=== PATIENT | female | born 1940 | race Caucasian/White ===

== ENCOUNTER 2023-01-25 08:38 | Outpatient (OUT) | payer MEDICARE, SELFPAY ==
[2023-01-25 09:17] LABS: Basophils Percent Auto 0.9 % (0.2-2.0); Eosinophils Absolute Auto 0.2 10^3/uL (0.0-0.7); Eosinophils Percent Auto 4.6 % (0.9-7.0); Hematocrit 38.2 % (36.0-48.0); Hemoglobin 12.5 g/dL (12.0-16.0); Immature Granulocytes Abs Auto 0.01 10^3/uL (0.00-0.03); Immature Granulocytes Pct Auto 0.2 % (0.0-0.5); Lymphocytes Absolute Auto 1.8 10^3/uL (1.2-3.8); Mean Corpuscular HGB Conc 32.7 g/dL (29.9-35.2); Mean Corpuscular Hemoglobin 31.6 pg (26.7-34.0); Mean Corpuscular Volume 96.7 fL (81.0-99.0); Mean Platelet Volume 12.1 fL (9.5-13.5); Monocytes Absolute Auto 0.3 10^3/uL (0.3-0.8); Monocytes Percent Auto 5.9 % (1.7-12.0); Neutrophils Absolute Auto 2.3 10^3/uL (1.4-6.5); Neutrophils Percent Auto 50.4 % (43.0-75.0); Platelet Count 174 10^3/uL (150-450); Red Blood Count 3.95 10^6/uL (4.20-5.40); Red Cell Distribution Width 13.5 % (11.0-15.0); White Blood Count 4.6 10^3/uL (4.0-11.0)
[2023-01-25 10:07] LABS: Estimated Average Glucose 226 mg/dL; Glycohemoglobin A1C 9.5 % (4.5-6.2)
[2023-01-25 11:01] LABS: Alanine Aminotransferase 23 U/L (14-59); Albumin Globulin Ratio 0.9; Albumin Level 3.1 g/dL (3.4-5.0); Alkaline Phosphatase 55 U/L (46-116); Anion Gap 13.1; Aspartate Amino Transferase 26 U/L (15-37); BUN Creatinine Ratio 26.9; Bilirubin Total 0.4 mg/dL (0.2-1.0); Calcium 8.9 mg/dL (8.5-10.1); Carbon Dioxide 27.2 mmol/L (21.0-32.0); Chloride 105 mmol/L (98-107); Estimated GFR (African America 35 (>=60); Estimated GFR (Non-African Ame 29 (>=60); Globulin 3.6 g/dL; Glucose 224 mg/dL (74-106); Potassium 4.3 mmol/L (3.5-5.1); Sodium 141 mmol/L (136-145); Total Protein 6.7 g/dL (6.4-8.2)
[2023-01-25 11:12] LABS: Free T3 2.08 pg/mL (2.18-3.98); Thyroid Stimulating Hormone 4.868 uIU/mL (0.358-3.740)
== END 2023-01-25 08:39 ==
PROVIDERS: PCP Nurse Practitioner Family; Visit Provider Nurse Practitioner Family
DX: I10 Essential (primary) hypertension (principal)
CPT/HCPCS: 36415; 80053; 83036; 84436; 84443; 84481; 85025

== ENCOUNTER 2023-02-11 10:47 | Outpatient (OUT) | payer MEDICARE, SELFPAY ==
--- NOTE | 2023-02-11 11:33 | PM.CN ---
Consult Note: HPI Data of Consult Patient: new to practice Consult date: 02/11/23 Requesting Physician: Danny Monroy MD Primary Care Provider: NATHAN JOVEL Consult Narrative Reason for consult: Low back pain, bilateral lower extremity pain Narrative: This is a pleasant 82yof who presents for evaluation. She notes increasing pain that radiates into her bilateral lower extremities. This is worsened with standing and ambulation. She has a history of two previous lumbar surgeries. She denies any recent trauma. She had advanced imaging prior to her surgery, but she has not had any imaging done after her surgeries. She utilizes Tylenol, but cannot take NSAIDs due to her kidney disease. She has completed several rounds of physical therapy and continues to provider directed home exercises, which provide minimal relief. She denies adverse medication side effects or loss of bowel or bladder control. cc:: CC: Danny Monroy MD Review of Systems ROS Status of ROS 10 or more systems reviewed and unremarkable except as noted in history and below Exam Constitutional Common normals: no apparent distress, oriented x3 and healthy appearing Respiratory Common normals: normal respiratory effort Effort & inspection: able to speak in complete sentences Back & Pelvis Other: Tenderness to palpation throughout the lumbar spine and paraspinal musculature. pain is elicited with flexion, extension, and lateral rotation of the lumbar spine. Facet loading maneuvers are positive bilaterally. Strength is noted to be unremarkable throughout the bilateral lower extremities except for decreased strength rated at 4/5 in the bilateral quadriceps femoris, anterior tibialis. Sensation is noted to be unremarkable throughout the bilateral lower extremity except for dysesthesia in the bilateral L3, L4, L5 dermatomal distributions. Coordination was intact. Gait remains nonantalgic. Extremity Common normals: normal to inspection Neuro Common normals: oriented x3, CN's II-XII intact bilaterally and no focal motor deficits Psych Common normals: mental status grossly normal and cooperative Assessment and Plan Assessment and Plan (1) Lumbar stenosis with neurogenic claudication: (2) Lumbar spondylosis: (3) Lumbar postlaminectomy syndrome: (4) Sacroiliac joint dysfunction of both sides: Plan This is a pleasant 82-year-old female who presents for evaluation. She has failed physical and medical modalities, as listed above. We discussed that given her symptomatology and surgical history, she likely had multiple pain generators that contribute to her pain. Given her failure to respond to her physical therapy and continued provider directed home exercises, I would like to update her imaging, given her surgical history. I will have her undergo MRI without contrast, given her kidney disease, as well as an x-ray of the sacrum. She is in agreement with this plan. Medications were reviewed, and no changes were made at this time. She'll follow up after the imaging is complete.
--- NOTE | 2023-02-11 12:03 | XR_ITS ---
The [address] [address] Patient Name: EDILIA HERNANDEZ MRN: [id number] date: 1940 Sex: F Assigned Patient Location: PM Current Patient Location: Accession/Order Number: [id number] Exam Date: 02/11/2023 12:30 Report Date: 02/12/2023 07:23 At the request of: ANDRIUS GIEDRAITIS Procedure: XR sacrum coccyx min 2V PROCEDURE: XR sacrum coccyx min 2V COMPARISON: None. HISTORY: Post laminectomy syndrome FINDINGS: SACRUM: No fracture, disruption of the sacral ala line, or cortical irregularity. COCCYX: No fracture or suspicious alignment. SOFT TISSUES: No widening of the sacroiliac joints. No radiopaque foreign body. OTHER: Degenerative spondylosis of the lumbar spine. Mild bilateral hip osteoarthropathy. Vascular calcifications IMPRESSION: No acute abnormality Electronically authenticated by: RORO BEAR Date: 02/12/2023 07:23
== END 2023-02-11 10:48 | disposition home or self-care (01) ==
LOC: PM 10:48
PROVIDERS: PCP Nurse Practitioner Family; Visit Provider Anesthesiology
DX: M96.1 Postlaminectomy syndrome, not elsewhere classified (principal); M47.816 Spondylosis without myelopathy or radiculopathy, lumbar region; M48.062 Spinal stenosis, lumbar region with neurogenic claudication
CPT/HCPCS: 72220; G0463

== ENCOUNTER 2023-03-04 15:15 | Outpatient (OUT) | payer MEDICARE, SELFPAY ==
--- NOTE | 2023-03-04 15:18 | MR_ITS ---
[address] [address] Patient Name: EDILIA HERNANDEZ MRN: [id number] date: 1940 Sex: F Assigned Patient Location: MRI Current Patient Location: MRI Accession/Order Number: [id number] Exam Date: 03/04/2023 15:51 Report Date: 03/04/2023 20:21 At the request of: JOANIE HODGE Procedure: MR lumbar spine wo con EXAMINATION: MR lumbar spine wo con HISTORY: Lumbar stenosis, lumbar post-laminectomy syndrome COMPARISON: No relevant comparison available. TECHNIQUE: A variety of imaging planes and parameters were utilized for visualization of suspected pathology. FINDINGS: For the purposes of numbering, sagittal T2 image # 8 extends from the T10 vertebral body superiorly to the S4 level inferiorly. PARASPINAL AREA: Normal with no visible mass. BONES: Normal alignment with no acute fracture or spondylolisthesis. Signal abnormality left inferior L4 and superior L5 vertebral bodies, Modic 2 change CORD/CAUDA EQUINA: Normal caliber, contour, and signal intensity. DISC LEVELS: 12-L1: Early degenerative disc disease is present without focal protrusion or neural impingement. L1-L2: Early degenerative disc disease is present without focal protrusion or neural impingement. L2-L3: Disc space narrowing and disc desiccation. Broad-based posterior disc herniation of the protrusion type extending up to 3.9 mm. Ligamentum flavum hypertrophy and facet osteoarthropathy. No central or foraminal stenosis L3-L4: Disc desiccation. Broad-based posterior disc herniation the protrusion type extending up to 4 mm. Ligamentum flavum hypertrophy and facet osteoarthropathy. Mild central canal stenosis. Mild bilateral foraminal stenosis. L4-L5: Moderate to severe disc space narrowing and disc desiccation. Broad-based posterior disc herniation of the protrusion type extending up to 5.2 mm. Segmental limb hypertrophy and facet osteoarthropathy. Severe narrowing of the central canal. Mild right and severe left foraminal stenosis L5-S1: Early degenerative disc disease is present without focal protrusion or neural impingement. MR/MR lumbar spine wo con IMPRESSION: Degenerative changes most significant at L4-5 where there is severe central canal, mild right and severe left foraminal stenosis Electronically authenticated by: RORO BEAR Date: 03/04/2023 20:21
== END 2023-03-04 15:16 | disposition home or self-care (01) ==
LOC: MRI 15:16
PROVIDERS: PCP Nurse Practitioner Family; Visit Provider Anesthesiology
DX: M48.061 Spinal stenosis, lumbar region without neurogenic claudication (principal); M96.1 Postlaminectomy syndrome, not elsewhere classified
CPT/HCPCS: 72148

== ENCOUNTER 2023-03-11 13:02 | Outpatient (OUT) | payer MEDICARE, SELFPAY ==
--- NOTE | 2023-03-11 13:05 | MM_ITS ---
Patient: EDILIA HERNANDEZ Exam Date: 03/11/2023 : 1940 Gender:F Ordering : NATHAN JOVEL [facility] Admission #: [id number] Family : Order #: [id number] CLICK HERE TO VIEW EXAM RADIOLOGY REPORT PROCEDURE: MM TOMOSYNTHESIS SCREENING BI COMPARISON: MG MAMM SCREEN 3D BOGDAN CAD, 03/05/2022. MG MAMM SCREEN 3D BOGDAN CAD, 02/27/2021. MG MAMM SCREEN BOGDAN W CAD, 02/24/2020. MG MAMM BOGDAN SCRN W CAD DIG, 10/02/2011. INDICATIONS: Screening Calculator Name NCI Breast Cancer Risk Assessment Tool 5 Year Breast Cancer Risk 1.00% Lifetime Breast Cancer Risk 1.10% Personal Breast Cancer No Personal Ovarian Cancer No Treatments None Family Cancers Sister with lung cancer at age 55; Brother with mult.myeloma cancer at age 49; Brother with mult.myeloma cancer at age 70. LOCATION: The [facility] BREAST COMPOSITION: Scattered areas fibroglandular density. FINDINGS: DIAGNOSTIC CATEGORY 2--BENIGN FINDING: RIGHT BREAST: No significant suspicious finding. Scattered benign-appearing calcifications are present. No significant change has occurred. LEFT BREAST: No significant suspicious finding. Scattered benign-appearing calcifications are present. No significant change has occurred. RECOMMENDATIONS: ROUTINE MAMMOGRAM AND CLINICAL EVALUATION IN 12 MONTHS. PLEASE NOTE: A NORMAL MAMMOGRAM DOES NOT EXCLUDE THE POSSIBILITY OF BREAST CANCER. A CLINICALLY SUSPICIOUS PALPABLE LUMP SHOULD BE BIOPSIED. Dictated by: Uday Major M.D. on 03/12/2023 at 13:57 Approved by: Uday Major M.D. on 03/12/2023 at 14:01
== END 2023-03-11 13:03 | disposition home or self-care (01) ==
LOC: MAMMO 13:02
PROVIDERS: PCP Nurse Practitioner Family; Visit Provider Nurse Practitioner Family
DX: Z12.31 Encounter for screening mammogram for malignant neoplasm of breast (principal)
CPT/HCPCS: 77063; 77067

== ENCOUNTER 2023-03-18 15:17 | Outpatient (OUT) | payer MEDICARE, SELFPAY ==
--- NOTE | 2023-03-18 16:00 | PM.CN ---
Consult Note: HPI Data of Consult Patient: known to practice within the last 3 years Consult date: 03/18/23 Requesting Physician: Danny Monroy MD Primary Care Provider: NATHAN JOVEL Consult Narrative Reason for consult: low back, bilateral lower extremity pain Narrative: this is a pleasant 82-year-old female who presents for assessment. She has persistence of pain throughout the low back that radiates into the bilateral dorsum of these. She notes weakness throughout the bilateral or summaries. Her lumbar imaging was reviewed, which is significant for moderate to severe stenosis, worse at L4-L5. There is also audible levels of moderate to severe facet arthropathy noted throughout the lumbar spine. She continues to engage in provider directed home exercises, which she has done for over three months. She utilizes Tylenol, which she has done for over three months. She denies adverse medication side effects or loss of bowel or bladder control. cc:: CC: Danny Monroy MD Review of Systems ROS Status of ROS 10 or more systems reviewed and unremarkable except as noted in history and below Meds Home Medications and Allergies Home Medications Medication Instructions Recorded Confirmed Type amlodipine 5 mg tablet 5 mg PO DAILY 02/11/23 02/11/23 History aspirin 81 mg capsule 81 mg PO DAILY 02/11/23 02/11/23 History calcium carbonate 600 mg-vitamin 1 tab PO BID 02/11/23 02/11/23 History D3 5 mcg (200 unit) tablet (Calcium 600 + D(3)) clonidine HCl 0.1 mg tablet 0.1 mg PO DAILY 02/11/23 02/11/23 History coenzyme Q10 100 mg capsule (Co 100 mg PO DAILY 02/11/23 02/11/23 History Q-10) doxazosin 8 mg tablet 8 mg PO BID 02/11/23 02/11/23 History ezetimibe 10 mg tablet 10 mg PO DAILY 02/11/23 02/11/23 History fenofibrate 160 mg tablet 160 mg PO DAILY 02/11/23 02/11/23 History fluticasone propionate 50 1 spray intranasal DAILY PRN 02/11/23 02/11/23 History mcg/actuation nasal allergy symptoms spray,suspension (24 Hour Allergy Relief) furosemide 20 mg tablet 20 mg PO DAILY PRN edema 02/11/23 02/11/23 History hydrochlorothiazide 25 mg tablet 25 mg PO DAILY 02/11/23 02/11/23 History insulin glargine 100 unit/mL 8 unit subcut QPM 02/11/23 02/11/23 History subcutaneous solution (Lantus U-100 Insulin) levothyroxine 25 mcg capsule 25 mcg PO DAILY 02/11/23 02/11/23 History magnesium 250 mg tablet 250 mg PO DAILY 02/11/23 02/11/23 History metoprolol tartrate 50 mg tablet 50 mg PO BID 02/11/23 02/11/23 History (Lopressor) multivitamin (Daily Multi-Vitamin 1 tab PO DAILY 02/11/23 02/11/23 History tablet) pantoprazole 40 mg tablet,delayed 40 mg PO DAILY 02/11/23 02/11/23 History release (Protonix) potassium chloride 10 mEq 10 meq PO DAILY PRN edema 02/11/23 02/11/23 History tablet,extended release (K-Tab) spironolactone 25 mg tablet 12.5 mg PO DAILY 02/11/23 02/11/23 History Allergies Allergy/AdvReac Type Severity Reaction Status Date / Time Penicillins Allergy Verified 02/11/23 14:08 [id number]-VLB-UdM Reductase Allergy Verified 02/11/23 14:08 Inhibitor Exam Constitutional Common normals: no apparent distress, oriented x3 and healthy appearing Respiratory Common normals: normal respiratory effort Effort & inspection: able to speak in complete sentences Back & Pelvis Other: tenderness to palpation throughout the lumbar spine and paraspinal musculature. Pain is elicited with flexion, extension, and lateral rotation of the lumbar spine. Facet loading maneuvers are positive bilaterally. Strength is noted to be unremarkable throughout the bilateral lower extremities except for decreased strength rated at four out of five in the bilateral quadriceps femoris, anterior tibialis. Sensation is noted to be unremarkable to the bilateral lower extremities except for dysesthesia in the bilateral L4, L5 dermatomal distributions. Coordination remains intact. Gait remains mildly antalgic. Extremity Common normals: normal to inspection Neuro Common normals: oriented x3, CN's II-XII intact bilaterally and no focal motor deficits Psych Common normals: mental status grossly normal and cooperative Assessment and Plan Assessment and Plan (1) Lumbar postlaminectomy syndrome: (2) Lumbar spondylosis: (3) Lumbar stenosis with neurogenic claudication: Plan this is a pleasant 82-year-old female who presents for assessment. She notes worsening pain throughout her low back that radiates to the bilateral lower extremity. Imaging was reviewed, as noted above. Given her symptomatology and imaging findings, it is prudent to attempt bilateral L4-L5 transforaminal epidural steroid injection to provide analgesia. Depending on her response, she may benefit from bilateral L5-S1 transforaminal epidural steroid injection. She expressed understanding and is in agreement with this plan. Medications were reviewed, and no changes were made at this time. She will follow-up after the procedure is completed.
== END 2023-03-18 15:18 | disposition home or self-care (01) ==
LOC: PM 03-20 14:17
PROVIDERS: PCP Nurse Practitioner Family; Visit Provider Anesthesiology
DX: M47.816 Spondylosis without myelopathy or radiculopathy, lumbar region (principal); M96.1 Postlaminectomy syndrome, not elsewhere classified; M48.062 Spinal stenosis, lumbar region with neurogenic claudication
CPT/HCPCS: G0463

== ENCOUNTER 2023-04-01 08:26 | Day surgery (SDC) | payer MEDICARE, SELFPAY ==
[2023-04-01 09:29] VITALS: BP 185/74; PULSE 72; RESP 16; TEMP 36.2; O2SAT 100
[2023-04-01 09:35] LABS: Glucometer 361 mg/dL (74-106)
[2023-04-01] MEDS: IOHEXOL 240 MG/ML - 10 ML VIAL INJ (10:22)
[2023-04-01] MEDS: LIDOCAINE HCL 2% PF 100 MG/5 ML VIAL INJ (10:22)
[2023-04-01] MEDS: TRIAMCINOLONE ACETONIDE 40 MG/ML VIAL INJ (10:23)
[2023-04-01] MEDS: BUPIVACAINE HCL 0.25% PF 25 MG/10 ML VIAL INJ (10:24)
[2023-04-01 10:26] VITALS: BP 202/89; BP 231/93; PULSE 66; PULSE 69; RESP 20; O2SAT 95
--- NOTE | 2023-04-01 10:26 | W.PM.PROCNOT ---
Date of procedure: 04/01/23 Pre-op diagnosis: Lumbar stenosis with neurogenic claudication Post-op diagnosis: same as pre-op Procedure: Procedure: Bilateral L4-5 transforaminal epidural steroid injection Medications: Bupivavaine 0.25% 2cc, lidocaine 1% 1cc, kenalog 40mg The patient was seen and examined in the preoperative holding area.? Informed consent was obtained and placed on the chart.? Patient was brought to the medical procedure unit and placed in the prone position where a timeout was completed verifying the correct patient, procedure site, position, and planned special equipment using sterile aseptic technique.? Under direct fluoroscopic visualization a 25-gauge Quincke tipped spinal needle was advanced at level left L4-5 to the designated neural foramen where contrast dye was injected to show adequate spread.? There was no evidence of vascular or adverse uptake.? Epidural spread was appreciated.? The above-mentioned injectate was then placed in a 1.5 mL aliquot preceded by negative aspiration.? The needle was removed. The same procedure, at the same level, was completed on the opposite side. ? Patient was taken to the postprocedural recovery area and monitored for an appropriate length of time before found suitable for discharge in the accompaniment of a responsible adult. Anesthesia: None Surgeon: Danny Monroy Pathology: none sent Condition: stable Disposition: no change
[2023-04-01] MEDS: 0.9 % SODIUM CHLORIDE 10 ML INJ (14:04)
== END 2023-04-01 10:33 | disposition home or self-care (01) ==
LOC: SURGOUT 04-02 08:27
PROVIDERS: PCP Nurse Practitioner Family; Visit Provider Anesthesiology
DX: M48.062 Spinal stenosis, lumbar region with neurogenic claudication (principal); M81.0 Age-related osteoporosis without current pathological fracture; E78.00 Pure hypercholesterolemia, unspecified; I27.20 Pulmonary hypertension, unspecified; K29.70 Gastritis, unspecified, without bleeding; M72.0 Palmar fascial fibromatosis [Dupuytren]; I12.9 Hypertensive chronic kidney disease with stage 1 through stage 4 chronic kidney disease, or unspecified chronic kidney disease; N18.9 Chronic kidney disease, unspecified; Z85.828 Personal history of other malignant neoplasm of skin
CPT/HCPCS: 36415; 64483; 82948; Q9966

== ENCOUNTER 2023-04-17 10:05 | Observation (INO) | payer MEDICARE, SELFPAY ==
[2023-04-17] VITALS (22 sets, daily range): BP systolic 119–200; BP diastolic 50–66; PULSE 72–107; RESP 13–23; TEMP 36.6–36.7; O2SAT 95–99; BMI 25.8
--- NOTE | 2023-04-17 10:28 | ECG_ITS ---
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
--- NOTE | 2023-04-17 10:44 | CT_ITS ---
[address] [address] Patient Name: EDILIA HERNANDEZ MRN: [id number] date: 1940 Sex: F Assigned Patient Location: ER Current Patient Location: Accession/Order Number: [id number] Exam Date: 04/17/2023 10:58 Report Date: 04/17/2023 11:22 At the request of: LILY MO Procedure: CT abdomen pelvis wo con EXAM: CT abdomen pelvis wo con; [id number] REASON FOR EXAM: lower abd pain TECHNIQUE: Helical CT images of the abdomen and pelvis were obtained without IV contrast. Multiplanar reformats were generated at the scanner. Dose reduction technique used: Automated exposure control and/or adjustment of the mA and/or kV according to patient size and/or use of iterative reconstruction technique. COMPARISON: None. FINDINGS: Note: Compared with a contrast-enhanced CT exam, noncontrast images are relatively insensitive for detection of solid organ and vascular abnormalities. Visualized Chest: No pleural effusion or any significant pulmonary findings. Abdomen: Liver: Within normal limits. Gallbladder: Resected. Bile Ducts: No significant biliary ductal dilatation. Pancreas: No ductal dilatation or inflammatory changes. Spleen: No splenomegaly. Adrenals: No nodules. Kidneys: -No stones or hydronephrosis. -There are 2 incompletely characterized hypodense lesions in the right kidney with largest measuring up to 13 mm, indeterminate though likely representing cysts. Vascular: No aortic aneurysm. Severe calcified atherosclerosis. Lymph Nodes: No adenopathy. Abdominal Wall: No hernia or mass. Pelvis: No mass or adenopathy. Bowel/Peritoneal Cavity/Mesentery: -Possible mild diffuse pericolonic fat stranding and mild wall thickening. -No bowel obstruction or significant ileus. -No free air or free fluid. Musculoskeletal: No acute fracture or suspicious osseous lesion. CT/CT abdomen pelvis wo con IMPRESSION: 1. Suboptimal evaluation of the bowel wall in the absence of IV contrast. Given this limitation there are equivocal findings of mild diffuse colitis. 2. No other potentially acute intra-abdominal abnormality demonstrated. Electronically authenticated by: BUSHRA BEST Date: 04/17/2023 11:22
--- NOTE | 2023-04-17 10:44 | ED_ITS ---
HPI - General Adult General Chief complaint: Nausea/Vomiting/Diarrhea Stated complaint: DIARRHEA SINCE APPROX. SUN/VOMITING Time Seen by Provider: 04/17/23 10:28 Source: patient Mode of arrival: Wheelchair History of Present Illness HPI narrative: Patient is a 82-year-old female with history of hypertension diabetes coming to us after she has been having 4 days of nausea vomiting and diarrhea, she mentioned that she has not been able to keep anything down and she has not been able to take her medication as well although she has been taking her insulin The patient noted that she saw some blood when she was wiping at the last bowel movement before she came to the ER She is denying any specific abdominal pain but she have some generalized abdominal pain that is crampy, the patient also have dizziness with movement and was driving for the last 2 days because she had no GI contact to throw up Related Data Home Medications Medication Instructions Recorded Confirmed amlodipine 5 mg tablet 5 mg PO DAILY 02/11/23 04/17/23 aspirin 81 mg capsule 81 mg PO DAILY 02/11/23 04/17/23 calcium carbonate 600 mg-vitamin 1 tab PO BID 02/11/23 04/17/23 D3 5 mcg (200 unit) tablet (Calcium 600 + D(3)) clonidine HCl 0.1 mg tablet 0.1 mg PO DAILY 02/11/23 04/17/23 coenzyme Q10 100 mg capsule (Co 100 mg PO DAILY 02/11/23 04/01/23 Q-10) doxazosin 8 mg tablet 8 mg PO BID 02/11/23 04/17/23 ezetimibe 10 mg tablet 10 mg PO DAILY 02/11/23 04/17/23 fenofibrate 160 mg tablet 160 mg PO DAILY 02/11/23 04/17/23 fluticasone propionate 50 1 spray intranasal DAILY PRN 02/11/23 04/17/23 mcg/actuation nasal allergy symptoms spray,suspension (24 Hour Allergy Relief) furosemide 20 mg tablet 20 mg PO DAILY PRN edema 02/11/23 04/17/23 hydrochlorothiazide 25 mg tablet 25 mg PO DAILY 02/11/23 04/17/23 insulin glargine 100 unit/mL 18 unit subcut QPM 02/11/23 04/17/23 subcutaneous solution (Lantus U-100 Insulin) levothyroxine 25 mcg capsule 25 mcg PO DAILY 02/11/23 04/17/23 magnesium 250 mg tablet 250 mg PO DAILY 02/11/23 04/17/23 metoprolol tartrate 50 mg tablet 25 mg PO BID 02/11/23 04/17/23 (Lopressor) multivitamin (Daily Multi-Vitamin 1 tab PO DAILY 02/11/23 04/17/23 tablet) pantoprazole 40 mg tablet,delayed 40 mg PO DAILY 02/11/23 04/17/23 release (Protonix) potassium chloride 10 mEq 10 meq PO DAILY PRN edema 02/11/23 04/17/23 tablet,extended release (K-Tab) spironolactone 25 mg tablet 12.5 mg PO .every other day 02/11/23 04/17/23 Allergies Allergy/AdvReac Type Severity Reaction Status Date / Time Penicillins Allergy Verified 02/11/23 14:08 [id number]-[id number] Reductase Allergy Verified 02/11/23 14:08 Inhibitor Review of Systems ROS Status of ROS 10 or more systems reviewed and unremarkable except as noted in history and below [facility] Medical History (Updated 04/17/23 @ 15:45 by Marlene Quiros MD) Surgical History (Updated 03/20/23 @ 13:56 by Robyn Bansal RN) Exam Narrative Exam Narrative: Nurses notes and vital signs reviewed and patient is not hypoxic. General: Well-appearing and in no apparent distress. Skin: Warm, dry, no pallor noted. No rash. Head: Normocephalic, atraumatic. Neck: Supple, non-tender. Eye: Pupils are equal, round and EOMI. No scleral icterus. Ears, Nose, Mouth, and Throat: TM are clear, no nasal mucosal hypertrophy. Oral mucosa is moist, no posterior oropharynx erythema, uvula is mid-line Cardiovascular: Regular Rate and Rhythm without murmur, gallop or rub. Respiratory: No accessory muscle use or respiratory distress. Lungs are clear to auscultation, no wheezing, rales or rhonchi Chest Wall: no tenderness Back: No midline thoracic or lumbar vertebral tenderness. No CVA tenderness Musculoskeletal: normal ROM, no calf or popliteal tenderness, no lower extremity edema/swelling GI: Abdomen is soft, non-distended. Normal bowel sounds. No masses appreciated. No tenderness to palpation. No rebound, guarding, or rigidity noted. Neurological: A&O x4. No cranial nerve dysfunction observed. Moves all extremities. Sensation intact. Psychiatric: Cooperative and interactive. Normal mood and affect. Constitutional Vital Signs, click to edit/add: Last Vital Signs Temp 97.8 F 04/17/23 10:19 Pulse 76 04/17/23 14:25 Resp 16 04/17/23 14:25 BP 180/58 H 04/17/23 15:41 Pulse Ox 98 04/17/23 14:25 O2 Del Method Room Air 04/17/23 14:25 Course Vital Signs Vital signs: Vital Signs Temperature 97.8 F 04/17/23 10:19 Pulse Rate 107 H 04/17/23 10:19 Respiratory Rate 18 04/17/23 10:19 Blood Pressure 119/66 04/17/23 10:19 Pulse Oximetry 97 04/17/23 10:19 Temperature 97.8 F 04/17/23 10:19 Pulse Rate 76 04/17/23 14:25 Respiratory Rate 16 04/17/23 14:25 Blood Pressure 180/58 H 04/17/23 15:41 Pulse Oximetry 98 04/17/23 14:25 Oxygen Delivery Method Room Air 04/17/23 14:25 Medical Decision Making MDM Narrative Medical decision making narrative: The patient EKG upon presentation showing sinus rhythm there is some non specific ST changes with mild ST depression at lead V4 to V6, no old EKG for comparison Patient had no chest pain at any time or any chest pressure The patient also had IV fluids started in the ER in addition to Zofran blood pressure was noted to be elevated after she was started IV fluid and she was started on labetalol as well is 1 dose The elevated blood pressure is mostly secondary to the patient not taking her medication she also have some acute kidney injury I spoke with Dr. Zavala in cardiology service and I discussed with him the elevation of the troponin from 70-90 on the second reading and he agreed that now that the patient elevated troponin could be multifactorial due to elevated blood pressure in addition to acute kidney injury The patient will be admitted Lab Data Labs: Lab Results 04/17/23 04/17/23 Range/Units 10:30 12:36 WBC 8.4 (4.0-11.0) 10^3/uL RBC 3.80 L (4.20-5.40) 10^6/uL Hgb 11.9 L (12.0-16.0) g/dL Hct 37.0 (36.0-48.0) % MCV 97.4 (81.0-99.0) fL MCH 31.3 (26.7-34.0) pg MCHC 32.2 (29.9-35.2) g/dL RDW 13.5 (11.0-15.0) % Plt Count 219 (150-450) 10^3/uL MPV 12.1 (9.5-13.5) fL Neut % (Auto) 73.4 (43.0-75.0) % Lymph % (Auto) 18.7 L (20.5-60.0) % [place] % (Auto) 6.0 (1.7-12.0) % Eos % (Auto) 1.1 (0.9-7.0) % Baso % (Auto) 0.4 (0.2-2.0) % Neut # (Auto) 6.2 (1.4-6.5) 10^3/uL Lymph # (Auto) 1.6 (1.2-3.8) 10^3/uL [place] # (Auto) 0.5 (0.3-0.8) 10^3/uL Eos # (Auto) 0.1 (0.0-0.7) 10^3/uL Baso # (Auto) 0.0 (0.0-0.1) 10^3/uL Abs Immat Gran (auto) 0.03 (0.00-0.03) 10^3/uL Imm/Tot Granulo (auto) 0.4 (0.0-0.5) % PT 11.8 H (9.0-11.6) sec INR 1.12 Sodium 139 (136-145) mmol/L Potassium 3.5 (3.5-5.1) mmol/L Chloride 102 (98-107) mmol/L Carbon Dioxide 26.3 (21.0-32.0) mmol/L Anion Gap 14.2 BUN 33.0 H (7.0-18.0) mg/dL Creatinine 2.01 H (0.55-1.02) mg/dL Est GFR ( Amer) 29 L (>=60) Est GFR (Non-Af Amer) 24 L (>=60) BUN/Creatinine Ratio 16.4 Glucose 151 H (74-106) mg/dL Calcium 9.1 (8.5-10.1) mg/dL Total Bilirubin 0.8 (0.2-1.0) mg/dL AST 28 (15-37) U/L ALT 26 (14-59) U/L Alkaline Phosphatase 47 (46-116) U/L Troponin I High Sens 70.2 H* 90.3 H* (4.0-51.3) pg/mL Total Protein 6.4 (6.4-8.2) g/dL Albumin 3.0 L (3.4-5.0) g/dL Globulin 3.4 g/dL Albumin/Globulin Ratio 0.9 Discharge Plan Discharge Chief Complaint: Nausea/Vomiting/Diarrhea Clinical Impression: Acute kidney failure, Colitis, Elevated troponin, Intractable nausea and vomiting Patient Disposition: Admitted As Inpatient Time of Disposition Decision: 15:45 Condition: Good
[2023-04-17] MEDS: 0.9 % SODIUM CHLORIDE 1,000 ML 1000 ML IV (10:46)
[2023-04-17 10:55] LABS: Basophils Percent Auto 0.4 % (0.2-2.0); Eosinophils Absolute Auto 0.1 10^3/uL (0.0-0.7); Eosinophils Percent Auto 1.1 % (0.9-7.0); Hemoglobin 11.9 g/dL (12.0-16.0); Immature Granulocytes Abs Auto 0.03 10^3/uL (0.00-0.03); Immature Granulocytes Pct Auto 0.4 % (0.0-0.5); Lymphocytes Absolute Auto 1.6 10^3/uL (1.2-3.8); Lymphocytes Percent Auto 18.7 % (20.5-60.0); Mean Corpuscular HGB Conc 32.2 g/dL (29.9-35.2); Mean Corpuscular Hemoglobin 31.3 pg (26.7-34.0); Mean Corpuscular Volume 97.4 fL (81.0-99.0); Mean Platelet Volume 12.1 fL (9.5-13.5); Monocytes Absolute Auto 0.5 10^3/uL (0.3-0.8); Neutrophils Absolute Auto 6.2 10^3/uL (1.4-6.5); Neutrophils Percent Auto 73.4 % (43.0-75.0); Platelet Count 219 10^3/uL (150-450); Red Cell Distribution Width 13.5 % (11.0-15.0); White Blood Count 8.4 10^3/uL (4.0-11.0)
[2023-04-17 11:09] LABS: INR 1.12; Prothrombin Time 11.8 sec (9.0-11.6)
[2023-04-17 11:14] LABS: Alanine Aminotransferase 26 U/L (14-59); Albumin Globulin Ratio 0.9; Alkaline Phosphatase 47 U/L (46-116); Anion Gap 14.2; Aspartate Amino Transferase 28 U/L (15-37); BUN Creatinine Ratio 16.4; Bilirubin Total 0.8 mg/dL (0.2-1.0); Calcium 9.1 mg/dL (8.5-10.1); Carbon Dioxide 26.3 mmol/L (21.0-32.0); Chloride 102 mmol/L (98-107); Estimated GFR (African America 29 (>=60); Estimated GFR (Non-African Ame 24 (>=60); Globulin 3.4 g/dL; Glucose 151 mg/dL (74-106); Potassium 3.5 mmol/L (3.5-5.1); Sodium 139 mmol/L (136-145); Total Protein 6.4 g/dL (6.4-8.2)
[2023-04-17 11:20] LABS: Troponin I High Sensitivity 70.2 pg/mL (4.0-51.3)
[2023-04-17] MEDS: ASPIRIN 81 MG TAB.CHEW 324 MG PO (12:10)
[2023-04-17] MEDS: FAMOTIDINE/PF 20 MG/2 ML VIAL IV (12:10)
[2023-04-17] MEDS: NITROGLYCERIN 0.4 MG TAB.SUBL PO (12:45)
[2023-04-17 13:03] LABS: Troponin I High Sensitivity 90.3 pg/mL (4.0-51.3)
[2023-04-17] MEDS: LABETALOL HCL 20 MG/4 ML SYRINGE 10 MG IVP (13:52)
[2023-04-17] MEDS: CLONIDINE HCL 0.1 MG TABLET PO (15:41)
[2023-04-17 17:13] LABS: Bilirubin Urine SMALL (NEGATIVE); Blood Urine NEGATIVE (NEGATIVE); Color Urine YELLOW (YELLOW); Glucose Urine UA NEGATIVE (NEGATIVE); Ketones Urine NEGATIVE (NEGATIVE); Leukocyte Esterase Urine TRACE (NEGATIVE); Nitrite Urine NEGATIVE (NEGATIVE); Protein Urine 100 mg/dL (NEG/TRACE); Specific Gravity Urine >=1.030 (1.005-1.025); Urobilinogen Urine 0.2 EU/dL (0.2-1.0)
[2023-04-17 17:14] LABS: Clarity Urine SLIGHTLY CLOUDY (CLEAR); Urine Microscopic Indicated YES
[2023-04-17 17:19] LABS: Bacteria Urine TRACE #/HPF (NONE SEEN); Cast Seen? NONE SEEN #/LPF (NONE SEEN); Crystals Seen? None Seen #/HPF (None Seen); Mucus Urine NONE SEEN (NONE SEEN); RBC Urine NONE SEEN #/HPF (0-2); Squamous Epithelial Cell Urine RARE #/LPF (NONE/RARE)
[2023-04-17 17:20] LABS: Urine Culture Indicated YES
--- NOTE | 2023-04-17 17:29 | CA_ITS ---
Patient: EDILIA HERNANDEZ Exam Date: 04/18/2023 : 1940 Gender:F Ordering : DR True Devine . Admission #: [id number] Family : DR BRANDY SNYDER M.D. Order #: [id number] CLICK HERE TO VIEW EXAM ECHOCARDIOGRAM REPORT PROCEDURE: CA ECHO DOPPLER COMPLETE INDICATIONS: Dyspnea, h/o pulmonary hypertension, diabetes COMPARISON: None. DESCRIPTION: COMPLETE ECHOCARDIOGRAM Real-time transthoracic echocardiography with 2D, M-mode, spectral and color flow Doppler performed. QUALITY: Technical quality was good. LEFT VENTRICLE: Normal chamber size. Proximal septal hypertrophy (sigmoid septum). Normal systolic function. LV EF: Normal left ventricular ejection fraction, (>55%). DIASTOLIC: Grade II diastolic dysfunction. ATRIAL SEPTUM: LEFT ATRIUM: Mild dilatation. RIGHT ATRIUM: Normal chamber size. RIGHT VENTRICLE: Normal chamber size. Normal right ventricular systolic function. TRICUSPID VALVE: Normal mobility and thickness. No stenosis with mild regurgitation. Doppler studies reveal mildly (35-45) elevated right sided pressures. RVSP 39 mmHg MITRAL VALVE: Normal mobility and thickness. No evidence of mitral valve stenosis. There is no mitral annular calcification. Mild mitral regurgitation. AORTIC VALVE: Normal trileaflet appearance. No visible sclerosis. Normal leaflet mobility. No evidence of aortic valve stenosis. No aortic regurgitation. AORTIC ROOT: Normal diameter and appearance. PULMONIC VALVE: Normal thickness and mobility. No stenosis. Trivial regurgitation. PERICARDIUM: Trivial pericardial effusion. IVC: Collapses with inspirations. IVC is normal in size. PLEURA: CONCLUSION: 1. Normal left ventricular size and systolic function. LVEF is 55 to 60%. 2. Normal right ventricular size and systolic function. 3. Grade 2 diastolic dysfunction. 4. Mild mitral and tricuspid regurgitation. 5. Mildly elevated right-sided pressures. Adult Echocardiography Procedure Report Left Ventricle LVEDD (3.7 - 5.6 cm): 4.36 cm LVESD (2.2 - 4.0 cm): 3.10 cm LVIVS thickness (0.6 - 1.2 cm): 1.37 cm LVPW thickness (0.5 - 1.0 cm): 0.91 cm e': 0.06 m/s E - e': 14.85 LVOT Max Gradient: 3.53 mm[Hg], 3.71 mm[Hg] LVOT Area (cm2): 0.96 m/s, 0.94 m/s Peak Velocity (LVOT): 0.96 m/s, 0.94 m/s Mean Velocity (LVOT): 0.62 m/s LVOT Diameter 1.94 cm Left Atrium LA Volume Index (2D A2C): 36.28 ml/m2 Left Atrium Systolic Dimension: 3.56 cm Mitral Valve MV E to A Ratio: 1.12 Mitral Valve A-Wave Peak Velocity: 0.86 m/s Mitral Valve E-Wave Peak Velocity: 0.96 m/s Right Ventricle Aorta AO Root Diam: 2.68 cm Ascending Ao Diam: 2.35 cm Aortic Valve AoV Area (Peak Mina): 1.56 cm2, 1.56 cm2, 1.52 cm2, 1.52 cm2 AoV Area (VTI): 1.77 cm2, 1.77 cm2 Peak Velocity(Antegrade Flow): 1.83 m/s Peak Gradient(Antegrade Flow): 13.44 mm[Hg] Mean Velocity(Antegrade Flow): 1.39 m/s Mean Gradient(Antegrade Flow): 8.41 mm[Hg] Velocity Time Integral: 49.59 cm Tricuspid Valve Peak Velocity (Regurgitant Flow): 2.99 m/s, 2.92 m/s Pulmonic Valve Peak Velocity: 1.05 m/s Peak Gradient: 4.63 mm[Hg], 4.26 mm[Hg] Right Atrium Right Atrium Systolic Pressure: 29.39 ml, 29.39 ml Dictated by: Jani Sebastian M.D. on 04/18/2023 at 12:36 Approved by: Jani Sebastian M.D. on 04/18/2023 at 12:40
[2023-04-17 18:17] LABS: Amylase 78 U/L (25-115); Magnesium 1.6 mg/dL (1.8-2.4)
[2023-04-17 18:22] LABS: Glucometer 124 mg/dL (74-106)
[2023-04-17 18:32] LABS: Free T3 1.57 pg/mL (2.18-3.98); Thyroid Stimulating Hormone 3.102 uIU/mL (0.358-3.740)
[2023-04-17] MEDS: LACTATED RINGER'S SOLUTION 1,000 ML 100 ML IV (18:40)
--- NOTE | 2023-04-17 18:46 | PC.NURSE ---
Critical Troponin 212, reported to . Agrees to observe until AM draw.
[2023-04-17] MEDS: DOXAZOSIN MESYLATE 2 MG TABLET 8 MG PO (21:46)
[2023-04-17] MEDS: CALCIUM CARBONATE 600 MG/VITAMIN D3 400 IU TABLET 1 TAB PO (21:47)
[2023-04-17] MEDS: METOPROLOL TARTRATE 25 MG TABLET PO (21:47)
[2023-04-17] MEDS: INSULIN DETEMIR 300 UNIT/3 ML INSULN.PEN 18 UNIT SUBQ (21:49)
[2023-04-17 21:51] LABS: Glucometer 298 mg/dL (74-106)
[2023-04-17] MEDS: INSULIN ASPART 300 UNIT/3 ML PEN SUBQ (21:51)
[2023-04-17 22:25] LABS: Adenovirus F 40/41 NOT DETECTED (NOT DETECTE); Astrovirus NOT DETECTED (NOT DETECTE); Campylobacter NOT DETECTED (NOT DETECTE); Cryptosporidium NOT DETECTED (NOT DETECTE); Cyclospora cayetanensis NOT DETECTED (NOT DETECTE); Entamoeba histolytica NOT DETECTED (NOT DETECTE); Enteroaggregative E.coli NOT DETECTED (NOT DETECTE); Giardia lamblia NOT DETECTED (NOT DETECTE); Norovirus GI/GII NOT DETECTED (NOT DETECTE); Plesiomonas shigelloides NOT DETECTED (NOT DETECTE); Rotavirus A NOT DETECTED (NOT DETECTE); Salmonella NOT DETECTED (NOT DETECTE); Sapovirus NOT DETECTED (NOT DETECTE); Shiga-like toxin-producing E.C NOT DETECTED (NOT DETECTE); Shigella/Enteroinvasive E.coli NOT DETECTED (NOT DETECTE); Vibrio NOT DETECTED (NOT DETECTE); Vibrio cholerae NOT DETECTED (NOT DETECTE); Yersinia enterocolitica NOT DETECTED (NOT DETECTE)
[2023-04-17 23:37] LABS: Enteropathogenic E.coli DETECTED (NOT DETECTE); Enterotoxigenic E. coli DETECTED (NOT DETECTE)
[2023-04-18] VITALS (59 sets, daily range): BP systolic 134–209; BP diastolic 47–80; PULSE 62–94; RESP 13–29; TEMP 36.7; O2SAT 94–99
[2023-04-18 02:12] LABS: Glucometer 49 mg/dL (74-106)
[2023-04-18 02:45] LABS: Glucometer 110 mg/dL (74-106)
[2023-04-18] MEDS: LACTATED RINGER'S SOLUTION 1,000 ML 100 ML IV (03:48)
[2023-04-18] MEDS: HYDRALAZINE HCL 20 MG/ML VIAL 10 MG IVP (04:13)
[2023-04-18 05:11] LABS: Basophils Percent Auto 0.5 % (0.2-2.0); Eosinophils Absolute Auto 0.2 10^3/uL (0.0-0.7); Eosinophils Percent Auto 2.5 % (0.9-7.0); Hematocrit 27.9 % (36.0-48.0); Immature Granulocytes Abs Auto 0.02 10^3/uL (0.00-0.03); Immature Granulocytes Pct Auto 0.3 % (0.0-0.5); Lymphocytes Percent Auto 17.3 % (20.5-60.0); Mean Corpuscular HGB Conc 32.3 g/dL (29.9-35.2); Mean Corpuscular Hemoglobin 32.1 pg (26.7-34.0); Mean Corpuscular Volume 99.6 fL (81.0-99.0); Mean Platelet Volume 12.1 fL (9.5-13.5); Monocytes Absolute Auto 0.6 10^3/uL (0.3-0.8); Monocytes Percent Auto 9.5 % (1.7-12.0); Neutrophils Absolute Auto 4.2 10^3/uL (1.4-6.5); Neutrophils Percent Auto 69.9 % (43.0-75.0); Platelet Count 172 10^3/uL (150-450); Red Cell Distribution Width 13.6 % (11.0-15.0)
[2023-04-18 05:39] LABS: BUN Creatinine Ratio 17.8; Calcium 7.5 mg/dL (8.5-10.1); Carbon Dioxide 25.6 mmol/L (21.0-32.0); Chloride 111 mmol/L (98-107); Estimated GFR (African America 34 (>=60); Estimated GFR (Non-African Ame 28 (>=60); Glucose 148 mg/dL (74-106); Magnesium 1.7 mg/dL (1.8-2.4); Potassium 3.6 mmol/L (3.5-5.1); Sodium 141 mmol/L (136-145)
[2023-04-18 06:01] LABS: Troponin I High Sensitivity 149.7 pg/mL (4.0-51.3)
[2023-04-18] MEDS: OMEPRAZOLE 40 MG CAPSULE.DR PO (06:09)
[2023-04-18] MEDS: LEVOTHYROXINE SODIUM 25 MCG TABLET PO ×2 (06:09→08:11)
[2023-04-18 07:41] LABS: Glucometer 177 mg/dL (74-106)
--- NOTE | 2023-04-18 07:58 | P.HP_ITS ---
H&P: HPI History of Present Illness Chief complaint: DIARRHEA SINCE APPROX. SUN/VOMITING Narrative: Scented to the emergency room with a 4-day history of diarrhea. She denies any unusual foods. She was at a bank but at her hindu. Denies any knowledge of anyone else getting sick. Patient was seen and evaluated in the emergency room found to have acute kidney injury, uncontrolled hypertension, uncontrolled diabetes mellitus was admitted to the ICU secondary to elevated troponins. Case was discussed with cardiology prior to admission. Review of Systems ROS Status of ROS 10 or more systems reviewed and unremarkable except as noted in history and below [facility] Medical History (Updated 04/17/23 @ 15:45 by Marlene Quiros MD) Surgical History (Updated 03/20/23 @ 13:56 by Robyn Bansal RN) Meds Home Medications and Allergies Home Medications Medication Instructions Recorded Confirmed Type amlodipine 5 mg tablet 5 mg PO DAILY 02/11/23 04/17/23 History calcium carbonate 600 mg-vitamin 1 tab PO BID 02/11/23 04/17/23 History D3 5 mcg (200 unit) tablet (Calcium 600 + D(3)) coenzyme Q10 100 mg capsule (Co 100 mg PO DAILY 02/11/23 04/17/23 History Q-10) doxazosin 8 mg tablet 8 mg PO BID 02/11/23 04/17/23 History ezetimibe 10 mg tablet 10 mg PO DAILY 02/11/23 04/17/23 History fenofibrate 160 mg tablet 160 mg PO DAILY 02/11/23 04/17/23 History fluticasone propionate 50 1 spray intranasal DAILY PRN 02/11/23 04/17/23 History mcg/actuation nasal allergy symptoms spray,suspension (24 Hour Allergy Relief) furosemide 20 mg tablet 20 mg PO DAILY PRN edema 02/11/23 04/17/23 History insulin glargine 100 unit/mL 18 unit subcut QPM 02/11/23 04/17/23 History subcutaneous solution (Lantus U-100 Insulin) metoprolol tartrate 50 mg tablet 25 mg PO BID 02/11/23 04/17/23 History (Lopressor) multivitamin (Daily Multi-Vitamin 1 tab PO DAILY 02/11/23 04/17/23 History tablet) pantoprazole 40 mg tablet,delayed 40 mg PO DAILY 02/11/23 04/17/23 History release (Protonix) potassium chloride 10 mEq 10 meq PO DAILY PRN edema 02/11/23 04/17/23 History tablet,extended release (K-Tab) spironolactone 25 mg tablet 12.5 mg PO .every other day 02/11/23 04/17/23 History aspirin 81 mg chewable tablet 81 mg PO DAILY 04/17/23 04/17/23 History levothyroxine 25 mcg tablet 25 mcg PO DAILY 04/17/23 04/17/23 History (Synthroid) ciprofloxacin HCl 500 mg tablet 500 mg PO BID #20 tabs 04/18/23 Rx liothyronine 5 mcg tablet 5 mcg PO DAILY #30 tabs 04/18/23 Rx ondansetron 4 mg disintegrating 4 mg PO Q6H PRN nausea and 04/18/23 Rx tablet vomiting #14 tabs Allergies Allergy/AdvReac Type Severity Reaction Status Date / Time Penicillins Allergy Verified 02/11/23 14:08 [id number]-PPL-UfR Reductase Allergy Verified 02/11/23 14:08 Inhibitor Exam Constitutional Vital Signs, click to edit/add: Last Vital Signs Temp 98.1 F 04/18/23 01:19 Pulse 69 04/18/23 01:19 Resp 22 04/18/23 01:19 BP 178/66 H 04/18/23 05:14 Pulse Ox 94 L 04/18/23 05:03 O2 Del Method Room Air 04/18/23 05:03 Documenting provider has reviewed patient's vital signs: yes Common normals: no apparent distress [facility] Common normals: moist oral mucous membranes Respiratory Common normals: normal respiratory effort, no retractions and clear to auscultation bilaterally Cardio Common normals: regular rate, regular rhythm and no murmurs GI Common normals: Normal to inspection, nondistended, normoactive bowel sounds present, soft to palpation and non-tender Results Labs Labs: Short CBC 04/17/23 04/18/23 Range/Units 10:30 04:04 WBC 8.4 6.0 (4.0-11.0) 10^3/uL Hgb 11.9 L 9.0 L (12.0-16.0) g/dL Hct 37.0 27.9 L (36.0-48.0) % Plt Count 219 172 (150-450) 10^3/uL BMP 04/17/23 04/18/23 10:30 04:04 Sodium 139 141 Potassium 3.5 3.6 Chloride 102 111 H Carbon Dioxide 26.3 25.6 BUN 33.0 H 31.0 H Creatinine 2.01 H 1.74 H Glucose 151 H 148 H Calcium 9.1 7.5 L Liver Function 04/17/23 Range/Units 10:30 Total Bilirubin 0.8 (0.2-1.0) mg/dL AST 28 (15-37) U/L ALT 26 (14-59) U/L Alkaline Phosphatase 47 (46-116) U/L Albumin 3.0 L (3.4-5.0) g/dL Urine 04/17/23 Range/Units 16:25 Urine Color Yellow (YELLOW) Urine Clarity Slightly cloudy A (CLEAR) Urine pH 5.0 (5.0-9.0) Ur Specific [place] >=1.030 A (1.005-1.025) Urine Protein 100 A (NEG/TRACE) mg/dL Urine Glucose (UA) Negative (NEGATIVE) mg/dL Assessment and Plan Assessment and Plan (1) Colitis: (2) Elevated troponin: (3) Intractable nausea and vomiting: Plan Hypertension, uncontrolled diabetes, acute kidney injury secondary to dehydration secondary to E. coli colitis. We will start patient on oral antibiotics today. She does overall feel much improved. She has had no further diarrhea since about 1 AM this morning. If her echocardiogram is unremarkable and her hemoglobin is stable later this morning and she is eating okay she can be discharged home in improving condition. Medications see list. Follow-up with pcp in the office within the next week. Uncontrolled hypertension with elevated troponin likely demand ischemia-check echo-patient did not take her medications the previous day. We will resume previous medications but increase clonidine to twice daily. Uncontrolled diabetes mellitus on admission-improved today. She is very sensitive to insulin. We will decrease her sliding scale and will resume home medications. Acute kidney injury secondary to the above-improved today. May continue to monitor as an outpatient Hypothyroidism with low T3-we will add Cytomel at discharge. White blood cell count and urinalysis-culture pending, Beni as outlined above will cover that.
[2023-04-18] MEDS: MAGNESIUM OXIDE 400 MG TABLET PO (08:10)
[2023-04-18] MEDS: LIOTHYRONINE SODIUM 5 MCG TABLET PO (08:10)
[2023-04-18] MEDS: AMLODIPINE BESYLATE 5 MG TABLET PO (08:10)
[2023-04-18] MEDS: CLONIDINE HCL 0.1 MG TABLET PO (08:11)
[2023-04-18] MEDS: MULTIVITAMIN TABLET 1 TAB PO (08:11)
[2023-04-18] MEDS: ASPIRIN 81 MG TAB.CHEW PO (08:11)
[2023-04-18] MEDS: METOPROLOL TARTRATE 25 MG TABLET PO (08:12)
[2023-04-18] MEDS: CALCIUM CARBONATE 600 MG/VITAMIN D3 400 IU TABLET 1 TAB PO (08:12)
[2023-04-18] MEDS: CIPROFLOXACIN HCL 500 MG TABLET PO ×2 (08:12→09:48)
[2023-04-18] MEDS: DOXAZOSIN MESYLATE 2 MG TABLET 8 MG PO (09:48)
--- NOTE | 2023-04-18 10:34 | SWNOTE1 ---
SW met with pt to discuss dc needs. Pt lives at home alone, she has a son that comes to check on her. Pt goes to the pain clinic for her back pain and gets shots that help her. Pt does not usually use any DME, but since she has had diarrhea she felt a little weaker and has been using cane. Pt does not have any worries or concerns about discharge at this time. Pt has no needs. SW reviewed Important Message from Medicare form with pt, she voiced understanding. No questions or concerns. Pt signed form, original given to pt and copy placed in chart.
[2023-04-18 11:50] LABS: Basophils Percent Auto 0.7 % (0.2-2.0); Eosinophils Absolute Auto 0.2 10^3/uL (0.0-0.7); Eosinophils Percent Auto 3.3 % (0.9-7.0); Hematocrit 29.4 % (36.0-48.0); Hemoglobin 9.6 g/dL (12.0-16.0); Immature Granulocytes Abs Auto 0.01 10^3/uL (0.00-0.03); Immature Granulocytes Pct Auto 0.2 % (0.0-0.5); Lymphocytes Absolute Auto 1.2 10^3/uL (1.2-3.8); Lymphocytes Percent Auto 20.9 % (20.5-60.0); Mean Corpuscular HGB Conc 32.7 g/dL (29.9-35.2); Mean Corpuscular Hemoglobin 31.9 pg (26.7-34.0); Mean Corpuscular Volume 97.7 fL (81.0-99.0); Monocytes Absolute Auto 0.5 10^3/uL (0.3-0.8); Monocytes Percent Auto 9.4 % (1.7-12.0); Neutrophils Absolute Auto 3.8 10^3/uL (1.4-6.5); Neutrophils Percent Auto 65.5 % (43.0-75.0); Platelet Count 172 10^3/uL (150-450); Red Blood Count 3.01 10^6/uL (4.20-5.40); Red Cell Distribution Width 13.8 % (11.0-15.0); White Blood Count 5.7 10^3/uL (4.0-11.0)
--- NOTE | 2023-04-18 13:13 | P.CACN_ITS ---
History of Present Illness History of Present Illness Chief complaint: DIARRHEA SINCE APPROX. SUN/VOMITING [facility] Medical History (Updated 09/17/23 @ 12:12 by Erin Miranda RN) Cataracts, bilateral ?H26.9 - Unspecified cataract (ICD-10) Intractable nausea and vomiting ?R11.2 - Nausea with vomiting, unspecified (ICD-10) Diabetes ?E11.9 - Type 2 diabetes mellitus without complications (ICD-10) Dupuytren contracture ?M72.0 - Palmar fascial fibromatosis [Dupuytren] (ICD-10) Skin cancer ?C44.90 - Unspecified malignant neoplasm of skin, unspecified (ICD-10) Degenerative disc disease Age related osteoporosis ?M81.0 - Age-related osteoporosis without current pathological fracture (ICD- 10) Gastritis ?K29.70 - Gastritis, unspecified, without bleeding (ICD-10) Kidney failure ?N19 - Unspecified kidney failure (ICD-10) HTN (hypertension) ?I10 - Essential (primary) hypertension (ICD-10) High cholesterol ?E78.00 - Pure hypercholesterolemia, unspecified (ICD-10) Pulmonary HTN ?I27.20 - Pulmonary hypertension, unspecified (ICD-10) Surgical History History of right knee surgery ?Z98.890 - Other specified postprocedural states (ICD-10) History of sinus surgery ?Z98.890 - Other specified postprocedural states (ICD-10) History of cholecystectomy ?Z90.49 - Acquired absence of other specified parts of digestive tract (ICD- 10) Previous back surgery ?Z98.890 - Other specified postprocedural states (ICD-10) Family History (Updated 09/17/23 @ 12:01 by Erin Miranda RN) Other Family history of CHF (congestive heart failure) Family history of cancer Family history of diabetes mellitus Family history of hypertension Social History (Updated 09/17/23 @ 12:02 by Erin Miranda RN) Within the past year, how often did you have a drink containing alcohol: never Score interpretation: A score less than 3 is consistent with normal alcohol consumption. Smoking status: Former smoker Second hand tobacco smoke exposure: No Non-prescribed substance use: denies use Previous occupational history: Retired Known occupational exposures/hazards: No Highest level of school completed/degree received: high school graduate Meds Home Medications and Allergies Home Medications Medication Instructions Recorded Confirmed Type amlodipine 5 mg tablet 5 mg PO DAILY 02/11/23 09/19/23 History calcium carbonate 600 mg-vitamin 1 tab PO BID 02/11/23 09/19/23 History D3 5 mcg (200 unit) tablet (Calcium 600 + D(3)) coenzyme Q10 100 mg capsule (Co 100 mg PO DAILY 02/11/23 09/19/23 History Q-10) doxazosin 8 mg tablet 8 mg PO BID 02/11/23 09/19/23 History ezetimibe 10 mg tablet 10 mg PO DAILY 02/11/23 09/19/23 History fenofibrate 160 mg tablet 160 mg PO DAILY 02/11/23 09/19/23 History fluticasone propionate 50 1 spray intranasal DAILY PRN 02/11/23 09/19/23 History mcg/actuation nasal allergy symptoms spray,suspension (24 Hour Allergy Relief) furosemide 20 mg tablet 20 mg PO DAILY PRN edema 02/11/23 09/19/23 History insulin glargine 100 unit/mL 16 unit subcut QPM 02/11/23 09/19/23 History subcutaneous solution (Lantus U-100 Insulin) metoprolol tartrate 50 mg tablet 25 mg PO BID 02/11/23 09/19/23 History (Lopressor) multivitamin (Daily Multi-Vitamin 1 tab PO DAILY 02/11/23 09/19/23 History tablet) pantoprazole 40 mg tablet,delayed 40 mg PO DAILY 02/11/23 09/19/23 History release (Protonix) potassium chloride 10 mEq 10 meq PO DAILY PRN edema 02/11/23 09/19/23 History tablet,extended release (K-Tab) spironolactone 25 mg tablet 12.5 mg PO .every other day 02/11/23 09/19/23 History aspirin 81 mg chewable tablet 81 mg PO DAILY 04/17/23 09/19/23 History levothyroxine 25 mcg tablet 25 mcg PO DAILY 04/17/23 09/19/23 History (Synthroid) clonidine HCl 0.1 mg tablet 0.1 mg PO BID #60 tabs 04/18/23 09/19/23 Rx liothyronine 5 mcg tablet 5 mcg PO DAILY #30 tabs 04/18/23 09/19/23 Rx gabapentin 100 mg capsule 100 mg PO BEDTIME #30 caps 09/12/23 09/19/23 Rx gabapentin 300 mg capsule 300 mg PO DAILY #30 caps 09/12/23 09/19/23 Rx Allergies Allergy/AdvReac Type Severity Reaction Status Date / Time Penicillins Allergy Verified 04/29/23 11:01 Dbgavfr-QDO-StH Reductase Allergy Verified 04/29/23 11:01 Inhibitor Exam Constitutional Vital Signs, click to edit/add: Last Vital Signs Temp 98.1 F 04/18/23 01:19 Pulse 70 04/18/23 11:20 Resp 16 04/18/23 11:20 BP 134/47 L 04/18/23 09:48 Pulse Ox 99 04/18/23 11:13 O2 Del Method Room Air 04/18/23 11:13 Results Labs and Meds Lab results: CBC 04/18/23 04/18/23 Range/Units 04:04 11:00 WBC 6.0 5.7 (4.0-11.0) 10^3/uL RBC 2.80 L 3.01 L (4.20-5.40) 10^6/uL Hgb 9.0 L 9.6 L (12.0-16.0) g/dL Hct 27.9 L 29.4 L (36.0-48.0) % Plt Count 172 172 (150-450) 10^3/uL Neut # (Auto) 4.2 3.8 (1.4-6.5) 10^3/uL Lymph # (Auto) 1.0 L 1.2 (1.2-3.8) 10^3/uL [place] # (Auto) 0.6 0.5 (0.3-0.8) 10^3/uL Eos # (Auto) 0.2 0.2 (0.0-0.7) 10^3/uL Baso # (Auto) 0.0 0.0 (0.0-0.1) 10^3/uL Comprehensive Metabolic Panel 04/18/23 Range/Units 04:04 Sodium 141 (136-145) mmol/L Potassium 3.6 (3.5-5.1) mmol/L Chloride 111 H (98-107) mmol/L Carbon Dioxide 25.6 (21.0-32.0) mmol/L BUN 31.0 H (7.0-18.0) mg/dL Creatinine 1.74 H (0.55-1.02) mg/dL Glucose 148 H (74-106) mg/dL Calcium 7.5 L (8.5-10.1) mg/dL Intake and Output 04/17/23 04/18/23 04/18/23 23:59 07:59 15:59 Intake Total 1926.666 / 3926.666 50 / 50 Output Total 250 / 250 150 / 150 Balance 1676.666 / 3676.666 -100 / -100 Intake: Oral 100 / 100 50 / 50 Other 913.333 / 1913.333 IV 913.333 / 1913.333 Lactated Ringer's Solution 1, 913.333 / 913.333 000 ml @ 100 mls/hr IV Q8H [facility] Rx#:[id number] Output: Urine 250 / 250 150 / 150 Other: # Voids 3 2 # Bowel Movements 3 1 Weight 56 kg Assessment and Plan Assessment and Plan (1) Colitis: (2) Elevated troponin:
--- NOTE | 2023-04-19 13:46 | CM.DCFOLLOWU ---
Person spoke with: patient How are you feeling? a little cramping, but overall not bad How is your pain? very little Did you understand your discharge instructions? yes Do you have any questions about your discharge instructions? no Were you given any prescriptions at discharge? yes Were you able to get your prescriptions filled? yes Do you understand how to take your medications as ordered? yes, she had a question about a medication, but called Dr. Devine's office this morning and they were able to help Do you have any questions about your follow up appointment and do you plan to keep your follow up appointment? no questions, keeping follow up for 04/30/23 Is there anything else that you would like to discuss? NO Questions/Comments/Concerns/Other:
== END 2023-04-18 12:45 | disposition home or self-care (01) ==
LOC: ER 16:59 → ICU 21:54
PROVIDERS: Admitting Provider Family Medicine; Emergency Provider Emergency Medicine; PCP Nurse Practitioner Family; Visit Provider Family Medicine
DX: A04.4 Other intestinal Escherichia coli infections (principal); N17.9 Acute kidney failure, unspecified; R77.8 Other specified abnormalities of plasma proteins; I10 Essential (primary) hypertension; E11.65 Type 2 diabetes mellitus with hyperglycemia; E03.9 Hypothyroidism, unspecified; R11.2 Nausea with vomiting, unspecified; Z79.899 Other long term (current) drug therapy; Z79.82 Long term (current) use of aspirin; Z79.4 Long term (current) use of insulin; Z79.890 Hormone replacement therapy; E86.0 Dehydration
CPT/HCPCS: 36415; 74176; 80048; 80053; 81001; 82150; 82948; 83690; 83735; 83880; 84436; 84443; 84481; 84484; 85025; 85610; 87086; 87507; 93005; 93306; 94667; 94761; 96361; 96374; 96375; 99285; G0328; G0378

== ENCOUNTER 2023-04-29 09:57 | Day surgery (SDC) | payer MEDICARE, SELFPAY ==
[2023-04-29 11:05] VITALS: BP 179/65; PULSE 75; RESP 14; TEMP 36.3; O2SAT 96
[2023-04-29 11:12] LABS: Glucometer 324 mg/dL (74-106)
[2023-04-29] MEDS: BUPIVACAINE HCL 0.25% PF 25 MG/10 ML VIAL INJ (11:49)
[2023-04-29] MEDS: IOHEXOL 240 MG/ML - 10 ML VIAL INJ (11:50)
[2023-04-29] MEDS: LIDOCAINE HCL 2% PF 100 MG/5 ML VIAL INJ (11:50)
[2023-04-29] MEDS: TRIAMCINOLONE ACETONIDE 40 MG/ML VIAL INJ (11:50)
--- NOTE | 2023-04-29 11:51 | W.PM.PROCNOT ---
Date of procedure: 04/29/23 Pre-op diagnosis: Lumbar stenosis with neurogenic claudication Post-op diagnosis: same as pre-op Procedure: Procedure: Bilateral L5-S1 transforaminal epidural steroid injection Medications: Bupivacaine 0.25% 2cc, kenalog 40mg The patient was seen and examined in the preoperative holding area.? Informed consent was obtained and placed on the chart.? Patient was brought to the medical procedure unit and placed in the prone position where a timeout was completed verifying the correct patient, procedure site, position, and planned special equipment using sterile aseptic technique.? Under direct fluoroscopic visualization a 25-gauge Quincke tipped spinal needle was advanced at level left L5-S1 to the designated neural foramen where contrast dye was injected to show adequate spread.? There was no evidence of vascular or adverse uptake.? Epidural spread was appreciated.? The above-mentioned injectate was then placed in a 1.5 mL aliquot preceded by negative aspiration.? The needle was removed. The same procedure, at the same level, was completed on the opposite side. ? Patient was taken to the postprocedural recovery area and monitored for an appropriate length of time before found suitable for discharge in the accompaniment of a responsible adult. Anesthesia: Local Surgeon: Danny Monroy Pathology: none sent Condition: stable Disposition: no change
[2023-04-30 11:22] VITALS: BP 200/81; BP 210/83; PULSE 75; RESP 18; O2SAT 93
== END 2023-04-29 11:59 | disposition home or self-care (01) ==
PROVIDERS: PCP Nurse Practitioner Family; Visit Provider Anesthesiology
DX: M48.062 Spinal stenosis, lumbar region with neurogenic claudication (principal); Z79.4 Long term (current) use of insulin
CPT/HCPCS: 36415; 64483; 64493; 82948; Q9966

== ENCOUNTER 2023-05-09 13:21 | Outpatient (OUT) | payer MEDICARE, SELFPAY ==
--- NOTE | 2023-05-09 13:41 | P.CN_ITS ---
Consult Note: HPI Data of Consult Patient: known to practice within the last 3 years Requesting Physician: Nuzhat Keller NP Primary Care Provider: NATHAN JOVEL Consult Narrative Reason for consult: f/u Narrative: Deja Zamora a pleasant 82 year old female presents for evaluation of chronic low back and SIJ pain with pain that radiates down left leg. Patient feels her symptoms were greatly improved with first injection at L4 level, but no response to L5 TFESI. Relief from initial injection lasted less than 2 weeks. Patient continues to have low back pain and radiculopathy, care complicated by stage 4 renal disease. 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 Today pain 10. cc:: CC: Nuzhat Keller NP Review of Systems ROS Status of ROS 10 or more systems reviewed and unremarkable except as noted in history and below Musculoskeletal Reports: back pain and muscle cramps [facility] Medical History (Updated 05/09/23 @ 13:59 by Nuzhat Keller NP) Surgical History Meds Home Medications and Allergies Home Medications Medication Instructions Recorded Confirmed Type amlodipine 5 mg tablet 5 mg PO DAILY 02/11/23 04/29/23 History calcium carbonate 600 mg-vitamin 1 tab PO BID 02/11/23 04/29/23 History D3 5 mcg (200 unit) tablet (Calcium 600 + D(3)) coenzyme Q10 100 mg capsule (Co 100 mg PO DAILY 02/11/23 04/29/23 History Q-10) doxazosin 8 mg tablet 8 mg PO BID 02/11/23 04/29/23 History ezetimibe 10 mg tablet 10 mg PO DAILY 02/11/23 04/29/23 History fenofibrate 160 mg tablet 160 mg PO DAILY 02/11/23 04/29/23 History fluticasone propionate 50 1 spray intranasal DAILY PRN 02/11/23 04/29/23 History mcg/actuation nasal allergy symptoms spray,suspension (24 Hour Allergy Relief) furosemide 20 mg tablet 20 mg PO DAILY PRN edema 02/11/23 04/29/23 History insulin glargine 100 unit/mL 18 unit subcut QPM 02/11/23 04/29/23 History subcutaneous solution (Lantus U-100 Insulin) metoprolol tartrate 50 mg tablet 25 mg PO BID 02/11/23 04/29/23 History (Lopressor) multivitamin (Daily Multi-Vitamin 1 tab PO DAILY 02/11/23 04/29/23 History tablet) pantoprazole 40 mg tablet,delayed 40 mg PO DAILY 02/11/23 04/29/23 History release (Protonix) potassium chloride 10 mEq 10 meq PO DAILY PRN edema 02/11/23 04/29/23 History tablet,extended release (K-Tab) spironolactone 25 mg tablet 12.5 mg PO .every other day 02/11/23 04/29/23 History aspirin 81 mg chewable tablet 81 mg PO DAILY 04/17/23 04/29/23 History levothyroxine 25 mcg tablet 25 mcg PO DAILY 04/17/23 04/29/23 History (Synthroid) clonidine HCl 0.1 mg tablet 0.1 mg PO BID #60 tabs 04/18/23 04/29/23 Rx liothyronine 5 mcg tablet 5 mcg PO DAILY #30 tabs 04/18/23 04/29/23 Rx ondansetron 4 mg disintegrating 4 mg PO Q6H PRN nausea and 04/18/23 04/29/23 Rx tablet vomiting #14 tabs Allergies Allergy/AdvReac Type Severity Reaction Status Date / Time Penicillins Allergy Verified 04/29/23 11:01 [id number] Reductase Allergy Verified 04/29/23 11:01 Inhibitor Exam Constitutional Documenting provider has reviewed patient's vital signs: yes Common normals: no apparent distress, oriented x3, healthy appearing, alert and well nourished General appearance: cooperative [facility] Common normals: normocephalic, hearing grossly normal bilaterally and moist oral mucous membranes Head and scalp: normocephalic Eye Common normals: PERRL Pupil: PERRL Neck & C-Spine Common normals: full ROM General: normal visual inspection Chest Common normals: inspection of chest normal Respiratory Common normals: normal respiratory effort, no retractions and no use of accessory muscles Back & Pelvis Lumbar spine/lower back: ROM limited, pain with ROM and straight leg raise negative bilaterally Other: intermittent radiculopathy to left leg. Extremity Common normals: normal to inspection and full ROM Neuro Common normals: oriented x3, CN's II-XII intact bilaterally, moves all extremities, no focal motor deficits, no sensory deficits noted and deep tendon reflexes 2+ bilaterally Sensorium/orientation: alert Motor exam: strength 5/5 throughout and no movement abnormalities noted Psych Common normals: mental status grossly normal, thought process normal, cooperative, affect normal, speech normal and activity/motor behavior normal Speech: normal speech Thought process: normal thought process Results Additional Findings Additional findings: As part of providing excellent, safe, comprehensive care, the following was completed at our patient's visit: 1. A medication reconciliation and review to ensure accurate knowledge of current/active medications, including asking our patients to inform us about any [id number] medications or herbal remedies/nutritional supplements/alternative remedies. 2. A review to specifically ensure our patients have had annual screening for: elevated body mass index (BMI), tobacco use, screening for depression, and screening for unhealthy alcohol use. When screening is concerning, patients are provided with education and the specific recommendation to discuss the concerning health issue and treatment options with their primary care provider. Assessment and Plan Assessment and Plan (1) Lumbar stenosis with neurogenic claudication: (2) Lumbar spondylosis: (3) Lumbar postlaminectomy syndrome: (4) Sacroiliac joint dysfunction of both sides: (5) Kidney disease: (6) Diabetes: Plan continue f/u with PCP for DM and CKD continue OTC tylenol start gabapentin 100mg HS for one week, increase to 200mg HS BUN and Cr before next appointment f/u 1 month to discuss gabapentin titration
== END 2023-05-09 13:22 | disposition home or self-care (01) ==
LOC: PM 13:21
PROVIDERS: PCP Nurse Practitioner Family; Visit Provider Nurse Practitioner
DX: M48.062 Spinal stenosis, lumbar region with neurogenic claudication (principal); M47.816 Spondylosis without myelopathy or radiculopathy, lumbar region; M96.1 Postlaminectomy syndrome, not elsewhere classified; N28.9 Disorder of kidney and ureter, unspecified; E11.9 Type 2 diabetes mellitus without complications; M53.3 Sacrococcygeal disorders, not elsewhere classified
CPT/HCPCS: G0463

== ENCOUNTER 2023-06-03 09:26 | Outpatient (OUT) | payer MEDICARE, SELFPAY ==
[2023-06-03 11:18] LABS: Estimated GFR (African America 40 (>=60); Estimated GFR (Non-African Ame 33 (>=60)
== END 2023-06-03 09:27 | disposition home or self-care (01) ==
LOC: LAB 09:27
PROVIDERS: PCP Nurse Practitioner Family
DX: Z79.899 Other long term (current) drug therapy (principal)
CPT/HCPCS: 36415; 82565; 84520

== ENCOUNTER 2023-06-06 13:21 | Outpatient (OUT) | payer MEDICARE, SELFPAY ==
--- NOTE | 2023-06-06 13:58 | P.CN_ITS ---
Consult Note: HPI Data of Consult Requesting Physician: Danny Monroy MD Primary Care Provider: NATHAN JOVEL Consult Narrative Reason for consult: f/u Narrative: Deja Zamora a pleasant 82 year old female presents for evaluation and management of chronic low back pain with left sided radiculopathy and at times NC. Patient rating pain today 8/10 sharp shooting pain that radiated to left foot and toes. Patient notices mild improvement in symptoms with gabapentin. Care complicated by stage 4 kidney disease. cc:: CC: Danny Monroy MD Review of Systems ROS Status of ROS 10 or more systems reviewed and unremarkable except as noted in history and below Musculoskeletal Reports: back pain and joint pain PFSH PFSH Medical History Age related osteoporosis ?M81.0 - Age-related osteoporosis without current pathological fracture (ICD- 10) Degenerative disc disease Diabetes ?E11.9 - Type 2 diabetes mellitus without complications (ICD-10) Dupuytren contracture ?M72.0 - Palmar fascial fibromatosis [Dupuytren] (ICD-10) Gastritis ?K29.70 - Gastritis, unspecified, without bleeding (ICD-10) High cholesterol ?E78.00 - Pure hypercholesterolemia, unspecified (ICD-10) HTN (hypertension) ?I10 - Essential (primary) hypertension (ICD-10) Intractable nausea and vomiting ?R11.2 - Nausea with vomiting, unspecified (ICD-10) Kidney failure ?N19 - Unspecified kidney failure (ICD-10) Pulmonary HTN ?I27.20 - Pulmonary hypertension, unspecified (ICD-10) Skin cancer ?C44.90 - Unspecified malignant neoplasm of skin, unspecified (ICD-10) Surgical History History of cholecystectomy ?Z90.49 - Acquired absence of other specified parts of digestive tract (ICD- 10) History of right knee surgery ?Z98.890 - Other specified postprocedural states (ICD-10) History of sinus surgery ?Z98.890 - Other specified postprocedural states (ICD-10) Previous back surgery ?Z98.890 - Other specified postprocedural states (ICD-10) Meds Home Medications and Allergies Home Medications Medication Instructions Recorded Confirmed Type amlodipine 5 mg tablet 5 mg PO DAILY 02/11/23 04/29/23 History calcium carbonate 600 mg-vitamin 1 tab PO BID 02/11/23 04/29/23 History D3 5 mcg (200 unit) tablet (Calcium 600 + D(3)) coenzyme Q10 100 mg capsule (Co 100 mg PO DAILY 02/11/23 04/29/23 History Q-10) doxazosin 8 mg tablet 8 mg PO BID 02/11/23 04/29/23 History ezetimibe 10 mg tablet 10 mg PO DAILY 02/11/23 04/29/23 History fenofibrate 160 mg tablet 160 mg PO DAILY 02/11/23 04/29/23 History fluticasone propionate 50 1 spray intranasal DAILY PRN 02/11/23 04/29/23 History mcg/actuation nasal allergy symptoms spray,suspension (24 Hour Allergy Relief) furosemide 20 mg tablet 20 mg PO DAILY PRN edema 02/11/23 04/29/23 History insulin glargine 100 unit/mL 18 unit subcut QPM 02/11/23 04/29/23 History subcutaneous solution (Lantus U-100 Insulin) metoprolol tartrate 50 mg tablet 25 mg PO BID 02/11/23 04/29/23 History (Lopressor) multivitamin (Daily Multi-Vitamin 1 tab PO DAILY 02/11/23 04/29/23 History tablet) pantoprazole 40 mg tablet,delayed 40 mg PO DAILY 02/11/23 04/29/23 History release (Protonix) potassium chloride 10 mEq 10 meq PO DAILY PRN edema 02/11/23 04/29/23 History tablet,extended release (K-Tab) spironolactone 25 mg tablet 12.5 mg PO .every other day 02/11/23 04/29/23 History aspirin 81 mg chewable tablet 81 mg PO DAILY 04/17/23 04/29/23 History levothyroxine 25 mcg tablet 25 mcg PO DAILY 04/17/23 04/29/23 History (Synthroid) clonidine HCl 0.1 mg tablet 0.1 mg PO BID #60 tabs 04/18/23 04/29/23 Rx liothyronine 5 mcg tablet 5 mcg PO DAILY #30 tabs 04/18/23 04/29/23 Rx ondansetron 4 mg disintegrating 4 mg PO Q6H PRN nausea and 04/18/23 04/29/23 Rx tablet vomiting #14 tabs Allergies Allergy/AdvReac Type Severity Reaction Status Date / Time Penicillins Allergy Verified 04/29/23 11:01 [id number] Reductase Allergy Verified 04/29/23 11:01 Inhibitor Exam Constitutional Documenting provider has reviewed patient's vital signs: yes Common normals: no apparent distress, oriented x3, healthy appearing, alert and well nourished General appearance: cooperative [facility] Common normals: normocephalic, hearing grossly normal bilaterally and moist oral mucous membranes Head and scalp: normocephalic Eye Common normals: PERRL Pupil: PERRL Neck & C-Spine Common normals: full ROM General: normal visual inspection Chest Common normals: inspection of chest normal Respiratory Common normals: normal respiratory effort, no retractions and no use of accessory muscles Back & Pelvis Lumbar spine/lower back: ROM limited, pain with ROM and straight leg raise negative bilaterally Sacroiliac joints: SI joint(s) abnormal (pain with thigh thrust, gaelsens and vicente on left side.) Other: intermittent radiculopathy to left leg. Extremity Common normals: normal to inspection and full ROM Neuro Common normals: oriented x3, CN's II-XII intact bilaterally, moves all extremities, no focal motor deficits, no sensory deficits noted and deep tendon reflexes 2+ bilaterally Sensorium/orientation: alert Gait (neuro): assistive device used cane Motor exam: strength 5/5 throughout and no movement abnormalities noted Psych Common normals: mental status grossly normal, thought process normal, cooperative, affect normal, speech normal and activity/motor behavior normal Speech: normal speech Thought process: normal thought process Assessment and Plan Assessment and Plan (1) Sacroiliac joint dysfunction of both sides: (2) Lumbar stenosis with neurogenic claudication: (3) Lumbar spondylosis: (4) Lumbar postlaminectomy syndrome: (5) Gastritis: (6) Kidney failure: (7) Degenerative disc disease: Plan increase gabapentin to 100mg BID continue tylenol PRN start PT for low back pain with radiculopathy and left hip pain f/u 6 weeks
== END 2023-06-06 13:22 | disposition home or self-care (01) ==
LOC: PM 13:21
PROVIDERS: PCP Nurse Practitioner Family; Visit Provider Anesthesiology
DX: M53.3 Sacrococcygeal disorders, not elsewhere classified (principal); M48.07 Spinal stenosis, lumbosacral region; M47.896 Other spondylosis, lumbar region; M96.1 Postlaminectomy syndrome, not elsewhere classified; K29.70 Gastritis, unspecified, without bleeding; N19 Unspecified kidney failure; M51.36 Other intervertebral disc degeneration, lumbar region; M48.062 Spinal stenosis, lumbar region with neurogenic claudication
CPT/HCPCS: G0463

== ENCOUNTER 2023-06-10 14:34 | Outpatient (RCR) | payer MEDICARE, SELFPAY | END 2023-07-18 15:12 | disposition home or self-care (01) | LOC: PT 14:34 | PROVIDERS: PCP Nurse Practitioner Family; Visit Provider Nurse Practitioner | DX: M54.16 Radiculopathy, lumbar region (principal); M25.552 Pain in left hip | CPT/HCPCS: 97010; 97035; 97110; 97140; 97161; G0283 ==

== ENCOUNTER 2023-06-13 16:08 | Outpatient (OUT) | payer MEDICARE, SELFPAY ==
[2023-06-13 16:48] LABS: Basophils Absolute Auto 0.1 10^3/uL (0.0-0.1); Basophils Percent Auto 1.3 % (0.2-2.0); Eosinophils Absolute Auto 0.1 10^3/uL (0.0-0.7); Hematocrit 32.1 % (36.0-48.0); Hemoglobin 10.3 g/dL (12.0-16.0); Immature Granulocytes Abs Auto 0.02 10^3/uL (0.00-0.03); Immature Granulocytes Pct Auto 0.4 % (0.0-0.5); Lymphocytes Absolute Auto 1.7 10^3/uL (1.2-3.8); Lymphocytes Percent Auto 35.7 % (20.5-60.0); Mean Corpuscular HGB Conc 32.1 g/dL (29.9-35.2); Mean Corpuscular Hemoglobin 31.6 pg (26.7-34.0); Mean Corpuscular Volume 98.5 fL (81.0-99.0); Mean Platelet Volume 11.7 fL (9.5-13.5); Monocytes Absolute Auto 0.3 10^3/uL (0.3-0.8); Monocytes Percent Auto 5.8 % (1.7-12.0); Neutrophils Absolute Auto 2.5 10^3/uL (1.4-6.5); Neutrophils Percent Auto 53.8 % (43.0-75.0); Platelet Count 171 10^3/uL (150-450); Red Blood Count 3.26 10^6/uL (4.20-5.40); Red Cell Distribution Width 14.2 % (11.0-15.0); White Blood Count 4.6 10^3/uL (4.0-11.0)
== END 2023-06-13 16:09 | disposition home or self-care (01) ==
LOC: LAB 16:11
PROVIDERS: PCP Nurse Practitioner Family; Visit Provider Nurse Practitioner Family
DX: D50.9 Iron deficiency anemia, unspecified (principal)
CPT/HCPCS: 36415; 83540; 85025

== ENCOUNTER 2023-07-10 12:45 | Outpatient (OUT) | payer MEDICARE, SELFPAY ==
--- NOTE | 2023-07-10 13:28 | P.CN_ITS ---
Consult Note: HPI Data of Consult Patient: known to practice within the last 3 years Requesting Physician: Nuzhat Keller NP Primary Care Provider: NATHAN JOVEL Consult Narrative Reason for consult: f/u Narrative: Deja Zamora a pleasant 82 year old female presents for evaluation and management of chronic low back pain with left sided radiculopathy and at times NC. Patient rating pain today 4/10 sharp shooting pain that radiated to left foot and toes. Patient notices mild improvement in symptoms with gabapentin. cc:: CC: Nuzhat Keller NP Review of Systems ROS Status of ROS 10 or more systems reviewed and unremarkable except as noted in history and below Musculoskeletal Reports: back pain Neurological Reports: numbness in extremities, weakness in extremities and involuntary movements PFSH PFSH Medical History Age related osteoporosis ?M81.0 - Age-related osteoporosis without current pathological fracture (ICD- 10) Degenerative disc disease Diabetes ?E11.9 - Type 2 diabetes mellitus without complications (ICD-10) Dupuytren contracture ?M72.0 - Palmar fascial fibromatosis [Dupuytren] (ICD-10) Gastritis ?K29.70 - Gastritis, unspecified, without bleeding (ICD-10) High cholesterol ?E78.00 - Pure hypercholesterolemia, unspecified (ICD-10) HTN (hypertension) ?I10 - Essential (primary) hypertension (ICD-10) Intractable nausea and vomiting ?R11.2 - Nausea with vomiting, unspecified (ICD-10) Kidney failure ?N19 - Unspecified kidney failure (ICD-10) Pulmonary HTN ?I27.20 - Pulmonary hypertension, unspecified (ICD-10) Skin cancer ?C44.90 - Unspecified malignant neoplasm of skin, unspecified (ICD-10) Surgical History History of cholecystectomy ?Z90.49 - Acquired absence of other specified parts of digestive tract (ICD- 10) History of right knee surgery ?Z98.890 - Other specified postprocedural states (ICD-10) History of sinus surgery ?Z98.890 - Other specified postprocedural states (ICD-10) Previous back surgery ?Z98.890 - Other specified postprocedural states (ICD-10) Meds Home Medications and Allergies Home Medications Medication Instructions Recorded Confirmed Type amlodipine 5 mg tablet 5 mg PO DAILY 02/11/23 04/29/23 History calcium carbonate 600 mg-vitamin 1 tab PO BID 02/11/23 04/29/23 History D3 5 mcg (200 unit) tablet (Calcium 600 + D(3)) coenzyme Q10 100 mg capsule (Co 100 mg PO DAILY 02/11/23 04/29/23 History Q-10) doxazosin 8 mg tablet 8 mg PO BID 02/11/23 04/29/23 History ezetimibe 10 mg tablet 10 mg PO DAILY 02/11/23 04/29/23 History fenofibrate 160 mg tablet 160 mg PO DAILY 02/11/23 04/29/23 History fluticasone propionate 50 1 spray intranasal DAILY PRN 02/11/23 04/29/23 History mcg/actuation nasal allergy symptoms spray,suspension (24 Hour Allergy Relief) furosemide 20 mg tablet 20 mg PO DAILY PRN edema 02/11/23 04/29/23 History insulin glargine 100 unit/mL 18 unit subcut QPM 02/11/23 04/29/23 History subcutaneous solution (Lantus U-100 Insulin) metoprolol tartrate 50 mg tablet 25 mg PO BID 02/11/23 04/29/23 History (Lopressor) multivitamin (Daily Multi-Vitamin 1 tab PO DAILY 02/11/23 04/29/23 History tablet) pantoprazole 40 mg tablet,delayed 40 mg PO DAILY 02/11/23 04/29/23 History release (Protonix) potassium chloride 10 mEq 10 meq PO DAILY PRN edema 02/11/23 04/29/23 History tablet,extended release (K-Tab) spironolactone 25 mg tablet 12.5 mg PO .every other day 02/11/23 04/29/23 History aspirin 81 mg chewable tablet 81 mg PO DAILY 04/17/23 04/29/23 History levothyroxine 25 mcg tablet 25 mcg PO DAILY 04/17/23 04/29/23 History (Synthroid) clonidine HCl 0.1 mg tablet 0.1 mg PO BID #60 tabs 04/18/23 04/29/23 Rx liothyronine 5 mcg tablet 5 mcg PO DAILY #30 tabs 04/18/23 04/29/23 Rx ondansetron 4 mg disintegrating 4 mg PO Q6H PRN nausea and 04/18/23 04/29/23 Rx tablet vomiting #14 tabs Allergies Allergy/AdvReac Type Severity Reaction Status Date / Time Penicillins Allergy Verified 04/29/23 11:01 [id number] Reductase Allergy Verified 04/29/23 11:01 Inhibitor Exam Constitutional Documenting provider has reviewed patient's vital signs: yes Common normals: no apparent distress, oriented x3, healthy appearing, alert and well nourished General appearance: cooperative HENMT Common normals: normocephalic, hearing grossly normal bilaterally and moist oral mucous membranes Head and scalp: normocephalic Eye Common normals: PERRL Pupil: PERRL Neck & C-Spine Common normals: full ROM General: normal visual inspection Chest Common normals: inspection of chest normal Respiratory Common normals: normal respiratory effort, no retractions and no use of accessory muscles Back & Pelvis Lumbar spine/lower back: ROM limited, pain with ROM and straight leg raise negative bilaterally Sacroiliac joints: SI joint(s) abnormal (pain with thigh thrust, gaelsens and vicente on left side.) Other: intermittent radiculopathy to left leg. Extremity Common normals: normal to inspection and full ROM Other: no tremor on exam, pt reports left hand tremor Neuro Common normals: oriented x3, CN's II-XII intact bilaterally, moves all extremities, no focal motor deficits, no sensory deficits noted and deep tendon reflexes 2+ bilaterally Sensorium/orientation: alert Gait (neuro): assistive device used cane Motor exam: strength abnormal (4/5 RUE and RLE) Psych Common normals: mental status grossly normal, thought process normal, cooperative, affect normal, speech normal and activity/motor behavior normal Speech: normal speech Thought process: normal thought process Results Additional Findings Additional findings: I have checked an [place] report on this patient today and there are no aberrancies noted in the prescribing history.?? A drug screen was completed and reviewed within the last year, and if there has not been a drug screen completed we ordered one today to monitor higher risk, state monitored pain medication use. As part of providing excellent, safe, comprehensive care, the following was completed at our patient's visit: 1. A medication reconciliation and review to ensure accurate knowledge of current/active medications, including asking our patients to inform us about any [id number] medications or herbal remedies/nutritional supplements/alternative remedies. 2. A review to specifically ensure our patients have had annual screening for: elevated body mass index (BMI), tobacco use, screening for depression, and screening for unhealthy alcohol use. When screening is concerning, patients are provided with education and the specific recommendation to discuss the concerning health issue and treatment options with their primary care provider. Assessment and Plan Assessment and Plan (1) Weakness: (2) Tremor: (3) Lumbar stenosis with neurogenic claudication: (4) Lumbar spondylosis: (5) Lumbar postlaminectomy syndrome: (6) Sacroiliac joint dysfunction of both sides: (7) Lumbar radiculopathy: Plan neurology referral for left sided weakness and new onset tremors continue 100mg BID gabapentin continue f/u with cardiology as planned, continues to have high BP f/u 2 months, plan for repeat TFESIs
--- NOTE | 2023-07-10 13:39 | PM.CN ---
Consult Note: HPI Data of Consult Requesting Physician: Nuzhat Keller NP Primary Care Provider: NATHAN JOVEL Consult Narrative cc:: CC: Nuzhat Keller NP [facility] Medical History Age related osteoporosis ?M81.0 - Age-related osteoporosis without current pathological fracture (ICD-10) Degenerative disc disease Diabetes ?E11.9 - Type 2 diabetes mellitus without complications (ICD-10) Dupuytren contracture ?M72.0 - Palmar fascial fibromatosis [Dupuytren] (ICD-10) Gastritis ?K29.70 - Gastritis, unspecified, without bleeding (ICD-10) High cholesterol ?E78.00 - Pure hypercholesterolemia, unspecified (ICD-10) HTN (hypertension) ?I10 - Essential (primary) hypertension (ICD-10) Intractable nausea and vomiting ?R11.2 - Nausea with vomiting, unspecified (ICD-10) Kidney failure ?N19 - Unspecified kidney failure (ICD-10) Pulmonary HTN ?I27.20 - Pulmonary hypertension, unspecified (ICD-10) Skin cancer ?C44.90 - Unspecified malignant neoplasm of skin, unspecified (ICD-10) Surgical History History of cholecystectomy ?Z90.49 - Acquired absence of other specified parts of digestive tract (ICD-10) History of right knee surgery ?Z98.890 - Other specified postprocedural states (ICD-10) History of sinus surgery ?Z98.890 - Other specified postprocedural states (ICD-10) Previous back surgery ?Z98.890 - Other specified postprocedural states (ICD-10) Meds Home Medications and Allergies Home Medications Medication Instructions Recorded Confirmed Type amlodipine 5 mg tablet 5 mg PO DAILY 02/11/23 04/29/23 History calcium carbonate 600 mg-vitamin 1 tab PO BID 02/11/23 04/29/23 History D3 5 mcg (200 unit) tablet (Calcium 600 + D(3)) coenzyme Q10 100 mg capsule (Co 100 mg PO DAILY 02/11/23 04/29/23 History Q-10) doxazosin 8 mg tablet 8 mg PO BID 02/11/23 04/29/23 History ezetimibe 10 mg tablet 10 mg PO DAILY 02/11/23 04/29/23 History fenofibrate 160 mg tablet 160 mg PO DAILY 02/11/23 04/29/23 History fluticasone propionate 50 1 spray intranasal DAILY PRN 02/11/23 04/29/23 History mcg/actuation nasal allergy symptoms spray,suspension (24 Hour Allergy Relief) furosemide 20 mg tablet 20 mg PO DAILY PRN edema 02/11/23 04/29/23 History insulin glargine 100 unit/mL 18 unit subcut QPM 02/11/23 04/29/23 History subcutaneous solution (Lantus U-100 Insulin) metoprolol tartrate 50 mg tablet 25 mg PO BID 02/11/23 04/29/23 History (Lopressor) multivitamin (Daily Multi-Vitamin 1 tab PO DAILY 02/11/23 04/29/23 History tablet) pantoprazole 40 mg tablet,delayed 40 mg PO DAILY 02/11/23 04/29/23 History release (Protonix) potassium chloride 10 mEq 10 meq PO DAILY PRN edema 02/11/23 04/29/23 History tablet,extended release (K-Tab) spironolactone 25 mg tablet 12.5 mg PO .every other day 02/11/23 04/29/23 History aspirin 81 mg chewable tablet 81 mg PO DAILY 04/17/23 04/29/23 History levothyroxine 25 mcg tablet 25 mcg PO DAILY 04/17/23 04/29/23 History (Synthroid) clonidine HCl 0.1 mg tablet 0.1 mg PO BID #60 tabs 04/18/23 04/29/23 Rx liothyronine 5 mcg tablet 5 mcg PO DAILY #30 tabs 04/18/23 04/29/23 Rx ondansetron 4 mg disintegrating 4 mg PO Q6H PRN nausea and 04/18/23 04/29/23 Rx tablet vomiting #14 tabs Allergies Allergy/AdvReac Type Severity Reaction Status Date / Time Penicillins Allergy Verified 04/29/23 11:01 [id number] Reductase Allergy Verified 04/29/23 11:01 Inhibitor Assessment and Plan Assessment and Plan (1) Weakness: (2) Tremor: (3) Lumbar stenosis with neurogenic claudication: (4) Lumbar spondylosis: (5) Lumbar postlaminectomy syndrome: (6) Sacroiliac joint dysfunction of both sides: (7) Lumbar radiculopathy: Plan neurology referral for left sided weakness and new onset tremors continue 100mg BID gabapentin continue f/u with cardiology as planned, continues to have high BP f/u 2 months, plan for repeat TFESIs
== END 2023-07-10 12:46 | disposition home or self-care (01) ==
LOC: PM 12:46
PROVIDERS: PCP Nurse Practitioner Family; Visit Provider Nurse Practitioner
DX: R53.1 Weakness (principal); R25.1 Tremor, unspecified; M48.062 Spinal stenosis, lumbar region with neurogenic claudication; M47.816 Spondylosis without myelopathy or radiculopathy, lumbar region; M96.1 Postlaminectomy syndrome, not elsewhere classified; M53.3 Sacrococcygeal disorders, not elsewhere classified; M54.16 Radiculopathy, lumbar region
CPT/HCPCS: G0463

== ENCOUNTER 2023-07-26 12:36 | Outpatient (OUT) | payer MEDICARE, SELFPAY ==
--- NOTE | 2023-07-26 12:39 | MR_ITS ---
The [address] [address] Patient Name: EDILIA HERNANDEZ MRN: [id number] date: 1940 Sex: F Assigned Patient Location: MRI Current Patient Location: Accession/Order Number: [id number] Exam Date: 07/26/2023 12:45 Report Date: 07/27/2023 15:24 At the request of: MAC HANDY Procedure: MR head/brain wo con EXAM: MR head/brain wo con HISTORY: Left Arm Weakness R29.898 COMPARISON: None. TECHNIQUE: MRI of the brain was performed without contrast. FINDINGS: There is no restricted diffusion to suggest acute infarct. There is no midline shift, mass effect, or abnormal extraaxial fluid collections. The cortical sulci and ventricular system are within normal limits for age. There are a few nonspecific scattered foci of T2/FLAIR signal abnormality in the subcortical and periventricular white matter, likely reflect chronic microvascular ischemic changes. The major intracranial flow voids are visualized. The cerebellar tonsils are normal in position. The orbits are unremarkable. The paranasal sinuses show no air-fluid level. There are mild mucosal thickening of bilateral maxillary sinuses and ethmoid air cells. The mastoid air cells are clear. MR/MR head/brain wo con IMPRESSION: No acute intracranial abnormality. Mild chronic microvascular ischemic changes Electronically authenticated by: JULIA HARDEN Date: 07/27/2023 15:24
== END 2023-07-26 12:37 | disposition home or self-care (01) ==
LOC: MRI 12:36
PROVIDERS: PCP Nurse Practitioner Family; Visit Provider Psychiatry & Neurology Neurology
DX: R29.898 Other symptoms and signs involving the musculoskeletal system (principal)
CPT/HCPCS: 70551

== ENCOUNTER 2023-08-08 08:57 | Outpatient (OUT) | payer MEDICARE, SELFPAY ==
[2023-08-08 09:31] LABS: Anion Gap 11.7; Calcium 8.8 mg/dL (8.5-10.1); Carbon Dioxide 28.5 mmol/L (21.0-32.0); Chloride 107 mmol/L (98-107); Estimated GFR (African America 35 (>=60); Estimated GFR (Non-African Ame 29 (>=60); Glucose 183 mg/dL (74-106); Potassium 4.2 mmol/L (3.5-5.1); Sodium 143 mmol/L (136-145)
--- OUTSIDE RECORDS SUMMARY | 2023-08-08 10:37 | XMS_ITS | CCD ---
Author Name Unknown Address [address] [place] [address] Organization [facility] Care Team Providers Care Security Orderly Name Role Phone PHYSICIAN, DEFAULT Unavailable Unavailable PHYSICIAN, DEFAULT Unavailable Unavailable Patrick Cotter Unavailable Patrick Cotter Attending Unavailable Patrick Cotter Admitting Unavailable True Devine Primary Care Unavailable MED, NATHAN Attending Unavailable MED, NATHAN Admitting Unavailable MED, NATHAN Primary Care Unavailable ZIEBDERIAN, DR UDAY Romero Consulting Unavailable MED, NATHAN Attending Unavailable MED, NATHAN Admitting Unavailable MED, NATHAN Primary Care Unavailable MED, NATHAN Consulting Unavailable MAYELIN, SEE Attending Unavailable MAYELIN, SEE Admitting Unavailable ZIEBER, DR UDAY Romero Consulting Unavailable MED, NATHAN Primary Care Unavailable MAYELIN, SEE Consulting Unavailable MED, NATHAN Attending Unavailable MED, NATHAN Admitting Unavailable MED, NATHAN Primary Care Unavailable MED, NATHAN Consulting Unavailable MED, NATHAN Attending Unavailable MED, NATHAN Admitting Unavailable MED, NATHAN Primary Care Unavailable MED, NATHAN Consulting Unavailable MED, NATHAN Attending Unavailable MED, NATHAN Admitting Unavailable MED, NATHAN Primary Care Unavailable MED, NATHAN Consulting Unavailable SUHAILUKAHEATH, DR BUENO Attending Unavailable MOUKARBEL, DR BUENO Admitting Unavailable MOUKARBEL, DR BUENO Consulting Unavailable MED, NATHAN Primary Care Unavailable IJEOMA TIM Consulting Unavailable Eliana LINARES, Danny Carrasco Attending Unavailable Eliana LINARES, Danny Carrasco Attending Unavailable Eliana LINARES, Danny Carrasco Attending Unavailable MAYELIN, SEE Attending Unavailable MAYELIN, SEE Attending Unavailable MAYELIN, SEE Attending Unavailable MOXIMENA GOMEZ Attending Unavailable Allergies Allergy Classification Reported Allergen(s) Allergy Type Date of Onset Reaction(s) Facility (5 sources) Hmg-Coa Reductase Inhibitors (Statins) Drug allergy Unknown [facility] [employer] Other (5 sources) Penicillin Drug Allergy Unknown [employer] Other (2 sources) Penicillins; Translations: [PENICILLINS] Drug allergy (disorder) [facility] Repository (1 source) Rukxukg-VOV-FiP Reductase Inhibitor Drug allergy (disorder) [facility] Repository (2 sources) black walnut pollen extract; Translations: [AINRLEE-LEV-ZDQ REDUCTASE INHIBITORS] Drug Allergy 017 [facility] Repository (1 source) Dextroamphetamine Drug Allergy [facility] Repository (1 source) Gemfibrozil Drug Allergy [facility] Repository (1 source) hydroCHLOROthiazide / Triamterene Drug Allergy [facility] Repository (1 source) Penicillin Drug Allergy [facility] Repository (1 source) rosuvastatin Drug Allergy [facility] Rep[facility] (1 source) Gemfibrozil; Translations: [GEMFIBROZIL] Drug Allergy [facility] Repository (1 source) TRIAMTERENE-HYDROCHLOR OTHIAZID; Translations: [TRIAMTERENE-HYDROCHLO ROTHIAZID] Propensity to adverse reactions to drug (disorder) [facility] Repository Medications Current Medications Medication Drug Class(es) Dates Sig (Normalized) Sig (Original) acetaminophen 325 mg / HYDROcodone bitartrate 5 mg oral tablet (5 sources) Opioid Agonist Start: 2 take 1 tablet by mouth every six hours HYDROcodone-Acet aminophen 5-325 MG 1 tablet as needed Orally every 6 hrs for 7 days Aug, Active alendronic acid 70 mg oral tablet (5 sources) Bisphosphonate Alendronate Sodium 70 MG 1 tablet Orally Active amLODIPine 5 mg oral tablet (5 sources) Dihydropyridine Calcium Channel Damian take 1 tablet by mouth every twenty-four hours amLODIPine Besylate 5 MG 1 tablet Orally Once a day Active ASA (5 sources) ASA 1 tab Oral *please review for potential _update for e-prescription and drug interaction check* Active Calcium + D3 600-200 MG-UNIT (5 sources) take 1 tablet by mouth once daily Calcium + D3 600-200 MG-UNIT 1 tablet with a meal Orally Once a day Active CoQ10 200 MG (2 sources) take 1 capsule by mouth once daily CoQ10 200 MG 1 capsule with a meal Orally Once a day Active ezetimibe 10 mg oral tablet (5 sources) Dietary Cholesterol Absorption Inhibitor take 1 tablet by mouth every twenty-four hours Zetia 10 MG 1 tablet Orally Once a day Active Fenofibrate (5 sources) Peroxisome Proliferator Receptor alpha Agonist Fenofibrate *please review for potential _update for e-prescription and drug interaction check* Active glipiZIDE er 2.5 mg 24 hr extended release oral tablet (5 sources) Sulfonylurea take 1 tablet by mouth every twenty-four hours glipiZIDE XL 2.5 MG 1 tablet Orally Once a day Active hydroCHLOROthiazide 25 mg / lisinopril 20 mg oral tablet (5 sources) Thiazide Diuretic, Angiotensin Converting Enzyme Inhibitor take 1 tablet by mouth every twenty-four hours Lisinopril-hydro CHLOROthiazide 20-25 MG 1 tablet Orally Once a day Active metFORMIN hydrochloride 1000 mg oral tablet (5 sources) Biguanide take 1 tablet by mouth every twelve hours metFORMIN HCl 1000 MG 1 tablet with meals Orally Twice a day Active metoprolol tartrate 50 mg oral tablet (5 sources) beta-Adrenergic Damian take 1 tablet by mouth every twelve hours Metoprolol Tartrate 50 MG 1 tablet with food Orally Twice a day Active Multivitamin Adults - (5 sources) Multivitamin Adults - Orally Active Billings 3 1000 MG (5 sources) take 1 capsule by mouth once daily Billings 3 1000 MG 1 capsule Orally Once a day Active pioglitazone 45 mg oral tablet (5 sources) Peroxisome Proliferator Receptor alpha Agonist, Peroxisome Proliferator Receptor gamma Agonist, Thiazolidinedione take 1 tablet by mouth every twenty-four hours Actos 45 MG 1 tablet Orally Once a day Active predniSONE 10 mg oral tablet (1 source) Start: 2 predniSONE 10 MG 3 tablets a day for 3 days, 2 tablets a day for 3 days, 1 tablets a day for 3 days Orally Once a day for 9 day(s) December, Active tiZANidine 4 mg oral tablet (5 sources) Central alpha-2 Adrenergic Agonist take 1 tablet by mouth every eight hours tiZANidine HCl 4 MG 1 tablet as needed Orally Three times a day Active ubidecarenone 200 mg oral capsule (3 sources) take 1 capsule by mouth every twenty-four hours CoQ10 200 MG 1 capsule with a meal Orally Once a day Active Problems Active Problems Problem Classification Problem Date Documented Date Episodic/Chronic Chronic kidney disease (2 sources) Chronic kidney disease, stage 4 (severe); Translations: [Chronic kidney disease, stage 4 (severe)] Onset: 02-25-2023 Chronic Congestive heart failure; nonhypertensive (2 sources) Chronic diastolic (congestive) heart failure; Translations: [Chronic diastolic (congestive) heart failure] Onset: 09-05-2022 Chronic Diabetes mellitus without complication (9 sources) Type 2 diabetes mellitus without complication; Translations: [Type 2 diabetes mellitus without complications] Onset: 08-01-2022 Chronic Diabetes mellitus without complication (5 sources) Other abnormal glucose; Translations: [Hyperglycemia, unspecified] Onset: 04-02-2022 Episodic Disorders of lipid metabolism (3 sources) Hyperlipidemia, unspecified; Translations: [Mixed hyperlipidemia] Onset: 04-03-2022 Chronic Essential hypertension (6 sources) Essential (primary) hypertension; Translations: [ESSENTIAL PRIMARY HYPERTENSION] Onset: 03-23-2022 Chronic Occlusion or stenosis of precerebral arteries (6 sources) Occlusion and stenosis of bilateral carotid arteries; Translations: [OCCLUSION AND STENOS BOGDAN CAROTID ART] Onset: 12-25-2021 Chronic Osteoarthritis (2 sources) Arthropathy of left hip joint; Translations: [Unilateral primary osteoarthritis, left hip] Onset: 12-21-2021 Resolved: 12-21-2021 Chronic Other nervous system disorders (5 sources) Difficulty walking; Translations: [Difficulty in walking, not elsewhere classified] Chronic Peripheral and visceral atherosclerosis (1 source) Atherosclerosis of renal artery; Translations: [ATHEROSCLEROSIS OF RENAL ARTERY] Onset: 03-27-2022 Chronic Pulmonary heart disease (2 sources) Pulmonary hypertension, unspecified; Translations: [Pulmonary hypertension, unspecified] Onset: 04-12-2022 Chronic Spondylosis; intervertebral disc disorders; other back problems (7 sources) Prolapsed lumbar intervertebral disc; Translations: [Other intervertebral disc displacement, lumbar region] Onset: 08-22-2021 Resolved: 12-21-2021 Chronic Spondylosis; intervertebral disc disorders; other back problems (8 sources) Lumbar disc prolapse with radiculopathy; Translations: [Intervertebral disc disorders with radiculopathy, lumbar region] Onset: 08-29-2021 Resolved: 12-21-2021 Episodic Thyroid disorders (4 sources) Hypothyroidism, unspecified; Translations: [HYPOTHYROIDISM UNSPECIFIED] Onset: 09-20-2022 Chronic Unclassified (1 source) M51.16 - Intervertebral disc disorders with radiculopathy, lumbar region; Translations: [M51.16 - Intervertebral disc disorders with radiculopathy, lumbar region] Onset: 09-18-2021 Past or Other Problems Problem Classification Problem Date Documented Date Episodic/Chronic Deficiency and other anemia (1 source) Anemia, unspecified; Translations: [ANEMIA UNSPECIFIED] Onset: 04-03-2022 Episodic Other circulatory disease (2 sources) Orthostatic hypotension; Translations: [Orthostatic hypotension] Onset: 04-12-2022 Episodic Other screening for suspected conditions (not mental disorders or infectious disease) (4 sources) Encounter for screening mammogram for malignant neoplasm of breast; Translations: [ENC SCR MAMMO MALIG NEOPLASM BREAST] Onset: 03-05-2022 Episodic Residual codes; unclassified (1 source) Family history of malignant neoplasm of trachea, bronchus and lung; Translations: [FAM HX MALIG NEOPLSM TRACH BRON LNG] Onset: 03-06-2022 Episodic Residual codes; unclassified (1 source) Family history of other malignant neoplasms of lymphoid, hematopoietic and related tissues; Translations: [FAM HX OTH MAL MILE LYMPH HEMATPOETC] Onset: 03-06-2022 Episodic Results Test Name Value Interpretation Reference Range Facility Office Visiton 08-02-2023 Follow-up visit [id number] Deja Zamora 1940 F Date Provider Department Center 08/02/2023 120-SEE DICK [facility] Family History Problem Relation Age of Onset Coronary artery disease Father Family Status - Relation Status Age at Father Level of Service:36015 OR OFFICE/OUTPATIENT ESTABLISHED MOD MDM 30-39 MIN Normal [facility] Office Visiton 02-25-2023 Follow-up visit [id number] Deja Zamora 1940 F Date Provider Department Center 02/25/2023 XIMENA LIZ [facility] Rico Navarro Family History Problem Relation Age of Onset Coronary artery disease Father Family Status - Relation Status Age at Father Level of Service:97846 OR OFFICE/OUTPATIENT ESTABLISHED MOD MDM 30-39 MIN [facility] 29on 12-05-2022 29 Addended by: [place] on: 12/05/2022 04:05 PM Modules accepted: Orders Normal [facility] Office Visiton 12-05-2022 Follow-up visit [id number] Deja Zamora 1940 F Date Provider Department Center 12/05/2022 Gayla-SEE DICK [facility] Family History Problem Relation Age of Onset Coronary artery disease Father Family Status - Relation Status Age at Father Level of Service:74769 OR OFFICE/OUTPATIENT ESTABLISHED MOD MDM 30-39 MIN Reason for Visit and Comments: Follow-up [728940] - 3 month Chest Pain [374915] - Yesterday had a little bit of pain in my heart that lasted about a minute. BP monitor showed irregular heartbeat. Stress [103] - Under stress currently, due to son having Stage IV Lung Cancer. [facility] FREE THYROXINE INDEX T7on FTI 2.59 Normal 1.30-4.50 [facility] Comment on above: Performed By: #### C MP, TSH, T7 #### [facility] [address] [place] [address] Dr. Milind Martinez T3U 37.0 % Normal 30.0-39.0 [facility] Comment on above: Performed By: #### C MP, TSH, T7 #### [facility] [address] [address] [address] Milind Martinez T4 [Mass/Vol] 7.00 ug/dL Normal 4.80-13.90 [facility] Comment on above: Performed By: #### C MP, TSH, T7 #### [facility] [address] [address] [address] Milind Martinez TSHon 09-20-2022 TSH 5.715 uIU/mL Critically high 0.358-3.740 [facility] Comment on above: Performed By: #### C MP, TSH, T7 #### [facility] [address] [place] [address] Dr. Milind Martinez Office Visiton 09-05-2022 Follow-up visit [id number] Deja Zamora 1940 F Date Provider Department Center 09/05/2022 SEE BOATENG [facility] Family History Problem Relation Age of Onset Coronary artery disease Father Family Status - Relation Status Age at Father Level of Service:35474 OR OFFICE/OUTPATIENT ESTABLISHED LOW MDM 20-29 MIN Reason for Visit and Comments: Hypertension [121240] Normal [facility] FREE THYROXINE INDEX T7on FTI 2.56 Normal 1.30-4.50 [facility] Comment on above: Performed By: #### C MP, TSH, T7 #### [facility] [address] [place] [address] Dr. Milind Martinez T3U 35.0 % Normal 30.0-39.0 [facility] Comment on above: Performed By: #### C MP, TSH, T7 #### [facility] [address] [address] [address] Milind Martinez T4 [Mass/Vol] 7.30 ug/dL Normal 4.80-13.90 [facility] Comment on above: Performed By: #### C MP, TSH, T7 #### [facility] [address] [address] [address] Milind Martinez GLYCOHEMOGLOBIN A1Con 2021 ADA RECOMMENDATION SEE BELOW Normal [facility] Comment on above: Result Comment: ADA RECOMMENDED LIMIT 4.0 - 6.0 ADA THERAPEUTIC TARGET < 7.0 ACTION SUGGESTED > 7.0 Performed By: #### A 1C #### [facility] [address] [address] [address] Milind Martinez Glucose [Mass/Vol] 229 mg/dL Normal [facility] Comment on above: Performed By: #### A 1C #### [facility] [address] [place] [address] Dr. Milind Martinez HbA1c (Bld) [Mass fraction] 9.6 % Critically high 4.5-6.2 [facility] Comment on above: Performed By: #### A 1C #### [facility] [address] [address] [address] Milind Martinez PROF 14(COMP METB)on 022 Albumin [Mass/Vol] 3.1 g/dL Critically low 3.4-5.0 [facility] Comment on above: Performed By: #### C MP, TSH, T7 #### [facility] [address] [address] [address] Milind Martinez Albumin/Globulin [Mass ratio] 1.0 {ratio} Normal [facility] Comment on above: Performed By: #### C MP, TSH, T7 #### [facility] [address] [address] [address] Milind Martinez ALP [Catalytic activity/Vol] 48 U/L Normal 46-116 [facility] Comment on above: Performed By: #### C MP, TSH, T7 #### [facility] [address] [address] [address] Milind Martinez ALT [Catalytic activity/Vol] 19 U/L Normal 14-59 [facility] Comment on above: Performed By: #### C MP, TSH, T7 #### [facility] [address] [address] [address] Milind Martinez Anion gap [Moles/Vol] 12.3 mmol/L Normal [facility] Comment on above: Performed By: #### C MP, TSH, T7 #### [facility] [address] [address] [address] Milind Martinez AST [Catalytic activity/Vol] 30 U/L Normal 15-37 [facility] Comment on above: Performed By: #### C MP, TSH, T7 #### [facility] [address] [address] [address] Milind Martinez Bilirubin [Mass/Vol] 0.5 mg/dL Normal 0.2-1.0 [facility] Comment on above: Performed By: #### C MP, TSH, T7 #### [facility] [address] [address] [address] Milind Martinez Calcium [Mass/Vol] 8.9 mg/dL Normal 8.5-10.1 [facility] Comment on above: Performed By: #### C MP, TSH, T7 #### [facility] [address] [address] [address] Milind Martinez Chloride [Moles/Vol] 104 mmol/L Normal 98-107 [facility] Comment on above: Performed By: #### C MP, TSH, T7 #### [facility] [address] [place] [address] Dr. Milind Martinez CO2 [Moles/Vol] 28.2 mmol/L Normal 21.0-32.0 [facility] Comment on above: Performed By: #### C MP, TSH, T7 #### [facility] [address] [place] [address] Dr. Mliind Martinez Creatinine [Mass/Vol] 1.54 mg/dL Critically high 0.55-1.02 [facility] Comment on above: Performed By: #### C MP, TSH, T7 #### [facility] [address] [place] [address] Dr. Milind Martinez EGFR-AF HUNGARIAN 39 mL/min/1.73m2 Critically low >=60 [facility] Comment on above: Performed By: #### C MP, TSH, T7 #### [facility] [address] [place] [address] Dr. Milind Martinez EGFR-NON AF HUNGARIAN 32 mL/min/1.73m2 Critically low >=60 [facility] Comment on above: Performed By: #### C MP, TSH, T7 #### [facility] [address] [place] [address] Dr. Milind Martinez Globulin (S) [Mass/Vol] 3.2 g/dL Normal [facility] Comment on above: Performed By: #### C MP, TSH, T7 #### [facility] [address] [place] [address] Dr. Milind Martinez Glucose [Mass/Vol] 180 mg/dL Critically high 74-106 [facility] Comment on above: Performed By: #### C MP, TSH, T7 #### [facility] [address] [place] [address] Dr. Milind Martinez Potassium [Moles/Vol] 4.5 mmol/L Normal 3.5-5.1 [facility] Comment on above: Performed By: #### C MP, TSH, T7 #### [facility] [address] [address] [address] Milind Martinez Protein [Mass/Vol] 6.3 g/dL Critically low 6.4-8.2 [facility] Comment on above: Performed By: #### C MP, TSH, T7 #### [facility] [address] [place] [address] Dr. Milind Martinez Sodium [Moles/Vol] 140 mmol/L Normal 136-145 [facility] Comment on above: Performed By: #### C MP, TSH, T7 #### [facility] [address] [place] [address] Dr. Milind Martinez Urea nitrogen [Mass/Vol] 46.0 mg/dL Critically high 7.0-18.0 [facility] Comment on above: Performed By: #### C MP, TSH, T7 #### [facility] [address] [place] [address] Dr. Milind Martinez Urea nitrogen/Creatinine [Mass ratio] 29.9 mg/mg Normal [facility] Comment on above: Performed By: #### C MP, TSH, T7 #### [facility] [address] [place] [address] Dr. Milind Martinez TSHon 08-01-2022 TSH 12.769 uIU/mL Critically high 0.358-3.740 [facility] Comment on above: Performed By: #### C MP, TSH, T7 #### [facility] [address] [place] [address] Dr. Milind Martinez INSULINon 04-03-2022 Insulin 2.5 uIU/mL Critically low 2.6-24.9 [facility] Comment on above: Performed By: #### C MP, TSH, T7 #### [facility] [address] [place] [address] Dr. Milind Martinez T4, T3U, FTI [facility] 04-03 Free Thyroxine Index 1.8 Normal 1.2-4.9 [facility] Comment on above: Performed By: #### T HYLC #### [facility] [address] [place] [address] Dr. Milind Martinez T3 Uptake 26 % Normal 24-39 [facility] Comment on above: Performed By: #### T HYLC #### [facility] [address] [place] [address] Dr. Milind Martinez T4 [Mass/Vol] 7.1 ug/dL Normal 4.5-12.0 [facility] Comment on above: Performed By: #### T HYLC #### [facility] [address] [place] [address] Dr. Milind Martinez CBC AUTO DIFFon 04-02-2022 BASO # 0.0 103/ul Normal 0.0-0.1 [facility] Comment on above: Performed By: #### C BC #### [facility] [address] [place] [address] Dr. Milind Martinez Basophils/100 WBC (Bld) 0.9 % Normal 0.2-2.0 [facility] Comment on above: Performed By: #### C BC #### [facility] [address] [place] [address] Dr. Milind Martinez EO # 0.2 103/ul Normal 0.0-0.7 [facility] Comment on above: Performed By: #### C BC #### [facility] [address] [place] [address] Dr. Milind Martinez Eosinophils/100 WBC (Bld) 5.3 % Normal 0.9-7.0 [facility] Comment on above: Performed By: #### C BC #### [facility] [address] [place] [address] Dr. Milind Martinez Erythrocyte distribution width (RBC) [Ratio] 13.2 % Normal 11.0-15.0 [facility] Comment on above: Performed By: #### C BC #### [facility] [address] [place] [address] Dr. Milind Martinez Hematocrit (Bld) [Volume fraction] 37.1 % Normal 36.0-48.0 [facility] Comment on above: Performed By: #### C BC #### [facility] [address] [place] [address] Dr. Milind Martinez Hemoglobin (Bld) [Mass/Vol] 12.0 g/dL Normal 12.0-16.0 [facility] Comment on above: Performed By: #### C BC #### [facility] [address] [place] [address] Dr. Milind Martinez IG # 0.01 10e3/ul Normal 0.00-0.03 [facility] Comment on above: Performed By: #### C BC #### [facility] [address] [place] [address] Dr. Milind Martinez IG % 0.2 % Normal 0.0-0.5 [facility] Comment on above: Performed By: #### C BC #### [facility] [address] [place] [address] Dr. Milind Martinez LYMPH # 1.8 103/ul Normal 1.2-3.8 [facility] Comment on above: Performed By: #### C BC #### [facility] [address] [place] [address] Dr. Milind Martinez Lymphocytes/100 WBC (Bld) 41.9 % Normal 20.5-60.0 [facility] Comment on above: Performed By: #### C BC #### [facility] [address] [place] [address] Dr. Milind Martinez MANUAL DIFF REQ NO Normal [facility] Comment on above: Performed By: #### C BC #### [facility] [address] [place] [address] Dr. Miilnd Martinez MCH (RBC) [Entitic mass] 31.2 pg Normal 26.7-34.0 [facility] Comment on above: Performed By: #### C BC #### [facility] [address] [place] [address] Dr. Milind Martinez MCHC (RBC) [Mass/Vol] 32.3 g/dL Normal 29.9-35.2 [facility] Comment on above: Performed By: #### C BC #### [facility] [address] [address] [address] Milind Martinez MCV (RBC) [Entitic vol] 96.4 fL Normal 81.0-99.0 [facility] Comment on above: Performed By: #### C BC #### [facility] [address] [address] [address] Milind Martinez MONO # 0.3 103/ul Normal 0.3-0.8 [facility] Comment on above: Performed By: #### C BC #### [facility] [address] [address] [address] Milind Martinez Monocytes/100 WBC (Bld) 5.8 % Normal 1.7-12.0 [facility] Comment on above: Performed By: #### C BC #### [facility] [address] [address] [address] Milind Martinez NEUT # 2.0 103/ul Normal 1.4-6.5 [facility] Comment on above: Performed By: #### C BC #### [facility] [address] [address] [address] Milind Martinez Neutrophils/100 WBC (Bld) 45.9 % Normal 43.0-75.0 [facility] Comment on above: Performed By: #### C BC #### [facility] [address] [address] [address] Milind Martinez Platelet mean volume (Bld) [Entitic vol] 11.8 fL Normal 9.5-13.5 [facility] Comment on above: Performed By: #### C BC #### [facility] [address] [address] [address] Milind Martinez PLT 159 103/ul Normal 150-450 [facility] Comment on above: Performed By: #### C BC #### [facility] [address] [address] [address] Milind Martinez RBC 3.85 106/ul Critically low 4.20-5.40 [facility] Comment on above: Performed By: #### C BC #### [facility] [address] [address] [address] Milind Martinez WBC 4.3 103/ul Normal 4.0-11.0 [facility] Comment on above: Performed By: #### C BC #### [facility] [address] [address] [address] Milind Martinez GLYCOHEMOGLOBIN A1Con 2021 ADA RECOMMENDATION SEE BELOW Normal [facility] Comment on above: Result Comment: ADA RECOMMENDED LIMIT 4.0 - 6.0 ADA THERAPEUTIC TARGET < 7.0 ACTION SUGGESTED > 7.0 Performed By: #### A 1C #### [facility] [address] [place] [address] Dr. Milind Martinez Glucose [Mass/Vol] 214 mg/dL Normal [facility] Comment on above: Performed By: #### A 1C #### [facility] [address] [place] [address] Dr. Milind Martinez HbA1c (Bld) [Mass fraction] 9.1 % Critically high 4.5-6.2 [facility] Comment on above: Performed By: #### A 1C #### [facility] [address] [place] [address] Dr. Milind Martinez IRONon 04-02-2022 Iron [Mass/Vol] 126.0 ug/dL Normal 50.0-170.0 [facility] Comment on above: Performed By: #### C MP, TSH, T7 #### [facility] [address] [place] [address] Dr. Milind Martinez LIPID PROFILEon 04-02-2022 CHOL-HDL RATIO NORM SEE BELOW Normal [facility] Comment on above: Result Comment: 3.3 - 4.4 LOW RISK 4.4 - 7.1 AVERAGE RISK 7.1 - 11.0 MODERATE RISK >11.0 HIGH RISK Performed By: #### C MP, TSH, T7 #### [facility] [address] [place] [address] Dr. Milind Martinez Cholesterol [Mass/Vol] 133 mg/dL Normal <=200 [facility] Comment on above: Performed By: #### C MP, TSH, T7 #### [facility] [address] [address] [address] Milind Martinez Cholesterol in HDL [Mass/Vol] 20 mg/dL Critically low 40-60 [facility] Comment on above: Performed By: #### C MP, TSH, T7 #### [facility] [address] [address] [address] Milind Martinez Cholesterol in LDL [Mass/Vol] 69.6 mg/dL Normal [facility] Comment on above: Performed By: #### C MP, TSH, T7 #### [facility] [address] [address] [address] Milind Martinez Cholesterol.total/Ch olesterol in HDL [Mass ratio] 6.7 {ratio} Normal [facility] Comment on above: Performed By: #### C MP, TSH, T7 #### [facility] [address] [address] [address] Milind Martinez HDL NORMAL > or = 60 mg/dl - LOW CARDIOVASCULAR RISK <40 mg/dl - HIGH CARDIOVASCULAR RISK Normal [facility] Comment on above: Performed By: #### C MP, TSH, T7 #### [facility] [address] [address] [address] Milind Martinez LDL CALC NORMAL SEE BELOW Normal [facility] Comment on above: Result Comment: <100 mg/dl OPTIMAL 100 - 129 mg/dl NEAR OR ABOVE OPTIMAL 130 - 159 mg/dl BORDERLINE HIGH 160 - 189 mg/dl HIGH >190 mg/dl VERY HIGH Performed By: #### C MP, TSH, T7 #### [facility] [address] [address] [address] Milind Maritnez Triglyceride [Mass/Vol] 217 mg/dL Critically high <=150 [facility] Comment on above: Performed By: #### C MP, TSH, T7 #### [facility] [address] [address] [address] Milind Martinez VLDL CALC 43.4 mg/dL Normal [facility] Comment on above: Performed By: #### C MP, TSH, T7 #### [facility] [address] [address] [address] Milind Martinez PROF 14(COMP METB)on 022 Albumin [Mass/Vol] 3.3 g/dL Critically low 3.4-5.0 [facility] Comment on above: Performed By: #### C MP, TSH, T7 #### [facility] [address] [address] [address] Milind Martinez Albumin/Globulin [Mass ratio] 1.2 {ratio} Normal [facility] Comment on above: Performed By: #### C MP, TSH, T7 #### [facility] [address] [address] [address] Milind Martinez ALP [Catalytic activity/Vol] 43 U/L Critically low 46-116 [facility] Comment on above: Performed By: #### C MP, TSH, T7 #### [facility] [address] [address] [address] Milind Martinez ALT [Catalytic activity/Vol] 24 U/L Normal 14-59 [facility] Comment on above: Performed By: #### C MP, TSH, T7 #### [facility] [address] [address] [address] Milind Martinez Anion gap [Moles/Vol] 11.4 mmol/L Normal [facility] Comment on above: Performed By: #### C MP, TSH, T7 #### [facility] [address] [address] [address] Milind Martinez AST [Catalytic activity/Vol] 24 U/L Normal 15-37 [facility] Comment on above: Performed By: #### C MP, TSH, T7 #### [facility] [address] [address] [address] Milind Martinez Bilirubin [Mass/Vol] 0.4 mg/dL Normal 0.2-1.0 [facility] Comment on above: Performed By: #### C MP, TSH, T7 #### [facility] [address] [address] [address] Milind Martinez Calcium [Mass/Vol] 8.7 mg/dL Normal 8.5-10.1 [facility] Comment on above: Performed By: #### C MP, TSH, T7 #### [facility] [address] [address] [address] Milind Martinez Chloride [Moles/Vol] 106 mmol/L Normal 98-107 [facility] Comment on above: Performed By: #### C MP, TSH, T7 #### [facility] [address] [place] [address] Dr. Milind Martinez CO2 [Moles/Vol] 29.7 mmol/L Normal 21.0-32.0 [facility] Comment on above: Performed By: #### C MP, TSH, T7 #### [facility] [address] [place] [address] Dr. Milind Martinez Creatinine [Mass/Vol] 1.30 mg/dL Critically high 0.55-1.02 [facility] Comment on above: Performed By: #### C MP, TSH, T7 #### [facility] [address] [place] [address] Dr. Milind Martinez EGFR-AF HUNGARIAN 47 mL/min/1.73m2 Critically low >=60 [facility] Comment on above: Performed By: #### C MP, TSH, T7 #### [facility] [address] [place] [address] Dr. Milind Martinez EGFR-NON AF HUNGARIAN 39 mL/min/1.73m2 Critically low >=60 [facility] Comment on above: Performed By: #### C MP, TSH, T7 #### [facility] [address] [place] [address] Dr. Milind Martinez Globulin (S) [Mass/Vol] 2.7 g/dL Normal [facility] Comment on above: Performed By: #### C MP, TSH, T7 #### [facility] [address] [place] [address] Dr. Milind Martinez Glucose [Mass/Vol] 109 mg/dL Critically high 74-106 [facility] Comment on above: Performed By: #### C MP, TSH, T7 #### [facility] [address] [place] [address] Dr. Milind Martinez Potassium [Moles/Vol] 4.1 mmol/L Normal 3.5-5.1 [facility] Comment on above: Performed By: #### C LORENA TSH, T7 #### [facility] [address] [place] [address] Dr. Milind Martinez Protein [Mass/Vol] 6.0 g/dL Critically low 6.4-8.2 [facility] Comment on above: Performed By: #### C LORENA TSH, T7 #### [facility] [address] [place] [address] Dr. Milind Martinez Sodium [Moles/Vol] 143 mmol/L Normal 136-145 [facility] Comment on above: Performed By: #### C LORENA TSH, T7 #### [facility] [address] [place] [address] Dr. Milind Martinez Urea nitrogen [Mass/Vol] 34.0 mg/dL Critically high 7.0-18.0 [facility] Comment on above: Performed By: #### C LORENA TSH, T7 #### [facility] [address] [place] [address] Dr. Milind Martinez Urea nitrogen/Creatinine [Mass ratio] 26.2 mg/mg Normal [facility] Comment on above: Performed By: #### C LORENA TSH, T7 #### [facility] [address] [place] [address] Dr. Milind Martinez TSHon 04-02-2022 TSH 7.887 uIU/mL Critically high 0.358-3.740 [facility] Comment on above: Performed By: #### C LORENA TSH, T7 #### [facility] [address] [place] [address] Dr. Milind Martinez US KIDNEYSon 03-23-2022 US KIDNEYS Ultrasound kidneys, bilateral, with renal Doppler CLINICAL: Uncontrolled hypertension. TECHNIQUE: Transabdominal ultrasound olivo-scale imaging of both kidneys was performed with Doppler, waveform analysis and peak systolic velocity measurements of the renal arteries. FINDINGS: Comparison: None. Both kidneys demonstrate normal echotexture and echogenicity. The right kidney measures 10.2 x 5.9 x 5.4 cm cm. There is no hydronephrosis of right kidney. The left kidney measures 10.2 x 5.5 x 4.8 cm cm. No hydronephrosis of left kidney. The bladder is incompletely distended with bladder volume of 94 mL, and not well evaluated. The abdominal aorta measures 69 cm/sec. The proximal, mid and distal portions of the right renal artery measure peak systolic velocities of 303 cm/sec, 207 cm/sec, and 100 cm/sec, respectively. This results in highest renal artery to aortic ratio of 4.4. The proximal, mid and distal portions of the left renal artery measure peak systolic velocities of 182 cm/sec, 110 cm/sec, and 71 cm/sec, respectively. This results in highest renal artery to aortic ratio of 2.6. The peak systolic velocities of the renal arteries and renal to aortic ratios are within normal limits. IMPRESSION: 1. Normal size kidneys for age, without hydronephrosis. 2. Hemodynamically significant stenosis of 60% or greater stenosis at the proximal right renal artery. 3. Less than 60% stenosis of the left renal artery. Reference: J Ultrasound. 2008 Dec: 12(4): 133-143. Based on classification of RA stenosis by color-Doppler US from Zistephenr and Strandmegha (Am J Hypertens, 1996). Normal renal artery diameter: RA PSV < 180 cm/sec, RAR < 3.5 < 60% diameter reduction: RA PSV > 180 cm/sec, RAR < 3.5 > 60% diameter reduction: RA PSV > 180 cm/sec, RAR > 3.5 Occlusion: No PSV signal, RAR indeterminate RI > 0.33 - normal; RI 0.23 - borderline; <0.23 increased resistance within kidney Electronically authenticated by: IJEOMA TIM Date: 2022-03-23 13:26 Normal [facility] MAMM SCREEN 3D BOGDAN CADon 03-05-2022 MG MAMM SCREEN 3D BOGDAN CAD Patient: DEJA ZAMORA Exam Date: 03/05/2022 : 1940 Gender:F Ordering : NATHAN JOVEL [facility] Admission #: [id number] Family : Order #: [id number] CLICK HERE TO VIEW EXAM RADIOLOGY REPORT PROCEDURE: MAMMOGRAM SCREENING 3D BILATERAL CAD COMPARISON: MG MAMM SCREEN BOGDAN W CAD, 02/24/2020. MG MAMM SCREEN BOGDAN W CAD, 11/27/2018. MG MAMM BOGDAN SCRN W CAD DIG, 10/02/2011. MG MAMM SCREEN 3D BOGDAN CAD, 02/27/2021. INDICATIONS: Screening mammography Calculator Name NCI Breast Cancer Risk Assessment Tool 5 Year Breast Cancer Risk 1.10% Lifetime Breast Cancer Risk 1.30% Personal Breast Cancer No Personal Ovarian Cancer No Treatments None Family Cancers Sister with lung cancer at age 55; Brother with mult.myeloma cancer at age 49; Brother with mult.myeloma cancer at age 70. LOCATION: [facility] BREAST COMPOSITION: Scattered areas fibroglandular density. FINDINGS: DIAGNOSTIC CATEGORY 2--BENIGN FINDING: RIGHT BREAST: No significant suspicious finding. Scattered benign-appearing calcifications are present. No significant change has occurred. LEFT BREAST: No significant suspicious finding. Scattered benign-appearing calcifications are present. No significant change has occurred. RECOMMENDATIONS: ROUTINE MAMMOGRAM AND CLINICAL EVALUATION IN 12 MONTHS. PLEASE NOTE: A NORMAL MAMMOGRAM DOES NOT EXCLUDE THE POSSIBILITY OF BREAST CANCER. A CLINICALLY SUSPICIOUS PALPABLE LUMP SHOULD BE BIOPSIED. Dictated by: Uday Major M.D. on 03/05/2022 at 13:44 Approved by: Uday Major M.D. on 03/05/2022 at 13:47 Normal [facility] US CAROTID ART BILon 05-09-2 022 US CAROTID ART BOGDAN EXAMINATION: US CAROTID ART BOGDAN HISTORY: Bilateral carotid artery occlusion COMPARISON: Ultrasound carotid artery bilateral 01/09/2021 TECHNIQUE: Duplex Doppler ultrasound analysis of carotid and vertebral arteries. . Bilateral carotid arterial duplex examination was performed using B-mode, color flow and spectral analysis. Carotid stenosis is reported according to validated velocity parameters, similar to NASCET criteria. FINDINGS: RIGHT CAROTID ARTERY: Marked atherosclerotic disease within the distal CCA and bulb, with up to 84% area reduction of the carotid bulb RIGHT VERTEBRAL: Antegrade flow. Subclavian: PSV: 118.1 cm/s EDV: 5.7 cm/s CCA: Prox: PSV: 63.3 cm/s EDV: 9.2 cm/s Mid: PSV: 69.4 cm/s EDV: 11.0 cm/s Distal: PSV: 71.2 cm/s EDV: 10.1 cm/s BULB: PSV: 56.3 cm/s EDV: 7.5 cm/s ICA: Prox: PSV: 145.5 cm/s EDV: 13.0 cm/s Mid: PSV: 199.5 cm/s EDV: 21.2 cm/s Distal: PSV: 114.0 cm/s EDV: 17.1 cm/s ECA: PSV: 263.8 cm/s EDV: 0.0 cm/s VERTEBRAL: PSV: 52.0 cm/s EDV: 8.4 cm/s ICA/CCA ratio: PSV: 2.8 EDV: 2.1 LEFT CAROTID ARTERY: Moderate-marked atherosclerotic disease throughout, with up to 68% area reduction of the carotid bulb. LEFT VERTEBRAL: Antegrade flow. Subclavian: PSV: 139.8 cm/s EDV: 12.0 cm/s CCA: Prox: PSV: 103.0 cm/s EDV: 12.4 cm/s Mid: PSV: 63.3 cm/s EDV: 12.7 cm/s Distal: PSV: 72.1 cm/s EDV: 13.8 cm/s BULB: PSV: 109.6 cm/s EDV: 15.0 cm/s ICA: Prox: PSV: 147.8 cm/s EDV: 22.3 cm/s Mid: PSV: 136.2 cm/s EDV: 22.3 cm/s Distal: PSV: 114.0 cm/s EDV: 17.1 cm/s ECA: PSV: 149.0 cm/s EDV: 0.0 cm/s VERTEBRAL: PSV: 47.9 cm/s EDV: 0.0 cm/s ICA/CCA ratio: PSV: 2.1 EDV: 1.6 IMPRESSION: 1. 50-69% flow stenosis within the right carotid artery with overall marked atherosclerotic disease. 2. 0-49% flow stenosis within the left carotid artery with moderate atherosclerotic disease. Spectral Doppler US Thresholds Stenosis (%) PSV (cm/sec) VICA/VCCA 0-49 <150 <2.5 50-69 150-225 2.5-4.0 >70 >225 >4.0 Electronically authenticated by: UDAY MAJOR Date: 2021-12-25 15:42 Normal [facility] Vital Signs Date Time Vital Sign Value Performing Clinician Olimpiai lity 12-21-2021 10:00-0400 Body height 147.32 cm Patrick Cotter Other [employer] Other 12-21-2021 10:00-0400 Body mass index (BMI) [Ratio] 27.79 kg/m2 Patrick Cotter Other [employer] Other 12-21-2021 10:00-0400 Body weight 60.33 kg Patrick Cotter Other [employer] Other 10-19-2021 12:00-0500 Body height 147.32 cm Patrick Cotter Other [employer] Other 10-19-2021 12:00-0500 Body mass index (BMI) [Ratio] 27.79 kg/m2 Patrick Cotter Other [employer] Other 10-19-2021 12:00-0500 Body weight 60.33 kg Patrick Cotter Other [employer] Other 08-22-2021 15:00-0500 Body height 147.32 cm Patrick Cotter Other [employer] Other 08-22-2021 15:00-0500 Body mass index (BMI) [Ratio] 27.79 kg/m2 Patrick Cotter Other [employer] Other 08-22-2021 15:00-0500 Body weight 60.33 kg Patrick Cotter Other [employer] Other Encounters Encounter Date Encounter Type Care Provider Facility Start: 08-02-2023 End: 08-02-[address] [facility] Start: 04-01-2023 End: 04-02-2023 ambulatory Danny Monroy MD Facility: [facility] Start: 03-18-2023 End: 03-19-2023 ambulatory Danny Monroy MD Facility:[facility] Start: 02-25-2023 End: 02-25-2023 ambulatory XIMENA [facility] Start: 02-11-2023 End: 02-12-2023 ambulatory Danny Monroy MD Facility:[facility] Start: 12-05-2022 End: 12-05-[address] [facility] Start: 09-20-2022 End: 09-21-2022 ambulatory NATHAN JOVEL Facility:[facility] Start: 09-05-2022 End: 09-05-[address] [facility] Start: 08-01-2022 End: 08-02-2022 ambulatory NATHAN JOVEL Facility:[facility] Start: 04-02-2022 End: 04-03-2022 ambulatory NATHAN JOVEL Facility:[facility] Start: 03-23-2022 End: 03-24-[address] XIMENA MARTINS Facility:[facility] Start: 03-05-2022 End: 03-06-[address] UDAY MAJOR Facility:[facility] Start: 12-25-2021 End: 12-26-2021 ambulatory SEE DICK Facility:[facility] Start: 12-21-2021 End: 12-21-2021 ambulatory Patrick Cotter Other [employer] Other Start: 12-21-2021 Postop follow up vis it related to original px Patrick Cotter [facility] Start: 11-02-2021 ambulatory NATHAN JOVEL Facility: [facility] Start: 10-19-2021 End: 10-19-2021 ambulatory Patrick Cotter Other [employer] Other Start: 10-19-2021 Postop follow up vis it related to original px Patrick Cotter [facility] Start: 09-18-2021 Admission to same [facility] Patrick Cotter [facility] Start: 09-18-2021 End: 09-19-2021 ambulatory Patrick Cotter [facility] [employer] Other Start: 08-29-2021 End: 08-29-2021 ambulatory Patrick Cotter Other [facility] [employer] Other Start: 08-29-2021 Telephone encounter Patrick Cotter [facility] Start: 08-22-2021 End: 08-22-2021 ambulatory Patrick Cotter Other [facility] [employer] Other Start: 08-22-2021 Office outpatient visit 40 minutes Patrick Cotter [facility] Start: 09-24-2017 End: 09-25-2017 Ambulatory DEFAULT PHYSICIAN Facility:[facility] Payers Date Payer Category Payer Unknown 2021 Self-pay 2003 Medicare 1959 Medicare [id number] 2.1 [id number] 1959 Self-pay [id number] 1959 Unknown [id number] 2.1 [id number] 1940 Unknown [id number] 2.16.84 [id number] 1940 Unknown [id number] 2.16.84 [id number] 1940 Unknown [id number] 2.16.84 [id number] 1940 Unknown [id number] 2.16.84 [id number] 1940 Unknown [id number] 2.16.84 [id number] 1940 Unknown [id number] 2.16.84 [id number] 1940 Unknown [id number] 2.16.84 [id number] 1940 Unknown [id number] 2.16. [id number] 1940 Unknown [id number] 2.16. [id number] 1940 Unknown [id number] 2.16. [id number] Unknown [id number] 2.16.8 [id number] Social History Date Type Detail Facility Sex Assigned At [employer] Other Clinical Notes 08-22-2021 to 08-02-2023 Note Date & Type Note Facility 08-02-2023 Note Stable so far, will monitor with increased clonidine for uncontrolled HTN [facility] 08-02-2023 Note Stable without any worsening sym ptoms [facility] 08-02-2023 Note Hypertension is Curr ently uncontrolled, States her hypertension medicines have been changed multiple times by different providers. Reviewed her blood pressure log and over the past couple months her blood pressure has been uncontrolled. Will increase clonidine to 0.2 mg twice daily, Continue Norvasc 5 mg, Cardura 8 mg, metoprolol tartrate 50 mg twice daily, spironolactone 12.5 mg daily Since hydrochlorothiazide was DC'd by another provider I believe because of elevated renal function she is needing Lasix more often for her leg swelling- 2-3 times a week compared to once or twice every 2 to 3-weeks [facility] 08-02-2023 Note [facility] CARDIOLOGY PROGR ESS NOTE HPI: Deja Zamora is a 83 y.o. female here for concerns of elevated B/P Patient here c/o hypertension. Says when she saw PCP recently BP was 190 systolic. When she was seen by Dr. Martins in February 2023, he decreased her metoprolol to 25mg bid. Also decreased spironolactone to 12.5mg every other day. PCP bumped her metoprolol back up to 50mg twice daily. HR has been in the low 50's-60. BP is better but still not at target sometimes. She was admitted to [facility] in Mar 2023 for e.coli and dehydration. Hydrochlorothiazide was stopped at that time. She has been taking lasix and potassium about 3 times a week for LE edema. She denies chest pain, SOB, and palpitations. Gets lightheaded sometimes. Review of Systems Cardiovascular: Positive for leg swelling. Musculoskeletal: Positive for arthritis, back pain and muscle weakness. Neurological: Positive for dizziness, light-headedness and weakness. All other systems reviewed and are negative. Visit Vitals BP (!) 190/58 (BP Location: Left arm, Patient Position: Sitting) Pulse 60 Ht 1.473 m (4' 10 ) Wt 54.9 kg (121 lb) SpO2 97% BMI 25.29 kg/m??? OB Status Postmenopausal Smoking Status Never BSA 1.5 m??? Allergies Allergen Reactions Gemfibrozil Penicillins Unknown Vvgntki-Uqa-Ggq Reductase Inhibitors Unknown Triamterene-Hydrochlorothiazid Medications: Current Outpatient Medications on File Prior to Visit Medication Sig Dispense Refill aspirin 81 mg EC tablet Take 1 tablet every day by oral route. calcium carbonate-vitamin D3 600 mg-5 mcg (200 unit) tablet Calcium 600 + D(3) 1200mg doxazosin (Cardura) 8 mg tablet Take 1 tablet (8 mg) by mouth in the morning and at bedtime. 180 tablet 3 ezetimibe (Zetia) 10 mg tablet Take 1 tablet by mouth in the morning. fenofibrate (Lofibra) 160 mg tablet Take 1 tablet by mouth in the morning. fluticasone (Flonase) 50 mcg/actuation nasal spray Instilled 1 spray in each nostril twice daily. furosemide (Lasix) 20 mg tablet Take 1 tablet (20 mg) by mouth if needed (as needed). PRN (Patient taking differently: Take 20 mg by mouth 3 (three) times a week. PRN) 90 tablet 2 gabapentin (Neurontin) 100 mg capsule Take 100 mg by mouth in the morning and at bedtime. insulin glargine (Lantus) 100 unit/mL (3 mL) pen INJECT 16 UNITS SUBCUTANEOUSLY NIGHTLY levothyroxine (Synthroid, Levoxyl) 25 mcg tablet Take 25 mcg by mouth in the morning. liothyronine (Cytomel) 5 mcg tablet Take 5 mcg by mouth in the morning. metoprolol tartrate (Lopressor) 50 mg tablet Take 1.5 tablets (75 mg) by mouth in the morning and at bedtime. (Patient taking differently: Take 50 mg by mouth in the morning and at bedtime.) 270 tablet 3 pantoprazole (ProtoNix) 40 mg EC tablet Take 1 tablet by mouth in the morning. potassium chloride CR (Klor-Con M20) 20 mEq ER tablet Take 1 tablet (20 mEq) by mouth if needed (as needed). PRN 90 tablet 1 spironolactone (Aldactone) 25 mg tablet Take 0.5 tablets (12.5 mg) by mouth in the morning. (Patient taking differently: Take 12.5 mg by mouth every other day.) 45 tablet 3 [DISCONTINUED] amLODIPine (Norvasc) 5 mg tablet Take 1 tablet (5 mg) by mouth in the morning. 90 tablet 3 [DISCONTINUED] cloNIDine (Catapres) 0.1 mg tablet Take 0.1 mg by mouth in the morning and at bedtime. [DISCONTINUED] hydroCHLOROthiazide (HYDRODiuril) 25 mg tablet Take 1 tablet by mouth in the morning. No current facility-administered medications on file prior to visit. Physical Exam: Constitutional: Appearance: Normal appearance. Without apparent distress, chronically ill HENT: Head: Normocephalic and atraumatic. Nose: Nose normal. Mouth/Throat: Mouth: Mucous membranes are moist. Eyes: Extraocular Movements: Extraocular movements intact. Conjunctiva/sclera: Conjunctivae normal. Neck: Vascular: No JVD. Cardiovascular: Rate and Rhythm: Normal rate and regular rhythm. Pulses: Posterior tibial pulses are 3 on the right side and 3 on the left side. Heart sounds: Normal heart sounds, S1 normal and S2 normal. Pulmonary: Effort: Pulmonary effort is normal. Breath sounds: Normal breath sounds. Abdominal: General: Bowel sounds are normal. Palpations: Abdomen is soft. Musculoskeletal: General: Normal range of motion. Cervical back: Normal range of motion. Right lower leg: No edema. Left lower leg: No edema. Skin: General: Skin is warm and dry. Capillary Refill: Capillary refill takes less than 2 seconds. Neurological: General: No focal deficit present. Mental Status: She is alert and oriented to person, place, and time. Psychiatric: Mood and Affect: Mood normal. Behavior: Behavior normal. Thought Content: Thought content normal. Judgment: Judgment normal. Labs: Recent labs reviewed and Renal function remains with CR around 1.5-1.6 which seems to be her baseline 07/31/23 CBC stable Liver function normal Last lab values have be (more content not included)... [facility] 08-02-2023 Note Patient here c/o hyp ertension. Says when she saw PCP recently BP was 190 systolic. When she was seen by Dr. Martins in February 2023, he decreased her metoprolol to 25mg bid. Also decreased spironolactone to 12.5mg every other day. PCP bumped her metoprolol back up to 50mg twice daily. HR has been in the low 50's-60. BP is better but still not at target sometimes. She was admitted to [facility] in Mar 2023 for e.coli and dehydration. Hydrochlorothiazide was stopped at that time. She has been taking lasix and potassium about 3 times a week for LE edema. She denies chest pain, SOB, and palpitations. Gets lightheaded sometimes. Review of Systems Cardiovascular: Positive for leg swelling. Musculoskeletal: Positive for arthritis, back pain and muscle weakness. Neurological: Positive for dizziness, light-headedness and weakness. All other systems reviewed and are negative. [facility] 02-25-2023 Note [place] [facility] Subjective Deja Zamora is a 82 y.o. year old female patient being seen for 3 mo follow up hypertension, carotid artery stenosis, and pulmonary hypertension. Says she's been having dizzy spells the past 1-2 weeks. She did bring her BP log from home. She had routine labs last month. Patient Active Problem List Diagnosis Abdominal pain Anemia Benign essential hypertension Carotid artery stenosis Fatigue Hyperlipidemia Nausea and vomiting Santosh rhythm disorder Orthostatic hypotension Osteoporosis Pulmonary hypertension (CMS/HCC) Thickened endometrium Type 2 diabetes mellitus (CMS/HCC) Vertigo Acute sinusitis Difficulty walking Fluid level behind tympanic membrane of both ears Intervertebral disc disorders with radiculopathy, lumbar region Type 2 diabetes mellitus without complication (CMS/HCC) Bilateral renal artery stenosis (CMS/HCC) Stage 4 chronic kidney disease (CMS/HCC) Family History Problem Relation Name Age of Onset Coronary artery disease Father Social History Tobacco Use Smoking status: Never Smokeless tobacco: Never Substance Use Topics Alcohol use: Not Currently Drug use: Never RENÉ Deja is seen in follow up on pulmonary hypertension, diastolic heart failure, hypertension and carotid stenosis. She is diabetic on insulin. She has a lot of arthritis and back issues. She has been well since last visit. At visit of 10/2017, she was complaining of mild shortness of breath on moderate exertion. I had increased lasix to 20 mg daily but her follow up BMP showed elevated BUN so I decreased it back to every other day. Currently she is maintained on hydrochlorothiazide as her diuretic therapy. She has no dyspnea. She has no angina symptoms. She has no palpitations. She has no claudication. Ambulation is limited by back issues. Her blood pressure has been elevated. Today in the office systolic is 200. Hydralazine was stopped due to palpitations. She is currently taking amlodipine 5 mg daily [she developed edema on higher dose], doxazosin 8 mg twice daily, hydrochlorothiazide 25 mg once daily and metoprolol tartrate 50 mg twice daily, spironolactone 12.5 mg daily. In addition she is on aspirin 81 mg daily, ezetimibe and fenofibrate. She is intolerant to statins. She takes lasix and potassium together as needed. she denies chest pain, shortness of breath, palpitations, dizziness, syncope and leg edema. she has good exercise tolerance. There is no claudication. She has been having dizzy spells occasionally. BP readings at home showed systolic sometimes 90-100. Review of Systems Musculoskeletal: Positive for back pain. Neurological: Positive for dizziness and light-headedness. All other systems reviewed and are negative. Objective Visit Vitals BP 130/65 (BP Location: Left arm, Patient Position: Sitting) Pulse 59 Ht 1.473 m (4' 10 ) Wt 56.7 kg (125 lb) SpO2 96% BMI 26.13 kg/m??? OB Status Postmenopausal Smoking Status Never BSA 1.52 m??? Physical Exam Constitutional: Appearance: She is well-developed. She is not ill-appearing. HENT: Head: Normocephalic and atraumatic. Nose: Nose normal. Eyes: General: No scleral icterus. Pupils: Pupils are equal, round, and reactive to light. Neck: Thyroid: No thyromegaly. Vascular: Carotid bruit (bilateral) present. No JVD. Cardiovascular: Rate and Rhythm: Regular rhythm. Bradycardia present. Pulses: Radial pulses are 2+ on the right side and 2+ on the left side. Heart sounds: Normal heart sounds. No murmur heard. No friction rub. No gallop. Pulmonary: Effort: Pulmonary effort is normal. No respiratory distress. Breath sounds: Normal breath sounds. No wheezing or rales. Chest: Chest wall: No tenderness. Abdominal: General: Bowel sounds are normal. There is no distension. Palpations: Abdomen is soft. Tenderness: There is no abdominal tenderness. Musculoskeletal: General: No swelling. Cervical back: Neck supple. Comments: Uses a cane to assist with ambulation Skin: General: Skin is warm and dry. Neurological: General: No focal deficit present. Mental Status: She is alert and oriented to person, place, and time. Psychiatric: Mood and Affect: Mood normal. Behavior: Behavior is cooperative. Judgment: Judgment normal. Allergies Allergies Allergen Reactions Gemfibrozil Penicillins Unknown Aofzivp-Bgs-Thw Reductase Inhibitors Unknown Triamterene-Hydrochlorothiazid Medications Current Outpatient Medications: amLODIPine (Norvasc) 5 mg tablet, Take 1 tablet (5 mg) by mouth in the morning., Disp: 90 tablet, Rfl: 3 aspirin 81 mg EC tablet, Take 1 tablet every day by oral route., Disp: , Rfl: calcium carbonate-vitamin D3 600 mg-5 mcg (200 unit) tablet, Calcium 600 + D(3) 1200mg, Disp: , Rfl: cloNIDine (Catapres) 0.1 mg tablet, Take 0.1 mg by mouth 1 (one) time each day., Disp: , Rfl: (more content not included)... [facility] 12-05-2022 Note Reviewed lipids 04/02- well controlled Chol 133, Trig 217, HDL 20, LDL 69.6 [facility] 12-05-2022 Note Currently stable- no concerning symptoms [facility] 12-05-2022 Note Stable, voiced no concerns [facility] 12-05-2022 Note Continue fenofibrate, zetia and ASA [facility] 12-05-2022 Note Hypertension is much improved and well controlled at home per B/P log Continue all medications. [facility] 12-05-2022 Note Review of Systems Constitutional: Negative for malaise/fatigue. Cardiovascular: Positive for chest pain, irregular heartbeat and leg swelling. Negative for dyspnea on exertion, near-syncope, palpitations and syncope. Some recent chest pain. BP monitor showed irregular heart rhythm. Has ankle swelling occasionally, takes Lasix. Neurological: Negative for dizziness, headaches and light-headedness. Deja is here today for a 3 month follow up. She states she had some chest pain yesterday that lasted about a minute. She checked her BP and her monitor showed the symbol for an irregular heart rhythm. She states she is under some stress currently, due to her son having cancer. [facility] 12-05-2022 Note [facility] CARDIOLOGY PROGR ESS NOTE HPI: Deja Zamora is a 82 y.o. female here for Follow-up (3 month ), Chest Pain (Yesterday had a little bit of pain in my heart that lasted about a minute. BP monitor showed irregular heartbeat.), and Stress (Under stress currently, due to son having Stage IV Lung Cancer.) Admits that she was at rest watching TV last week she had a Lt mid chest Pinch that lasted a second and resolved, denied nausea/shortness of breath or sweating with chest pain, denied radiation. Denied any chest pain with exertion. Review of Systems Constitutional: Negative for malaise/fatigue. Cardiovascular: Positive for chest pain, irregular heartbeat and leg swelling. Negative for dyspnea on exertion, near-syncope, palpitations and syncope. Some recent chest pain. BP monitor showed irregular heart rhythm. Has ankle swelling occasionally, takes Lasix. Neurological: Negative for dizziness, headaches and light-headedness. Deja is here today for a 3 month follow up. She states she had some chest pain yesterday that lasted about a minute. She checked her BP and her monitor showed the symbol for an irregular heart rhythm. She states she is under some stress currently, due to her son having cancer. B/P Log reviewed and typically at home b/p well controlled- 102-141/52-75, heart rate 60-70 bpm Visit Vitals BP 143/57 (BP Location: Left arm, Patient Position: Sitting) Pulse 59 Ht 1.473 m (4' 10 ) Wt 57.6 kg (127 lb) SpO2 98% BMI 26.54 kg/m??? OB Status Postmenopausal Smoking Status Never BSA 1.54 m??? Allergies Allergen Reactions Gemfibrozil Penicillins Unknown Jfczjkw-Nie-Yze Reductase Inhibitors Unknown Triamterene-Hydrochlorothiazid Medications: Current Outpatient Medications on File Prior to Visit Medication Sig Dispense Refill amLODIPine (Norvasc) 5 mg tablet Take 1 tablet (5 mg) by mouth in the morning. 90 tablet 3 aspirin 81 mg EC tablet Take 1 tablet every day by oral route. calcium carbonate-vitamin D3 600 mg-5 mcg (200 unit) tablet Calcium 600 + D(3) 1200mg cloNIDine (Catapres) 0.1 mg tablet Take 0.1 mg by mouth 1 (one) time each day. doxazosin (Cardura) 8 mg tablet Take 1 tablet twice a day by oral route for 90 days. ezetimibe (Zetia) 10 mg tablet Take 1 tablet by mouth in the morning. fenofibrate (Lofibra) 160 mg tablet Take 1 tablet by mouth in the morning. fluticasone (Flonase) 50 mcg/actuation nasal spray Instilled 1 spray in each nostril twice daily. furosemide (Lasix) 20 mg tablet Take 20 mg by mouth. PRN glipiZIDE XL (Glucotrol XL) 2.5 mg 24 hr tablet 1 (one) time each day at the same time. guaiFENesin 1,200 mg tablet extended release 12hr Take 1 tablet by mouth twice a day. hydroCHLOROthiazide (HYDRODiuril) 25 mg tablet Take 1 tablet by mouth in the morning. insulin glargine (Lantus) 100 unit/mL (3 mL) pen INJECT 16 UNITS SUBCUTANEOUSLY NIGHTLY levothyroxine (Synthroid, Levoxyl) 25 mcg tablet Take 25 mcg by mouth in the morning. metoprolol tartrate (Lopressor) 50 mg tablet Take 1.5 tablets (75 mg) by mouth in the morning and at bedtime. (Patient taking differently: Take 50 mg by mouth in the morning and at bedtime.) 270 tablet 3 pantoprazole (ProtoNix) 40 mg EC tablet Take 1 tablet by mouth in the morning. potassium chloride CR (Klor-Con M20) 20 mEq ER tablet Take 1 tablet (20 mEq) by mouth if needed (as needed). PRN 90 tablet 1 spironolactone (Aldactone) 25 mg tablet Take 0.5 tablets (12.5 mg) by mouth in the morning. 45 tablet 3 No current facility-administered medications on file prior to visit. Physical Exam: Constitutional: Appearance: Normal appearance. Without apparent distress, ambulatory with cane HENT: Head: Normocephalic and atraumatic. Nose: Nose normal. Mouth/Throat: Mouth: Mucous membranes are moist. Eyes: Extraocular Movements: Extraocular movements intact. Conjunctiva/sclera: Conjunctivae normal. Neck: Vascular: No JVD. Cardiovascular: Rate and Rhythm: Normal rate and regular rhythm. Pulses: Dorsalis pedis pulses are 3 on the right side and 3on the left side. Posterior tibial pulses are 3 on the right side and 3 on the left side. Heart sounds: Normal heart sounds, S1 normal and S2 normal. Pulmonary: Effort: Pulmonary effort is normal. Breath sounds: Normal breath sounds. Abdominal: General: Bowel sounds are normal. Palpations: Abdomen is soft. Musculoskeletal: General: Normal range of motion. Cervical back: Normal range of motion. Right lower leg: No edema. Left lower leg: No edema. Skin: General: Skin is warm and dry. Capillary Refill: Capillary refill takes less than 2 seconds. Neurological: General: No focal deficit present. Mental Status: She is alert and oriented to person, place, and time. Psychiatric: Mood and Affect: Mood normal. Behavior: Behavior normal. Thought Content: Thought content normal. Judgment: Judgment normal. Labs: 08/01/22 (more content not included)... [facility] 09-05-2022 Note Hypertension is much better controlled at home after review of b/p log. Continue amlodipine 5mg daily, clonidine 0.1mg, cardura 8mg, lasix, hydrochlorothiazide 25mg, metoprolol 75 mg bid, and aldactone 12.5mg [facility] 09-05-2022 Note [facility] CARDIOLOGY PROGR ESS NOTE HPI: Deja Zamora is a 82 y.o. female here for Hypertension Patient here for 2 mo follow up hypertension. At last apt in Jun 2022, Dr. Martins reduced her metoprolol to 50mg bid due to bradycardia, and added clonidine 0.1mg daily. Her BP was going too low after starting that, so she began taking 1/2 tablet of clonidine daily. Since then, her BP started to rise again so she's back to taking an entire 0.1mg tablet and is tolerating it ok so far. Denies chest pain and SOB. Dealing with sinus drainage and allergies right now she says. Had labs in Jul 2022. Reviewed her B/P log and typically at home her b/p is much better controlled since starting clonidine 0.1- at first her b/p was too low 79/50 and she was taking a half a tab at first- and she has since increased to full tablet. Log shows typically her b/p is 110-127/60-70. In office today her first b/p was 189/64 and repeat b/p was 141/74. Of note she reports her son has recently DX with stage 4 CA. Review of Systems Respiratory: Positive for cough. All other systems reviewed and are negative. Visit Vitals BP (!) 189/64 (BP Location: Left arm, Patient Position: Sitting) Pulse 60 Ht 1.473 m (4' 10 ) Wt 56.2 kg (124 lb) SpO2 96% BMI 25.92 kg/m??? OB Status Postmenopausal Smoking Status Never BSA 1.52 m??? Allergies Allergen Reactions Gemfibrozil Penicillins Unknown Orsourv-Hro-Fdc Reductase Inhibitors Unknown Triamterene-Hydrochlorothiazid Medications: Current Outpatient Medications on File Prior to Visit Medication Sig Dispense Refill amLODIPine (Norvasc) 5 mg tablet Take 1 tablet (5 mg) by mouth in the morning. 90 tablet 3 aspirin 81 mg EC tablet Take 1 tablet every day by oral route. calcium carbonate-vitamin D3 600 mg-5 mcg (200 unit) tablet Calcium 600 + D(3) 1200mg cloNIDine (Catapres) 0.1 mg tablet Take 0.1 mg by mouth 1 (one) time each day. doxazosin (Cardura) 8 mg tablet Take 1 tablet twice a day by oral route for 90 days. ezetimibe (Zetia) 10 mg tablet Take 1 tablet by mouth in the morning. fenofibrate (Lofibra) 160 mg tablet Take 1 tablet by mouth in the morning. fluticasone (Flonase) 50 mcg/actuation nasal spray Instilled 1 spray in each nostril twice daily. furosemide (Lasix) 20 mg tablet Take 20 mg by mouth. PRN glipiZIDE XL (Glucotrol XL) 2.5 mg 24 hr tablet 1 (one) time each day at the same time. guaiFENesin 1,200 mg tablet extended release 12hr Take 1 tablet by mouth twice a day. hydroCHLOROthiazide (HYDRODiuril) 25 mg tablet Take 1 tablet by mouth in the morning. insulin glargine (Lantus) 100 unit/mL (3 mL) pen INJECT 16 UNITS SUBCUTANEOUSLY NIGHTLY metoprolol tartrate (Lopressor) 50 mg tablet Take 1.5 tablets (75 mg) by mouth in the morning and at bedtime. (Patient taking differently: Take 50 mg by mouth in the morning and at bedtime.) 270 tablet 3 pantoprazole (ProtoNix) 40 mg EC tablet Take 1 tablet by mouth in the morning. potassium chloride CR (Klor-Con M20) 20 mEq ER tablet Take 20 mEq by mouth if needed. PRN spironolactone (Aldactone) 25 mg tablet Take 0.5 tablets (12.5 mg) by mouth in the morning. 15 tablet 3 [DISCONTINUED] alendronate (Fosamax) 70 mg tablet TAKE 1 TABLET once a week. wait 30 minutes before eating & stay upright for 30 minutes levothyroxine (Synthroid, Levoxyl) 25 mcg tablet Take 25 mcg by mouth in the morning. Current Facility-Administered Medications on File Prior to Visit Medication Dose Route Frequency Provider Last Rate Last Admin [DISCONTINUED] cloNIDine (Catapres) tablet 0.1 mg 0.1 mg oral Daily Ximena Martins MD Physical Exam: Constitutional: Appearance: Normal appearance. Without apparent distress, chronically ill, thin appearing HENT: Head: Normocephalic and atraumatic. Nose: Nose normal. Mouth/Throat: Mouth: Mucous membranes are moist. Eyes: Extraocular Movements: Extraocular movements intact. Conjunctiva/sclera: Conjunctivae normal. Neck: Vascular: No JVD. Cardiovascular: Rate and Rhythm: Normal rate and regular rhythm. Pulses: Dorsalis pedis pulses are 3 on the right side and 3on the left side. Posterior tibial pulses are 3 on the right side and 3 on the left side. Heart sounds: Normal heart sounds, S1 normal and S2 normal. Pulmonary: Effort: Pulmonary effort is normal. Breath sounds: Normal breath sounds. Abdominal: General: Bowel sounds are normal. Palpations: Abdomen is soft. Musculoskeletal: General: Normal range of motion. Cervical back: Normal range of motion. Right lower leg: No edema. Left lower leg: No edema. Skin: General: Skin is warm and dry. Capillary Refill: Capillary refill takes less than 2 seconds. Neurological: General: No focal deficit present. Mental Status: She is alert and oriented to person, place, and time. Psychiatric: Mood and Affect: Mood normal. Behavior: Behavior normal. Thought Content: Thought content normal. (more content not included)... [facility] 09-05-2022 Note Patient here for 2 m o follow up hypertension. At last apt in Jun 2022, Dr. Martins reduced her metoprolol to 50mg bid due to bradycardia, and added clonidine 0.1mg daily. Her BP was going too low after starting that, so she began taking 1/2 tablet of clonidine daily. Since then, her BP started to rise again so she's back to taking an entire 0.1mg tablet and is tolerating it ok so far. Denies chest pain and SOB. Dealing with sinus drainage and allergies right now she says. Had labs in Jul 2022. Review of Systems Respiratory: Positive for cough. All other systems reviewed and are negative. 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 Clinically she has a positive Felix's on the left and has weightbearing pain in the left hip. The patient will tell you that she has arthritis problems with her left hip. I think she has made a good recovery from her revision discectomy. I would like to have her see orthopedics and have given her a referral and a 9-day prednisone taper. She will follow-up with me for her back on an as-needed basis. 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 I have encouraged her to continue to build up her endurance by walking. I will see her again in 2 months for final postop visit. 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 The new MRI of the lumbar spine which was independently reviewed and compared shows a larger L4-5 recurrent disc herniation. This is causing a severe left L5 radiculopathy which is consistent with the patient's findings. I discussed with the patient the indication operation postop course risk and benefits of surgery to include spinal fluid leak, nerve damage, incomplete relief of symptoms and infection. I believe she understands and agrees and after much mulling over a decision she agreed to surgical intervention. [employer] Other evaluation noteNo [employer] Other History general Narrative - Reported* Type Description Date Medical History Diabetes Medical History Hyperlipidemia Medical History Pulmonary HPN Medical History Osteoporosis Surgical History R knee Sx Surgical History L Hand Hospitalization History HTN 08/2018 [employer] Other Summary Purpose Family History No Family History Records FoundNo Family History Records FoundNo Family History Records FoundNo Family History Records FoundNo Family History Records Found Advance Directives No Advanced Directives Records FoundNo Advanced Directives Records FoundNo Advanced Directives Records FoundNo Advanced Directives Records FoundNo Advanced Directives Records Found Reason for Referral Reason *FU 12/28 Evaluate and Treat Left Hip Pain Please schedule in [facility] Office Diagnosis 1 Arthropathy of left hip (M16.12) Referral Organization [facility] Referring Provider First Name Patrick Referring Provider Last Name Cyndee Referring Provider Specialty Neurologica l Surgery Referred Organization [facility] Referred Provider Ximena Vela Jr Referred Address ,[place], [place],[address] Referred Provider Specialty Orthopedic S urgery Referral Priority Routine General Notes Fore, Val M 022 10:56:23 AM >Received today. This referral was sent P2P and will wait a week and call them back to see if she was scheduled. They do their own scheduling Additional Source Comments INFORMATION SOURCE (unrecogn ized section and content) DATE CREATED AUTHOR 02/10/2018 [facility] DATE CREATED AUTHOR AUTHOR'S ORGANIZ ATION 09/22/2022 [facility] DATE CREATED AUTHOR AUTHOR'S ORGANIZ ATION 09/23/2022 [facility] DATE CREATED AUTHOR AUTHOR'S ORGANIZ ATION 04/11/2023 [facility] DATE CREATED AUTHOR AUTHOR'S ORGANIZ ATION 08/04/[address] [facility] REASON FOR VISIT (unrecogniz ed section and content) RxMRI resultsL4-5 disc sheela ion4 wk po/ L4-5 discectomy/ mo po Discectomy FOR RECORDS PERTAINING TO PATIENTS WHO ARE OR HAVE BEEN ENROLLED IN A CHEMICAL DEPENDENCY/SUBSTANCEABUSE PROGRAM, SOME INFORMATION MAY BE OMITTED. This clinical summary was aggregated from multiple sources. Caution should be exercised in using it in the provision of clinical care. This summary normalizes information from multiple sources, and as a consequence, information in this document may materially change the coding, format and clinical context of patient data. In addition, data may be omitted in some cases. CLINICAL DECISIONS SHOULD BE BASED ON THE PRIMARY CLINICAL RECORDS. [facility] [employer] [facility]. provides no warranty or guarantee of the accuracy or completeness of information in this document.
== END 2023-08-08 08:58 | disposition home or self-care (01) ==
LOC: LAB 08:59
PROVIDERS: PCP Nurse Practitioner Family; Visit Provider Nurse Practitioner
DX: E11.9 Type 2 diabetes mellitus without complications (principal); I10 Essential (primary) hypertension
CPT/HCPCS: 36415; 80048; 83036

== ENCOUNTER 2023-08-08 09:00 | Outpatient (OUT) | payer MEDICARE, SELFPAY ==
[2023-08-08 09:36] LABS: Estimated Average Glucose 212 mg/dL
--- OUTSIDE RECORDS SUMMARY | 2023-08-08 10:37 | XMS_ITS | CCD ---
Author Name Unknown Address [address] [place] [address] Organization [facility] Care Team Providers Care Can Inspector Name Role Phone PHYSICIAN, DEFAULT Unavailable Unavailable [...] Eliana LINARES, Danny Carrasco Attending Unavailable MAYELIN, ESE Attending Unavailable MAYELIN, SEE Attending Unavailable MAYELIN, SEE Attending Unavailable MOXIMENA GOMEZ Attending Unavailable Allergies Allergy Classification Reported Allergen(s) Allergy Type Date of Onset Reaction(s) Facility (5 sources) Hmg-Coa Reductase Inhibitors (Statins) Drug allergy Unknown [employer] [facility] Travel Desiya Other (5 sources) Penicillin Drug Allergy Unknown Virtual [employer] Other (2 sources) Penicillins; Translations: [PENICILLINS] Drug allergy (disorder) [facility] Repository (1 source) Qpytbqb-DXI-WtZ Reductase Inhibitor Drug allergy (disorder) [facility] Repository (2 sources) black walnut pollen extract; Translations: [IMNYGOQ-EWB-QNB REDUCTASE INHIBITORS] Drug Allergy 017 [facility] Repository (1 source) Dextroamphetamine Drug Allergy [facility] Repository (1 source) Gemfibrozil Drug Allergy [facility] Repository (1 source) hydroCHLOROthiazide / Triamterene Drug Allergy [facility] Repository (1 source) Penicillin Drug Allergy [facility] Repository (1 source) rosuvastatin Drug Allergy [facility] Repository (1 source) Gemfibrozil; Translations: [GEMFIBROZIL] Drug Allergy [facility] Repository (1 source) TRIAMTERENE-HYDROCHLOR OTHIAZID; Translations: [TRIAMTERENE-HYDROCHLO ROTHIAZID] Propensity to adverse reactions to drug (disorder) [facility] Repository Medications Current Medications Medication Drug Class(es) [...] (5 sources) Multivitamin Adults - Orally Active Kinta 3 1000 MG (5 sources) take 1 capsule by mouth once daily Kinta 3 1000 MG 1 capsule Orally Once [...] Range Facility Office Visiton 08-02-2023 Follow-up visit [id number] Deja Zamora 1940 F Date Provider Department Center 08/02/2023 120-SEE DICK [facility] Rico Hos Family History Problem Relation Age of Onset Coronary artery disease Father Family Status - Relation Status Age at Father Level of Service:43737 [place] OFFICE/OUTPATIENT ESTABLISHED MOD MDM 30-39 MIN Normal [facility] Office Visiton 02-25-2023 Follow-up visit [id number] Deja Zamora 1940 F Date Provider Department Center 02/25/2023 XIMENA LIZ [facility] Rico Navarro Family History Problem Relation Age of Onset Coronary artery disease Father Family Status - Relation Status Age at Father Level of Service:92415 [place] OFFICE/OUTPATIENT ESTABLISHED MOD MDM 30-[address] [facility] 29on 12-05-2022 29 Addended by: [place] on: 12/05/2022 04:05 PM Modules accepted: Orders Normal [facility] Office Visiton 12-05-2022 Follow-up visit [id number] Deja Zamora 1940 F Date Provider Department Center 12/05/2022 Gayla-SEE DICK [facility] Family History Problem Relation Age of Onset Coronary artery disease Father Family Status - Relation Status Age at Father Level of Service:55885 [place] OFFICE/OUTPATIENT ESTABLISHED MOD MDM 30-39 MIN Reason for Visit and Comments: Follow-up [874732] - 3 month Chest Pain [062959] - Yesterday had a little bit of pain in my heart that lasted about a minute. BP monitor showed irregular heartbeat. Stress [103] - Under stress currently, due to son having Stage IV Lung Cancer. [facility] FREE THYROXINE INDEX T7on FTI 2.59 Normal 1.30-4.50 [facility] Comment on above: Performed By: #### C MP, TSH, T7 #### [facility] [address] [place] [address] Dr. Milind Martinez T3U 37.0 % Normal 30.0-39.0 [facility] Comment on above: Performed By: #### C MP, TSH, T7 #### [facility] [address] [address] [address] Milind Martinez T4 [Mass/Vol] 7.00 ug/dL Normal 4.80-13.90 [facility] Comment on above: Performed By: #### C MP, TSH, T7 #### [facility] [address] [address] [address] Milind Martinez TSHon 09-20-2022 TSH 5.715 uIU/mL Critically high 0.358-3.740 [facility] Comment on above: Performed By: #### C MP, TSH, T7 #### [facility] [address] [place] [address] Dr. Milind Martinez Office Visiton 09-05-2022 Follow-up visit [id number] Deja Zamora 1940 F Date Provider Department Center 09/05/2022 SEE BOATENG [facility] Family History Problem Relation Age of Onset Coronary artery disease Father Family Status - Relation Status Age at Father Level of Service:99690 [place] OFFICE/OUTPATIENT ESTABLISHED LOW MDM 20-29 MIN Reason for Visit and Comments: Hypertension [368928] Normal [facility] FREE THYROXINE INDEX T7on FTI 2.56 Normal 1.30-4.50 [facility] Comment on above: Performed By: #### C MP, TSH, T7 #### [facility] [address] [place] [address] Dr. Milind Martinez T3U 35.0 % Normal 30.0-39.0 [facility] Comment on above: Performed By: #### C MP, TSH, T7 #### [facility] [address] [address] [address] Milind Martinez T4 [Mass/Vol] 7.30 ug/dL Normal 4.80-13.90 [facility] Comment on above: Performed By: #### C MP, TSH, T7 #### [facility] [address] [address] [address] Milind Martinez GLYCOHEMOGLOBIN A1Con 2021 ADA RECOMMENDATION SEE BELOW Normal [facility] Comment on above: Result Comment: ADA RECOMMENDED LIMIT 4.0 - 6.0 ADA THERAPEUTIC TARGET < 7.0 ACTION SUGGESTED > 7.0 Performed By: #### A 1C #### [facility] [address] [address] [address] Milind Martinez Glucose [Mass/Vol] 229 mg/dL Normal [facility] Comment on above: Performed By: #### A 1C #### [facility] [address] [place] [address] Dr. Milind Martinez HbA1c (Bld) [Mass fraction] 9.6 % Critically high 4.5-6.2 [facility] Comment on above: Performed By: #### A 1C #### [facility] [address] [address] [address] Milind Martinez PROF 14(COMP METB)on 022 Albumin [Mass/Vol] 3.1 g/dL Critically low 3.4-5.0 [facility] Comment on above: Performed By: #### C MP, TSH, T7 #### [facility] [address] [address] [address] Milind Martinez Albumin/Globulin [Mass ratio] 1.0 {ratio} Normal [facility] Comment on above: Performed By: #### C MP, TSH, T7 #### [facility] [address] [address] [address] Milind Martinez ALP [Catalytic activity/Vol] 48 U/L Normal 46-116 [facility] Comment on above: Performed By: #### C MP, TSH, T7 #### [facility] [address] [address] [address] Milind Martinez ALT [Catalytic activity/Vol] 19 U/L Normal 14-59 [facility] Comment on above: Performed By: #### C MP, TSH, T7 #### [facility] [address] [address] [address] Milind Martinez Anion gap [Moles/Vol] 12.3 mmol/L Normal [facility] Comment on above: Performed By: #### C MP, TSH, T7 #### [facility] [address] [address] [address] Milind Martinez AST [Catalytic activity/Vol] 30 U/L Normal 15-37 [facility] Comment on above: Performed By: #### C MP, TSH, T7 #### [facility] [address] [address] [address] Milind Martinez Bilirubin [Mass/Vol] 0.5 mg/dL Normal 0.2-1.0 [facility] Comment on above: Performed By: #### C MP, TSH, T7 #### [facility] [address] [address] [address] Milind Martinez Calcium [Mass/Vol] 8.9 mg/dL Normal 8.5-10.1 [facility] Comment on above: Performed By: #### C MP, TSH, T7 #### [facility] [address] [address] [address] Milind Martinez Chloride [Moles/Vol] 104 mmol/L Normal 98-107 [facility] Comment on above: Performed By: #### C MP, TSH, T7 #### [facility] [address] [place] [address] Dr. Milind Martinez CO2 [Moles/Vol] 28.2 mmol/L Normal 21.0-32.0 [facility] Comment on above: Performed By: #### C MP, TSH, T7 #### [facility] [address] [place] [address] Dr. Milind Martinez Creatinine [Mass/Vol] 1.54 mg/dL Critically high 0.55-1.02 [facility] Comment on above: Performed By: #### C MP, TSH, T7 #### [facility] [address] [place] [address] Dr. Milind Martinez EGFR-AF TUVALUAN 39 mL/min/1.73m2 Critically low >=60 [facility] Comment on above: Performed By: #### C MP, TSH, T7 #### [facility] [address] [place] [address] Dr. Milind Martinez EGFR-NON AF TUVALUAN 32 mL/min/1.73m2 Critically low >=60 [facility] Comment on above: Performed By: #### C MP, TSH, T7 #### [facility] [address] [place] [address] Dr. Milind Martinez Globulin (S) [Mass/Vol] 3.2 g/dL Normal [facility] Comment on above: Performed By: #### C MP, TSH, T7 #### [facility] [address] [place] [address] Dr. Milind Martinez Glucose [Mass/Vol] 180 mg/dL Critically high 74-106 [facility] Comment on above: Performed By: #### C MP, TSH, T7 #### [facility] [address] [place] [address] Dr. Milind Martinez Potassium [Moles/Vol] 4.5 mmol/L Normal 3.5-5.1 [facility] Comment on above: Performed By: #### C MP, TSH, T7 #### [facility] [address] [address] [address] Milind Martinez Protein [Mass/Vol] 6.3 g/dL Critically low 6.4-8.2 [facility] Comment on above: Performed By: #### C MP, TSH, T7 #### [facility] [address] [place] [address] Dr. Milind Martinez Sodium [Moles/Vol] 140 mmol/L Normal 136-145 [facility] Comment on above: Performed By: #### C MP, TSH, T7 #### [facility] [address] [place] [address] Dr. Milind Martinez Urea nitrogen [Mass/Vol] 46.0 mg/dL Critically high 7.0-18.0 [facility] Comment on above: Performed By: #### C MP, TSH, T7 #### [facility] [address] [place] [address] Dr. Milind Martinez Urea nitrogen/Creatinine [Mass ratio] 29.9 mg/mg Normal [facility] Comment on above: Performed By: #### C MP, TSH, T7 #### [facility] [address] [place] [address] Dr. Milind Martinez TSHon 08-01-2022 TSH 12.769 uIU/mL Critically high 0.358-3.740 [facility] Comment on above: Performed By: #### C MP, TSH, T7 #### [facility] [address] [place] [address] Dr. Milind Martinez INSULINon 04-03-2022 Insulin 2.5 uIU/mL Critically low 2.6-24.9 [facility] Comment on above: Performed By: #### C MP, TSH, T7 #### [facility] [address] [place] [address] Dr. Milind Martinez T4, T3U, FTI LABCORPon 04-03 Free Thyroxine Index 1.8 Normal 1.2-4.9 [facility] Comment on above: Performed By: #### T HYLC #### [facility] [address] [place] [address] Dr. Milind Martinez T3 Uptake 26 % Normal 24-39 [facility] Comment on above: Performed By: #### T HYLC #### [facility] [address] [place] [address] Dr. Milind Martinez T4 [Mass/Vol] 7.1 ug/dL Normal 4.5-12.0 [facility] Comment on above: Performed By: #### T HYLC #### [facility] [address] [place] [address] Dr. Milind Martinez CBC AUTO DIFFon 04-02-2022 BASO # 0.0 103/ul Normal 0.0-0.1 [facility] Comment on above: Performed By: #### C BC #### [facility] [address] [place] [address] Dr. Milind Martinez Basophils/100 WBC (Bld) 0.9 % Normal 0.2-2.0 [facility] Comment on above: Performed By: #### C BC #### [facility] [address] [place] [address] Dr. Milind Martinez EO # 0.2 103/ul Normal 0.0-0.7 [facility] Comment on above: Performed By: #### C BC #### [facility] [address] [place] [address] Dr. Milind Martinez Eosinophils/100 WBC (Bld) 5.3 % Normal 0.9-7.0 [facility] Comment on above: Performed By: #### C BC #### [facility] [address] [place] [address] Dr. Milind Martinez Erythrocyte distribution width (RBC) [Ratio] 13.2 % Normal 11.0-15.0 [facility] Comment on above: Performed By: #### C BC #### [facility] [address] [place] [address] Dr. Milind Martinez Hematocrit (Bld) [Volume fraction] 37.1 % Normal 36.0-48.0 [facility] Comment on above: Performed By: #### C BC #### [facility] [address] [place] [address] Dr. Milind Martinez Hemoglobin (Bld) [Mass/Vol] 12.0 g/dL Normal 12.0-16.0 [facility] Comment on above: Performed By: #### C BC #### [facility] [address] [place] [address] Dr. Milind Martinez IG # 0.01 10e3/ul Normal 0.00-0.03 [facility] Comment on above: Performed By: #### C BC #### [facility] [address] [place] [address] Dr. Milind Martinez IG % 0.2 % Normal 0.0-0.5 [facility] Comment on above: Performed By: #### C BC #### [facility] [address] [place] [address] Dr. Milind Martinez LYMPH # 1.8 103/ul Normal 1.2-3.8 [facility] Comment on above: Performed By: #### C BC #### [facility] [address] [place] [address] Dr. Milind Martinez Lymphocytes/100 WBC (Bld) 41.9 % Normal 20.5-60.0 [facility] Comment on above: Performed By: #### C BC #### [facility] [address] [place] [address] Dr. Milind Martinez MANUAL DIFF REQ NO Normal [facility] Comment on above: Performed By: #### C BC #### [facility] [address] [place] [address] Dr. Milind Martinez MCH (RBC) [Entitic mass] 31.2 pg Normal 26.7-34.0 [facility] Comment on above: Performed By: #### C BC #### [facility] [address] [place] [address] Dr. Milind Martinez MCHC (RBC) [Mass/Vol] 32.3 g/dL Normal 29.9-35.2 [facility] Comment on above: Performed By: #### C BC #### [facility] [address] [address] [address] Milind Martinez MCV (RBC) [Entitic vol] 96.4 fL Normal 81.0-99.0 [facility] Comment on above: Performed By: #### C BC #### [facility] [address] [address] [address] Milind Martinez MONO # 0.3 103/ul Normal 0.3-0.8 [facility] Comment on above: Performed By: #### C BC #### [facility] [address] [address] [address] Milind Martinez Monocytes/100 WBC (Bld) 5.8 % Normal 1.7-12.0 [facility] Comment on above: Performed By: #### C BC #### [facility] [address] [address] [address] Milind Martinez NEUT # 2.0 103/ul Normal 1.4-6.5 [facility] Comment on above: Performed By: #### C BC #### [facility] [address] [address] [address] Milind Martinez Neutrophils/100 WBC (Bld) 45.9 % Normal 43.0-75.0 [facility] Comment on above: Performed By: #### C BC #### [facility] [address] [address] [address] Milind Martinez Platelet mean volume (Bld) [Entitic vol] 11.8 fL Normal 9.5-13.5 [facility] Comment on above: Performed By: #### C BC #### [facility] [address] [address] [address] Milind Martinez PLT 159 103/ul Normal 150-450 [facility] Comment on above: Performed By: #### C BC #### [facility] [address] [address] [address] Milind Martinez RBC 3.85 106/ul Critically low 4.20-5.[address] [facility] Comment on above: Performed By: #### C BC #### [facility] [address] [address] [address] Milind Martinez WBC 4.3 103/ul Normal 4.0-11.0 [facility] Comment on above: Performed By: #### C BC #### [facility] [address] [address] [address] Milind Martinez GLYCOHEMOGLOBIN A1Con 2021 ADA RECOMMENDATION SEE BELOW Normal [facility] Comment on above: Result Comment: ADA RECOMMENDED LIMIT 4.0 - 6.0 ADA THERAPEUTIC TARGET < 7.0 ACTION SUGGESTED > 7.0 Performed By: #### A 1C #### [facility] [address] [place] [address] Dr. Milind Martinez Glucose [Mass/Vol] 214 mg/dL Normal [facility] Comment on above: Performed By: #### A 1C #### [facility] [address] [place] [address] Dr. Milind Martinez HbA1c (Bld) [Mass fraction] 9.1 % Critically high 4.5-6.2 [facility] Comment on above: Performed By: #### A 1C #### [facility] [address] [place] [address] Dr. Milind Martinez IRONon 04-02-2022 Iron [Mass/Vol] 126.0 ug/dL Normal 50.0-170.0 [facility] Comment on above: Performed By: #### C MP, TSH, T7 #### [facility] [address] [place] [address] Dr. Milind Martinez LIPID PROFILEon 04-02-2022 CHOL-HDL RATIO NORM SEE BELOW Normal [facility] Comment on above: Result Comment: 3.3 - 4.4 LOW RISK 4.4 - 7.1 AVERAGE RISK 7.1 - 11.0 MODERATE RISK >11.0 HIGH RISK Performed By: #### C MP, TSH, T7 #### [facility] [address] [place] [address] Dr. Milind Martinez Cholesterol [Mass/Vol] 133 mg/dL Normal <=200 [facility] Comment on above: Performed By: #### C MP, TSH, T7 #### [facility] [address] [address] [address] Milind Martinez Cholesterol in HDL [Mass/Vol] 20 mg/dL Critically low 40-60 [facility] Comment on above: Performed By: #### C MP, TSH, T7 #### [facility] [address] [address] [address] Milind Martinez Cholesterol in LDL [Mass/Vol] 69.6 mg/dL Normal [facility] Comment on above: Performed By: #### C MP, TSH, T7 #### [facility] [address] [address] [address] Milind Martinez Cholesterol.total/Ch olesterol in HDL [Mass ratio] 6.7 {ratio} Normal [facility] Comment on above: Performed By: #### C MP, TSH, T7 #### [facility] [address] [address] [address] Milind Martinez HDL NORMAL > or = 60 mg/dl - LOW CARDIOVASCULAR RISK <40 mg/dl - HIGH CARDIOVASCULAR RISK Normal [facility] Comment on above: Performed By: #### C MP, TSH, T7 #### [facility] [address] [address] [address] Milind Martinez LDL CALC NORMAL SEE BELOW Normal [facility] Comment on above: Result Comment: <100 mg/dl OPTIMAL 100 - 129 mg/dl NEAR OR ABOVE OPTIMAL 130 - 159 mg/dl BORDERLINE HIGH 160 - 189 mg/dl HIGH >190 mg/dl VERY HIGH Performed By: #### C MP, TSH, T7 #### [facility] [address] [address] [address] Milind Martinez Triglyceride [Mass/Vol] 217 mg/dL Critically high <=150 [facility] Comment on above: Performed By: #### C MP, TSH, T7 #### [facility] [address] [address] [address] Milind Martinez VLDL CALC 43.4 mg/dL Normal [facility] Comment on above: Performed By: #### C MP, TSH, T7 #### [facility] [address] [address] [address] Milind Martinez PROF 14(COMP METB)on 022 Albumin [Mass/Vol] 3.3 g/dL Critically low 3.4-5.0 [facility] Comment on above: Performed By: #### C MP, TSH, T7 #### [facility] [address] [address] [address] Milind Martinez Albumin/Globulin [Mass ratio] 1.2 {ratio} Normal [facility] Comment on above: Performed By: #### C MP, TSH, T7 #### [facility] [address] [address] [address] Milind Martinez ALP [Catalytic activity/Vol] 43 U/L Critically low 46-116 [facility] Comment on above: Performed By: #### C MP, TSH, T7 #### [facility] [address] [address] [address] Milind Martinez ALT [Catalytic activity/Vol] 24 U/L Normal 14-59 [facility] Comment on above: Performed By: #### C MP, TSH, T7 #### [facility] [address] [address] [address] Milind Martinez Anion gap [Moles/Vol] 11.4 mmol/L Normal [facility] Comment on above: Performed By: #### C MP, TSH, T7 #### [facility] [address] [address] [address] Milind Martinez AST [Catalytic activity/Vol] 24 U/L Normal 15-37 [facility] Comment on above: Performed By: #### C MP, TSH, T7 #### [facility] [address] [address] [address] Milind Martinez Bilirubin [Mass/Vol] 0.4 mg/dL Normal 0.2-1.0 [facility] Comment on above: Performed By: #### C MP, TSH, T7 #### [facility] [address] [address] [address] Milind Martinez Calcium [Mass/Vol] 8.7 mg/dL Normal 8.5-10.1 [facility] Comment on above: Performed By: #### C MP, TSH, T7 #### [facility] [address] [address] [address] Milind Martinez Chloride [Moles/Vol] 106 mmol/L Normal 98-107 [facility] Comment on above: Performed By: #### C MP, TSH, T7 #### [facility] [address] [place] [address] Dr. Milind Martinez CO2 [Moles/Vol] 29.7 mmol/L Normal 21.0-32.0 [facility] Comment on above: Performed By: #### C MP, TSH, T7 #### [facility] [address] [place] [address] Dr. Milind Martinez Creatinine [Mass/Vol] 1.30 mg/dL Critically high 0.55-1.02 [facility] Comment on above: Performed By: #### C MP, TSH, T7 #### [facility] [address] [place] [address] Dr. Milind Martinez EGFR-AF TUVALUAN 47 mL/min/1.73m2 Critically low >=60 [facility] Comment on above: Performed By: #### C MP, TSH, T7 #### [facility] [address] [place] [address] Dr. Milind Martinez EGFR-NON AF TUVALUAN 39 mL/min/1.73m2 Critically low >=60 [facility] Comment on above: Performed By: #### C MP, TSH, T7 #### [facility] [address] [place] [address] Dr. Milind Martinez Globulin (S) [Mass/Vol] 2.7 g/dL Normal [facility] Comment on above: Performed By: #### C MP, TSH, T7 #### [facility] [address] [place] [address] Dr. Milind Martinez Glucose [Mass/Vol] 109 mg/dL Critically high 74-106 [facility] Comment on above: Performed By: #### C MP, TSH, T7 #### [facility] [address] [place] [address] Dr. Milind Martinez Potassium [Moles/Vol] 4.1 mmol/L Normal 3.5-5.1 [facility] Comment on above: Performed By: #### C LORENA TSH, T7 #### [facility] [address] [place] [address] Dr. Milind Martinez Protein [Mass/Vol] 6.0 g/dL Critically low 6.4-8.2 [facility] Comment on above: Performed By: #### C LORENA TSH, T7 #### [facility] [address] [place] [address] Dr. Milind Martinez Sodium [Moles/Vol] 143 mmol/L Normal 136-145 [facility] Comment on above: Performed By: #### C LORENA TSH, T7 #### [facility] [address] [place] [address] Dr. Milind Martinez Urea nitrogen [Mass/Vol] 34.0 mg/dL Critically high 7.0-18.0 [facility] Comment on above: Performed By: #### C LORENA TSH, T7 #### [facility] [address] [place] [address] Dr. Milind Martinez Urea nitrogen/Creatinine [Mass ratio] 26.2 mg/mg Normal [facility] Comment on above: Performed By: #### C LORENA TSH, T7 #### [facility] [address] [place] [address] Dr. Milind Martinez TSHon 04-02-2022 TSH 7.887 uIU/mL Critically high 0.358-3.740 [facility] Comment on above: Performed By: #### C LORENA TSH, T7 #### [facility] [address] [place] [address] Dr. Milind Martinez US KIDNEYSon 03-23-2022 US [...] by: IJEOMA TIM Date: 2022-03-23 13:26 Normal [facility] MAMM SCREEN 3D BOGDAN CADon 03-05-2022 MG MAMM SCREEN 3D BOGDAN CAD Patient: DEJA ZAMORA Exam Date: 03/05/2022 : 1940 Gender:F Ordering : NATHAN JOVEL [facility] Admission #: [id number] Family : Order #: [id number] CLICK HERE TO VIEW EXAM RADIOLOGY REPORT [...] mult.myeloma cancer at age 68. LOCATION: [facility] BREAST COMPOSITION: Scattered areas fibroglandular [...] M.D. on 03/05/2022 at 13:47 Normal [facility] US CAROTID ART BILon 05-09-2 [...] by: UDAY MAJOR Date: 2021-12-25 15:42 Normal [facility] Vital Signs Date Time Vital Sign Value Performing Clinician Olimpiai lity 12-21-2021 10:00-0400 Body height 147.32 cm Patrick Cotter Other [facility] Other 12-21-2021 10:00-0400 Body mass index (BMI) [Ratio] 27.79 kg/m2 Patrick Cotter Other [facility] Other 12-21-2021 10:00-0400 Body weight 60.33 kg Patrick Cotter Other [facility] Other 10-19-2021 12:00-0500 Body height 147.32 cm Patrick Cotter Other [facility] Other 10-19-2021 12:00-0500 Body mass index (BMI) [Ratio] 27.79 kg/m2 Patrick Cotter Other [facility] Other 10-19-2021 12:00-0500 Body weight 60.33 kg Patrick Cotter Other [facility] Other 08-22-2021 15:00-0500 Body height 147.32 cm Patrick Cotter Other [facility] Other 08-22-2021 15:00-0500 Body mass index (BMI) [Ratio] 27.79 kg/m2 Patrick Cotter Other [facility] Other 08-22-2021 15:00-0500 Body weight 60.33 kg Patrick Cotter Other [facility] Other Encounters Encounter Date Encounter Type Care Provider Facility Start: 08-02-2023 End: 08-02-2023 ambulatory [facility] Start: 04-01-2023 End: 04-02-2023 ambulatory Danny Monroy MD Facility: [facility] Start: 03-18-2023 End: 03-19-2023 ambulatory Danny Monroy MD Facility:[facility] Start: 02-25-2023 End: 02-25-2023 ambulatory XIMENA [facility] Start: 02-11-2023 End: 02-12-2023 ambulatory Danny Monroy MD Facility:[facility] Start: 12-05-2022 End: 12-05-2022 ambulatory [facility] Start: 09-20-2022 End: 09-21-2022 ambulatory NATHAN JOVEL Facility:[facility] Start: 09-05-2022 End: 09-05-2022 ambulatory [facility] Start: 08-01-2022 End: 08-02-2022 ambulatory NATHAN JOVEL Facility:[facility] Start: 04-02-2022 End: 04-03-2022 ambulatory NATHAN JOVEL Facility:[facility] Start: 03-23-2022 End: 03-24-[address] XIMENA MARTINS Facility:[facility] Start: 03-05-2022 End: 03-06-[address] UDAY MAJOR Facility:[facility] Start: 12-25-2021 End: 12-26-2021 ambulatory SEE DICK Facility:[facility] Start: 12-21-2021 End: 12-21-2021 ambulatory Patrick Cotter Other [facility] Other Start: 12-21-2021 Postop follow up vis it related to original px Patrick Cotter [facility] Start: 11-02-2021 ambulatory NATHAN JOVEL Facility: [facility] Start: 10-19-2021 End: 10-19-2021 ambulatory Patrick Cotter Other [facility] Other Start: 10-19-2021 Postop follow up vis it related to original px Patrick Cotter [facility] Start: 09-18-2021 Admission to same [facility] Patrick Cotter [facility] Start: 09-18-2021 End: 09-19-2021 ambulatory Patrick Cotter [facility] Other Start: 08-29-2021 End: 08-29-2021 ambulatory Patrick Cotter [facility] Other Start: 08-29-2021 Telephone encounter Patrick Cotter [facility] Start: 08-22-2021 End: 08-22-2021 ambulatory Patrick Cotter [facility] Other Start: 08-22-2021 Office outpatient visit 40 minutes Patrick Cotter [facility] Start: 09-24-2017 End: 09-25-2017 Ambulatory DEFAULT PHYSICIAN Facility:[facility] Payers Date Payer Category Payer Unknown 2021 Self-pay 2003 Medicare 1959 Medicare [id number] 2.1 [id number] 1959 Self-pay [id number] 1959 Unknown [id number] 2.1 [id number] 1940 Unknown [id number] 2.16.84 [id number] 1940 Unknown [id number] 2.16.84 [id number] 1940 Unknown [id number] 2.16.84 0.1.293632.3.579.2.593 1938 Unknown [id number] 2.16.84 0.1.152039.3.579.2.593 1938 Unknown [id number] 2.16.84 0.1.760234.3.579.2.593 1938 Unknown [id number] 2.16.84 0.1.933281.3.579.2.593 1938 Unknown [id number] 2.16.84 0.1.143029.3.579.2.593 1938 Unknown [id number] 2.16. 840.1.003582.3.579.2.196 1940 Unknown [id number] 2.16. 840.1.371172.3.579.2.196 1940 Unknown [id number] 2.16. [id number] Unknown [id number] 2.16.8 [id number] Social History Date Type Detail Facility Sex Assigned At [facility] Other Clinical Notes 08-22-2021 to 08-02-2023 Note Date & Type Note Facility 08-02-2023 Note Stable so far, will monitor with increased clonidine for uncontrolled HTN [facility] 08-02-2023 Note Stable without any worsening sym ptoms [facility] 08-02-2023 Note Hypertension is Curr ently uncontrolled, [...] once or twice every 2 to 3-weeks [facility] 08-02-2023 Note [facility] CARDIOLOGY PROGR ESS NOTE [...] at target sometimes. She was admitted to [facility] in Mar 2023 for e.coli and [...] m??? Allergies Allergen Reactions Gemfibrozil Penicillins Unknown Lggmbmd-Tcw-Wcd Reductase Inhibitors Unknown Triamterene-Hydrochlorothiazid Medications: Current Outpatient [...] values have be (more content not included)... [facility] 08-02-2023 Note Patient here c/o hyp ertension. [...] at target sometimes. She was admitted to [facility] in Mar 2023 for e.coli and [...] All other systems reviewed and are negative. [facility] 02-25-2023 Note [place] [facility] - [facility] Subjective Deja Zamora is a 82 [...] Allergies Allergies Allergen Reactions Gemfibrozil Penicillins Unknown Caodvwr-Lpb-Hjf Reductase Inhibitors Unknown Triamterene-Hydrochlorothiazid Medications Current Outpatient [...] Disp: , Rfl: (more content not included)... [facility] 12-05-2022 Note Reviewed lipids 04/02- well controlled Chol 133, Trig 217, HDL 20, LDL 69.6 [facility] 12-05-2022 Note Currently stable- no concerning symptoms [facility] 12-05-2022 Note Stable, voiced no concerns [facility] 12-05-2022 Note Continue fenofibrate, zetia and ASA [facility] 12-05-2022 Note Hypertension is much improved and well controlled at home per B/P log Continue all medications. [facility] 12-05-2022 Note Review of Systems Constitutional: Negative [...] currently, due to her son having cancer. [facility] 12-05-2022 Note [facility] CARDIOLOGY PROGR ESS NOTE [...] m??? Allergies Allergen Reactions Gemfibrozil Penicillins Unknown Hqpabph-Akx-Sxo Reductase Inhibitors Unknown Triamterene-Hydrochlorothiazid Medications: Current Outpatient [...] normal. Labs: 08/01/22 (more content not included)... [facility] 09-05-2022 Note Hypertension is much better controlled at home after review of b/p log. Continue amlodipine 5mg daily, clonidine 0.1mg, cardura 8mg, lasix, hydrochlorothiazide 25mg, metoprolol 75 mg bid, and aldactone 12.5mg [facility] 09-05-2022 Note [facility] CARDIOLOGY PROGR ESS NOTE [...] m??? Allergies Allergen Reactions Gemfibrozil Penicillins Unknown Vwdljhr-Hwe-Vwd Reductase Inhibitors Unknown Triamterene-Hydrochlorothiazid Medications: Current Outpatient [...] Thought content normal. (more content not included)... [facility] 09-05-2022 Note Patient here for 2 m [...] All other systems reviewed and are negative. 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 I have encouraged her to continue to build up her endurance by walking. I will see her again in 2 months for final postop visit. 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 [facility] Other evaluation noteNo InformationNort [facility] Other History general Narrative - Reported* Type Description Date Medical History Diabetes Medical History Hyperlipidemia Medical History Pulmonary HPN Medical History Osteoporosis Surgical History R knee Sx Surgical History L Hand Hospitalization History HTN 08/2018 [facility] Other Summary Purpose Family History No Family [...] Arthropathy of left hip (M16.12) Referral Organization [facility] Ne urosurgery Referring Provider First Name Patrick Referring Provider Last Name Cyndee Referring Provider Specialty Neurologica l Surgery Referred Organization [facility] Referred Provider Ximena Vela Jr Referred Address ,[place], [place],[address] Referred Provider Specialty Orthopedic S urgery Referral Priority Routine General Notes Fore, Val M 022 10:56:23 AM >Received today. This referral was sent P2P and will wait a week and call them back to see if she was scheduled. They do their own scheduling Additional Source Comments INFORMATION SOURCE (unrecogn ized section and content) DATE CREATED AUTHOR 02/10/2018 [facility] DATE CREATED AUTHOR AUTHOR'S ORGANIZ ATION 09/22/2022 [facility] DATE CREATED AUTHOR AUTHOR'S ORGANIZ ATION 09/23/2022 [facility] DATE CREATED AUTHOR AUTHOR'S ORGANIZ ATION 04/11/2023 [facility] DATE CREATED AUTHOR AUTHOR'S ORGANIZ ATION 08/04/2023 [facility] REASON FOR VISIT (unrecogniz ed section and [...] BE BASED ON THE PRIMARY CLINICAL RECORDS. [facility] [email or web address] [facility]. provides no warranty or guarantee of the accuracy or completeness of information in this document.
== END 2023-08-08 09:01 | disposition home or self-care (01) ==
PROVIDERS: PCP Nurse Practitioner Family; Visit Provider Nurse Practitioner Family
DX: E11.9 Type 2 diabetes mellitus without complications (principal)
CPT/HCPCS: 36415; 83036

== ENCOUNTER 2023-08-13 13:04 | Outpatient (OUT) | payer MEDICARE, SELFPAY ==
--- NOTE | 2023-08-13 13:49 | CA_ITS ---
Patient Name Site Name EDILIA HERNANDEZ [facility] Account No Medical Record Number Age Sex Date Time [id number] [facility]:[id number] F 08/13/2023 13:18 At the Request Of XIMENA SEBASTIAN ECHOCARDIOGRAM REPORT PROCEDURE: CA ECHO DOPPLER COMPLETE INDICATIONS: Chronic diastolic heart failure COMPARISON: None. DESCRIPTION: COMPLETE ECHOCARDIOGRAM Real-time transthoracic echocardiography with 2D, M-mode, spectral and color flow Doppler performed. QUALITY: Technical quality was good. LEFT VENTRICLE: Normal chamber size. Thickened septal wall. Global left ventricular systolic function is normal. LV EF: Visual estimation of left ventricular ejection fraction is 65-70% DIASTOLIC: Diastolic function is indeterminate. ATRIAL SEPTUM: LEFT ATRIUM: Normal chamber size. RIGHT ATRIUM: Normal chamber size. RIGHT VENTRICLE: Normal chamber size. Normal right ventricular systolic function. TRICUSPID VALVE: Normal mobility and thickness. No stenosis with mild regurgitation. Mild pulmonary hypertension. RVSP 41 mmHg MITRAL VALVE: Mildly thickened with normal mobility. No evidence of mitral valve stenosis. There is no mitral annular calcification. Trivial mitral regurgitation. AORTIC VALVE: Normal trileaflet appearance. Thickened aortic valve. Normal leaflet mobility. No evidence of aortic valve stenosis. No aortic regurgitation. AORTIC ROOT: Normal diameter and appearance. PULMONIC VALVE: Normal thickness and mobility. No stenosis. No regurgitation. PERICARDIUM: Small pericardial effusion. No evidence of cardiac tamponade. IVC: Collapses with inspirations. Normal size. PLEURA: CONCLUSION: 1. Left ventricular systolic function is normal, LVEF is 65 to 70%. 2. Normal right ventricular size and systolic function. 3. No significant valvular dysfunction. 4. Mildly elevated right-sided pressures. 5. Small pericardial effusion. Adult Echocardiography Procedure Report Left Ventricle LVEDD (3.7 - 5.6 cm): 3.97 cm LVESD (2.2 - 4.0 cm): 2.32 cm LVIVS thickness (0.6 - 1.2 cm): 1.98 cm LVPW thickness (0.5 - 1.0 cm): 1.11 cm e': 0.06 m/s E - e': 8.60 LVOT Max Gradient: 5.44 mm[Hg] LVOT Area (cm2): 1.17 m/s Peak Velocity (LVOT): 1.17 m/s Mean Velocity (LVOT): 0.71 m/s LVOT Diameter 1.76 cm Left Ventricular Ejection Fraction: 65-70 % Left Atrium LA Volume Index (2D A2C): 35.00 ml/m2 Left Atrium Systolic Dimension: 3.81 cm Mitral Valve MV E to A Ratio: 0.59 Mitral Valve A-Wave Peak Velocity: 0.84 m/s Mitral Valve E-Wave Peak Velocity: 0.49 m/s Right Ventricle RV Internal Diastolic Dimension: 2.71 cm Aorta AO Root Diam: 2.66 cm Ascending Ao Diam: 2.17 cm Aortic Valve AoV Area (Peak Mina): 1.79 cm2, 1.79 cm2 AoV Area (VTI): 1.55 cm2, 1.55 cm2 Peak Velocity(Antegrade Flow): 1.58 m/s Peak Gradient(Antegrade Flow): 10.05 mm[Hg] Mean Velocity(Antegrade Flow): 1.08 m/s Mean Gradient(Antegrade Flow): 5.38 mm[Hg] Velocity Time Integral: 40.18 cm Tricuspid Valve Peak Velocity (Regurgitant Flow): 2.45 m/s, 2.88 m/s, 3.07 m/s Pulmonic Valve Mean Gradient: 2.55 mm[Hg], 2.56 mm[Hg] Mean Velocity: 0.74 m/s, 0.74 m/s Peak Velocity: 1.11 m/s Peak Gradient: 4.94 mm[Hg], 4.94 mm[Hg] Right Atrium Right Atrium Systolic Pressure: 21.10 ml, 21.10 ml Dictated by: Ximena Sebastian M.D. on 08/14/2023 at 19:15 Approved by: Ximena Sebastian M.D. on 08/14/2023 at 19:20
--- NOTE | 2023-08-13 13:55 | US_ITS ---
[address] [address] Patient Name: EDILIA HERNANDEZ MRN: [id number] date: 1940 Sex: F Assigned Patient Location: CARD Current Patient Location: Accession/Order Number: [id number] Exam Date: 08/13/2023 14:10 Report Date: 08/14/2023 15:35 At the request of: XIMENA MARTINS Procedure: US carotid duplex BI EXAMINATION: US carotid duplex BI HISTORY: bilateral carotid artery stenosis I65.23 COMPARISON: No relevant comparison available. TECHNIQUE: Duplex Doppler ultrasound analysis of carotid and vertebral arteries. . Bilateral carotid arterial duplex examination was performed using B-mode, color flow and spectral analysis. Carotid stenosis is reported according to validated velocity parameters, similar to NASCET criteria. FINDINGS: RIGHT CAROTID ARTERY: Marked atherosclerotic disease within the bulb resulting in 84% area reduction. RIGHT VERTEBRAL: Antegrade flow. Subclavian: PSV: 117.8 cm/s EDV: 0.0 cm/s CCA: Prox: PSV: 77.4 cm/s EDV: 11.1 cm/s Mid: PSV: 67.7 cm/s EDV: 12.8 cm/s Distal: PSV: 75.7 cm/s EDV: 14.4 cm/s BULB: PSV: 80.6 cm/s EDV: 12.8 cm/s ICA: Prox: PSV: 136.2 cm/s EDV: 27.6 cm/s Mid: PSV: 150.0 cm/s EDV: 19.2 cm/s Distal: PSV: 102.7 cm/s EDV: 13.6 cm/s ECA: PSV: 219.4 cm/s EDV: 0.0 cm/s VERTEBRAL: PSV: 59.4 cm/s EDV: 11.5 cm/s ICA/CCA ratio: PSV: 2.0 EDV: 1.3 LEFT CAROTID ARTERY: Marked atherosclerotic disease within bulb resulting in 77% area reduction. LEFT VERTEBRAL: Antegrade flow. Subclavian: PSV: 196.8 cm/s EDV: 0.0 cm/s CCA: Prox: PSV: 92.5 cm/s EDV: 15.6 cm/s Mid: PSV: 80.6 cm/s EDV: 15.6 cm/s Distal: PSV: 84.6 cm/s EDV: 17.5 cm/s BULB: PSV: 92.4 cm/s EDV: 15.6 cm/s ICA: Prox: PSV: 153.1 cm/s EDV: 25.3 cm/s Mid: PSV: 129.9 cm/s EDV: 25.3 cm/s Distal: PSV: 97.3 cm/s EDV: 18.3 cm/s ECA: PSV: 120.5 cm/s EDV: 0.0 cm/s VERTEBRAL: PSV: 58.1 cm/s EDV: 10.2 cm/s ICA/CCA ratio: PSV: 1.7 EDV: 1.6 US/US carotid duplex BI IMPRESSION: 1. Marked atherosclerotic narrowing of the carotid bulbs bilaterally; 84% on right, 77% on left. 2. 50-69% flow stenosis within right and left carotid arteries. Electronically authenticated by: JUANY MONTERO Date: 08/14/2023 15:35
== END 2023-08-13 13:05 | disposition home or self-care (01) ==
LOC: CARD 13:04
PROVIDERS: PCP Nurse Practitioner Family; Visit Provider Internal Medicine Interventional Cardiology
DX: I50.32 Chronic diastolic (congestive) heart failure (principal); I65.23 Occlusion and stenosis of bilateral carotid arteries
CPT/HCPCS: 93306; 93880

== ENCOUNTER 2023-09-12 12:44 | Outpatient (OUT) | payer MEDICARE, SELFPAY ==
--- OUTSIDE RECORDS SUMMARY | 2023-09-12 12:48 | XMS_ITS | CCD ---
Author Name Unknown Address [address] [place] [address] Organization [facility] Care Team Providers Care [employer] Presser Name Role Phone PHYSICIAN, DEFAULT Unavailable Unavailable PHYSICIAN, DEFAULT Unavailable Unavailable Patrick Cotter Unavailable Patrick Cotter Attending Unavailable Patrick Cotter Admitting Unavailable True Devine Primary Care Unavailable MED, NATHAN Attending Unavailable MED, NATHAN Admitting Unavailable MED, NATHAN Primary Care Unavailable ZIDR UDAY NUNEZ Consulting Unavailable MED, NATHAN Attending Unavailable MED, NATHAN Admitting Unavailable MED, NATHAN Primary Care Unavailable MED, NATHAN Consulting Unavailable MAYELIN, SEE Attending Unavailable MAYELIN, SEE Admitting Unavailable ZIEBERDR UDAY Consulting Unavailable MED, NATHAN Primary Care Unavailable MAYELIN, SEE Consulting Unavailable MED, NATHAN Attending Unavailable MED, NATHAN Admitting Unavailable MED, NATHAN Primary Care Unavailable MED, NATHAN Consulting Unavailable MED, NATHAN Attending Unavailable MED, NATHAN Admitting Unavailable MED, NATHAN Primary Care Unavailable MED, NATHAN Consulting Unavailable MED, NATHAN Attending Unavailable MED, NATHAN Admitting Unavailable MED, NATHAN Primary Care Unavailable MED, NATHAN Consulting Unavailable MOUKAHEATH, DR BUENO Attending Unavailable MOUKARBEL, DR BUENO Admitting Unavailable MOUKARBEL, DR BUENO Consulting Unavailable MED, NATHAN Primary Care Unavailable IJEOMA TIM Consulting Unavailable Eliana LINARES, Danny Carrasco Attending Unavailable Eliana LINARES, Danny Carrasco Attending Unavailable Eliana LINARES, Danny Carrasco Attending Unavailable MAYELIN, SEE Attending Unavailable MAYELIN, SEE Attending Unavailable XIMENA MARTINS Attending Unavailable MAYELIN, SEE Attending Unavailable MAYELIN, SEE Attending Unavailable JOLYNN DAO Attending Unavailable HUMERA, THALIA Referring Unavailable Allergies Allergy Classification Reported Allergen(s) Allergy Type Date of Onset Reaction(s) Facility (5 sources) Hmg-Coa Reductase Inhibitors (Statins) Drug allergy Unknown [facility] [place] Other (5 sources) Penicillin Drug Allergy Unknown [facility] [place] Other (2 sources) Penicillins; Translations: [PENICILLINS] Drug allergy (disorder) [facility] Repository (1 source) Eaaudus-EML-VgS Reductase Inhibitor Drug allergy (disorder) 022 [facility] Repository (2 sources) black walnut pollen extract; Translations: [HUDYROD-GNZ-KAY REDUCTASE INHIBITORS] Drug Allergy 017 [facility] Repository (1 source) Dextroamphetamine Drug Allergy [facility] Repository (1 source) Gemfibrozil Drug Allergy [facility] Repository (1 source) hydroCHLOROthiazide / Triamterene Drug Allergy [facility] Repository (1 source) Penicillin Drug Allergy [facility] Repository (1 source) rosuvastatin Drug Allergy [facility] Rep[facility] (1 source) Gemfibrozil; Translations: [GEMFIBROZIL] Drug Allergy [facility] Repository (1 source) TRIAMTERENE-HYDROCHLOR OTHIAZID; Translations: [TRIAMTERENE-HYDROCHLO ROTHIAZID] Propensity to adverse reactions to drug (disorder) [facility] Medications Current Medications Medication Drug [...] (5 sources) Multivitamin Adults - Orally Active [place] 3 1000 MG (5 sources) take 1 capsule by mouth once daily [place] 3 1000 MG 1 capsule Orally Once [...] Translations: [Chronic diastolic (congestive) heart failure] Onset: 02-25-2023 Chronic Diabetes mellitus without complication (9 sources) [...] Value Interpretation Reference Range Facility Office Visiton 08-14-2023 Follow-up visit [id number] Deja Zamora 1940 F Date Provider Department Center 08/14/2023 SEE BOATENG Family History Problem Relation Age of Onset Coronary artery disease Father Family Status - Relation Status Age at Father Level of Service:53707 [place] OFFICE/OUTPATIENT ESTABLISHED MOD MDM 30 MIN Normal [facility] Office Visiton 08-02-2023 Follow-up visit [id number] Deja Zamora 1940 F Date Provider Department Center 08/02/2023 120-MAYELIN, SEE [facility] Family History Problem Relation Age of Onset Coronary artery disease Father Family Status - Relation Status Age at Father Level of Service:83373 NC OFFICE/OUTPATIENT ESTABLISHED MOD MDM 30-39 MIN Normal [facility] Office Visiton 02-25-2023 Follow-up visit [id number] Deja Zamora 1940 F Date Provider Department Center 02/25/2023 XIMENA LIZ CARD [facility] Family History Problem Relation Age of Onset Coronary artery disease Father Family Status - Relation Status Age at Father Level of Service:95263 NC OFFICE/OUTPATIENT ESTABLISHED MOD MDM 30-39 MIN Normal [facility] 29on 12-05-2022 29 Addended by: [place] on: 12/05/2022 04:05 PM Modules accepted: Orders Normal [facility] Office Visiton 12-05-2022 Follow-up visit [id number] Deja Zamora 1940 F Date Provider Department Center 12/05/2022 Gayla-SEE DICK CARD [facility] Family History Problem Relation Age of Onset Coronary artery disease Father Family Status - Relation Status Age at Father Level of Service:12738 NC OFFICE/OUTPATIENT ESTABLISHED MOD MDM 30-39 MIN Reason for Visit and Comments: Follow-up [242469] - 3 month Chest Pain [970827] - Yesterday had a little bit of pain in my heart that lasted about a minute. BP monitor showed irregular heartbeat. Stress [103] - Under stress currently, due to son having Stage IV Lung Cancer. Normal [facility] FREE THYROXINE INDEX T7on FTI 2.59 Normal 1.30-4.50 [facility] Comment on above: Performed By: #### C MP, TSH, T7 #### [facility] [address] [address] [address] Milind Martinez T3U 37.0 % Normal 30.0-39.0 [facility] Comment on above: Performed By: #### C MP, TSH, T7 #### [facility] [address] [address] [address] Milind Martinez T4 [Mass/Vol] 7.00 ug/dL Normal 4.80-13.90 [facility] Comment on above: Performed By: #### C MP, TSH, T7 #### [facility] [address] [address] [address] Milind Martinez TSHon 09-20-2022 TSH 5.715 uIU/mL Critically high 0.358-3.740 [facility] Comment on above: Performed By: #### C MP, TSH, T7 #### [facility] [address] [address] [address] Milind Martinez Office Visiton 09-05-2022 Follow-up visit [id number] Deja Zamora 1940 F Date Provider Department Center 09/05/2022 SEE BOATENG [facility] Family History Problem Relation Age of Onset Coronary artery disease Father Family Status - Relation Status Age at Father Level of Service:99556 [place] OFFICE/OUTPATIENT ESTABLISHED LOW MDM 20-29 MIN Reason for Visit and Comments: Hypertension [448553] Normal [facility] FREE THYROXINE INDEX T7on FTI 2.56 Normal 1.30-4.50 [facility] Comment on above: Performed By: #### C MP, TSH, T7 #### [facility] [address] [place] [address] Dr. Milind Martinez T3U 35.0 % Normal 30.0-39.0 [facility] Comment on above: Performed By: #### C MP, TSH, T7 #### [facility] [address] [place] [address] Dr. Milind Martinez T4 [Mass/Vol] 7.30 ug/dL Normal 4.80-13.90 [facility] Comment on above: Performed By: #### C MP, TSH, T7 #### [facility] [address] [place] [address] Dr. Milind Martinez GLYCOHEMOGLOBIN A1Con 2021 ADA RECOMMENDATION SEE BELOW Normal [facility] Comment on above: Result Comment: ADA RECOMMENDED LIMIT 4.0 - 6.0 ADA THERAPEUTIC TARGET < 7.0 ACTION SUGGESTED > 7.0 Performed By: #### A 1C #### [facility] [address] [place] [address] Dr. Milind Martinez Glucose [Mass/Vol] 229 mg/dL Normal [facility] Comment on above: Performed By: #### A 1C #### [facility] [address] [place] [address] Dr. Milind Martinez HbA1c (Bld) [Mass fraction] 9.6 % Critically high 4.5-6.2 [facility] Comment on above: Performed By: #### A 1C #### [facility] [address] [place] [address] Dr. Milind Martinez PROF 14(COMP METB)on 022 Albumin [Mass/Vol] 3.1 g/dL Critically low 3.4-5.[address] [facility] Comment on above: Performed By: #### C MP, TSH, T7 #### [facility] [address] [place] [address] Dr. Milind Martinez Albumin/Globulin [Mass ratio] 1.0 {ratio} Normal [facility] Comment on above: Performed By: #### C MP, TSH, T7 #### [facility] [address] [place] [address] Dr. Milind Martinez ALP [Catalytic activity/Vol] 48 U/L Normal 46-116 [facility] Comment on above: Performed By: #### C MP, TSH, T7 #### [facility] [address] [place] [address] Dr. Milind Martinez ALT [Catalytic activity/Vol] 19 U/L Normal 14-59 [facility] Comment on above: Performed By: #### C MP, TSH, T7 #### [facility] [address] [place] [address] Dr. Milind Martinez Anion gap [Moles/Vol] 12.3 mmol/L Normal [facility] Comment on above: Performed By: #### C MP, TSH, T7 #### [facility] [address] [place] [address] Dr. Milind Martinez AST [Catalytic activity/Vol] 30 U/L Normal 15-37 [facility] Comment on above: Performed By: #### C MP, TSH, T7 #### [facility] [address] [place] [address] Dr. Milind Martinez Bilirubin [Mass/Vol] 0.5 mg/dL Normal 0.2-1.0 [facility] Comment on above: Performed By: #### C MP, TSH, T7 #### [facility] [address] [place] [address] Dr. Milind Martinez Calcium [Mass/Vol] 8.9 mg/dL Normal 8.5-10.1 [facility] Comment on above: Performed By: #### C MP, TSH, T7 #### [facility] [address] [place] [address] Dr. Milind Martinez Chloride [Moles/Vol] 104 mmol/L Normal 98-107 [facility] Comment on above: Performed By: #### C MP, TSH, T7 #### [facility] [address] [place] [address] Dr. Milind Martinez CO2 [Moles/Vol] 28.2 mmol/L Normal 21.0-32.0 [facility] Comment on above: Performed By: #### C MP, TSH, T7 #### [facility] [address] [place] [address] Dr. Milind Martinez Creatinine [Mass/Vol] 1.54 mg/dL Critically high 0.55-1.02 [facility] Comment on above: Performed By: #### C MP, TSH, T7 #### [facility] [address] [place] [address] Dr. Milind Martinez EGFR-AF SWEDISH 39 mL/min/1.73m2 Critically low >=60 [facility] Comment on above: Performed By: #### C MP, TSH, T7 #### [facility] [address] [place] [address] Dr. Milind Martinez EGFR-NON AF SWEDISH 32 mL/min/1.73m2 Critically low >=60 [facility] Comment on above: Performed By: #### C MP, TSH, T7 #### [facility] [address] [place] [address] Dr. Milind Martinez Globulin (S) [Mass/Vol] 3.2 g/dL Normal [facility] Comment on above: Performed By: #### C MP, TSH, T7 #### [facility] [address] [place] [address] Dr. Milind Martinez Glucose [Mass/Vol] 180 mg/dL Critically high 74-106 T [facility] Comment on above: Performed By: #### C MP, TSH, T7 #### [facility] [address] [place] [address] Dr. Milind Martinez Potassium [Moles/Vol] 4.5 mmol/L Normal 3.5-5.1 [facility] Comment on above: Performed By: #### C MP, TSH, T7 #### [facility] [address] [place] [address] Dr. Milind Martinez Protein [Mass/Vol] 6.3 g/dL Critically low 6.4-8.[address] [facility] Comment on above: Performed By: #### C MP, TSH, T7 #### [facility] [address] [place] [address] Dr. Milind Martinez Sodium [Moles/Vol] 140 mmol/L Normal 136-145 [facility] Comment on above: Performed By: #### C MP, TSH, T7 #### [facility] [address] [place] [address] Dr. Milind Martinez Urea nitrogen [Mass/Vol] 46.0 mg/dL Critically high 7.0-18.0 [facility] Comment on above: Performed By: #### C MP, TSH, T7 #### [facility] [address] [place] [address] Dr. Milind Martinez Urea nitrogen/Creatinine [Mass ratio] 29.9 mg/mg Normal [facility] Comment on above: Performed By: #### C MP, TSH, T7 #### [facility] [address] [place] [address] Dr. Milnid Martinez TSHon 08-01-2022 TSH 12.769 uIU/mL Critically high 0.358-3.740 [facility] Comment on above: Performed By: #### C MP, TSH, T7 #### [facility] [address] [place] [address] Dr. Milind Martinez INSULINon 04-03-2022 Insulin 2.5 uIU/mL Critically low 2.6-24.9 [facility] Comment on above: Performed By: #### C MP, TSH, T7 #### [facility] [address] [place] [address] Dr. Milind Martinez T4, T3U, FTI [facility] 04-03 Free Thyroxine Index 1.8 Normal 1.2-4.9 [facility] Comment on above: Performed By: #### T HYLC #### [facility] [address] [place] [address] Dr. Milind Martinez T3 Uptake 26 % Normal 24-39 [facility] Comment on above: Performed By: #### T HYLC #### [facility] [address] [place] [address] Dr. Milind Martinez T4 [Mass/Vol] 7.1 ug/dL Normal 4.5-12.0 [facility] Comment on above: Performed By: #### T HYLC #### [facility] [address] [place] [address] Dr. Milind Martinez CBC AUTO DIFFon 04-02-2022 BASO # 0.0 103/ul Normal 0.0-0.1 [facility] Comment on above: Performed By: #### C BC #### [facility] [address] [place] [address] Dr. Milind Martinez Basophils/100 WBC (Bld) 0.9 % Normal 0.2-2.0 [facility] Comment on above: Performed By: #### C BC #### [facility] [address] [place] [address] Dr. Milind Martinez EO # 0.2 103/ul Normal 0.0-0.7 [facility] Comment on above: Performed By: #### C BC #### [facility] [address] [place] [address] Dr. Milind Martinez Eosinophils/100 WBC (Bld) 5.3 % Normal 0.9-7.0 [facility] Comment on above: Performed By: #### C BC #### [facility] [address] [place] [address] Dr. Milind Martinez Erythrocyte distribution width (RBC) [Ratio] 13.2 % Normal 11.0-15.0 [facility] Comment on above: Performed By: #### C BC #### [facility] [address] [place] [address] Dr. Milind Martinez Hematocrit (Bld) [Volume fraction] 37.1 % Normal 36.0-48.0 [facility] Comment on above: Performed By: #### C BC #### [facility] [address] [place] [address] Dr. Milind Martinez Hemoglobin (Bld) [Mass/Vol] 12.0 g/dL Normal 12.0-16.0 [facility] Comment on above: Performed By: #### C BC #### [facility] [address] [place] [address] Dr. Milind Martinez IG # 0.01 10e3/ul Normal 0.00-0.03 [facility] Comment on above: Performed By: #### C BC #### [facility] [address] [place] [address] Dr. Milind Martinez IG % 0.2 % Normal 0.0-0.5 [facility] Comment on above: Performed By: #### C BC #### [facility] [address] [place] [address] Dr. Milind Martinez LYMPH # 1.8 103/ul Normal 1.2-3.8 [facility] Comment on above: Performed By: #### C BC #### [facility] [address] [place] [address] Dr. Milind Martinez Lymphocytes/100 WBC (Bld) 41.9 % Normal 20.5-60.0 [facility] Comment on above: Performed By: #### C BC #### [facility] [address] [place] [address] Dr. Milind Martinez MANUAL DIFF REQ NO Normal [facility] Comment on above: Performed By: #### C BC #### [facility] [address] [address] [address] Milind Martinez MCH (RBC) [Entitic mass] 31.2 pg Normal 26.7-34.0 [facility] Comment on above: Performed By: #### C BC #### [facility] [address] [place] [address] Dr. Milind Martinez MCHC (RBC) [Mass/Vol] 32.3 g/dL Normal 29.9-35.2 [facility] Comment on above: Performed By: #### C BC #### [facility] [address] [place] [address] Dr. Milind Martinez MCV (RBC) [Entitic vol] 96.4 fL Normal 81.0-99.0 [facility] Comment on above: Performed By: #### C BC #### [facility] [address] [place] [address] Dr. Milind Martinez MONO # 0.3 103/ul Normal 0.3-0.8 [facility] Comment on above: Performed By: #### C BC #### [facility] [address] [place] [address] Dr. Milind Martinez Monocytes/100 WBC (Bld) 5.8 % Normal 1.7-12.0 [facility] Comment on above: Performed By: #### C BC #### [facility] [address] [place] [address] Dr. Milind Martinez NEUT # 2.0 103/ul Normal 1.4-6.5 [facility] Comment on above: Performed By: #### C BC #### [facility] [address] [place] [address] Dr. Milind Martinez Neutrophils/100 WBC (Bld) 45.9 % Normal 43.0-75.0 [facility] Comment on above: Performed By: #### C BC #### [facility] [address] [place] [address] Dr. Milind Martinez Platelet mean volume (Bld) [Entitic vol] 11.8 fL Normal 9.5-13.5 [facility] Comment on above: Performed By: #### C BC #### [facility] [address] [address] [address] Milind Martinez PLT 159 103/ul Normal 150-450 [facility] Comment on above: Performed By: #### C BC #### [facility] [address] [address] [address] Milind Martinez RBC 3.85 106/ul Critically low 4.20-5.40 [facility] Comment on above: Performed By: #### C BC #### [facility] [address] [address] [address] Milind Martinez WBC 4.3 103/ul Normal 4.0-11.0 [facility] Comment on above: Performed By: #### C BC #### [facility] [address] [address] [address] Milind Martinez GLYCOHEMOGLOBIN A1Con 2021 ADA RECOMMENDATION SEE BELOW Normal [facility] Comment on above: Result Comment: ADA RECOMMENDED LIMIT 4.0 - 6.0 ADA THERAPEUTIC TARGET < 7.0 ACTION SUGGESTED > 7.0 Performed By: #### A 1C #### [facility] [address] [address] [address] Milind Martinez Glucose [Mass/Vol] 214 mg/dL Normal [facility] Comment on above: Performed By: #### A 1C #### [facility] [address] [address] [address] Milind Martinez HbA1c (Bld) [Mass fraction] 9.1 % Critically high 4.5-6.2 [facility] Comment on above: Performed By: #### A 1C #### [facility] [address] [address] [address] Milind Martinez IRONon 04-02-2022 Iron [Mass/Vol] 126.0 ug/dL Normal 50.0-170.0 [facility] Comment on above: Performed By: #### C MP, TSH, T7 #### [facility] [address] [address] [address] Milind Martinez LIPID PROFILEon 04-02-2022 CHOL-HDL RATIO NORM SEE BELOW Normal [facility] Comment on above: Result Comment: 3.3 - 4.4 LOW RISK 4.4 - 7.1 AVERAGE RISK 7.1 - 11.0 MODERATE RISK >11.0 HIGH RISK Performed By: #### C MP, TSH, T7 #### [facility] [address] [address] [address] Milind Martinez Cholesterol [Mass/Vol] 133 mg/dL Normal <=200 [facility] Comment on above: Performed By: #### C MP, TSH, T7 #### [facility] [address] [address] [address] Milind Martinez Cholesterol in HDL [Mass/Vol] 20 mg/dL Critically low 40-60 [facility] Comment on above: Performed By: #### C MP, TSH, T7 #### [facility] [address] [address] [address] Milind Martinez Cholesterol in LDL [Mass/Vol] 69.6 mg/dL Normal [facility] Comment on above: Performed By: #### C MP, TSH, T7 #### [facility] [address] [address] [address] Milind Martinez Cholesterol.total/Ch olesterol in HDL [Mass ratio] 6.7 {ratio} Normal [facility] Comment on above: Performed By: #### C MP, TSH, T7 #### [facility] [address] [address] [address] Milind Martinez HDL NORMAL > or = 60 mg/dl - LOW CARDIOVASCULAR RISK <40 mg/dl - HIGH CARDIOVASCULAR RISK Normal [facility] Comment on above: Performed By: #### C MP, TSH, T7 #### [facility] [address] [address] [address] Milind Martinez LDL CALC NORMAL SEE BELOW Normal [facility] Comment on above: Result Comment: <100 mg/dl OPTIMAL 100 - 129 mg/dl NEAR OR ABOVE OPTIMAL 130 - 159 mg/dl BORDERLINE HIGH 160 - 189 mg/dl HIGH >190 mg/dl VERY HIGH Performed By: #### C MP, TSH, T7 #### [facility] [address] [address] [address] Milind Martinez Triglyceride [Mass/Vol] 217 mg/dL Critically high <=150 [facility] Comment on above: Performed By: #### C MP, TSH, T7 #### [facility] [address] [place] [address] Dr. Milind Martinez VLDL CALC 43.4 mg/dL Normal [facility] Comment on above: Performed By: #### C MP, TSH, T7 #### [facility] [address] [place] [address] Dr. Milind Martinez PROF 14(COMP METB)on 022 Albumin [Mass/Vol] 3.3 g/dL Critically low 3.4-5.[address] [facility] Comment on above: Performed By: #### C MP, TSH, T7 #### [facility] [address] [place] [address] Dr. Milind Martinez Albumin/Globulin [Mass ratio] 1.2 {ratio} Normal [facility] Comment on above: Performed By: #### C MP, TSH, T7 #### [facility] [address] [place] [address] Dr. Milind Martinez ALP [Catalytic activity/Vol] 43 U/L Critically low 46-116 [facility] Comment on above: Performed By: #### C MP, TSH, T7 #### [facility] [address] [place] [address] Dr. Milind Martinez ALT [Catalytic activity/Vol] 24 U/L Normal 14-59 [facility] Comment on above: Performed By: #### C MP, TSH, T7 #### [facility] [address] [place] [address] Dr. Milind Martinez Anion gap [Moles/Vol] 11.4 mmol/L Normal [facility] Comment on above: Performed By: #### C MP, TSH, T7 #### [facility] [address] [place] [address] Dr. Milind Martinez AST [Catalytic activity/Vol] 24 U/L Normal 15-37 [facility] Comment on above: Performed By: #### C MP, TSH, T7 #### [facility] [address] [address] [address] Milind Martinez Bilirubin [Mass/Vol] 0.4 mg/dL Normal 0.2-1.0 [facility] Comment on above: Performed By: #### C MP, TSH, T7 #### [facility] [address] [address] [address] Milind Martinez Calcium [Mass/Vol] 8.7 mg/dL Normal 8.5-10.1 [facility] Comment on above: Performed By: #### C MP, TSH, T7 #### [facility] [address] [address] [address] Milind Martinez Chloride [Moles/Vol] 106 mmol/L Normal 98-107 [facility] Comment on above: Performed By: #### C MP, TSH, T7 #### [facility] [address] [place] [address] Dr. Milind Martinez CO2 [Moles/Vol] 29.7 mmol/L Normal 21.0-32.0 [facility] Comment on above: Performed By: #### C MP, TSH, T7 #### [facility] [address] [address] [address] Milind Martinez Creatinine [Mass/Vol] 1.30 mg/dL Critically high 0.55-1.02 [facility] Comment on above: Performed By: #### C MP, TSH, T7 #### [facility] [address] [address] [address] Milind Martinez EGFR-AF SWEDISH 47 mL/min/1.73m2 Critically low >=60 [facility] Comment on above: Performed By: #### C MP, TSH, T7 #### [facility] [address] [address] [address] Milind Martinez EGFR-NON AF SWEDISH 39 mL/min/1.73m2 Critically low >=60 [facility] Comment on above: Performed By: #### C MP, TSH, T7 #### [facility] [address] [address] [address] Milind Martinez Globulin (S) [Mass/Vol] 2.7 g/dL Normal [facility] Comment on above: Performed By: #### C MP, TSH, T7 #### [facility] [address] [place] [address] Dr. Milind Martinez Glucose [Mass/Vol] 109 mg/dL Critically high 74-106 T [facility] Comment on above: Performed By: #### C MP, TSH, T7 #### [facility] [address] [place] [address] Dr. Milind Martinez Potassium [Moles/Vol] 4.1 mmol/L Normal 3.5-5.1 [facility] Comment on above: Performed By: #### C MP, TSH, T7 #### [facility] [address] [place] [address] Dr. Milind Martinez Protein [Mass/Vol] 6.0 g/dL Critically low 6.4-8.[address] [facility] Comment on above: Performed By: #### C MP, TSH, T7 #### [facility] [address] [place] [address] Dr. Milind Martinez Sodium [Moles/Vol] 143 mmol/L Normal 136-145 [facility] Comment on above: Performed By: #### C MP, TSH, T7 #### [facility] [address] [place] [address] Dr. Milind Martinez Urea nitrogen [Mass/Vol] 34.0 mg/dL Critically high 7.0-18.0 [facility] Comment on above: Performed By: #### C MP, TSH, T7 #### [facility] [address] [place] [address] Dr. Milind Martinez Urea nitrogen/Creatinine [Mass ratio] 26.2 mg/mg Normal [facility] Comment on above: Performed By: #### C MP, TSH, T7 #### [facility] [address] [place] [address] Dr. Milind Martinez TSHon 04-02-2022 TSH 7.887 uIU/mL Critically high 0.358-3.740 [facility] Comment on above: Performed By: #### C MP, TSH, T7 #### [facility] [address] [address] [address] Milind Martinez US KIDNEYSon 03-23-2022 US [...] of RA stenosis by color-Doppler US from Brianr and Chris (Am J Hypertens, 1996). Normal renal artery [...] by: IJEOMA TIM Date: 2022-03-23 13:26 Normal [facility] MG MAMM SCREEN 3D BOGDAN CADon 03-05-2022 MG MAMM SCREEN 3D BOGDAN CAD Patient: DEJA ZAMORA Exam Date: 03/05/2022 : 1940 Gender:F Ordering : NATHAN JOVEL [facility] Admission #: [id number] Family : Order #: [id number] CLICK HERE TO VIEW EXAM RADIOLOGY REPORT [...] mult.myeloma cancer at age 68. LOCATION: [facility] BREAST COMPOSITION: Scattered areas fibroglandular density. FINDINGS: [...] M.D. on 03/05/2022 at 13:47 Normal [facility] US CAROTID ART BILon -09-2 022 US CAROTID ART BOGDAN EXAMINATION: US [...] Date Time Vital Sign Value Performing Clinician Faci lity 12-21-2021 10:00-0400 Body height 147.32 cm Patrick Cotter Other [facility] Other 12-21-2021 10:00-0400 Body mass index (BMI) [Ratio] 27.79 kg/m2 Patrick Cotter Other [facility] Other 12-21-2021 10:00-0400 Body weight 60.33 kg Patrick Cotter Other [facility] Other 10-19-2021 12:00-0500 Body height 147.32 cm Patrick Cotter Other [facility] Other 10-19-2021 12:00-0500 Body mass index (BMI) [Ratio] 27.79 kg/m2 Patrick Cotter Other [facility] Other 10-19-2021 12:00-0500 Body weight 60.33 kg Patrick Cotter Other [facility] Other 08-22-2021 15:00-0500 Body height 147.32 cm Patrick Cotter Other [facility] Other 08-22-2021 15:00-0500 Body mass index (BMI) [Ratio] 27.79 kg/m2 Patrick Cotter Other [facility] Other 08-22-2021 15:00-0500 Body weight 60.33 kg Patrick Cotter Other [facility] Other Encounters Encounter Date Encounter Type Care Provider Facility Start: 08-29-2023 End: 08-30-2023 ambulatory JOLYNN DAO Not Available Start: 08-14-2023 End: 08-14-2023 ambulatory [facility] Start: 08-02-2023 End: 08-02-2023 ambulatory [facility] Start: 04-01-2023 End: 04-02-2023 ambulatory Danny Monroy MD [facility] Start: 03-18-2023 End: 03-19-2023 ambulatory Danny Monroy MD [facility] Start: 02-25-2023 End: 02-25-2023 ambulatory XIMENA MARTINS [facility] Start: 02-11-2023 End: 02-12-2023 ambulatory Danny Monroy MD [facility] Start: 12-05-2022 End: 12-05-2022 ambulatory [facility] Start: 09-20-2022 End: 09-21-2022 ambulatory NATHAN JOVEL Facility:[facility] Start: 09-05-2022 End: 09-05-2022 ambulatory [facility] Start: 08-01-2022 End: 08-02-2022 ambulatory NATHAN JOVEL Facility:[facility] Start: 04-02-2022 End: 04-03-2022 ambulatory NATHAN JOVEL Facility:[facility] Start: 03-23-2022 End: 03-24-[address] XIMENA MARTINS Facility:[facility] Start: 03-05-2022 End: 03-06-[address] UDAY MAJOR Facility:[facility] Start: 12-25-2021 End: 12-26-2021 ambulatory SEE DICK Facility:[facility] Start: 12-21-2021 End: 12-21-2021 ambulatory Patrick Cotter Other [facility] Other Start: 12-21-2021 Postop follow up vis it related to original px Patrick Cotter [facility] Start: 11-02-2021 ambulatory NATHAN MED Facility: Start: 10-19-2021 End: 10-19-2021 ambulatory Patrick Cotter Other [facility] Other Start: 10-19-2021 Postop follow up vis it related to original px Patrick Cotter [facility] Start: 09-18-2021 Admission to [facility] Patrick Cotter [facility] Start: 09-18-2021 End: 09-19-[address] [facility] Other Start: 08-29-2021 End: 08-29-2021 ambulatory Patrick Cotter Other [facility] Other Start: 08-29-2021 Telephone encounter Patrick Cotter [facility] Start: 08-22-2021 End: 08-22-2021 ambulatory Patrick Cotter Other [facility] Other Start: 08-22-2021 Office outpatient visit 40 minutes Patrick Cotter [facility] Start: 09-24-2017 End: 09-25-2017 Ambulatory DEFAULT PHYSICIAN Facility:[facility] Payers Date Payer Category Payer Unknown 2021 Self-pay 2003 Medicare 1959 Medicare [id number] 2.1 [id number] 1959 Self-pay [id number] 1959 Unknown [id number] 2.1 [id number] 1940 Unknown [id number] 2.16.84 [id number] 1940 Unknown [id number] 2.16.84 [id number] 1940 Unknown [id number] 2.16.84 [id number] 1940 Unknown [id number] 2.16.84 [id number] 1940 Unknown [id number] 2.16.84 [id number] 1938 Unknown [id number] 2.16.84 [id number] 1938 Unknown [id number] 2.16.84 0.1.729268.3.579.2.593 1938 Unknown [id number] 2.16. 840.1.262745.3.579.2.196 1938 Unknown [id number] 2.16. [id number] 1940 Unknown [id number] 2.16. 840.1.006587.3.579.2.196 1940 Unknown [id number] 2.16.84 0.1.002639.3.579.2.1259 Unknown [id number] 2.16.8 [id number] Social History Date Type Detail Facility Sex Assigned At [facility] Other Clinical Notes 08-22-2021 to 08-14-2023 Note Date & Type Note Facility 08-14-2023 Note Hypertension is well controlled at home, continue all meds Metoprolol 25 mg bid, cardura 8 mg, clonidine 0.2 mg bid, and norvasc 5 mg. [facility] 08-14-2023 Note Currently stable wit hout worsening symptoms [facility] 08-14-2023 Note Patient here for 2 w [place] follow up hypertension. Clonidine was increased to 0.2mg bid at last apt on 08/02/2023. She is only taking metoprolol tartrate 25mg bid (instead of 50mg bid) for some reason. She had BMP last week. Review of Systems Cardiovascular: Positive for leg swelling. Musculoskeletal: Positive for arthritis, back pain and muscle weakness. Neurological: Positive for dizziness, light-headedness and weakness. All other systems reviewed and are negative. [facility] 08-14-2023 Note [facility] CARDIOLOGY PROGR ESS NOTE HPI: Deja Zamora is a 83 y.o. female here for HTN F/U Patient here for 2 week follow up hypertension. Clonidine was increased to 0.2mg bid at last apt on 08/02/2023. She is only taking metoprolol tartrate 25mg bid (instead of 50mg bid) for some reason. She had BMP last week. States PCP will recheck kidney function in 1 month Denied chest pain, shortness of breath, or orthopnea. Denied headaches, one sided weakness, N/T or vision changes. States she in seeing eye doctor for cataracts. B/P log from home is really pretty well controlled with average b/p is 120-139/46-87- overall much better controlled Review of Systems Cardiovascular: Positive for leg swelling. Musculoskeletal: Positive for arthritis, back pain and muscle weakness. Neurological: Positive for dizziness, light-headedness and weakness. All other systems reviewed and are negative. Visit Vitals BP 170/60 (BP Location: Left arm, Patient Position: Sitting) Pulse 72 Ht 1.473 m (4' 10 ) Wt 55.8 kg (123 lb) SpO2 98% BMI 25.71 kg/m??? OB Status Postmenopausal Smoking Status Never BSA 1.51 m??? Allergies Allergen Reactions Gemfibrozil Penicillins Unknown Nmsfgmt-Osf-Lsm Reductase Inhibitors Unknown Triamterene-Hydrochlorothiazid Medications: Current Outpatient Medications on File Prior to Visit Medication Sig Dispense Refill amLODIPine (Norvasc) 5 mg tablet Take 1 tablet (5 mg) by mouth once daily as directed. 90 tablet 3 aspirin 81 mg EC tablet Take 1 tablet every day by oral route. calcium carbonate-vitamin D3 600 mg-5 mcg (200 unit) tablet Calcium 600 + D(3) 1200mg cloNIDine (Catapres) 0.2 mg tablet Take 1 tablet (0.2 mg) by mouth in the morning and at bedtime. 180 tablet 3 doxazosin (Cardura) 8 mg tablet Take 1 [...] 5 mcg by mouth in the morning. pantoprazole (ProtoNix) 40 mg EC tablet Take [...] every other day.) 45 tablet 3 [DISCONTINUED] metoprolol tartrate (Lopressor) 50 mg tablet Take 1.5 tablets (75 mg) by mouth in the morning and at bedtime. (Patient taking differently: Take 25 mg by mouth in the morning and at bedtime.) 270 tablet 3 No current facility-administered medications on file prior to visit. Physical Exam: Constitutional: Appearance: Normal appearance. Without apparent distress HENT: Head: Normocephalic and atraumatic. Nose: Nose [...] back: Normal range of motion. Right lower le+ edema. Left lower le+ edema. Skin: General: Skin is warm and dry. Capillary Refill: Capillary refill takes less than 2 seconds. Neurological: General: No focal deficit present. Mental Status: She is alert and oriented to person, place, and time. Psychiatric: Mood and Affect: Mood normal. Behavior: Behavior normal. Thought Content: Thought content normal. Judgment: Judgment normal. Labs: 08/08/23 renal function with Cr 1.69- this is about typical for her, K+ normal Recent labs reviewed and Renal function remains with CR around 1.5-1.6 which seems to be her baseline 07/31/23 CBC stable Liver function normal Last lab values have been reviewed CV Testin04/18/23 TTE 5 (more content not included)... [facility] 08-02-2023 Note Stable so far, will monitor with increased clonidine for uncontrolled HTN [facility] 08-02-2023 Note Stable without any worsening sym ptoms [facility] 08-02-2023 Note Hypertension is Curr ently [...] once or twice every 2 to 3-weeks [facility] 08-02-2023 Note [facility] CARDIOLOGY PROGR ESS [...] at target sometimes. She was admitted to [facility] in Mar 2023 for e.coli and [...] m??? Allergies Allergen Reactions Gemfibrozil Penicillins Unknown Ftwvcli-Nbk-Ptx Reductase Inhibitors Unknown Triamterene-Hydrochlorothiazid Medications: Current Outpatient [...] values have be (more content not included)... [facility] 08-02-2023 Note Patient here c/o hyp [...] at target sometimes. She was admitted to [facility] in Mar 2023 for e.coli and [...] All other systems reviewed and are negative. [facility] 02-25-2023 Note [place] [facility] Subjective Deja Zamora is a [...] Alcohol use: Not Currently Drug use: Never HPI Deja is seen in follow up on [...] Allergies Allergies Allergen Reactions Gemfibrozil Penicillins Unknown Qtzakgq-Urp-Sri Reductase Inhibitors Unknown Triamterene-Hydrochlorothiazid Medications Current Outpatient [...] Disp: , Rfl: (more content not included)... [facility] 12-05-2022 Note Reviewed lipids 04/02- well controlled Chol 133, Trig 217, HDL 20, LDL 69.6 [facility] 12-05-2022 Note Currently stable- no concerning symptoms [facility] 12-05-2022 Note Stable, voiced no concerns [facility] 12-05-2022 Note Continue fenofibrate, zetia and ASA [facility] 12-05-2022 Note Hypertension is much improved and well controlled at home per B/P log Continue all medications. [facility] 12-05-2022 Note Review of Systems Constitutional: [...] currently, due to her son having cancer. [facility] 12-05-2022 Note [facility]TP CARDIOLOGY PROGR ESS [...] m??? Allergies Allergen Reactions Gemfibrozil Penicillins Unknown Hwkyimt-Yel-Seq Reductase Inhibitors Unknown Triamterene-Hydrochlorothiazid Medications: Current Outpatient [...] normal. Labs: 08/01/22 (more content not included)... [facility] 09-05-2022 Note Hypertension is much better controlled at home after review of b/p log. Continue amlodipine 5mg daily, clonidine 0.1mg, cardura 8mg, lasix, hydrochlorothiazide 25mg, metoprolol 75 mg bid, and aldactone 12.5mg [facility] 09-05-2022 Note [facility]TP CARDIOLOGY PROGR ESS [...] m??? Allergies Allergen Reactions Gemfibrozil Penicillins Unknown Dypbcmu-Djt-Sro Reductase Inhibitors Unknown Triamterene-Hydrochlorothiazid Medications: Current Outpatient [...] Thought content normal. (more content not included)... [facility] 09-05-2022 Note Patient here for 2 [...] All other systems reviewed and are negative. 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 I have encouraged her to continue to build up her endurance by walking. I will see her again in 2 months for final postop visit. [facility] Other 01-11-2022 Evaluation note* Encounter Date Diagnosis Assessment Notes Treatment Notes Treatment Clinical Notes Aug, Lumbar disc herniation with radiculopathy (ICD-10 - M51.16) [facility] Other 01-04-2022 Evaluation note* Encounter Date Diagnosis [...] a decision she agreed to surgical intervention. [facility] Other evaluation noteNo InformationNort Gigwell Other History general Narrative - Reported* Type Description Date Medical History Diabetes Medical History Hyperlipidemia Medical History Pulmonary HPN Medical History Osteoporosis Surgical History R knee Sx Surgical History L Hand Hospitalization History HTN 08/2018 [facility] Other Summary Purpose Family History No Family [...] Arthropathy of left hip (M16.12) Referral Organization [facility] Ne urosurgery Referring Provider First Name Patrick Referring Provider Last Name Cyndee Referring Provider Specialty Neurologica l Surgery Referred Organization [facility] Referred Provider Ximena Vela Jr Referred Address ,[place],[address] Referred Provider Specialty Orthopedic S urgery Referral Priority Routine General Notes Val Slater 022 10:56:23 AM >Received today. This referral was sent P2P and will wait a week and call them back to see if she was scheduled. They do their own scheduling Additional Source Comments INFORMATION SOURCE (unrecogn ized section and content) DATE CREATED AUTHOR 02/10/2018 [facility] DATE CREATED AUTHOR AUTHOR'S ORGANIZ ATION 09/22/2022 [facility] DATE CREATED AUTHOR AUTHOR'S ORGANIZ ATION 09/23/2022 [facility] DATE CREATED AUTHOR AUTHOR'S ORGANIZ ATION 04/11/2023 [facility] DATE CREATED AUTHOR AUTHOR'S ORGANIZ ATION 08/16/2023 [facility] DATE CREATED AUTHOR AUTHOR'S ORGANIZ ATION 09/02/2023 [facility] EPIC REASON FOR VISIT (unrecogniz ed section and [...] BE BASED ON THE PRIMARY CLINICAL RECORDS. [employer] provides no warranty or guarantee of the accuracy or completeness of information in this document.
--- NOTE | 2023-09-12 13:09 | P.CN_ITS ---
Consult Note: HPI Data of Consult Patient: known to practice within the last 3 years Requesting Physician: Nuzhat Keller NP Primary Care Provider: NATHAN JOVEL Consult Narrative Reason for consult: f/u Narrative: Deja Zamora a pleasant 82 year old female presents for evaluation and management of chronic low back pain with left sided radiculopathy and at times NC. Patient rating pain today 5/10 sharp shooting pain that radiated to left foot and toes. Patient notices mild improvement in symptoms with gabapentin. Patient is following with neurology from tremors and weakness, continues to follow with cardiology regarding BP and carotid stenosis. cc:: CC: Nuzhat Keller NP Review of Systems ROS Status of ROS 10 or more systems reviewed and unremark able except as noted in history and below Musculoskeletal Reports: back pain Neurological Reports: numbness in extremities and weakness in extremities PFSH PFSH Medical History Intractable nausea and vomiting ?R11.2 - Nausea with vomiting, unspecified (ICD-10) Diabetes ?E11.9 - Type 2 diabetes mellitus without complications (ICD-10) Dupuytren contracture ?M72.0 - Palmar fascial fibromatosis [Dupuytren] (ICD-10) Skin cancer ?C44.90 - Unspecified malignant neoplasm of skin, unspecified (ICD-10) Degenerative disc disease Age related osteoporosis ?M81.0 - Age-related osteoporosis without current pathological fracture (ICD- 10) Gastritis ?K29.70 - Gastritis, unspecified, without bleeding (ICD-10) Kidney failure ?N19 - Unspecified kidney failure (ICD-10) HTN (hypertension) ?I10 - Essential (primary) hypertension (ICD-10) High cholesterol ?E78.00 - Pure hypercholesterolemia, unspecified (ICD-10) Pulmonary HTN ?I27.20 - Pulmonary hypertension, unspecified (ICD-10) Surgical History History of right knee surgery ?Z98.890 - Other specified postprocedural states (ICD-10) History of sinus surgery ?Z98.890 - Other specified postprocedural states (ICD-10) History of cholecystectomy ?Z90.49 - Acquired absence of other specified parts of digestive tract (ICD- 10) Previous back surgery ?Z98.890 - Other specified postprocedural states (ICD-10) Meds Home Medications and Allergies Home Medications Medication Instructions Recorded Confirmed Type amlodipine 5 mg tablet 5 mg PO DAILY 02/11/23 04/29/23 History calcium carbonate 600 mg-vitamin 1 tab PO BID 02/11/23 04/29/23 History D3 5 mcg (200 unit) tablet (Calcium 600 + D(3)) coenzyme Q10 100 mg capsule (Co 100 mg PO DAILY 02/11/23 04/29/23 History Q-10) doxazosin 8 mg tablet 8 mg PO BID 02/11/23 04/29/23 History ezetimibe 10 mg tablet 10 mg PO DAILY 02/11/23 04/29/23 History fenofibrate 160 mg tablet 160 mg PO DAILY 02/11/23 04/29/23 History fluticasone propionate 50 1 spray intranasal DAILY PRN 02/11/23 04/29/23 History mcg/actuation nasal allergy symptoms spray,suspension (24 Hour Allergy Relief) furosemide 20 mg tablet 20 mg PO DAILY PRN edema 02/11/23 04/29/23 History insulin glargine 100 unit/mL 18 unit subcut QPM 02/11/23 04/29/23 History subcutaneous solution (Lantus U-100 Insulin) metoprolol tartrate 50 mg tablet 25 mg PO BID 02/11/23 04/29/23 History (Lopressor) multivitamin (Daily Multi-Vitamin 1 tab PO DAILY 02/11/23 04/29/23 History tablet) pantoprazole 40 mg tablet,delayed 40 mg PO DAILY 02/11/23 04/29/23 History release (Protonix) potassium chloride 10 mEq 10 meq PO DAILY PRN edema 02/11/23 04/29/23 History tablet,extended release (K-Tab) spironolactone 25 mg tablet 12.5 mg PO .every other day 02/11/23 04/29/23 History aspirin 81 mg chewable tablet 81 mg PO DAILY 04/17/23 04/29/23 History levothyroxine 25 mcg tablet 25 mcg PO DAILY 04/17/23 04/29/23 History (Synthroid) clonidine HCl 0.1 mg tablet 0.1 mg PO BID #60 tabs 04/18/23 04/29/23 Rx liothyronine 5 mcg tablet 5 mcg PO DAILY #30 tabs 04/18/23 04/29/23 Rx ondansetron 4 mg disintegrating 4 mg PO Q6H PRN nausea and 04/18/23 04/29/23 Rx tablet vomiting #14 tabs Allergies Allergy/AdvReac Type Severity Reaction Status Date / Time Penicillins Allergy Verified 04/29/23 11:01 Ixrzxfb-HRS-HhW Reductase Allergy Verified 04/29/23 11:01 Inhibitor Exam Constitutional Documenting provider has reviewed patient's vital signs: yes Common normals: no apparent distress, oriented x3, healthy appearing, alert and well nourished General appearance: cooperative HENWY Common normals: normocephalic, hearing grossly normal bilaterally and moist oral mucous membranes Head and scalp: normocephalic Eye Common normals: PERRL Pupil: PERRL Neck & C-Spine Common normals: full ROM General: normal visual inspection Chest Common normals: inspection of chest normal Respiratory Common normals: normal respiratory effort, no retractions and no use of accessory muscles Back & Pelvis Lumbar spine/lower back: ROM limited, pain with ROM and straight leg raise positive left Sacroiliac joints: SI joint(s) abnormal (pain with thigh thrust, gaelsens and vicente on left side.) Other: intermittent radiculopathy to left leg. Extremity Common normals: normal to inspection and full ROM Other: no tremor on exam, pt reports left hand tremor Neuro Common normals: oriented x3, CN's II-XII intact bilaterally, moves all extremities, no focal motor deficits, no sensory deficits noted and deep tendon reflexes 2+ bilaterally Sensorium/orientation: alert Gait (neuro): assistive device used cane Motor exam: strength abnormal (4/5 RUE and RLE) Psych Common normals: mental status grossly normal, thought process normal, cooperative, affect normal, speech normal and activity/motor behavior normal Speech: normal speech Thought process: normal thought process Assessment and Plan Assessment and Plan (1) Lumbar stenosis with neurogenic claudication: (2) Lumbar spondylosis: (3) Lumbar postlaminectomy syndrome: (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
== END 2023-09-12 12:45 | disposition home or self-care (01) ==
PROVIDERS: PCP Nurse Practitioner Family; Visit Provider Nurse Practitioner
DX: M47.26 Other spondylosis with radiculopathy, lumbar region (principal); M48.062 Spinal stenosis, lumbar region with neurogenic claudication; M96.1 Postlaminectomy syndrome, not elsewhere classified; Z79.899 Other long term (current) drug therapy; M53.3 Sacrococcygeal disorders, not elsewhere classified
CPT/HCPCS: G0463

== ENCOUNTER 2023-09-12 13:36 | Outpatient (OUT) | payer MEDICARE, SELFPAY ==
--- OUTSIDE RECORDS SUMMARY | 2023-09-12 13:41 | XMS_ITS | CCD ---
Author Name Unknown Address [id number] [place] [address] Organization [facility] Care Team Providers Care Meatcutter Name Role Phone PHYSICIAN, DEFAULT Unavailable Unavailable [...] Attending Unavailable MAYELIN, SEE Attending Unavailable XIMENA MATRINS Attending Unavailable MAYELIN, SEE Attending Unavailable MAYELIN, SEE Attending Unavailable JOLYNN DAO Attending Unavailable HUMERA, THALIA Referring Unavailable Allergies Allergy Classification Reported Allergen(s) Allergy Type Date of Onset Reaction(s) Facility (5 sources) Hmg-Coa Reductase Inhibitors (Statins) Drug allergy Unknown [facility] Other (5 sources) Penicillin Drug Allergy Unknown [facility] Other (2 sources) Penicillins; Translations: [PENICILLINS] Drug allergy (disorder) [facility] Repository (1 source) Trkiasj-ALX-NbG Reductase Inhibitor Drug allergy (disorder) 022 [facility] Repository (2 sources) black walnut pollen extract; Translations: [IIPHHCY-PWR-DMY REDUCTASE INHIBITORS] Drug Allergy 017 [facility] Repository (1 source) Dextroamphetamine Drug Allergy [facility] Repository (1 source) Gemfibrozil Drug Allergy [facility] Repository (1 source) hydroCHLOROthiazide / Triamterene Drug Allergy [facility] Rep[facility] (1 source) Penicillin Drug Allergy [facility] (1 source) rosuvastatin Drug Allergy [facility] Rep[facility] (1 source) Gemfibrozil; Translations: [GEMFIBROZIL] Drug Allergy [facility] Repository (1 source) TRIAMTERENE-HYDROCHLOR OTHIAZID; Translations: [TRIAMTERENE-HYDROCHLO ROTHIAZID] Propensity to adverse reactions to drug (disorder) [facility] Repository Medications Current Medications Medication Drug [...] (5 sources) Multivitamin Adults - Orally Active [place] 3 1000 MG (5 sources) take 1 capsule by mouth once daily [place] 3 1000 MG 1 capsule Orally Once [...] Range Facility Office Visiton 08-14-2023 Follow-up visit [id number] Deja Zamora 1940 F Date Provider Department Center 08/14/2023 SEE BOATENG Family History Problem Relation Age of Onset Coronary artery disease Father Family Status - Relation Status Age at Father Level of Service:49979 [place] OFFICE/OUTPATIENT ESTABLISHED MOD MDM 30 MIN Normal [facility] Office Visiton 08-02-2023 Follow-up visit [id number] Deja Zamora 1940 F Date Provider Department Center 08/02/2023 120-MAYELIN, SEE BH CARD [facility] Family History Problem Relation Age of Onset Coronary artery disease Father Family Status - Relation Status Age at Father Level of Service:55230 [place] OFFICE/OUTPATIENT ESTABLISHED MOD MDM 30-39 MIN Normal [facility] Office Visiton 02-25-2023 Follow-up visit [id number] Deja Zamora 1940 F Date Provider Department Center 02/25/2023 XIMENA LIZ CARD [facility] Family History Problem Relation Age of Onset Coronary artery disease Father Family Status - Relation Status Age at Father Level of Service:29880 RI OFFICE/OUTPATIENT ESTABLISHED MOD MDM 30-39 MIN Normal [facility] 29on 12-05-2022 29 Addended by: [place] on: 12/05/2022 04:05 PM Modules accepted: Orders Normal [facility] Office Visiton 12-05-2022 Follow-up visit [id number] Deja Zamora 1940 F Date Provider Department Center 12/05/2022 Gayla-SEE DICK CARD [facility] Family History Problem Relation Age of Onset Coronary artery disease Father Family Status - Relation Status Age at Father Level of Service:54962 [place] OFFICE/OUTPATIENT ESTABLISHED MOD MDM 30-39 MIN Reason for Visit and Comments: Follow-up [492385] - 3 month Chest Pain [355228] - Yesterday had a little bit of pain in my heart that lasted about a minute. BP monitor showed irregular heartbeat. Stress [103] - Under stress currently, due to son having Stage IV Lung Cancer. Normal [facility] FREE THYROXINE INDEX T7on FTI 2.59 Normal 1.30-4.50 [facility] Comment on above: Performed By: #### C MP, TSH, T7 #### [facility] [address] [address] [address] Milind Martinez T3U 37.0 % Normal 30.0-39.0 [facility] Comment on above: Performed By: #### C MP, TSH, T7 #### [facility] [address] [address] [address] Milind Martinez T4 [Mass/Vol] 7.00 ug/dL Normal 4.80-13.90 [facility] Comment on above: Performed By: #### C MP, TSH, T7 #### [facility] [address] [address] [address] Milind Martinez TSHon 09-20-2022 TSH 5.715 uIU/mL Critically high 0.358-3.740 [facility] Comment on above: Performed By: #### C MP, TSH, T7 #### [facility] [address] [address] [address] Milind Martinez Office Visiton 09-05-2022 Follow-up visit [id number] Deja Zamora 1940 F Date Provider Department Center 09/05/2022 SEE BOATENG [facility] Family History Problem Relation Age of Onset Coronary artery disease Father Family Status - Relation Status Age at Father Level of Service:07048 [place] OFFICE/OUTPATIENT ESTABLISHED LOW MDM 20-29 MIN Reason for Visit and Comments: Hypertension [238084] Normal [facility] FREE THYROXINE INDEX T7on FTI 2.56 Normal 1.30-4.50 [facility] Comment on above: Performed By: #### C MP, TSH, T7 #### [facility] [address] [place] [address] Dr. Milind Martinez T3U 35.0 % Normal 30.0-39.0 [facility] Comment on above: Performed By: #### C MP, TSH, T7 #### [facility] [address] [place] [address] Dr. Milind Martinez T4 [Mass/Vol] 7.30 ug/dL Normal 4.80-13.90 [facility] Comment on above: Performed By: #### C MP, TSH, T7 #### [facility] [address] [place] [address] Dr. Milind Martinez GLYCOHEMOGLOBIN A1Con 2021 ADA RECOMMENDATION SEE BELOW Normal [facility] Comment on above: Result Comment: ADA RECOMMENDED LIMIT 4.0 - 6.0 ADA THERAPEUTIC TARGET < 7.0 ACTION SUGGESTED > 7.0 Performed By: #### A 1C #### [facility] [address] [place] [address] Dr. Milind Martinez Glucose [Mass/Vol] 229 mg/dL Normal [facility] Comment on above: Performed By: #### A 1C #### [facility] [address] [place] [address] Dr. Milind Martinez HbA1c (Bld) [Mass fraction] 9.6 % Critically high 4.5-6.2 [facility] Comment on above: Performed By: #### A 1C #### [facility] [address] [place] [address] Dr. Milind Martinez PROF 14(COMP METB)on 022 Albumin [Mass/Vol] 3.1 g/dL Critically low 3.4-5.0 [facility] Comment on above: Performed By: #### C MP, TSH, T7 #### [facility] [address] [place] [address] Dr. Milind Martinez Albumin/Globulin [Mass ratio] 1.0 {ratio} Normal [facility] Comment on above: Performed By: #### C MP, TSH, T7 #### [facility] [address] [place] [address] Dr. Milind Martinez ALP [Catalytic activity/Vol] 48 U/L Normal 46-116 [facility] Comment on above: Performed By: #### C MP, TSH, T7 #### [facility] [address] [place] [address] Dr. Milind Martinez ALT [Catalytic activity/Vol] 19 U/L Normal 14-59 [facility] Comment on above: Performed By: #### C MP, TSH, T7 #### [facility] [address] [place] [address] Dr. Milind Martinez Anion gap [Moles/Vol] 12.3 mmol/L Normal [facility] Comment on above: Performed By: #### C MP, TSH, T7 #### [facility] [address] [place] [address] Dr. Milind Martinez AST [Catalytic activity/Vol] 30 U/L Normal 15-37 [facility] Comment on above: Performed By: #### C MP, TSH, T7 #### [facility] [address] [place] [address] Dr. Milind Martinez Bilirubin [Mass/Vol] 0.5 mg/dL Normal 0.2-1.0 [facility] Comment on above: Performed By: #### C MP, TSH, T7 #### [facility] [address] [place] [address] Dr. Milind Martinez Calcium [Mass/Vol] 8.9 mg/dL Normal 8.5-10.1 [facility] Comment on above: Performed By: #### C MP, TSH, T7 #### [facility] [address] [place] [address] Dr. Milind Martinez Chloride [Moles/Vol] 104 mmol/L Normal 98-107 [facility] Comment on above: Performed By: #### C MP, TSH, T7 #### [facility] [address] [place] [address] Dr. Milind Martinez CO2 [Moles/Vol] 28.2 mmol/L Normal 21.0-32.0 [facility] Comment on above: Performed By: #### C MP, TSH, T7 #### [facility] [address] [place] [address] Dr. Milind Martinez Creatinine [Mass/Vol] 1.54 mg/dL Critically high 0.55-1.02 [facility] Comment on above: Performed By: #### C MP, TSH, T7 #### [facility] [address] [place] [address] Dr. Milind Martinez EGFR-AF SOMALI 39 mL/min/1.73m2 Critically low >=60 [facility] Comment on above: Performed By: #### C MP, TSH, T7 #### [facility] [address] [place] [address] Dr. Milind Martinez EGFR-NON AF SOMALI 32 mL/min/1.73m2 Critically low >=60 [facility] Comment on above: Performed By: #### C MP, TSH, T7 #### [facility] [address] [place] [address] Dr. Milind Martinez Globulin (S) [Mass/Vol] 3.2 g/dL Normal [facility] Comment on above: Performed By: #### C MP, TSH, T7 #### [facility] [address] [place] [address] Dr. Milind Martinez Glucose [Mass/Vol] 180 mg/dL Critically high 74-106 T [facility] Comment on above: Performed By: #### C MP, TSH, T7 #### [facility] [address] [place] [address] Dr. Milind Martinez Potassium [Moles/Vol] 4.5 mmol/L Normal 3.5-5.1 [facility] Comment on above: Performed By: #### C MP, TSH, T7 #### [facility] [address] [place] [address] Dr. Milind Martinez Protein [Mass/Vol] 6.3 g/dL Critically low 6.4-8.2 Th [facility] Comment on above: Performed By: #### C MP, TSH, T7 #### [facility] [address] [place] [address] Dr. Milind Martinez Sodium [Moles/Vol] 140 mmol/L Normal 136-145 [facility] Comment on above: Performed By: #### C MP, TSH, T7 #### [facility] [address] [place] [address] Dr. Milind Martinez Urea nitrogen [Mass/Vol] 46.0 mg/dL Critically high 7.0-18.0 [facility] Comment on above: Performed By: #### C MP, TSH, T7 #### [facility] [address] [place] [address] Dr. Milind Martinez Urea nitrogen/Creatinine [Mass ratio] 29.9 mg/mg Normal [facility] Comment on above: Performed By: #### C MP, TSH, T7 #### [facility] [address] [place] [address] Dr. Milind Martinez TSHon 08-01-2022 TSH 12.769 uIU/mL Critically high 0.358-3.740 [facility] Comment on above: Performed By: #### C MP, TSH, T7 #### [facility] [address] [place] [address] Dr. Milind Martinez INSULINon 04-03-2022 Insulin 2.5 uIU/mL Critically low 2.6-24.9 [facility] Comment on above: Performed By: #### C MP, TSH, T7 #### [facility] [address] [place] [address] Dr. Milind Martinez T4, T3U, FTI LABCORPon 04-03 Free Thyroxine Index 1.8 Normal 1.2-4.9 [facility] Comment on above: Performed By: #### T HYLC #### [facility] [address] [place] [address] Dr. Milind Martinez T3 Uptake 26 % Normal 24-39 [facility] Comment on above: Performed By: #### T HYLC #### [facility] [address] [place] [address] Dr. Milind Martinez T4 [Mass/Vol] 7.1 ug/dL Normal 4.5-12.0 [facility] Comment on above: Performed By: #### T HYLC #### [facility] [address] [place] [address] Dr. Milind Martinez CBC AUTO DIFFon 04-02-2022 BASO # 0.0 103/ul Normal 0.0-0.1 [facility] Comment on above: Performed By: #### C BC #### [facility] [address] [place] [address] Dr. Milind Martinez Basophils/100 WBC (Bld) 0.9 % Normal 0.2-2.0 [facility] Comment on above: Performed By: #### C BC #### [facility] [address] [place] [address] Dr. Milind Martinez EO # 0.2 103/ul Normal 0.0-0.7 [facility] Comment on above: Performed By: #### C BC #### [facility] [address] [place] [address] Dr. Milind Martinez Eosinophils/100 WBC (Bld) 5.3 % Normal 0.9-7.0 [facility] Comment on above: Performed By: #### C BC #### [facility] [address] [place] [address] Dr. Milind Martinez Erythrocyte distribution width (RBC) [Ratio] 13.2 % Normal 11.0-15.0 [facility] Comment on above: Performed By: #### C BC #### [facility] [address] [place] [address] Dr. Milind Martinez Hematocrit (Bld) [Volume fraction] 37.1 % Normal 36.0-48.0 [facility] Comment on above: Performed By: #### C BC #### [facility] [address] [place] [address] Dr. Milind Martinez Hemoglobin (Bld) [Mass/Vol] 12.0 g/dL Normal 12.0-16.0 [facility] Comment on above: Performed By: #### C BC #### [facility] [address] [place] [address] Dr. Milind Martinez IG # 0.01 10e3/ul Normal 0.00-0.03 [facility] Comment on above: Performed By: #### C BC #### [facility] [address] [place] [address] Dr. Milind Martinez IG % 0.2 % Normal 0.0-0.5 [facility] Comment on above: Performed By: #### C BC #### [facility] [address] [place] [address] Dr. Milind Martinez LYMPH # 1.8 103/ul Normal 1.2-3.8 [facility] Comment on above: Performed By: #### C BC #### [facility] [address] [place] [address] Dr. Milind Martinez Lymphocytes/100 WBC (Bld) 41.9 % Normal 20.5-60.0 [facility] Comment on above: Performed By: #### C BC #### [facility] [address] [place] [address] Dr. Milind Martinez MANUAL DIFF REQ NO Normal [facility] Comment on above: Performed By: #### C BC #### [facility] [address] [address] [address] Milind Martinez MCH (RBC) [Entitic mass] 31.2 pg Normal 26.7-34.0 [facility] Comment on above: Performed By: #### C BC #### [facility] [address] [place] [address] Dr. Milind Martinez MCHC (RBC) [Mass/Vol] 32.3 g/dL Normal 29.9-35.2 [facility] Comment on above: Performed By: #### C BC #### [facility] [address] [place] [address] Dr. Milind Martinez MCV (RBC) [Entitic vol] 96.4 fL Normal 81.0-99.0 [facility] Comment on above: Performed By: #### C BC #### [facility] [address] [place] [address] Dr. Milind Martinez MONO # 0.3 103/ul Normal 0.3-0.8 [facility] Comment on above: Performed By: #### C BC #### [facility] [address] [place] [address] Dr. Milind Martinez Monocytes/100 WBC (Bld) 5.8 % Normal 1.7-12.0 [facility] Comment on above: Performed By: #### C BC #### [facility] [address] [place] [address] Dr. Milind Martinez NEUT # 2.0 103/ul Normal 1.4-6.5 [facility] Comment on above: Performed By: #### C BC #### [facility] [address] [place] [address] Dr. Milind Martinez Neutrophils/100 WBC (Bld) 45.9 % Normal 43.0-75.0 [facility] Comment on above: Performed By: #### C BC #### [facility] [address] [place] [address] Dr. Milind Martinez Platelet mean volume (Bld) [Entitic vol] 11.8 fL Normal 9.5-13.5 [facility] Comment on above: Performed By: #### C BC #### [facility] [address] [address] [address] Milind Martinez PLT 159 103/ul Normal 150-450 [facility] Comment on above: Performed By: #### C BC #### [facility] [address] [address] [address] Milind Martinez RBC 3.85 106/ul Critically low 4.20-5.40 [facility] Comment on above: Performed By: #### C BC #### [facility] [address] [address] [address] Milind Martinez WBC 4.3 103/ul Normal 4.0-11.0 [facility] Comment on above: Performed By: #### C BC #### [facility] [address] [address] [address] Milind Martinez GLYCOHEMOGLOBIN A1Con 2021 ADA RECOMMENDATION SEE BELOW Normal [facility] Comment on above: Result Comment: ADA RECOMMENDED LIMIT 4.0 - 6.0 ADA THERAPEUTIC TARGET < 7.0 ACTION SUGGESTED > 7.0 Performed By: #### A 1C #### [facility] [address] [address] [address] Milind Martinez Glucose [Mass/Vol] 214 mg/dL Normal [facility] Comment on above: Performed By: #### A 1C #### [facility] [address] [address] [address] Milind Martinez HbA1c (Bld) [Mass fraction] 9.1 % Critically high 4.5-6.2 [facility] Comment on above: Performed By: #### A 1C #### [facility] [address] [address] [address] Milind Martinez IRONon 04-02-2022 Iron [Mass/Vol] 126.0 ug/dL Normal 50.0-170.0 [facility] Comment on above: Performed By: #### C MP, TSH, T7 #### [facility] [address] [address] [address] Milind Martinez LIPID PROFILEon 04-02-2022 CHOL-HDL RATIO NORM SEE BELOW Normal [facility] Comment on above: Result Comment: 3.3 - 4.4 LOW RISK 4.4 - 7.1 AVERAGE RISK 7.1 - 11.0 MODERATE RISK >11.0 HIGH RISK Performed By: #### C MP, TSH, T7 #### [facility] [address] [address] [address] Milind Martinez Cholesterol [Mass/Vol] 133 mg/dL Normal <=200 [facility] Comment on above: Performed By: #### C MP, TSH, T7 #### [facility] [address] [address] [address] Milind Martinez Cholesterol in HDL [Mass/Vol] 20 mg/dL Critically low 40-60 [facility] Comment on above: Performed By: #### C MP, TSH, T7 #### [facility] [address] [address] [address] Milind Martinez Cholesterol in LDL [Mass/Vol] 69.6 mg/dL Normal [facility] Comment on above: Performed By: #### C MP, TSH, T7 #### [facility] [address] [address] [address] Milind Martinez Cholesterol.total/Ch olesterol in HDL [Mass ratio] 6.7 {ratio} Normal [facility] Comment on above: Performed By: #### C MP, TSH, T7 #### [facility] [address] [address] [address] Milind Martinez HDL NORMAL > or = 60 mg/dl - LOW CARDIOVASCULAR RISK <40 mg/dl - HIGH CARDIOVASCULAR RISK Normal [facility] Comment on above: Performed By: #### C MP, TSH, T7 #### [facility] [address] [address] [address] Milind Martinez LDL CALC NORMAL SEE BELOW Normal [facility] Comment on above: Result Comment: <100 mg/dl OPTIMAL 100 - 129 mg/dl NEAR OR ABOVE OPTIMAL 130 - 159 mg/dl BORDERLINE HIGH 160 - 189 mg/dl HIGH >190 mg/dl VERY HIGH Performed By: #### C MP, TSH, T7 #### [facility] [address] [address] [address] Milind Martinez Triglyceride [Mass/Vol] 217 mg/dL Critically high <=150 [facility] Comment on above: Performed By: #### C MP, TSH, T7 #### [facility] [address] [place] [address] Dr. Milind Martinez VLDL CALC 43.4 mg/dL Normal [facility] Comment on above: Performed By: #### C MP, TSH, T7 #### [facility] [address] [place] [address] Dr. Milind Martinez PROF 14(COMP METB)on 022 Albumin [Mass/Vol] 3.3 g/dL Critically low 3.4-5.0 Th [facility] Comment on above: Performed By: #### C MP, TSH, T7 #### [facility] [address] [place] [address] Dr. Milind Martinez Albumin/Globulin [Mass ratio] 1.2 {ratio} Normal [facility] Comment on above: Performed By: #### C MP, TSH, T7 #### [facility] [address] [place] [address] Dr. Milind Martinez ALP [Catalytic activity/Vol] 43 U/L Critically low 46-116 [facility] Comment on above: Performed By: #### C MP, TSH, T7 #### [facility] [address] [place] [address] Dr. Milind Martinez ALT [Catalytic activity/Vol] 24 U/L Normal 14-59 [facility] Comment on above: Performed By: #### C MP, TSH, T7 #### [facility] [address] [place] [address] Dr. Milind Martinez Anion gap [Moles/Vol] 11.4 mmol/L Normal [facility] Comment on above: Performed By: #### C MP, TSH, T7 #### [facility] [address] [place] [address] Dr. Milind Martinez AST [Catalytic activity/Vol] 24 U/L Normal 15-37 [facility] Comment on above: Performed By: #### C MP, TSH, T7 #### [facility] [address] [address] [address] Milind Martinez Bilirubin [Mass/Vol] 0.4 mg/dL Normal 0.2-1.0 [facility] Comment on above: Performed By: #### C MP, TSH, T7 #### [facility] [address] [address] [address] Milind Martinez Calcium [Mass/Vol] 8.7 mg/dL Normal 8.5-10.1 [facility] Comment on above: Performed By: #### C MP, TSH, T7 #### [facility] [address] [address] [address] Milind Martinez Chloride [Moles/Vol] 106 mmol/L Normal 98-107 [facility] Comment on above: Performed By: #### C MP, TSH, T7 #### [facility] [address] [place] [address] Dr. Milind Martinez CO2 [Moles/Vol] 29.7 mmol/L Normal 21.0-32.0 [facility] Comment on above: Performed By: #### C MP, TSH, T7 #### [facility] [address] [address] [address] Milind Martinez Creatinine [Mass/Vol] 1.30 mg/dL Critically high 0.55-1.02 [facility] Comment on above: Performed By: #### C MP, TSH, T7 #### [facility] [address] [address] [address] Milind Martinez EGFR-AF SOMALI 47 mL/min/1.73m2 Critically low >=60 [facility] Comment on above: Performed By: #### C MP, TSH, T7 #### [facility] [address] [address] [address] Milind Martinez EGFR-NON AF SOMALI 39 mL/min/1.73m2 Critically low >=60 [facility] Comment on above: Performed By: #### C MP, TSH, T7 #### [facility] [address] [address] [address] Milind Martinez Globulin (S) [Mass/Vol] 2.7 g/dL Normal [facility] Comment on above: Performed By: #### C MP, TSH, T7 #### [facility] [address] [place] [address] Dr. Milind Martinez Glucose [Mass/Vol] 109 mg/dL Critically high 74-106 T [facility] Comment on above: Performed By: #### C MP, TSH, T7 #### [facility] [address] [place] [address] Dr. Milind Martinez Potassium [Moles/Vol] 4.1 mmol/L Normal 3.5-5.1 [facility] Comment on above: Performed By: #### C MP, TSH, T7 #### [facility] [address] [place] [address] Dr. Milind Martinez Protein [Mass/Vol] 6.0 g/dL Critically low 6.4-8.2 Th [facility] Comment on above: Performed By: #### C MP, TSH, T7 #### [facility] [address] [place] [address] Dr. Milind Martinez Sodium [Moles/Vol] 143 mmol/L Normal 136-145 [facility] Comment on above: Performed By: #### C MP, TSH, T7 #### [facility] [address] [place] [address] Dr. Milind Martinez Urea nitrogen [Mass/Vol] 34.0 mg/dL Critically high 7.0-18.0 [facility] Comment on above: Performed By: #### C MP, TSH, T7 #### [facility] [address] [place] [address] Dr. Milind Martinez Urea nitrogen/Creatinine [Mass ratio] 26.2 mg/mg Normal [facility] Comment on above: Performed By: #### C MP, TSH, T7 #### [facility] [address] [place] [address] Dr. Milind Martinez TSHon 04-02-2022 TSH 7.887 uIU/mL Critically high 0.358-3.740 [facility] Comment on above: Performed By: #### C MP, TSH, T7 #### [facility] [address] [address] [address] Milind Martinez US KIDNEYSon 03-23-2022 US [...] IJEOMA TIM Date: 2022-03-23 13:26 Normal [facility] MG MAMM SCREEN 3D BOGDAN CADon 03-05-2022 MG MAMM SCREEN 3D BOGDAN CAD Patient: DEJA ZAMORA Exam Date: 03/05/2022 : 1940 Gender:F Ordering : NATHAN JOVEL [facility] Admission #: [id number] Family : Order #: [id number] CLICK HERE TO VIEW EXAM RADIOLOGY REPORT [...] mult.myeloma cancer at age 68. LOCATION: [facility] BREAST COMPOSITION: Scattered areas fibroglandular [...] M.D. on 03/05/2022 at 13:47 Normal [facility] US CAROTID ART BILon -09-2 022 US [...] by: UDAY MAJOR Date: 2021-12-25 15:42 Normal [facility] Vital Signs Date Time Vital Sign Value Performing Clinician Faci lity 12-21-2021 10:00-0400 Body height 147.32 cm Patrick Cotter Other [employer] Other 12-21-2021 10:00-0400 Body mass index (BMI) [Ratio] 27.79 kg/m2 Patrikc Cotter Other [employer] Other 12-21-2021 10:00-0400 Body weight 60.33 kg Patrick Cotter Other [employer] Other 10-19-2021 12:00-0500 Body height 147.32 cm Patrick Cotter Other [employer] Other 10-19-2021 12:00-0500 Body mass index (BMI) [Ratio] 27.79 kg/m2 Patrick Cotter Other [employer] Other 10-19-2021 12:00-0500 Body weight 60.33 kg Patrick Cotter Other [employer] Other 08-22-2021 15:00-0500 Body height 147.32 cm Patrick Cotter Other [employer] Other 08-22-2021 15:00-0500 Body mass index (BMI) [Ratio] 27.79 kg/m2 Patrick Cotter Other [employer] Other 08-22-2021 15:00-0500 Body weight 60.33 kg Patrick Cotter Other [employer] Other Encounters Encounter Date Encounter Type Care Provider Facility Start: 08-29-2023 End: 08-30-2023 ambulatory JOLYNN DAO Not Available Start: 08-14-2023 End: 08-14-2023 ambulatory [facility] Start: 08-02-2023 End: 08-02-2023 ambulatory [facility] Start: 04-01-2023 End: 04-02-2023 ambulatory Danny Monroy MD [facility] Start: 03-18-2023 End: 03-19-2023 ambulatory Danny Monroy MD [facility] Start: 02-25-2023 End: 02-25-2023 ambulatory XIMENA MARTINS [facility] Start: 02-11-2023 End: 02-12-2023 ambulatory Danny Monroy MD [facility] Start: 12-05-2022 End: 12-05-2022 ambulatory [facility] Start: 09-20-2022 End: 09-21-2022 ambulatory NATHAN JOVEL Facility:[facility] Start: 09-05-2022 End: 09-05-2022 ambulatory [facility] Start: 08-01-2022 End: 08-02-2022 ambulatory NATHAN JOVEL Facility:[facility] Start: 04-02-2022 End: 04-03-2022 ambulatory NATHAN JOVEL Facility:[facility] Start: 03-23-2022 End: 03-24-[address] XIMENA MARTINS Facility:[facility] Start: 03-05-2022 End: 03-06-[address] UDAY MAJOR Facility:[facility] Start: 12-25-2021 End: 12-26-2021 ambulatory SEE DICK Facility:[facility] Start: 12-21-2021 End: 12-21-2021 ambulatory Patrick Cotter Other [employer] Other Start: 12-21-2021 Postop follow up vis it related to original px Patrick Cotter [facility] Start: 11-02-2021 ambulatory NATHAN MED Facility: Start: 10-19-2021 End: 10-19-2021 ambulatory Patrick Cotter Other [employer] Other Start: 10-19-2021 Postop follow up vis it related to original px Patrick Cotter [facility] Start: 09-18-2021 [facility]mission [facility] Patrick Cotter [facility] Start: 09-18-2021 End: 09-19-2021 ambulatory Patrick Cotter [facility] [employer] Other Start: 08-29-2021 End: 08-29-2021 ambulatory Patrick Cotter Other [employer] Other Start: 08-29-2021 Telephone encounter Patrick Cotter [facility] Start: 08-22-2021 End: 08-22-2021 ambulatory Patrick Cotter Other [employer] Other Start: 08-22-2021 Office outpatient visit [address] [facility] Start: 09-24-2017 End: 09-25-2017 Ambulatory DEFAULT PHYSICIAN Facility:[facility] Payers Date Payer Category Payer Unknown 2021 Self-pay 2003 Medicare 1959 Medicare [id number] 2.1 [id number] 1959 Self-pay [id number] 1959 Unknown [id number] 2.1 [id number] 1940 Unknown [id number] 2.16.84 [id number] 1940 Unknown [id number] 2.16.84 0.1.538757.3.579.2.593 1940 Unknown [id number] 2.16.84 0.1.088210.3.579.2.593 1940 Unknown [id number] 2.16.84 0.1.724754.3.579.2.593 1940 Unknown [id number] 2.16.84 0.1.925289.3.579.2.593 1940 Unknown [id number] 2.16.84 0.1.838203.3.579.2.593 1938 Unknown [id number] 2.16.84 0.1.292807.3.579.2.593 1938 Unknown [id number] 2.16. 840.1.058156.3.579.2.196 1940 Unknown [id number] 2.16. 840.1.331136.3.579.2.196 1940 Unknown [id number] 2.16. 840.1.774328.3.579.2.196 1940 Unknown [id number] 2.16.84 0.1.708471.3.579.2.1259 Unknown [id number] 2.16.8 [id number] Social History Date Type Detail Facility Sex Assigned At [employer] Other Clinical Notes 08-22-2021 to 08-14-2023 Note Date & Type Note Facility 08-14-2023 Note Hypertension is well controlled at home, continue all meds Metoprolol 25 mg bid, cardura 8 mg, clonidine 0.2 mg bid, and norvasc 5 mg. [facility] 08-14-2023 Note Currently stable wit hout worsening symptoms [facility] 08-14-2023 Note Patient here for 2 w [place]-cree follow up hypertension. Clonidine was increased to [...] All other systems reviewed and are negative. [facility] 08-14-2023 Note [facility] CARDIOLOGY PROGR ESS NOTE [...] m??? Allergies Allergen Reactions Gemfibrozil Penicillins Unknown Idnmsqd-Ggi-Ivx Reductase Inhibitors Unknown Triamterene-Hydrochlorothiazid Medications: Current Outpatient [...] Testin04/18/23 TTE 5 (more content not included)... [facility] 08-02-2023 Note Stable so far, will monitor with increased clonidine for uncontrolled HTN [facility] 08-02-2023 Note Stable without any worsening sym ptoms [facility] 08-02-2023 Note Hypertension is Curr ently [...] once or twice every 2 to 3-weeks [facility] 08-02-2023 Note [facility] CARDIOLOGY PROGR ESS [...] at target sometimes. She was admitted to [facility] in Mar 2023 for e.coli and [...] m??? Allergies Allergen Reactions Gemfibrozil Penicillins Unknown Bshyrym-Cms-Bbg Reductase Inhibitors Unknown Triamterene-Hydrochlorothiazid Medications: Current Outpatient [...] values have be (more content not included)... [facility] 08-02-2023 Note Patient here c/o hyp [...] at target sometimes. She was admitted to [facility] in Mar 2023 for e.coli and [...] All other systems reviewed and are negative. [facility] 02-25-2023 Note [place] [facility] Subjective Deja Zamora is a [...] Allergies Allergies Allergen Reactions Gemfibrozil Penicillins Unknown Hgrucyi-Eym-Qlb Reductase Inhibitors Unknown Triamterene-Hydrochlorothiazid Medications Current Outpatient [...] Disp: , Rfl: (more content not included)... [facility] 12-05-2022 Note Reviewed lipids 04/02- well controlled Chol 133, Trig 217, HDL 20, LDL 69.6 [facility] 12-05-2022 Note Currently stable- no concerning symptoms [facility] 12-05-2022 Note Stable, voiced no concerns Unive [facility] 12-05-2022 Note Continue fenofibrate, zetia and ASA [facility] 12-05-2022 Note Hypertension is much improved and well controlled at home per B/P log Continue all medications. [facility] 12-05-2022 Note Review of Systems Constitutional: [...] currently, due to her son having cancer. [facility] 12-05-2022 Note [facility] CARDIOLOGY PROGR ESS [...] m??? Allergies Allergen Reactions Gemfibrozil Penicillins Unknown Qyfzaiv-Wco-Mnw Reductase Inhibitors Unknown Triamterene-Hydrochlorothiazid Medications: Current Outpatient [...] normal. Labs: 08/01/22 (more content not included)... [facility] 09-05-2022 Note Hypertension is much better controlled at home after review of b/p log. Continue amlodipine 5mg daily, clonidine 0.1mg, cardura 8mg, lasix, hydrochlorothiazide 25mg, metoprolol 75 mg bid, and aldactone 12.5mg [facility] 09-05-2022 Note [facility] CARDIOLOGY PROGR ESS [...] m??? Allergies Allergen Reactions Gemfibrozil Penicillins Unknown Mvtzpdc-Fqc-Kcp Reductase Inhibitors Unknown Triamterene-Hydrochlorothiazid Medications: Current Outpatient [...] Thought content normal. (more content not included)... [facility] 09-05-2022 Note Patient here for 2 [...] All other systems reviewed and are negative. 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 I have encouraged her to continue to build up her endurance by walking. I will see her again in 2 months for final postop visit. 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 [employer] Other evaluation noteNo InformationNort [employer] Other History general Narrative - Reported* Type Description Date Medical History Diabetes Medical History Hyperlipidemia Medical History Pulmonary HPN Medical History Osteoporosis Surgical History R knee Sx Surgical History L Hand Hospitalization History HTN 08/2018 [employer] Other Summary Purpose Family History No Family [...] Arthropathy of left hip (M16.12) Referral Organization [facility] Referring Provider First Name Patrick Referring Provider Last Name Cyndee Referring Provider Specialty Neurologica l Surgery Referred Organization [facility] Referred Provider Ximena Vela Jr Referred Address ,[place],[address] Referred Provider Specialty Orthopedic S urgery Referral Priority Routine General Notes Val Slater 022 10:56:23 AM >Received today. This referral was sent P2P and will wait a week and call them back to see if she was scheduled. They do their own scheduling Additional Source Comments INFORMATION SOURCE (unrecogn ized section and content) DATE CREATED AUTHOR 02/10/2018 [facility] DATE CREATED AUTHOR AUTHOR'S ORGANIZ ATION 09/22/2022 [facility] DATE CREATED AUTHOR AUTHOR'S ORGANIZ ATION 09/23/2022 [facility] DATE CREATED AUTHOR AUTHOR'S ORGANIZ ATION 04/11/2023 [facility] DATE CREATED AUTHOR AUTHOR'S ORGANIZ ATION 08/16/2023 [facility] DATE CREATED AUTHOR AUTHOR'S ORGANIZ ATION 09/02/2023 [facility] EPIC REASON FOR [...] BE BASED ON THE PRIMARY CLINICAL RECORDS. [employer] provides no warranty or guarantee of the accuracy or completeness of information in this document.
[2023-09-12 14:09] LABS: Alanine Aminotransferase 27 U/L (14-59); Albumin Globulin Ratio 0.8; Albumin Level 2.4 g/dL (3.4-5.0); Alkaline Phosphatase 53 U/L (46-116); Anion Gap 9.6; Aspartate Amino Transferase 25 U/L (15-37); BUN Creatinine Ratio 23.5; Bilirubin Total 0.3 mg/dL (0.2-1.0); Calcium 8.1 mg/dL (8.5-10.1); Carbon Dioxide 26.6 mmol/L (21.0-32.0); Chloride 110 mmol/L (98-107); Estimated GFR (African America 33 (>=60); Estimated GFR (Non-African Ame 27 (>=60); Glucose 212 mg/dL (74-106); Potassium 4.2 mmol/L (3.5-5.1); Sodium 142 mmol/L (136-145); Total Protein 5.4 g/dL (6.4-8.2)
== END 2023-09-12 13:37 | disposition home or self-care (01) ==
LOC: LAB 13:37
PROVIDERS: PCP Nurse Practitioner Family; Visit Provider Nurse Practitioner Family
DX: N28.9 Disorder of kidney and ureter, unspecified (principal)
CPT/HCPCS: 36415; 80053

== ENCOUNTER 2023-09-17 12:47 | Outpatient (OUT) | payer MEDICARE, SELFPAY ==
--- OUTSIDE RECORDS SUMMARY | 2023-09-17 12:50 | XMS_ITS | CCD ---
Author Name Unknown Address [address] [place] [address] Organization [facility] Care Team Providers Care Edge Blacker Name Role Phone PHYSICIAN, DEFAULT Unavailable Unavailable [...] Hmg-Coa Reductase Inhibitors (Statins) Drug allergy Unknown [facility] Other (5 sources) Penicillin Drug Allergy Unknown [facility] Other (2 sources) Penicillins; Translations: [PENICILLINS] Drug allergy (disorder) [facility] Repository (1 source) Tnuufki-MDY-GwB Reductase Inhibitor Drug allergy (disorder) 022 [facility] Repository (2 sources) black walnut pollen extract; Translations: [OVDXZEZ-KYL-KLW REDUCTASE INHIBITORS] Drug Allergy [address] [facility] Repository (1 source) Dextroamphetamine Drug Allergy [facility] Repository (1 source) Gemfibrozil Drug Allergy [facility] Repository (1 source) hydroCHLOROthiazide / Triamterene Drug Allergy [facility] Repository (1 source) Penicillin Drug Allergy [facility] Repository (1 source) rosuvastatin Drug Allergy [facility] Repository (1 source) Gemfibrozil; Translations: [GEMFIBROZIL] Drug Allergy [facility] Repository (1 source) TRIAMTERENE-HYDROCHLOR OTHIAZID; Translations: [TRIAMTERENE-HYDROCHLO ROTHIAZID] Propensity to adverse reactions to drug (disorder) [facility] Repository Medications Current Medications Medication Drug [...] (5 sources) Multivitamin Adults - Orally Active Tioga 3 1000 MG (5 sources) take 1 capsule by mouth once daily Tioga 3 1000 MG 1 capsule Orally Once [...] [facility] Facility Office Visiton 08-14-2023 Follow-up visit [id number] Deja Zamora 1940 F Date Provider Department Center 08/14/2023 SEE BOATENG Family History Problem Relation Age of Onset Coronary artery disease Father Family Status - Relation Status Age at Father Level of Service:96891 ID OFFICE/OUTPATIENT ESTABLISHED MOD MDM 30 MIN Normal [facility] Office Visiton 08-02-2023 Follow-up visit [id number] Deja Zamora 1940 F Date Provider Department Center 08/02/2023 120-MAYELIN, [facility] History Problem Relation Age of Onset Coronary artery disease Father Family Status - Relation Status Age at Father Level of Service:81813 ID OFFICE/OUTPATIENT ESTABLISHED MOD MDM 30-39 MIN Normal [facility] Office Visiton 02-25-2023 Follow-up visit [id number] Deja Zamora 1940 F Date Provider Department Center 02/25/2023 XIMENA LIZ CARD [facility] Family History Problem Relation Age of Onset Coronary artery disease Father Family Status - Relation Status Age at Father Level of Service:[id number] ID OFFICE/OUTPATIENT ESTABLISHED MOD MDM 30-39 MIN Normal [facility] 29on 12-05-2022 29 Addended by: [place] on: 12/05/2022 04:05 PM Modules accepted: Orders Normal [facility] Office Visiton 12-05-2022 Follow-up visit [id number] Deja Zamora 1940 F Date Provider Department Center 12/05/2022 Gayla-SEE DICK CARD [facility] Family History Problem Relation Age of Onset Coronary artery disease Father Family Status - Relation Status Age at Father Level of Service:99740 ID OFFICE/OUTPATIENT ESTABLISHED MOD MDM 30-39 MIN Reason for Visit and Comments: Follow-up [025673] - 3 month Chest Pain [672483] - Yesterday had a little bit of pain in my heart that lasted about a minute. BP monitor showed irregular heartbeat. Stress [103] - Under stress currently, due to son having Stage IV Lung Cancer. Normal [facility] FREE THYROXINE INDEX T7on FTI 2.59 Normal 1.30-4.50 [facility] Comment on above: Performed By: #### C MP, TSH, T7 #### [facility] [address] [address] [address] Milind Martinez T3U 37.0 % Normal 30.0-39.0 [facility] Comment on above: Performed By: #### C MP, TSH, T7 #### [facility] [address] [address] [address] Milind Martinez T4 [Mass/Vol] 7.00 ug/dL Normal 4.80-13.90 [facility] Comment on above: Performed By: #### C MP, TSH, T7 #### [facility] [address] [address] [address] Milind Martinez TSHon 09-20-2022 TSH 5.715 uIU/mL Critically high 0.358-3.740 [facility] Comment on above: Performed By: #### C MP, TSH, T7 #### [facility] [address] [address] [address] Milind Martinez Office Visiton 09-05-2022 Follow-up visit [id number] Deja Zamora 1940 F Date Provider Department Center 09/05/2022 SEE BOATENG [facility] Family History Problem Relation Age of Onset Coronary artery disease Father Family Status - Relation Status Age at Father Level of Service:[id number] ID OFFICE/OUTPATIENT ESTABLISHED LOW MDM 20-29 MIN Reason for Visit and Comments: Hypertension [669271] Normal [facility] FREE THYROXINE INDEX T7on FTI 2.56 Normal 1.30-4.50 [facility] Comment on above: Performed By: #### C MP, TSH, T7 #### [facility] [address] [place] [address] Dr. Milind Martinez T3U 35.0 % Normal 30.0-39.0 [facility] Comment on above: Performed By: #### C MP, TSH, T7 #### [facility] [address] [place] [address] Dr. Milind Martinez T4 [Mass/Vol] 7.30 ug/dL Normal 4.80-13.90 [facility] Comment on above: Performed By: #### C MP, TSH, T7 #### [facility] [address] [place] [address] Dr. Milind Martinez GLYCOHEMOGLOBIN A1Con 2021 ADA RECOMMENDATION SEE BELOW Normal [facility] Comment on above: Result Comment: ADA RECOMMENDED LIMIT 4.0 - 6.0 ADA THERAPEUTIC TARGET < 7.0 ACTION SUGGESTED > 7.0 Performed By: #### A 1C #### [facility] [address] [place] [address] Dr. Milind Martinez Glucose [Mass/Vol] 229 mg/dL Normal [facility] Comment on above: Performed By: #### A 1C #### [facility] [address] [place] [address] Dr. Milind Martinez HbA1c (Bld) [Mass fraction] 9.6 % Critically high 4.5-6.2 [facility] Comment on above: Performed By: #### A 1C #### [facility] [address] [place] [address] Dr. Milind Martinez PROF 14(COMP METB)on 022 Albumin [Mass/Vol] 3.1 g/dL Critically low 3.4-5.0 [facility] Comment on above: Performed By: #### C MP, TSH, T7 #### [facility] [address] [place] [address] Dr. Milind Martinez Albumin/Globulin [Mass ratio] 1.0 {ratio} Normal [facility] Comment on above: Performed By: #### C MP, TSH, T7 #### [facility] [address] [place] [address] Dr. Milind Martinez ALP [Catalytic activity/Vol] 48 U/L Normal 46-116 [facility] Comment on above: Performed By: #### C MP, TSH, T7 #### [facility] [address] [place] [address] Dr. Milind Martinez ALT [Catalytic activity/Vol] 19 U/L Normal 14-59 [facility] Comment on above: Performed By: #### C MP, TSH, T7 #### [facility] [address] [place] [address] Dr. Milind Martinez Anion gap [Moles/Vol] 12.3 mmol/L Normal [facility] Comment on above: Performed By: #### C MP, TSH, T7 #### [facility] [address] [place] [address] Dr. Milind Martinez AST [Catalytic activity/Vol] 30 U/L Normal 15-37 [facility] Comment on above: Performed By: #### C MP, TSH, T7 #### [facility] [address] [place] [address] Dr. Milind Martinez Bilirubin [Mass/Vol] 0.5 mg/dL Normal 0.2-1.0 [facility] Comment on above: Performed By: #### C MP, TSH, T7 #### [facility] [address] [place] [address] Dr. Milind Martinez Calcium [Mass/Vol] 8.9 mg/dL Normal 8.5-10.1 [facility] Comment on above: Performed By: #### C MP, TSH, T7 #### [facility] [address] [place] [address] Dr. Milind Martinez Chloride [Moles/Vol] 104 mmol/L Normal 98-107 [facility] Comment on above: Performed By: #### C MP, TSH, T7 #### [facility] [address] [place] [address] Dr. Milind Martinez CO2 [Moles/Vol] 28.2 mmol/L Normal 21.0-32.0 [facility] Comment on above: Performed By: #### C MP, TSH, T7 #### [facility] [address] [place] [address] Dr. Milind Martinez Creatinine [Mass/Vol] 1.54 mg/dL Critically high 0.55-1.02 [facility] Comment on above: Performed By: #### C MP, TSH, T7 #### [facility] [address] [place] [address] Dr. Milind Martinez EGFR-AF BERMUDIAN 39 mL/min/1.73m2 Critically low >=60 [facility] Comment on above: Performed By: #### C MP, TSH, T7 #### [facility] [address] [place] [address] Dr. Milind Martinez EGFR-NON AF BERMUDIAN 32 mL/min/1.73m2 Critically low >=60 [facility] Comment on above: Performed By: #### C MP, TSH, T7 #### [facility] [address] [place] [address] Dr. Milind Martinez Globulin (S) [Mass/Vol] 3.2 g/dL Normal [facility] Comment on above: Performed By: #### C MP, TSH, T7 #### [facility] [address] [place] [address] Dr. Milind Martinez Glucose [Mass/Vol] 180 mg/dL Critically high 74-106 T [facility] Comment on above: Performed By: #### C MP, TSH, T7 #### [facility] [address] [place] [address] Dr. Milind Martinez Potassium [Moles/Vol] 4.5 mmol/L Normal 3.5-5.1 [facility] Comment on above: Performed By: #### C MP, TSH, T7 #### [facility] [address] [place] [address] Dr. Milind Martinez Protein [Mass/Vol] 6.3 g/dL Critically low 6.4-8.2 Th [facility] Comment on above: Performed By: #### C MP, TSH, T7 #### [facility] [address] [place] [address] Dr. Milind Martinez Sodium [Moles/Vol] 140 mmol/L Normal 136-145 [facility] Comment on above: Performed By: #### C MP, TSH, T7 #### [facility] [address] [place] [address] Dr. Milind Martinez Urea nitrogen [Mass/Vol] 46.0 mg/dL Critically high 7.0-18.0 [facility] Comment on above: Performed By: #### C MP, TSH, T7 #### [facility] [address] [place] [address] Dr. Milind Martinez Urea nitrogen/Creatinine [Mass ratio] 29.9 mg/mg Normal [facility] Comment on above: Performed By: #### C MP, TSH, T7 #### [facility] [address] [place] [address] Dr. Milind Martinez TSHon 08-01-2022 TSH 12.769 uIU/mL Critically high 0.358-3.740 [facility] Comment on above: Performed By: #### C MP, TSH, T7 #### [facility] [address] [place] [address] Dr. Milind Martinez INSULINon 04-03-2022 Insulin 2.5 uIU/mL Critically low 2.6-24.9 [facility] Comment on above: Performed By: #### C MP, TSH, T7 #### [facility] [address] [place] [address] Dr. Milind Martinez T4, T3U, FTI LABCORPon 04-03 Free Thyroxine Index 1.8 Normal 1.2-4.9 [facility] Comment on above: Performed By: #### T HYLC #### [facility] [address] [place] [address] Dr. Milind Martinez T3 Uptake 26 % Normal 24-39 [facility] Comment on above: Performed By: #### T HYLC #### [facility] [address] [place] [address] Dr. Milind Martinez T4 [Mass/Vol] 7.1 ug/dL Normal 4.5-12.0 [facility] Comment on above: Performed By: #### T HYLC #### [facility] [address] [place] [address] Dr. Milind Martinez CBC AUTO DIFFon 04-02-2022 BASO # 0.0 103/ul Normal 0.0-0.1 [facility] Comment on above: Performed By: #### C BC #### [facility] [address] [place] [address] Dr. Milind Martinez Basophils/100 WBC (Bld) 0.9 % Normal 0.2-2.0 [facility] Comment on above: Performed By: #### C BC #### [facility] [address] [place] [address] Dr. Milind Martinez EO # 0.2 103/ul Normal 0.0-0.7 [facility] Comment on above: Performed By: #### C BC #### [facility] [address] [place] [address] Dr. Milind Martinez Eosinophils/100 WBC (Bld) 5.3 % Normal 0.9-7.0 [facility] Comment on above: Performed By: #### C BC #### [facility] [address] [place] [address] Dr. Milind Martinez Erythrocyte distribution width (RBC) [Ratio] 13.2 % Normal 11.0-15.0 [facility] Comment on above: Performed By: #### C BC #### [facility] [address] [place] [address] Dr. Milind Martinez Hematocrit (Bld) [Volume fraction] 37.1 % Normal 36.0-48.0 [facility] Comment on above: Performed By: #### C BC #### [facility] [address] [place] [address] Dr. Milind Martinez Hemoglobin (Bld) [Mass/Vol] 12.0 g/dL Normal 12.0-16.0 [facility] Comment on above: Performed By: #### C BC #### [facility] [address] [place] [address] Dr. Milind Martinez IG # 0.01 10e3/ul Normal 0.00-0.03 [facility] Comment on above: Performed By: #### C BC #### [facility] [address] [place] [address] Dr. Milind Martinez IG % 0.2 % Normal 0.0-0.5 [facility] Comment on above: Performed By: #### C BC #### [facility] [address] [place] [address] Dr. Milind Martinez LYMPH # 1.8 103/ul Normal 1.2-3.8 [facility] Comment on above: Performed By: #### C BC #### [facility] [address] [place] [address] Dr. Milind Martinez Lymphocytes/100 WBC (Bld) 41.9 % Normal 20.5-60.0 [facility] Comment on above: Performed By: #### C BC #### [facility] [address] [place] [address] Dr. Milind Martinez MANUAL DIFF REQ NO Normal [facility] Comment on above: Performed By: #### C BC #### [facility] [address] [address] [address] Milind Martinez MCH (RBC) [Entitic mass] 31.2 pg Normal 26.7-34.0 [facility] Comment on above: Performed By: #### C BC #### [facility] [address] [place] [address] Dr. Milind Martinez MCHC (RBC) [Mass/Vol] 32.3 g/dL Normal 29.9-35.[address] [facility] Comment on above: Performed By: #### C BC #### [facility] [address] [place] [address] Dr. Milind Martinez MCV (RBC) [Entitic vol] 96.4 fL Normal 81.0-99.0 [facility] Comment on above: Performed By: #### C BC #### [facility] [address] [place] [address] Dr. Milind Martinez MONO # 0.3 103/ul Normal 0.3-0.[address] [facility] Comment on above: Performed By: #### C BC #### [facility] [address] [place] [address] Dr. Milind Martinez Monocytes/100 WBC (Bld) 5.8 % Normal 1.7-12.0 [facility] Comment on above: Performed By: #### C BC #### [facility] [address] [place] [address] Dr. Milind Martinez NEUT # 2.0 103/ul Normal 1.4-6.[address] [facility] Comment on above: Performed By: #### C BC #### [facility] [address] [place] [address] Dr. Milind Martinez Neutrophils/100 WBC (Bld) 45.9 % Normal 43.0-75.[address] [facility] Comment on above: Performed By: #### C BC #### [facility] [address] [place] [address] Dr. Milind Martinez Platelet mean volume (Bld) [Entitic vol] 11.8 fL Normal 9.5-13.[address] [facility] Comment on above: Performed By: #### C BC #### [facility] [address] [address] [address] Milind Martinez PLT 159 103/ul Normal 150-450 [facility] Comment on above: Performed By: #### C BC #### [facility] [address] [address] [address] Milind Martinez RBC 3.85 106/ul Critically low 4.20-5.40 [facility] Comment on above: Performed By: #### C BC #### [facility] [address] [address] [address] Milind Martienz WBC 4.3 103/ul Normal 4.0-11.0 [facility] Comment on above: Performed By: #### C BC #### [facility] [address] [address] [address] Milind Martinez GLYCOHEMOGLOBIN A1Con 2021 ADA RECOMMENDATION SEE BELOW Normal [facility] Comment on above: Result Comment: ADA RECOMMENDED LIMIT 4.0 - 6.0 ADA THERAPEUTIC TARGET < 7.0 ACTION SUGGESTED > 7.0 Performed By: #### A 1C #### [facility] [address] [address] [address] Milind Martinez Glucose [Mass/Vol] 214 mg/dL Normal [facility] Comment on above: Performed By: #### A 1C #### [facility] [address] [address] [address] Milind Martinez HbA1c (Bld) [Mass fraction] 9.1 % Critically high 4.5-6.2 [facility] Comment on above: Performed By: #### A 1C #### [facility] [address] [address] [address] Milind Martinez IRONon 04-02-2022 Iron [Mass/Vol] 126.0 ug/dL Normal 50.0-170.0 [facility] Comment on above: Performed By: #### C MP, TSH, T7 #### [facility] [address] [address] [address] Milind Martinez LIPID PROFILEon 04-02-2022 CHOL-HDL RATIO NORM SEE BELOW Normal [facility] Comment on above: Result Comment: 3.3 - 4.4 LOW RISK 4.4 - 7.1 AVERAGE RISK 7.1 - 11.0 MODERATE RISK >11.0 HIGH RISK Performed By: #### C MP, TSH, T7 #### [facility] [address] [address] [address] Milind Martinez Cholesterol [Mass/Vol] 133 mg/dL Normal <=200 [facility] Comment on above: Performed By: #### C MP, TSH, T7 #### [facility] [address] [address] [address] Milind Martinez Cholesterol in HDL [Mass/Vol] 20 mg/dL Critically low 40-60 [facility] Comment on above: Performed By: #### C MP, TSH, T7 #### [facility] [address] [address] [address] Milind Martinez Cholesterol in LDL [Mass/Vol] 69.6 mg/dL Normal [facility] Comment on above: Performed By: #### C MP, TSH, T7 #### [facility] [address] [address] [address] Milind Martinez Cholesterol.total/Ch olesterol in HDL [Mass ratio] 6.7 {ratio} Normal [facility] Comment on above: Performed By: #### C MP, TSH, T7 #### [facility] [address] [address] [address] Milind Martinez HDL NORMAL > or = 60 mg/dl - LOW CARDIOVASCULAR RISK <40 mg/dl - HIGH CARDIOVASCULAR RISK Normal [facility] Comment on above: Performed By: #### C MP, TSH, T7 #### [facility] [address] [address] [address] Milind Martinez LDL CALC NORMAL SEE BELOW Normal [facility] Comment on above: Result Comment: <100 mg/dl OPTIMAL 100 - 129 mg/dl NEAR OR ABOVE OPTIMAL 130 - 159 mg/dl BORDERLINE HIGH 160 - 189 mg/dl HIGH >190 mg/dl VERY HIGH Performed By: #### C MP, TSH, T7 #### [facility] [address] [address] [address] Milind Martinez Triglyceride [Mass/Vol] 217 mg/dL Critically high <=150 [facility] Comment on above: Performed By: #### C MP, TSH, T7 #### [facility] [address] [place] [address] Dr. Milind Martinez VLDL CALC 43.4 mg/dL Normal [facility] Comment on above: Performed By: #### C MP, TSH, T7 #### [facility] [address] [place] [address] Dr. Milind Martinez PROF 14(COMP METB)on 022 Albumin [Mass/Vol] 3.3 g/dL Critically low 3.4-5.0 Th [facility] Comment on above: Performed By: #### C MP, TSH, T7 #### [facility] [address] [place] [address] Dr. Milind Martinez Albumin/Globulin [Mass ratio] 1.2 {ratio} Normal [facility] Comment on above: Performed By: #### C MP, TSH, T7 #### [facility] [address] [place] [address] Dr. Milind Martinez ALP [Catalytic activity/Vol] 43 U/L Critically low 46-116 [facility] Comment on above: Performed By: #### C MP, TSH, T7 #### [facility] [address] [place] [address] Dr. Milind Martinez ALT [Catalytic activity/Vol] 24 U/L Normal 14-59 [facility] Comment on above: Performed By: #### C MP, TSH, T7 #### [facility] [address] [place] [address] Dr. Milind Martinez Anion gap [Moles/Vol] 11.4 mmol/L Normal [facility] Comment on above: Performed By: #### C MP, TSH, T7 #### [facility] [address] [place] [address] Dr. Milind Martinez AST [Catalytic activity/Vol] 24 U/L Normal 15-37 [facility] Comment on above: Performed By: #### C MP, TSH, T7 #### [facility] [address] [address] [address] Milind Martinez Bilirubin [Mass/Vol] 0.4 mg/dL Normal 0.2-1.0 [facility] Comment on above: Performed By: #### C MP, TSH, T7 #### [facility] [address] [address] [address] Milind Martinez Calcium [Mass/Vol] 8.7 mg/dL Normal 8.5-10.1 [facility] Comment on above: Performed By: #### C MP, TSH, T7 #### [facility] [address] [address] [address] Milind Martinez Chloride [Moles/Vol] 106 mmol/L Normal 98-107 [facility] Comment on above: Performed By: #### C MP, TSH, T7 #### [facility] [address] [place] [address] Dr. Milind Martinez CO2 [Moles/Vol] 29.7 mmol/L Normal 21.0-32.0 [facility] Comment on above: Performed By: #### C MP, TSH, T7 #### [facility] [address] [address] [address] Milind Martinez Creatinine [Mass/Vol] 1.30 mg/dL Critically high 0.55-1.02 [facility] Comment on above: Performed By: #### C MP, TSH, T7 #### [facility] [address] [address] [address] Milind Martinez EGFR-AF BERMUDIAN 47 mL/min/1.73m2 Critically low >=60 [facility] Comment on above: Performed By: #### C MP, TSH, T7 #### [facility] [address] [address] [address] Milind Martinez EGFR-NON AF BERMUDIAN 39 mL/min/1.73m2 Critically low >=60 [facility] Comment on above: Performed By: #### C MP, TSH, T7 #### [facility] [address] [address] [address] Milind Martinez Globulin (S) [Mass/Vol] 2.7 g/dL Normal [facility] Comment on above: Performed By: #### C MP, TSH, T7 #### [facility] [address] [place] [address] Dr. Milind Martinez Glucose [Mass/Vol] 109 mg/dL Critically high 74-106 T [facility] Comment on above: Performed By: #### C MP, TSH, T7 #### [facility] [address] [place] [address] Dr. Milind Martinez Potassium [Moles/Vol] 4.1 mmol/L Normal 3.5-5.1 [facility] Comment on above: Performed By: #### C MP, TSH, T7 #### [facility] [address] [place] [address] Dr. Milind Martinez Protein [Mass/Vol] 6.0 g/dL Critically low 6.4-8.2 Th [facility] Comment on above: Performed By: #### C MP, TSH, T7 #### [facility] [address] [place] [address] Dr. Milind Martinez Sodium [Moles/Vol] 143 mmol/L Normal 136-145 [facility] Comment on above: Performed By: #### C MP, TSH, T7 #### [facility] [address] [place] [address] Dr. Milind Martinez Urea nitrogen [Mass/Vol] 34.0 mg/dL Critically high 7.0-18.0 [facility] Comment on above: Performed By: #### C MP, TSH, T7 #### [facility] [address] [place] [address] Dr. Milind Martinez Urea nitrogen/Creatinine [Mass ratio] 26.2 mg/mg Normal [facility] Comment on above: Performed By: #### C MP, TSH, T7 #### [facility] [address] [place] [address] Dr. Milind Martinez TSHon 04-02-2022 TSH 7.887 uIU/mL Critically high 0.358-3.740 [facility] Comment on above: Performed By: #### C MP, TSH, T7 #### [facility] [address] [address] [address] Milind Martinez US KIDNEYSon 03-23-2022 US [...] IJEOMA TIM Date: 2022-03-23 13:[address] [facility] MG MAMM SCREEN 3D BOGDAN CADon 03-05-2022 MG MAMM SCREEN 3D BOGDAN CAD Patient: DEJA ZAMORA Exam Date: 03/05/2022 : 1940 Gender:F Ordering : NATHAN JOVEL [facility] Admission #: [id number] Family : Order #: [id number] CLICK HERE TO VIEW EXAM RADIOLOGY REPORT [...] mult.myeloma cancer at age 68. LOCATION: [facility] BREAST COMPOSITION: Scattered areas fibroglandular density. FINDINGS: [...] M.D. on 03/05/2022 at 13:[address] [facility] US CAROTID ART BILon -09-2 022 US [...] by: UDAY MAJOR Date: 2021-12-25 15:42 Normal [facility] Vital Signs Date Time Vital Sign Value Performing Clinician Faci lity 12-21-2021 10:00-0400 Body height 147.32 cm Patrick Cotter Other [facility] Other 12-21-2021 10:00-0400 Body mass index (BMI) [Ratio] 27.79 kg/m2 Patrick Cotter Other [facility] Other 12-21-2021 10:00-0400 Body weight 60.33 kg Patrick Cotter Other [facility] Other 10-19-2021 12:00-0500 Body height 147.32 cm Patrick Cotter Other [facility] Other 10-19-2021 12:00-0500 Body mass index (BMI) [Ratio] 27.79 kg/m2 Patrick Cotter Other [facility] Other 10-19-2021 12:00-0500 Body weight 60.33 kg Patrick Cotter Other [facility] Other 08-22-2021 15:00-0500 Body height 147.32 cm Patrick Cotter Other [facility] Other 08-22-2021 15:00-0500 Body mass index (BMI) [Ratio] 27.79 kg/m2 Patrick Cotter Other [facility] Other 08-22-2021 15:00-0500 Body weight 60.33 kg Patrick Cotter Other [facility] Other Encounters Encounter Date Encounter Type Care Provider Facility Start: 08-29-2023 End: 08-30-2023 ambulatory JOLYNN DAO Not Available Start: 08-14-2023 End: 08-14-2023 ambulatory [facility] Start: 08-02-2023 End: 08-02-2023 ambulatory [facility] Start: 04-01-2023 End: 04-02-2023 ambulatory Danny Monroy MD [facility] Start: 03-18-2023 End: 03-19-2023 ambulatory Danny Monroy MD [facility] Start: 02-25-2023 End: 02-25-2023 ambulatory XIMENA MARTINS [facility] Start: 02-11-2023 End: 02-12-2023 ambulatory Danny Monroy MD [facility] Start: 12-05-2022 End: 12-05-2022 ambulatory [facility] Start: 09-20-2022 End: 09-21-2022 ambulatory NATHAN JOVEL Facility:[facility] Start: 09-05-2022 End: 09-05-2022 ambulatory [facility] Start: 08-01-2022 End: 08-02-2022 ambulatory NATHAN JOVEL Facility:[facility] Start: 04-02-2022 End: 04-03-2022 ambulatory NATHAN JOVEL Facility:[facility] Start: 03-23-2022 End: 03-24-[address] XIMENA MARTINS Facility:[facility] Start: 03-05-2022 End: 03-06-[address] UDAY MAJOR Facility:[facility] Start: 12-25-2021 End: 12-26-2021 ambulatory SEE DICK Facility:[facility] Start: 12-21-2021 End: 12-21-2021 ambulatory Patrick Cotter Other [facility] Other Start: 12-21-2021 Postop follow up vis it related to original px Patrick Cotter [facility] Start: 11-02-2021 ambulatory NATHAN MED Facility: Start: 10-19-2021 End: 10-19-2021 ambulatory Patrick Cotter Other [facility] Other Start: 10-19-2021 Postop follow up vis it related to original px Patrick Cotter [facility] Start: 09-18-2021 Admission to [facility] Patrick Cotter [facility] Start: 09-18-2021 End: 09-19-2021 ambulatory Patrick Cotter [facility] Other Start: 08-29-2021 End: 08-29-2021 ambulatory Patrick Cotter Other [facility] Other Start: 08-29-2021 Telephone encounter Patrick Cotter [facility] Start: 08-22-2021 End: 08-22-2021 ambulatory Patrick Cotter Other [facility] Other Start: 08-22-2021 Office outpatient visit 40 minutes Patrick Cotter [facility] Start: 09-24-2017 End: 09-25-2017 Ambulatory DEFAULT PHYSICIAN Facility:[facility] Payers Date Payer Category Payer Unknown 2021 Self-pay 2003 Medicare 1959 Medicare [id number] 2.1 [id number] 1959 Self-pay [id number] 1959 Unknown [id number] 2.1 [id number] 1940 Unknown [id number] 2.16.84 [id number] 1940 Unknown [id number] 2.16.84 [id number] 1940 Unknown [id number] 2.16.84 [id number] 1940 Unknown [id number] 2.16.84 0.1.295883.3.579.2.593 1940 Unknown [id number] 2.16.84 0.1.901691.3.579.2.593 1940 Unknown [id number] 2.16.84 0.1.962260.3.579.2.593 1940 Unknown [id number] 2.16.84 0.1.556845.3.579.2.593 1940 Unknown [id number] 2.16. [id number] 1940 Unknown [id number] 2.16. [id number] 1940 Unknown [id number] 2.16. [id number] 1940 Unknown [id number] 2.16.84 0.1.439938.3.579.2.1259 Unknown [id number] 2.16.8 [id number] Social History Date Type Detail Facility Sex Assigned At [facility] Other Clinical Notes 08-22-2021 to 08-14-2023 Note Date & Type Note Facility 08-14-2023 Note Hypertension is well controlled at home, continue all meds Metoprolol 25 mg bid, cardura 8 mg, clonidine 0.2 mg bid, and norvasc 5 mg. [facility] 08-14-2023 Note Currently stable wit hout worsening symptoms [facility] 08-14-2023 Note Patient here for 2 [...] All other systems reviewed and are negative. [facility] 08-14-2023 Note UTP CARDIOLOGY PROGR ESS [...] m??? Allergies Allergen Reactions Gemfibrozil Penicillins Unknown Gpmlgqv-Tfo-Sut Reductase Inhibitors Unknown Triamterene-Hydrochlorothiazid Medications: Current Outpatient [...] Testin04/18/23 TTE 5 (more content not included)... [facility] 08-02-2023 Note Stable so far, will monitor with increased clonidine for uncontrolled HTN [facility] 08-02-2023 Note Stable without any worsening sym ptoms [facility] 08-02-2023 Note Hypertension is Curr ently [...] once or twice every 2 to 3-weeks [facility] 08-02-2023 Note UTP CARDIOLOGY PROGR ESS [...] at target sometimes. She was admitted to [facility] in Mar 2023 for e.coli and dehydration. [...] m??? Allergies Allergen Reactions Gemfibrozil Penicillins Unknown Chdytot-Ktg-Wio Reductase Inhibitors Unknown Triamterene-Hydrochlorothiazid Medications: Current Outpatient [...] values have be (more content not included)... [facility] 08-02-2023 Note Patient here c/o hyp [...] at target sometimes. She was admitted to [facility] in Mar 2023 for e.coli and dehydration. [...] All other systems reviewed and are negative. [facility] 02-25-2023 Note OR Cardiology - [facility] Subjective Deja Zamora is a 82 [...] Allergies Allergies Allergen Reactions Gemfibrozil Penicillins Unknown Jtjugrx-Omm-Fcz Reductase Inhibitors Unknown Triamterene-Hydrochlorothiazid Medications Current Outpatient [...] Disp: , Rfl: (more content not included)... [facility] 12-05-2022 Note Reviewed lipids 04/02- well controlled Chol 133, Trig 217, HDL 20, LDL 69.6 [facility] 12-05-2022 Note Currently stable- no concerning symptoms [facility] 12-05-2022 Note Stable, voiced no concerns [facility] 12-05-2022 Note Continue fenofibrate, zetia and ASA [facility] 12-05-2022 Note Hypertension is much improved and well controlled at home per B/P log Continue all medications. [facility] 12-05-2022 Note Review of Systems Constitutional: [...] currently, due to her son having cancer. [facility] 12-05-2022 Note UTP CARDIOLOGY PROGR ESS [...] m??? Allergies Allergen Reactions Gemfibrozil Penicillins Unknown Luzqnvu-Esr-Qnq Reductase Inhibitors Unknown Triamterene-Hydrochlorothiazid Medications: Current Outpatient [...] normal. Labs: 08/01/22 (more content not included)... [facility] 09-05-2022 Note Hypertension is much better controlled at home after review of b/p log. Continue amlodipine 5mg daily, clonidine 0.1mg, cardura 8mg, lasix, hydrochlorothiazide 25mg, metoprolol 75 mg bid, and aldactone 12.5mg [facility] 09-05-2022 Note UTP CARDIOLOGY PROGR ESS [...] m??? Allergies Allergen Reactions Gemfibrozil Penicillins Unknown Ajiancq-Ejq-Ssn Reductase Inhibitors Unknown Triamterene-Hydrochlorothiazid Medications: Current Outpatient [...] Thought content normal. (more content not included)... [facility] 09-05-2022 Note Patient here for 2 [...] All other systems reviewed and are negative. 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 I have encouraged her to continue to build up her endurance by walking. I will see her again in 2 months for final postop visit. 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 [facility] Other evaluation noteNo InformationNort [facility] Other History general Narrative - Reported* Type Description Date Medical History Diabetes Medical History Hyperlipidemia Medical History Pulmonary HPN Medical History Osteoporosis Surgical History R knee Sx Surgical History L Hand Hospitalization History HTN 08/2018 [facility] Other Summary Purpose Family History No Family [...] Arthropathy of left hip (M16.12) Referral Organization [facility] Ne urosurgery Referring Provider First Name Patrick Referring Provider Last Name Cyndee Referring Provider Specialty Neurologica l Surgery Referred Organization [facility] Referred Provider Ximena Vela Jr Referred Address ,[place],[address] Referred Provider Specialty Orthopedic S urgery Referral Priority Routine General Notes Val Slater 022 10:56:23 AM >Received today. This referral was sent P2P and will wait a week and call them back to see if she was scheduled. They do their own scheduling Additional Source Comments INFORMATION SOURCE (unrecogn ized section and content) DATE CREATED AUTHOR 02/10/[address] [facility] DATE CREATED AUTHOR AUTHOR'S ORGANIZ ATION 09/22/2022 [facility] DATE CREATED AUTHOR AUTHOR'S ORGANIZ ATION 09/23/2022 [facility] DATE CREATED AUTHOR AUTHOR'S ORGANIZ ATION 04/11/2023 [facility] DATE CREATED AUTHOR AUTHOR'S ORGANIZ ATION 08/16/2023 [facility] DATE CREATED AUTHOR AUTHOR'S ORGANIZ ATION 09/02/2023 [facility] EPIC REASON FOR VISIT [...] BE BASED ON THE PRIMARY CLINICAL RECORDS. [employer] provides no warranty or guarantee of the accuracy or completeness of information in this document.
== END 2023-09-17 12:48 | disposition home or self-care (01) ==
LOC: PST 12:47
PROVIDERS: PCP Nurse Practitioner Family; Visit Provider Ophthalmology
DX: Z01.818 Encounter for other preprocedural examination (principal); H25.812 Combined forms of age-related cataract, left eye

== ENCOUNTER 2023-09-19 07:15 | Day surgery (SDC) | payer MEDICARE, SELFPAY ==
--- NOTE | 2023-09-19 | HP_ITS ---
Date: 09/19/2023 HISTORY: HISTORY: The patient is an 83-year-old white female with complaints of declining vision out of her left eye. The onset of this has been gradual, over the last 2-3 years, and causative in nature. She has noted, over that time frame, a gradual worsening of her vision for tasks such as reading, computer work, watching television or driving. She also states at night time, while driving, she is having difficulty with headlights creating glare and halos. PAST OCULAR HISTORY: Denies. PAST MEDICAL HISTORY: 1. Hypertension. 2. Hypercholesterolemia. 3. Hypothyroidism. 4. Pulmonary hypertension. 5. Type 2 diabetes. 6. History of back surgery. SOCIAL HISTORY: Denies tobacco, alcohol, or recreational drug abuse. SYSTEMIC MEDICATIONS: Include aspirin, calcium, colecalciferol, Coenzyme Q10, Zetia, fenofibrate, ferrous sulfate, fluticasone, insulin, levothyroxine, liothyronine, ondansetron, pantoprazole, potassium chloride, gabapentin, clonidine, amlodipine, metoprolol, furosemide, doxazosin, spironolactone. ALLERGIES TO MEDICATIONS: Include gemfibrozil, atorvastatin, hydrochlorothiazide, triamterene and penicillin. REVIEW OF SYSTEMS: No pertinent positives. PHYSICAL EXAM: GENERAL: In general, she is awake, alert and oriented x3, well developed, well nourished, in no acute distress. HEART: Regular rate and rhythm. LUNGS: Clear bilaterally. ABDOMEN: Soft, non-tender, non-distended. EXTREMITIES: No pitting edema. OPHTHALMIC EXAM: Revealed a visual acuity of 20/60 in the right and 20/70 in the left that both glared to 20/400. Pupils motility, muscle balance, confrontational visual walton within normal limits bilaterally. Lens status demonstrated 2+ nuclear sclerosis, 2+ cortical changes and vacuoles bilaterally. FUNDUS EXAM: Revealed a good view with good dilation bilaterally. Optic discs, macula, vessels, periphery and vitreous were within normal limits bilaterally. ASSESSMENT AND PLAN: Visually significant cataract, left eye. After risks, benefits, alternatives, as well as expectations were delivered to the patient, she elected to go forward with cataract removal. She understands the risks include but not limited to infection, bleeding, loss of vision, loss of the eye itself. Secondly, she understands postoperatively she is likely to require spectacle correction for her best visual acuity. Finally, a complete ophthalmic exam was performed and there was not determined to be any other source of visual decline other than that of the cataract. After understanding all risks as well as expectations, she elected to go forward with the procedure as listed above and will be doing so in the near future. SHO
--- NOTE | 2023-09-19 | OP_ITS ---
OPERATION DATE: 09/19/2023 SURGEON: Miguel Rutledge M.D. PREOPERATIVE DIAGNOSIS: Nuclear sclerotic cataract left eye. POSTOPERATIVE DIAGNOSIS: Nuclear sclerotic cataract left eye. PROCEDURE NAME: Cataract extraction with intraocular lens placement for the left eye. ANESTHESIA: Topical ESTIMATED BLOOD LOSS: Zero. COMPLICATIONS: None. PROCEDURE: The patient was brought to the Operating Room in supine position. After proper identification, the left eye was prepped and draped in a sterile ophthalmic fashion. A paracentesis created at the 5 o'clock position. Approximately 1 cc of unpreserved Xylocaine was injected into the anterior chamber followed by Amvisc Plus. Using a 2.6 mm Keratome blade, a clear corneal incision was created at the 3 o'clock limbus. A cystotome was then used to begin a curvilinear capsulorrhexis that was continued for 360 degrees with the Utrata forceps. BSS on a 26 gauge cannula was injected beneath the anterior capsule to hydrodissect as well as hydrodelineate the lens. After ensuring mobility, phacoemulsification was performed in a iixgvre-[id number]-type fashion. After all nuclear material had been removed from the eye, IA was introduced and all residual cortical material was cleaned up. Additional Amvisc Plus was injected into the posterior bag and a lens model MX60, 25.0 diopters was injected and dialed into position. After ensuring centration, IA was reintroduced into the anterior chamber and all residual Amvisc Plus was removed from the eye. BSS on a 30 gauge cannula was injected into the stroma of both the clear corneal incision as well as paracentesis to hydrate the wounds. Additional BSS was injected into the anterior chamber to pressurize the eye at approximately 20 to 22 mmHg by finger tension. Weck-Sushma sponges were used to check the wounds to be watertight. One drop of apraclonidine and one drop of prednisolone acetate placed into the eye and a shield was placed over top. The patient was sent to the postoperative area in satisfactory condition to follow up the following day for postoperative care. SHO
--- OUTSIDE RECORDS SUMMARY | 2023-09-19 07:19 | XMS_ITS | CCD ---
Author Name Unknown Address [address] [facility] [address] [place] [address] Organization [facility] Care Team Providers Care Data Processing Supervisor Name Role Phone PHYSICIAN, DEFAULT Unavailable Unavailable [...] Primary Care Unavailable MED, NATHAN Consulting Unavailable MOUKARBCLAUDIA, DR BUENO Attending Unavailable MOUKARBEL, DR BUENO Admitting Unavailable MOUKARBEL, DR BUENO Consulting Unavailable MED, NATHAN Primary Care Unavailable IJEOMA TIM Consulting Unavailable Eliana LINARES, Danny Carrasco Attending Unavailable Eliana LINARES, Danny Carrasco Attending Unavailable Eliana LIANRES, Danny Carrasco Attending Unavailable MAYELIN, SEE Attending Unavailable MAYELIN, SEE Attending Unavailable XIMENA MARTINS Attending Unavailable MAYELIN, SEE Attending Unavailable MAYELIN, SEE Attending Unavailable JOLYNN DAO Attending Unavailable HUMERA, THALIA Referring Unavailable Allergies Allergy Classification Reported Allergen(s) Allergy Type Date of Onset Reaction(s) Facility (5 sources) Hmg-Coa Reductase Inhibitors (Statins) Drug allergy Unknown [facility] Liquid Other (5 sources) Penicillin Drug Allergy Unknown [facility] Liquid Other (2 sources) Penicillins; Translations: [PENICILLINS] Drug allergy (disorder) Repository (1 source) Fqsmtam-IHV-KgY Reductase Inhibitor Drug allergy (disorder) 022 Repository (2 sources) black walnut pollen extract; Translations: [QCEFWUI-QUP-HNX REDUCTASE INHIBITORS] Drug Allergy 017 [facility] Repository (1 source) Dextroamphetamine Drug Allergy [facility] Repository (1 source) Gemfibrozil Drug Allergy [facility] Repository (1 source) hydroCHLOROthiazide / Triamterene Drug Allergy [facility] Repository (1 source) Penicillin Drug Allergy [facility] Repository (1 source) rosuvastatin Drug Allergy [facility] Repository (1 source) Gemfibrozil; Translations: [GEMFIBROZIL] Drug Allergy [facility] Repository (1 source) TRIAMTERENE-HYDROCHLOR OTHIAZID; Translations: [TRIAMTERENE-HYDROCHLO ROTHIAZID] Propensity to adverse reactions to drug (disorder) [facility] Repository Medications Current Medications Medication Drug [...] (5 sources) Multivitamin Adults - Orally Active Blanchard 3 1000 MG (5 sources) take 1 capsule by mouth once daily Blanchard 3 1000 MG 1 capsule Orally Once [...] Range Facility Office Visiton 08-14-2023 Follow-up visit [id number] Deja Zamora 1940 F Date Provider Department Center 08/14/2023 SEE BOATENG Family History Problem Relation Age of Onset Coronary artery disease Father Family Status - Relation Status Age at Father Level of Service:86477 HI OFFICE/OUTPATIENT ESTABLISHED MOD MDM 30 MIN Normal [facility] Office Visiton 08-02-2023 Follow-up visit [id number] Deja Zamora 1940 F Date Provider Department Center 08/02/2023 120-MAYELIN, SEE [facility] Family History Problem Relation Age of Onset Coronary artery disease Father Family Status - Relation Status Age at Father Level of Service:60450 HI OFFICE/OUTPATIENT ESTABLISHED MOD MDM 30-39 MIN Normal [facility] Office Visiton 02-25-2023 Follow-up visit [id number] Deja Zamora 1940 F Date Provider Department Center 02/25/2023 XIMENA LIZ CARD [facility] Family History Problem Relation Age of Onset Coronary artery disease Father Family Status - Relation Status Age at Father Level of Service:83776 HI OFFICE/OUTPATIENT ESTABLISHED MOD MDM 30-39 MIN Normal [facility] 29on 12-05-2022 29 Addended by: [place] on: 12/05/2022 04:05 PM Modules accepted: Orders Normal [facility] Office Visiton 12-05-2022 Follow-up visit [id number] Deja Zamora 1940 F Date Provider Department Center 12/05/2022 Gayla-SEE DICK CARD [facility] Family History Problem Relation Age of Onset Coronary artery disease Father Family Status - Relation Status Age at Father Level of Service:77479 HI OFFICE/OUTPATIENT ESTABLISHED MOD MDM 30-39 MIN Reason for Visit and Comments: Follow-up [302939] - 3 month Chest Pain [391976] - Yesterday had a little bit of pain in my heart that lasted about a minute. BP monitor showed irregular heartbeat. Stress [103] - Under stress currently, due to son having Stage IV Lung Cancer. Normal [facility] FREE THYROXINE INDEX T7on FTI 2.59 Normal 1.30-4.50 [facility] Comment on above: Performed By: #### C MP, TSH, T7 #### [facility] [address] [address] [address] Milnid Martinez T3U 37.0 % Normal 30.0-39.0 [facility] Comment on above: Performed By: #### C MP, TSH, T7 #### [facility] [address] [address] [address] Milind Martinez T4 [Mass/Vol] 7.00 ug/dL Normal 4.80-13.90 [facility] Comment on above: Performed By: #### C MP, TSH, T7 #### [facility] [address] [address] [address] Milind Martinez TSHon 09-20-2022 TSH 5.715 uIU/mL Critically high 0.358-3.740 [facility] Comment on above: Performed By: #### C MP, TSH, T7 #### [facility] [address] [address] [address] Milind Martinez Office Visiton 09-05-2022 Follow-up visit [id number] Deja Zamora 1940 F Date Provider Department Center 09/05/2022 SEE BOAT[facility] Family History Problem Relation Age of Onset Coronary artery disease Father Family Status - Relation Status Age at Father Level of Service:23605 HI OFFICE/OUTPATIENT ESTABLISHED LOW MDM 20-29 MIN Reason for Visit and Comments: Hypertension [080654] Normal [facility] FREE THYROXINE INDEX T7on FTI 2.56 Normal 1.30-4.50 [facility] Comment on above: Performed By: #### C MP, TSH, T7 #### [facility] [address] [place] [address] Dr. Milind Martinez T3U 35.0 % Normal 30.0-39.0 [facility] Comment on above: Performed By: #### C MP, TSH, T7 #### [facility] [address] [place] [address] Dr. Milind Martinez T4 [Mass/Vol] 7.30 ug/dL Normal 4.80-13.90 [facility] Comment on above: Performed By: #### C MP, TSH, T7 #### [facility] [address] [place] [address] Dr. Milind Martinez GLYCOHEMOGLOBIN A1Con 2021 ADA RECOMMENDATION SEE BELOW Normal [facility] Comment on above: Result Comment: ADA RECOMMENDED LIMIT 4.0 - 6.0 ADA THERAPEUTIC TARGET < 7.0 ACTION SUGGESTED > 7.0 Performed By: #### A 1C #### [facility] [address] [place] [address] Dr. Milind Martinez Glucose [Mass/Vol] 229 mg/dL Normal [facility] Comment on above: Performed By: #### A 1C #### [facility] [address] [place] [address] Dr. Milind Martinez HbA1c (Bld) [Mass fraction] 9.6 % Critically high 4.5-6.2 [facility] Comment on above: Performed By: #### A 1C #### [facility] [address] [place] [address] Dr. Milind Martinez PROF 14(COMP METB)on 022 Albumin [Mass/Vol] 3.1 g/dL Critically low 3.4-5.0 [facility] Comment on above: Performed By: #### C MP, TSH, T7 #### [facility] [address] [place] [address] Dr. Milind Martinez Albumin/Globulin [Mass ratio] 1.0 {ratio} Normal [facility] Comment on above: Performed By: #### C MP, TSH, T7 #### [facility] [address] [place] [address] Dr. Milind Martinez ALP [Catalytic activity/Vol] 48 U/L Normal 46-116 [facility] Comment on above: Performed By: #### C MP, TSH, T7 #### [facility] [address] [place] [address] Dr. Milind Martinez ALT [Catalytic activity/Vol] 19 U/L Normal 14-59 [facility] Comment on above: Performed By: #### C MP, TSH, T7 #### [facility] [address] [place] [address] Dr. Milind Martinez Anion gap [Moles/Vol] 12.3 mmol/L Normal [facility] Comment on above: Performed By: #### C MP, TSH, T7 #### [facility] [address] [place] [address] Dr. Milind Martinez AST [Catalytic activity/Vol] 30 U/L Normal 15-37 [facility] Comment on above: Performed By: #### C MP, TSH, T7 #### [facility] [address] [place] [address] Dr. Milind Martinez Bilirubin [Mass/Vol] 0.5 mg/dL Normal 0.2-1.0 [facility] Comment on above: Performed By: #### C MP, TSH, T7 #### [facility] [address] [place] [address] Dr. Milind Martinez Calcium [Mass/Vol] 8.9 mg/dL Normal 8.5-10.1 [facility] Comment on above: Performed By: #### C MP, TSH, T7 #### [facility] [address] [place] [address] Dr. Miilnd Martinez Chloride [Moles/Vol] 104 mmol/L Normal 98-107 [facility] Comment on above: Performed By: #### C MP, TSH, T7 #### [facility] [address] [place] [address] Dr. Milind Martinez CO2 [Moles/Vol] 28.2 mmol/L Normal 21.0-32.0 [facility] Comment on above: Performed By: #### C MP, TSH, T7 #### [facility] [address] [place] [address] Dr. Milind Martinez Creatinine [Mass/Vol] 1.54 mg/dL Critically high 0.55-1.02 [facility] Comment on above: Performed By: #### C MP, TSH, T7 #### [facility] [address] [place] [address] Dr. Milind Martinez EGFR-AF HONDURAN 39 mL/min/1.73m2 Critically low >=60 [facility] Comment on above: Performed By: #### C MP, TSH, T7 #### [facility] [address] [place] [address] Dr. Miilnd Martinez EGFR-NON AF HONDURAN 32 mL/min/1.73m2 Critically low >=60 [facility] Comment on above: Performed By: #### C MP, TSH, T7 #### [facility] [address] [place] [address] Dr. Milind Martinez Globulin (S) [Mass/Vol] 3.2 g/dL Normal [facility] Comment on above: Performed By: #### C MP, TSH, T7 #### [facility] [address] [place] [address] Dr. Milind Martinez Glucose [Mass/Vol] 180 mg/dL Critically high 74-106 [facility] Comment on above: Performed By: #### C MP, TSH, T7 #### [facility] [address] [place] [address] Dr. Milind Martinez Potassium [Moles/Vol] 4.5 mmol/L Normal 3.5-5.1 [facility] Comment on above: Performed By: #### C MP, TSH, T7 #### [facility] [address] [place] [address] Dr. Milind Martinez Protein [Mass/Vol] 6.3 g/dL Critically low 6.4-8.2 [facility] Comment on above: Performed By: #### C MP, TSH, T7 #### [facility] [address] [place] [address] Dr. Milind Martinez Sodium [Moles/Vol] 140 mmol/L Normal 136-145 [facility] Comment on above: Performed By: #### C MP, TSH, T7 #### [facility] [address] [place] [address] Dr. Milind Martinez Urea nitrogen [Mass/Vol] 46.0 mg/dL Critically high 7.0-18.0 [facility] Comment on above: Performed By: #### C MP, TSH, T7 #### [facility] [address] [place] [address] Dr. Milind Martinez Urea nitrogen/Creatinine [Mass ratio] 29.9 mg/mg Normal [facility] Comment on above: Performed By: #### C MP, TSH, T7 #### [facility] [address] [place] [address] Dr. Milind Martinez TSHon 08-01-2022 TSH 12.769 uIU/mL Critically high 0.358-3.740 [facility] Comment on above: Performed By: #### C MP, TSH, T7 #### [facility] [address] [place] [address] Dr. Milind Martinez INSULINon 04-03-2022 Insulin 2.5 uIU/mL Critically low 2.6-24.9 [facility] Comment on above: Performed By: #### C MP, TSH, T7 #### [facility] [address] [place] [address] Dr. Milind Martinez T4, T3U, FTI LABCORPon 04-03 Free Thyroxine Index 1.8 Normal 1.2-4.9 [facility] Comment on above: Performed By: #### T HYLC #### [facility] [address] [place] [address] Dr. Milind Martinez T3 Uptake 26 % Normal 24-39 [facility] Comment on above: Performed By: #### T HYLC #### [facility] [address] [place] [address] Dr. Milind Martinez T4 [Mass/Vol] 7.1 ug/dL Normal 4.5-12.0 [facility] Comment on above: Performed By: #### T HYLC #### [facility] [address] [place] [address] Dr. Milind Martinez CBC AUTO DIFFon 04-02-2022 BASO # 0.0 103/ul Normal 0.0-0.1 [facility] Comment on above: Performed By: #### C BC #### [facility] [address] [place] [address] Dr. Milind Martinez Basophils/100 WBC (Bld) 0.9 % Normal 0.2-2.0 [facility] Comment on above: Performed By: #### C BC #### [facility] [address] [place] [address] Dr. Milind Martinez EO # 0.2 103/ul Normal 0.0-0.7 [facility] Comment on above: Performed By: #### C BC #### [facility] [address] [place] [address] Dr. Milind Martinez Eosinophils/100 WBC (Bld) 5.3 % Normal 0.9-7.0 [facility] Comment on above: Performed By: #### C BC #### [facility] [address] [place] [address] Dr. Milind Matrinez Erythrocyte distribution width (RBC) [Ratio] 13.2 % Normal 11.0-15.0 [facility] Comment on above: Performed By: #### C BC #### [facility] [address] [place] [address] Dr. Milind Martinez Hematocrit (Bld) [Volume fraction] 37.1 % Normal 36.0-48.0 [facility] Comment on above: Performed By: #### C BC #### [facility] [address] [place] [address] Dr. Milind Martinez Hemoglobin (Bld) [Mass/Vol] 12.0 g/dL Normal 12.0-16.0 [facility] Comment on above: Performed By: #### C BC #### [facility] [address] [place] [address] Dr. Milind Martinez IG # 0.01 10e3/ul Normal 0.00-0.03 [facility] Comment on above: Performed By: #### C BC #### [facility] [address] [place] [address] Dr. Milind Martinez IG % 0.2 % Normal 0.0-0.5 [facility] Comment on above: Performed By: #### C BC #### [facility] [address] [place] [address] Dr. Milind Martinez LYMPH # 1.8 103/ul Normal 1.2-3.8 [facility] Comment on above: Performed By: #### C BC #### [facility] [address] [place] [address] Dr. Milind Martinez Lymphocytes/100 WBC (Bld) 41.9 % Normal 20.5-60.0 [facility] Comment on above: Performed By: #### C BC #### [facility] [address] [place] [address] Dr. Milind Martinez MANUAL DIFF REQ NO Normal [facility] Comment on above: Performed By: #### C BC #### [facility] [address] [address] [address] Milind Martinez MCH (RBC) [Entitic mass] 31.2 pg Normal 26.7-34.0 [facility] Comment on above: Performed By: #### C BC #### [facility] [address] [place] [address] Dr. Milind Martinez MCHC (RBC) [Mass/Vol] 32.3 g/dL Normal 29.9-35.2 [facility] Comment on above: Performed By: #### C BC #### [facility] [address] [place] [address] Dr. Milind Martinez MCV (RBC) [Entitic vol] 96.4 fL Normal 81.0-99.0 [facility] Comment on above: Performed By: #### C BC #### [facility] [address] [place] [address] Dr. Milind Martinez MONO # 0.3 103/ul Normal 0.3-0.8 [facility] Comment on above: Performed By: #### C BC #### [facility] [address] [place] [address] Dr. Milind Martinez Monocytes/100 WBC (Bld) 5.8 % Normal 1.7-12.0 [facility] Comment on above: Performed By: #### C BC #### [facility] [address] [place] [address] Dr. Milind Martinez NEUT # 2.0 103/ul Normal 1.4-6.5 [facility] Comment on above: Performed By: #### C BC #### [facility] [address] [place] [address] Dr. Milind Martinez Neutrophils/100 WBC (Bld) 45.9 % Normal 43.0-75.0 [facility] Comment on above: Performed By: #### C BC #### [facility] [address] [place] [address] Dr. Milind Martinez Platelet mean volume (Bld) [Entitic vol] 11.8 fL Normal 9.5-13.5 [facility] Comment on above: Performed By: #### C BC #### [facility] [address] [address] [address] Milind Martinez PLT 159 103/ul Normal 150-450 [facility] Comment on above: Performed By: #### C BC #### [facility] [address] [address] [address] Milind Martinez RBC 3.85 106/ul Critically low 4.20-5.40 [facility] Comment on above: Performed By: #### C BC #### [facility] [address] [address] [address] Milind Martinez WBC 4.3 103/ul Normal 4.0-11.0 [facility] Comment on above: Performed By: #### C BC #### [facility] [address] [address] [address] Milind Martinez GLYCOHEMOGLOBIN A1Con 2021 ADA RECOMMENDATION SEE BELOW Normal [facility] Comment on above: Result Comment: ADA RECOMMENDED LIMIT 4.0 - 6.0 ADA THERAPEUTIC TARGET < 7.0 ACTION SUGGESTED > 7.0 Performed By: #### A 1C #### [facility] [address] [address] [address] Milind Martinez Glucose [Mass/Vol] 214 mg/dL Normal [facility] Comment on above: Performed By: #### A 1C #### [facility] [address] [address] [address] Milind Martinez HbA1c (Bld) [Mass fraction] 9.1 % Critically high 4.5-6.2 [facility] Comment on above: Performed By: #### A 1C #### [facility] [address] [address] [address] Milind Martinez IRONon 04-02-2022 Iron [Mass/Vol] 126.0 ug/dL Normal 50.0-170.0 [facility] Comment on above: Performed By: #### C MP, TSH, T7 #### [facility] [address] [address] [address] Milind Martinez LIPID PROFILEon 04-02-2022 CHOL-HDL RATIO NORM SEE BELOW Normal [facility] Comment on above: Result Comment: 3.3 - 4.4 LOW RISK 4.4 - 7.1 AVERAGE RISK 7.1 - 11.0 MODERATE RISK >11.0 HIGH RISK Performed By: #### C MP, TSH, T7 #### [facility] [address] [address] [address] Milind Martinez Cholesterol [Mass/Vol] 133 mg/dL Normal <=200 [facility] Comment on above: Performed By: #### C MP, TSH, T7 #### [facility] [address] [address] [address] Milind Martinez Cholesterol in HDL [Mass/Vol] 20 mg/dL Critically low 40-60 [facility] Comment on above: Performed By: #### C MP, TSH, T7 #### [facility] [address] [address] [address] Milind Martinez Cholesterol in LDL [Mass/Vol] 69.6 mg/dL Normal [facility] Comment on above: Performed By: #### C MP, TSH, T7 #### [facility] [address] [address] [address] Milind Martinez Cholesterol.total/Ch olesterol in HDL [Mass ratio] 6.7 {ratio} Normal [facility] Comment on above: Performed By: #### C MP, TSH, T7 #### [facility] [address] [address] [address] Milind Martinez HDL NORMAL > or = 60 mg/dl - LOW CARDIOVASCULAR RISK <40 mg/dl - HIGH CARDIOVASCULAR RISK Normal [facility] Comment on above: Performed By: #### C MP, TSH, T7 #### [facility] [address] [address] [address] Milind Martinez LDL CALC NORMAL SEE BELOW Normal [facility] Comment on above: Result Comment: <100 mg/dl OPTIMAL 100 - 129 mg/dl NEAR OR ABOVE OPTIMAL 130 - 159 mg/dl BORDERLINE HIGH 160 - 189 mg/dl HIGH >190 mg/dl VERY HIGH Performed By: #### C MP, TSH, T7 #### [facility] [address] [address] [address] Milind Martinez Triglyceride [Mass/Vol] 217 mg/dL Critically high <=150 [facility] Comment on above: Performed By: #### C MP, TSH, T7 #### [facility] [address] [place] [address] Dr. Milind Martinez VLDL CALC 43.4 mg/dL Normal [facility] Comment on above: Performed By: #### C MP, TSH, T7 #### [facility] [address] [place] [address] Dr. Milind Martinez PROF 14(COMP METB)on 022 Albumin [Mass/Vol] 3.3 g/dL Critically low 3.4-5.0 [facility] Comment on above: Performed By: #### C MP, TSH, T7 #### [facility] [address] [place] [address] Dr. Milind Martinez Albumin/Globulin [Mass ratio] 1.2 {ratio} Normal [facility] Comment on above: Performed By: #### C MP, TSH, T7 #### [facility] [address] [place] [address] Dr. Milind Martinez ALP [Catalytic activity/Vol] 43 U/L Critically low 46-116 [facility] Comment on above: Performed By: #### C MP, TSH, T7 #### [facility] [address] [place] [address] Dr. Milind Martinez ALT [Catalytic activity/Vol] 24 U/L Normal 14-59 [facility] Comment on above: Performed By: #### C MP, TSH, T7 #### [facility] [address] [place] [address] Dr. Milind Martinez Anion gap [Moles/Vol] 11.4 mmol/L Normal [facility] Comment on above: Performed By: #### C MP, TSH, T7 #### [facility] [address] [place] [address] Dr. Milind Martinez AST [Catalytic activity/Vol] 24 U/L Normal 15-37 [facility] Comment on above: Performed By: #### C MP, TSH, T7 #### [facility] [address] [address] [address] Milind Martinez Bilirubin [Mass/Vol] 0.4 mg/dL Normal 0.2-1.0 [facility] Comment on above: Performed By: #### C MP, TSH, T7 #### [facility] [address] [address] [address] Milind Martinez Calcium [Mass/Vol] 8.7 mg/dL Normal 8.5-10.1 [facility] Comment on above: Performed By: #### C MP, TSH, T7 #### [facility] [address] [address] [address] Milind Martinez Chloride [Moles/Vol] 106 mmol/L Normal 98-107 [facility] Comment on above: Performed By: #### C MP, TSH, T7 #### [facility] [address] [place] [address] Dr. Milind Martinez CO2 [Moles/Vol] 29.7 mmol/L Normal 21.0-32.0 [facility] Comment on above: Performed By: #### C MP, TSH, T7 #### [facility] [address] [address] [address] Milind Martinez Creatinine [Mass/Vol] 1.30 mg/dL Critically high 0.55-1.02 [facility] Comment on above: Performed By: #### C MP, TSH, T7 #### [facility] [address] [address] [address] Milind Martinez EGFR-AF HONDURAN 47 mL/min/1.73m2 Critically low >=60 [facility] Comment on above: Performed By: #### C MP, TSH, T7 #### [facility] [address] [address] [address] Milind Martinez EGFR-NON AF HONDURAN 39 mL/min/1.73m2 Critically low >=60 [facility] Comment on above: Performed By: #### C MP, TSH, T7 #### [facility] [address] [address] [address] Milind Martinez Globulin (S) [Mass/Vol] 2.7 g/dL Normal [facility] Comment on above: Performed By: #### C MP, TSH, T7 #### [facility] [address] [place] [address] Dr. Milind Martinez Glucose [Mass/Vol] 109 mg/dL Critically high 74-106 [facility] Comment on above: Performed By: #### C MP, TSH, T7 #### [facility] [address] [place] [address] Dr. Milind Martinez Potassium [Moles/Vol] 4.1 mmol/L Normal 3.5-5.1 [facility] Comment on above: Performed By: #### C MP, TSH, T7 #### [facility] [address] [place] [address] Dr. Milind Martinez Protein [Mass/Vol] 6.0 g/dL Critically low 6.4-8.2 [facility] Comment on above: Performed By: #### C MP, TSH, T7 #### [facility] [address] [place] [address] Dr. Milind Martinez Sodium [Moles/Vol] 143 mmol/L Normal 136-145 [facility] Comment on above: Performed By: #### C MP, TSH, T7 #### [facility] [address] [place] [address] Dr. Milind Martinez Urea nitrogen [Mass/Vol] 34.0 mg/dL Critically high 7.0-18.0 [facility] Comment on above: Performed By: #### C MP, TSH, T7 #### [facility] [address] [place] [address] Dr. Milind Martinez Urea nitrogen/Creatinine [Mass ratio] 26.2 mg/mg Normal [facility] Comment on above: Performed By: #### C MP, TSH, T7 #### [facility] [address] [place] [address] Dr. Milind Martinez TSHon 04-02-2022 TSH 7.887 uIU/mL Critically high 0.358-3.740 [facility] Comment on above: Performed By: #### C MP, TSH, T7 #### [facility] [address] [address] [address] Milind Martinez US KIDNEYSon 03-23-2022 US [...] IJEOMA TIM Date: 2022-03-23 13:26 Normal [facility] MG MAMM SCREEN 3D BOGDAN CADon 03-05-2022 MG MAMM SCREEN 3D BOGDAN CAD Patient: DEJA ZAOMRA Exam Date: 03/05/2022 : 1940 Gender:F Ordering : NATHAN JOVEL [facility] Admission #: [id number] Family : Order #: [id number] CLICK HERE TO VIEW EXAM RADIOLOGY REPORT [...] mult.myeloma cancer at age 68. LOCATION: [facility] BREAST COMPOSITION: Scattered areas fibroglandular density. FINDINGS: [...] M.D. on 03/05/2022 at 13:47 Normal [facility] US CAROTID ART BILon -09-2 022 US [...] by: UDAY MAJOR Date: 2021-12-25 15:42 Normal [facility] Vital Signs Date Time Vital Sign Value Performing Clinician Faci lity 12-21-2021 10:00-0400 Body height 147.32 cm Patrick Cotter Other [facility] Other 12-21-2021 10:00-0400 Body mass index (BMI) [Ratio] 27.79 kg/m2 Patrick Cotter Other [facility] 12-21-2021 10:00-0400 Body weight 60.33 kg Patrick Cotter Other [facility] 10-19-2021 12:00-0500 Body height 147.32 cm Patrick Cotter Other [facility] Other 10-19-2021 12:00-0500 Body mass index (BMI) [Ratio] 27.79 kg/m2 Patrick Cotter Other [facility] Other 10-19-2021 12:00-0500 Body weight 60.33 kg Patrick Cotter Other [facility] 08-22-2021 15:00-0500 Body height 147.32 cm Patrick Cotter Other [facility] Other 08-22-2021 15:00-0500 Body mass index (BMI) [Ratio] 27.79 kg/m2 Patrick Cotter Other [facility] Other 08-22-2021 15:00-0500 Body weight 60.33 kg Patrick Cotter Other [facility] Other Encounters Encounter Date Encounter Type Care Provider Facility Start: 08-29-2023 End: 08-30-2023 ambulatory JOLYNN DAO Not Available Start: 08-14-2023 End: 08-14-[address] [facility] Start: 08-02-2023 End: 08-02-[address] [facility] Start: 04-01-2023 End: 04-02-2023 ambulatory Danny Monroy MD [facility] Start: 03-18-2023 End: 03-19-2023 ambulatory Danny Monroy MD [facility] Start: 02-25-2023 End: 02-25-2023 ambulatory XIMENA MARTINS [facility] Start: 02-11-2023 End: 02-12-2023 ambulatory Danny Monroy MD [facility] Start: 12-05-2022 End: 12-05-[address] [facility] Start: 09-20-2022 End: 09-21-2022 ambulatory NATHAN JOVEL Facility:[facility] Start: 09-05-2022 End: 09-05-[address] [facility] Start: 08-01-2022 End: 08-02-2022 ambulatory NATHAN JOVEL Facility:[facility] Start: 04-02-2022 End: 04-03-2022 ambulatory NATHAN JOVEL Facility:[facility] Start: 03-23-2022 End: 03-24-[address] XIMENA MARTINS Facility:[facility] Start: 03-05-2022 End: 03-06-[address] UDAY MAJOR Facility:[facility] Start: 12-25-2021 End: 12-26-2021 ambulatory SEE DICK Facility:[facility] Start: 12-21-2021 End: 12-21-2021 ambulatory Patrick Cotter Other [facility] Start: 12-21-2021 Postop follow up vis it related to original px Patrick Cotter [facility] Start: 11-02-2021 ambulatory NATHAN MED Facility: Start: 10-19-2021 End: 10-19-2021 ambulatory Patrick Cotter Other [facility] Other Start: 10-19-2021 Postop follow up vis it related to original px Patrick Cotter [facility] Start: 09-18-2021 [facility]mission to [facility] Patrick Cotter [facility] Start: 09-18-2021 End: 09-19-2021 ambulatory Patrick Cotter [facility] Other Start: 08-29-2021 End: 08-29-2021 ambulatory Patrick Cotter Other [facility] Other Start: 08-29-2021 Telephone encounter Patrick Cotter [facility] Start: 08-22-2021 End: 08-22-2021 ambulatory Patrick Cotter Other [facility] Other Start: 08-22-2021 Office outpatient visit 40 minutes Patrick Cotter [facility] Start: 09-24-2017 End: 09-25-2017 Ambulatory DEFAULT PHYSICIAN Facility:[facility] Payers Date Payer Category Payer Unknown 2021 Self-pay 2003 Medicare 1959 Medicare [id number] 2.1 [id number] 1959 Self-pay [id number] 1959 Unknown [id number] 2.1 [id number] 1940 Unknown [id number] 2.16.84 [id number] 1940 Unknown [id number] 2.16.84 0.1.278948.3.579.2.593 1940 Unknown [id number] 2.16.84 0.1.101358.3.579.2.593 1938 Unknown [id number] 2.16.84 0.1.443380.3.579.2.593 1938 Unknown [id number] 2.16.84 0.1.703508.3.579.2.593 1938 Unknown [id number] 2.16.84 0.1.387920.3.579.2.593 1938 Unknown [id number] 2.16.84 0.1.537605.3.579.2.593 1938 Unknown [id number] 2.16. 840.1.344815.3.579.2.196 1940 Unknown [id number] 2.16. 840.1.492410.3.579.2.196 1938 Unknown [id number] 2.16. 840.1.351848.3.579.2.196 1940 Unknown [id number] 2.16.84 0.1.579375.3.579.2.1259 Unknown [id number] 2.16.8 [id number] Social History Date Type Detail Facility Sex Assigned At [facility] Other Clinical Notes 08-22-2021 to 08-14-2023 Note Date & Type Note Facility 08-14-2023 Note Hypertension is well controlled at home, continue all meds Metoprolol 25 mg bid, cardura 8 mg, clonidine 0.2 mg bid, and norvasc 5 mg. [facility] 08-14-2023 Note Currently stable wit hout worsening symptoms [facility] 08-14-2023 Note Patient here for 2 w [facility] follow up hypertension. Clonidine was increased to [...] All other systems reviewed and are negative. [facility] 08-14-2023 Note [facility] CARDIOLOGY PROGR ESS [...] m??? Allergies Allergen Reactions Gemfibrozil Penicillins Unknown Clkqcmg-Siw-Bgw Reductase Inhibitors Unknown Triamterene-Hydrochlorothiazid Medications: Current Outpatient [...] Testin04/18/23 TTE 5 (more content not included)... [facility] 08-02-2023 Note Stable so far, will monitor with increased clonidine for uncontrolled HTN [facility] 08-02-2023 Note Stable without any worsening sym ptoms [facility] 08-02-2023 Note Hypertension is Curr ently [...] once or twice every 2 to 3-weeks [facility] 08-02-2023 Note [facility]TP CARDIOLOGY PROGR ESS [...] at target sometimes. She was admitted to [facility] in Mar 2023 for e.coli and dehydration. [...] m??? Allergies Allergen Reactions Gemfibrozil Penicillins Unknown Ndroiiz-Xha-Zrb Reductase Inhibitors Unknown Triamterene-Hydrochlorothiazid Medications: Current Outpatient [...] values have be (more content not included)... [facility] 08-02-2023 Note Patient here c/o hyp [...] at target sometimes. She was admitted to [facility] in Mar 2023 for e.coli and dehydration. [...] All other systems reviewed and are negative. [facility] 02-25-2023 Note [place] [facility] Subjective Deja Zamora is a [...] Allergies Allergies Allergen Reactions Gemfibrozil Penicillins Unknown Fhywdks-Qrc-Kxb Reductase Inhibitors Unknown Triamterene-Hydrochlorothiazid Medications Current Outpatient [...] Disp: , Rfl: (more content not included)... [facility] 12-05-2022 Note Reviewed lipids 04/02- well controlled Chol 133, Trig 217, HDL 20, LDL 69.6 [facility] 12-05-2022 Note Currently stable- no concerning symptoms [facility] 12-05-2022 Note Stable, voiced no concerns [facility] 12-05-2022 Note Continue fenofibrate, zetia and ASA [facility] 12-05-2022 Note Hypertension is much improved and well controlled at home per B/P log Continue all medications. [facility] 12-05-2022 Note Review of Systems Constitutional: [...] currently, due to her son having cancer. [facility] 12-05-2022 Note UTP CARDIOLOGY PROGR ESS [...] m??? Allergies Allergen Reactions Gemfibrozil Penicillins Unknown Ifvpiaj-Cbx-Tzt Reductase Inhibitors Unknown Triamterene-Hydrochlorothiazid Medications: Current Outpatient [...] normal. Labs: 08/01/22 (more content not included)... [facility] 09-05-2022 Note Hypertension is much better controlled at home after review of b/p log. Continue amlodipine 5mg daily, clonidine 0.1mg, cardura 8mg, lasix, hydrochlorothiazide 25mg, metoprolol 75 mg bid, and aldactone 12.5mg [facility] 09-05-2022 Note UTP CARDIOLOGY PROGR ESS [...] m??? Allergies Allergen Reactions Gemfibrozil Penicillins Unknown Vqjbfgz-Hsx-Glp Reductase Inhibitors Unknown Triamterene-Hydrochlorothiazid Medications: Current Outpatient [...] Thought content normal. (more content not included)... [facility] 09-05-2022 Note Patient here for 2 [...] All other systems reviewed and are negative. 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 I have encouraged her to continue to build up her endurance by walking. I will see her again in 2 months for final postop visit. 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 [facility] Other evaluation noteNo InformationNort [employer] Other History general Narrative - Reported* Type Description Date Medical History Diabetes Medical History Hyperlipidemia Medical History Pulmonary HPN Medical History Osteoporosis Surgical History R knee Sx Surgical History L Hand Hospitalization History HTN 08/2018 [facility] Other Summary Purpose Family History No Family [...] Arthropathy of left hip (M16.12) Referral Organization [facility] Referring Provider First Name Patrick Referring Provider Last Name Cyndee Referring Provider Specialty Neurologica l Surgery Referred Organization [facility] Referred Provider Ximena Vela Jr Referred Address ,[place],[address] Referred Provider Specialty Orthopedic S urgery Referral Priority Routine General Notes Val Slater 022 10:56:23 AM >Received today. This referral was sent P2P and will wait a week and call them back to see if she was scheduled. They do their own scheduling Additional Source Comments INFORMATION SOURCE (unrecogn ized section and content) DATE CREATED AUTHOR 02/10/2018 [facility] DATE CREATED AUTHOR AUTHOR'S ORGANIZ ATION 09/22/2022 [facility] DATE CREATED AUTHOR AUTHOR'S ORGANIZ ATION 09/23/2022 [facility] DATE CREATED AUTHOR AUTHOR'S ORGANIZ ATION 04/11/2023 [facility] DATE CREATED AUTHOR AUTHOR'S ORGANIZ ATION 08/16/2023 [facility] DATE CREATED AUTHOR AUTHOR'S ORGANIZ ATION 09/02/2023 [facility] EPIC REASON FOR VISIT [...] BE BASED ON THE PRIMARY CLINICAL RECORDS. [employer] provides no warranty or guarantee of the accuracy or completeness of information in this document.
[2023-09-19] MEDS: PHENYLEPHRINE HCL 2.5% OP SOL 40 DROP/2 ML BOTTLE OP ×4 (07:35→08:10)
[2023-09-19] MEDS: TROPICAMIDE 1% OP SOL 300 DROP/15 ML BOTTLE OP ×4 (07:35→08:10)
[2023-09-19] MEDS: BESIFLOXACIN HCL 100 DROP DROPS.SUSP OP ×4 (07:36→08:09)
[2023-09-19 07:42] VITALS: BP 160/69; PULSE 60; RESP 16; TEMP 36; O2SAT 97
[2023-09-19] MEDS: DIAZEPAM 5 MG TABLET PO (07:47)
[2023-09-19 09:08] VITALS: BP 191/78; PULSE 56; RESP 18; O2SAT 100
[2023-09-19] MEDS: LIDOCAINE HCL 1% PF 20 MG/2 ML VIAL INJ (09:10)
[2023-09-19] MEDS: APRACLONIDINE HCL 100 DROP/5 ML BOTTLE OP (09:10)
[2023-09-19] MEDS: HYALURONATE SODIUM 16 MG/ML SYRINGE OP (09:10)
[2023-09-19] MEDS: LIDOCAINE 2% JELLY 10 ML TOPICAL (09:10)
[2023-09-19] MEDS: PREDNISOLONE ACETATE OP 1% SUSP 100 DROPS/5 ML 1 DROP OP (09:11)
[2023-09-19] MEDS: BETADINE POVIDONE-IODINE 5% OP SOL 30 ML BOTTLE OP (09:11)
[2023-09-19] MEDS: PROPARACAINE HCL 0.5% 300 DROP/15 ML BOTTLE OP (09:11)
[2023-09-19] MEDS: TETRACAINE HCL 0.5% OP SOL 80 DROP/4 ML BOTTLE OP (09:11)
[2023-09-19] MEDS: PHENYLEPHRINE/KETOROLAC 1-0.3% ML VIAL 4 ML IRR (09:11)
[2023-09-19 09:20] VITALS: BP 201/70; PULSE 51; RESP 18; O2SAT 100
== END 2023-09-19 09:30 | disposition home or self-care (01) ==
LOC: SURGOUT 07:16
PROVIDERS: PCP Nurse Practitioner Family; Visit Provider Ophthalmology
PROC: (CPT 66984; principal; 2023-09-19 08:30)
DX: H25.12 Age-related nuclear cataract, left eye (principal); I10 Essential (primary) hypertension; E78.00 Pure hypercholesterolemia, unspecified; E03.9 Hypothyroidism, unspecified; I27.20 Pulmonary hypertension, unspecified; E11.9 Type 2 diabetes mellitus without complications; Z79.82 Long term (current) use of aspirin; Z79.4 Long term (current) use of insulin; Z79.899 Other long term (current) drug therapy
CPT/HCPCS: 66984; V2630

== ENCOUNTER 2023-10-21 13:23 | Outpatient (OUT) | payer MEDICARE, SELFPAY ==
--- OUTSIDE RECORDS SUMMARY | 2023-10-21 13:41 | XMS_ITS | CCD ---
Author Name Unknown Address [address] [place] [address] Organization [facility] Care Team Providers Care Sheet Metal Engineer Name Role Phone PHYSICIAN, DEFAULT Unavailable Unavailable [...] LINARES, Danny Carrasco Attending Unavailable Eliana LINARES, aDnny Carrasco Attending Unavailable Eliana LINARES, Danny Carrasco Attending Unavailable MAYELIN, SEE Attending Unavailable MAYELIN, SEE Attending Unavailable XIMENA MARTINS Attending Unavailable MAYELIN, SEE Attending Unavailable MAYELIN, SEE Attending Unavailable JOLYNN DAO Attending Unavailable HUMERA, THALIA Referring Unavailable Allergies Allergy Classification Reported Allergen(s) Allergy Type Date of Onset Reaction(s) Facility (5 sources) Hmg-Coa Reductase Inhibitors (Statins) Drug allergy Unknown [facility] Other (5 sources) Penicillin Drug Allergy Unknown [facility] Other (2 sources) Penicillins; Translations: [PENICILLINS] Drug allergy (disorder) [facility] Repository (1 source) Omwmwsd-NNU-AtN Reductase Inhibitor Drug allergy (disorder) 022 [facility] Repository (2 sources) black walnut pollen extract; Translations: [NKLCROY-VXP-ZBV REDUCTASE INHIBITORS] Drug Allergy 017 [facility] Repository (1 source) Dextroamphetamine Drug Allergy [facility] Repository (1 source) Gemfibrozil Drug Allergy [facility] Repository (1 source) hydroCHLOROthiazide / Triamterene Drug Allergy [facility] Repository (1 source) Penicillin Drug Allergy [facility] Repository (1 source) rosuvastatin Drug Allergy [facility] Repository (1 source) Gemfibrozil; Translations: [GEMFIBROZIL] Drug Allergy [facility] Repository (1 source) TRIAMTERENE-HYDROCHLOR OTHIAZID; Translations: [TRIAMTERENE-HYDROCHLO ROTHIAZID] Propensity to adverse reactions to drug (disorder) [facility] Repository Medications Current Medications Medication Drug Class(es) [...] (5 sources) Multivitamin Adults - Orally Active Conway 3 1000 MG (5 sources) take 1 capsule by mouth once daily Conway 3 1000 MG 1 capsule Orally Once [...] Range Facility Office Visiton 08-14-2023 Follow-up visit [id number] Deja Zamora 1940 F Date Provider Department Center 08/14/2023 SEE BOATENG Family History Problem Relation Age of Onset Coronary artery disease Father Family Status - Relation Status Age at Father Level of Service:57919 AL OFFICE/OUTPATIENT ESTABLISHED MOD MDM 30 MIN Normal [facility] Office Visiton 08-02-2023 Follow-up visit [id number] Deja Zamora 1940 F Date Provider Department Center 08/02/2023 120-MAYELIN, SEE BH CARD [facility] Family History Problem Relation Age of Onset Coronary artery disease Father Family Status - Relation Status Age at Father Level of Service:18092 AL OFFICE/OUTPATIENT ESTABLISHED MOD MDM 30-39 MIN Normal [facility] Office Visiton 02-25-2023 Follow-up visit [id number] Deja Zamora 1940 F Date Provider Department Center 02/25/2023 XIMENA LIZ CARD [facility] Family History Problem Relation Age of Onset Coronary artery disease Father Family Status - Relation Status Age at Father Level of Service:77350 AL OFFICE/OUTPATIENT ESTABLISHED MOD MDM 30-39 MIN Normal [facility] 29on 12-05-2022 29 Addended by: [place] on: 12/05/2022 04:05 PM Modules accepted: Orders Normal [facility] Office Visiton 12-05-2022 Follow-up visit [id number] Deja Zamora 1940 F Date Provider Department Center 12/05/2022 Gayla-SEE DICK CARD [facility] Family History Problem Relation Age of Onset Coronary artery disease Father Family Status - Relation Status Age at Father Level of Service:17551 AL OFFICE/OUTPATIENT ESTABLISHED MOD MDM 30-39 MIN Reason for Visit and Comments: Follow-up [722126] - 3 month Chest Pain [754978] - Yesterday had a little bit of pain in my heart that lasted about a minute. BP monitor showed irregular heartbeat. Stress [103] - Under stress currently, due to son having Stage IV Lung Cancer. Normal [facility] FREE THYROXINE INDEX T7on FTI 2.59 Normal 1.30-4.50 [facility] Comment on above: Performed By: #### C MP, TSH, T7 #### [facility] [address] [address] [address] Milind Martinez T3U 37.0 % Normal 30.0-39.0 [facility] Comment on above: Performed By: #### C MP, TSH, T7 #### [facility] [address] [address] [address] Milind Martinez T4 [Mass/Vol] 7.00 ug/dL Normal 4.80-13.90 [facility] Comment on above: Performed By: #### C MP, TSH, T7 #### [facility] [address] [address] [address] Milind Martinez TSHon 09-20-2022 TSH 5.715 uIU/mL Critically high 0.358-3.740 [facility] Comment on above: Performed By: #### C MP, TSH, T7 #### [facility] [address] [address] [address] Milind Martinez Office Visiton 09-05-2022 Follow-up visit [id number] Deja Zamora 1940 F Date Provider Department Center 09/05/[address] [facility] Family History Problem Relation Age of Onset Coronary artery disease Father Family Status - Relation Status Age at Father Level of Service:51369 AL OFFICE/OUTPATIENT ESTABLISHED LOW MDM 20-29 MIN Reason for Visit and Comments: Hypertension [966588] Normal [facility] FREE THYROXINE INDEX T7on FTI 2.56 Normal 1.30-4.50 [facility] Comment on above: Performed By: #### C MP, TSH, T7 #### [facility] [address] [place] [address] Dr. Milind Martinez T3U 35.0 % Normal 30.0-39.0 [facility] Comment on above: Performed By: #### C MP, TSH, T7 #### [facility] [address] [place] [address] Dr. Milind Martinez T4 [Mass/Vol] 7.30 ug/dL Normal 4.80-13.90 [facility] Comment on above: Performed By: #### C MP, TSH, T7 #### [facility] [address] [place] [address] Dr. Milind Martinez GLYCOHEMOGLOBIN A1Con 2021 ADA RECOMMENDATION SEE BELOW Normal [facility] Comment on above: Result Comment: ADA RECOMMENDED LIMIT 4.0 - 6.0 ADA THERAPEUTIC TARGET < 7.0 ACTION SUGGESTED > 7.0 Performed By: #### A 1C #### [facility] [address] [place] [address] Dr. Milind Martinez Glucose [Mass/Vol] 229 mg/dL Normal [facility] Comment on above: Performed By: #### A 1C #### [facility] [address] [place] [address] Dr. Milind Martinez HbA1c (Bld) [Mass fraction] 9.6 % Critically high 4.5-6.2 [facility] Comment on above: Performed By: #### A 1C #### [facility] [address] [place] [address] Dr. Milind Martinez PROF 14(COMP METB)on 022 Albumin [Mass/Vol] 3.1 g/dL Critically low 3.4-5.0 [facility] Comment on above: Performed By: #### C MP, TSH, T7 #### [facility] [address] [place] [address] Dr. Milind Martinez Albumin/Globulin [Mass ratio] 1.0 {ratio} Normal [facility] Comment on above: Performed By: #### C MP, TSH, T7 #### [facility] [address] [place] [address] Dr. Milind Martinez ALP [Catalytic activity/Vol] 48 U/L Normal 46-116 [facility] Comment on above: Performed By: #### C MP, TSH, T7 #### [facility] [address] [place] [address] Dr. Milind Martinez ALT [Catalytic activity/Vol] 19 U/L Normal 14-59 [facility] Comment on above: Performed By: #### C MP, TSH, T7 #### [facility] [address] [place] [address] Dr. Milind Martinez Anion gap [Moles/Vol] 12.3 mmol/L Normal [facility] Comment on above: Performed By: #### C MP, TSH, T7 #### [facility] [address] [place] [address] Dr. Milind Martinez AST [Catalytic activity/Vol] 30 U/L Normal 15-37 [facility] Comment on above: Performed By: #### C MP, TSH, T7 #### [facility] [address] [place] [address] Dr. Milind Martinez Bilirubin [Mass/Vol] 0.5 mg/dL Normal 0.2-1.0 [facility] Comment on above: Performed By: #### C MP, TSH, T7 #### [facility] [address] [place] [address] Dr. Milind Martinez Calcium [Mass/Vol] 8.9 mg/dL Normal 8.5-10.1 [facility] Comment on above: Performed By: #### C MP, TSH, T7 #### [facility] [address] [place] [address] Dr. Milind Martinez Chloride [Moles/Vol] 104 mmol/L Normal 98-107 [facility] Comment on above: Performed By: #### C MP, TSH, T7 #### [facility] [address] [place] [address] Dr. Milind Martinez CO2 [Moles/Vol] 28.2 mmol/L Normal 21.0-32.0 [facility] Comment on above: Performed By: #### C MP, TSH, T7 #### [facility] [address] [place] [address] Dr. Milind Martinez Creatinine [Mass/Vol] 1.54 mg/dL Critically high 0.55-1.02 [facility] Comment on above: Performed By: #### C MP, TSH, T7 #### [facility] [address] [place] [address] Dr. Milind Martinez EGFR-AF PANAMANIAN 39 mL/min/1.73m2 Critically low >=60 [facility] Comment on above: Performed By: #### C MP, TSH, T7 #### [facility] [address] [place] [address] Dr. Milind Martinez EGFR-NON AF PANAMANIAN 32 mL/min/1.73m2 Critically low >=60 [facility] Comment on above: Performed By: #### C MP, TSH, T7 #### [facility] [address] [place] [address] Dr. Milind Martinez Globulin (S) [Mass/Vol] 3.2 g/dL Normal [facility] Comment on above: Performed By: #### C MP, TSH, T7 #### [facility] [address] [place] [address] Dr. Milind Martinez Glucose [Mass/Vol] 180 mg/dL Critically high 74-106 [facility] Comment on above: Performed By: #### C MP, TSH, T7 #### [facility] [address] [place] [address] Dr. Milind Martinez Potassium [Moles/Vol] 4.5 mmol/L Normal 3.5-5.1 [facility] Comment on above: Performed By: #### C MP, TSH, T7 #### [facility] [address] [place] [address] Dr. Milind Martinez Protein [Mass/Vol] 6.3 g/dL Critically low 6.4-8.2 Th [facility] Comment on above: Performed By: #### C MP, TSH, T7 #### [facility] [address] [place] [address] Dr. Milind Martinez Sodium [Moles/Vol] 140 mmol/L Normal 136-145 [facility] Comment on above: Performed By: #### C MP, TSH, T7 #### [facility] [address] [place] [address] Dr. Milind Martinez Urea nitrogen [Mass/Vol] 46.0 mg/dL Critically high 7.0-18.0 [facility] Comment on above: Performed By: #### C MP, TSH, T7 #### [facility] [address] [place] [address] Dr. Milind Martinez Urea nitrogen/Creatinine [Mass ratio] 29.9 mg/mg Normal [facility] Comment on above: Performed By: #### C MP, TSH, T7 #### [facility] [address] [place] [address] Dr. Milind Martinez TSHon 08-01-2022 TSH 12.769 uIU/mL Critically high 0.358-3.740 [facility] Comment on above: Performed By: #### C MP, TSH, T7 #### [facility] [address] [place] [address] Dr. Milind Martinez INSULINon 04-03-2022 Insulin 2.5 uIU/mL Critically low 2.6-24.9 [facility] Comment on above: Performed By: #### C MP, TSH, T7 #### [facility] [address] [place] [address] Dr. Milind Martinez T4, T3U, FTI LABCOR[facility]on 04-03 Free Thyroxine Index 1.8 Normal 1.2-4.9 [facility] Comment on above: Performed By: #### T HYLC #### [facility] [address] [place] [address] Dr. Milind Martinez T3 Uptake 26 % Normal 24-39 [facility] Comment on above: Performed By: #### T HYLC #### [facility] [address] [place] [address] Dr. Milind Martinez T4 [Mass/Vol] 7.1 ug/dL Normal 4.5-12.0 [facility] Comment on above: Performed By: #### T HYLC #### [facility] [address] [place] [address] Dr. Milind Martinez CBC AUTO DIFFon 04-02-2022 BASO # 0.0 103/ul Normal 0.0-0.1 [facility] Comment on above: Performed By: #### C BC #### [facility] [address] [place] [address] Dr. Milind Martinez Basophils/100 WBC (Bld) 0.9 % Normal 0.2-2.0 [facility] Comment on above: Performed By: #### C BC #### [facility] [address] [place] [address] Dr. Milind Martinez EO # 0.2 103/ul Normal 0.0-0.7 [facility] Comment on above: Performed By: #### C BC #### [facility] [address] [place] [address] Dr. Milind Martinez Eosinophils/100 WBC (Bld) 5.3 % Normal 0.9-7.0 [facility] Comment on above: Performed By: #### C BC #### [facility] [address] [place] [address] Dr. Milind Martinez Erythrocyte distribution width (RBC) [Ratio] 13.2 % Normal 11.0-15.0 [facility] Comment on above: Performed By: #### C BC #### [facility] [address] [place] [address] Dr. Milind Martinez Hematocrit (Bld) [Volume fraction] 37.1 % Normal 36.0-48.0 [facility] Comment on above: Performed By: #### C BC #### [facility] [address] [place] [address] Dr. Milind Martinez Hemoglobin (Bld) [Mass/Vol] 12.0 g/dL Normal 12.0-16.0 [facility] Comment on above: Performed By: #### C BC #### [facility] [address] [place] [address] Dr. Milind Martinez IG # 0.01 10e3/ul Normal 0.00-0.03 [facility] Comment on above: Performed By: #### C BC #### [facility] [address] [place] [address] Dr. Milind Martinez IG % 0.2 % Normal 0.0-0.5 [facility] Comment on above: Performed By: #### C BC #### [facility] [address] [place] [address] Dr. Milind Martinez LYMPH # 1.8 103/ul Normal 1.2-3.8 [facility] Comment on above: Performed By: #### C BC #### [facility] [address] [place] [address] Dr. Milind Martinez Lymphocytes/100 WBC (Bld) 41.9 % Normal 20.5-60.0 [facility] Comment on above: Performed By: #### C BC #### [facility] [address] [place] [address] Dr. Milind Martinez MANUAL DIFF REQ NO Normal [facility] Comment on above: Performed By: #### C BC #### [facility] [address] [address] [address] Milind Martinez MCH (RBC) [Entitic mass] 31.2 pg Normal 26.7-34.0 [facility] Comment on above: Performed By: #### C BC #### [facility] [address] [place] [address] Dr. Milind Martinez MCHC (RBC) [Mass/Vol] 32.3 g/dL Normal 29.9-35.2 [facility] Comment on above: Performed By: #### C BC #### [facility] [address] [place] [address] Dr. Milind Martinez MCV (RBC) [Entitic vol] 96.4 fL Normal 81.0-99.0 [facility] Comment on above: Performed By: #### C BC #### [facility] [address] [place] [address] Dr. Milind Martinez MONO # 0.3 103/ul Normal 0.3-0.8 [facility] Comment on above: Performed By: #### C BC #### [facility] [address] [place] [address] Dr. Milind Martinez Monocytes/100 WBC (Bld) 5.8 % Normal 1.7-12.0 [facility] Comment on above: Performed By: #### C BC #### [facility] [address] [place] [address] Dr. Milind Martinez NEUT # 2.0 103/ul Normal 1.4-6.5 [facility] Comment on above: Performed By: #### C BC #### [facility] [address] [place] [address] Dr. Milind Martinez Neutrophils/100 WBC (Bld) 45.9 % Normal 43.0-75.0 [facility] Comment on above: Performed By: #### C BC #### [facility] [address] [place] [address] Dr. Milind Martinez Platelet mean volume (Bld) [Entitic vol] 11.8 fL Normal 9.5-13.5 [facility] Comment on above: Performed By: #### C BC #### [facility] [address] [address] [address] Milind Martinez PLT 159 103/ul Normal 150-450 [facility] Comment on above: Performed By: #### C BC #### [facility] [address] [address] [address] Milind Martinez RBC 3.85 106/ul Critically low 4.20-5.40 [facility] Comment on above: Performed By: #### C BC #### [facility] [address] [address] [address] Milind Martinez WBC 4.3 103/ul Normal 4.0-11.0 [facility] Comment on above: Performed By: #### C BC #### [facility] [address] [address] [address] Milind Martinez GLYCOHEMOGLOBIN A1Con 2021 ADA RECOMMENDATION SEE BELOW Normal [facility] Comment on above: Result Comment: ADA RECOMMENDED LIMIT 4.0 - 6.0 ADA THERAPEUTIC TARGET < 7.0 ACTION SUGGESTED > 7.0 Performed By: #### A 1C #### [facility] [address] [address] [address] Milind Martinez Glucose [Mass/Vol] 214 mg/dL Normal [facility] Comment on above: Performed By: #### A 1C #### [facility] [address] [address] [address] Milind Martinez HbA1c (Bld) [Mass fraction] 9.1 % Critically high 4.5-6.2 [facility] Comment on above: Performed By: #### A 1C #### [facility] [address] [address] [address] Milind Martinez IRONon 04-02-2022 Iron [Mass/Vol] 126.0 ug/dL Normal 50.0-170.0 [facility] Comment on above: Performed By: #### C MP, TSH, T7 #### [facility] [address] [address] [address] Milind Martinez LIPID PROFILEon 04-02-2022 CHOL-HDL RATIO NORM SEE BELOW Normal [facility] Comment on above: Result Comment: 3.3 - 4.4 LOW RISK 4.4 - 7.1 AVERAGE RISK 7.1 - 11.0 MODERATE RISK >11.0 HIGH RISK Performed By: #### C MP, TSH, T7 #### [facility] [address] [address] [address] Milind Martinez Cholesterol [Mass/Vol] 133 mg/dL Normal <=200 [facility] Comment on above: Performed By: #### C MP, TSH, T7 #### [facility] [address] [address] [address] Milind Martinez Cholesterol in HDL [Mass/Vol] 20 mg/dL Critically low 40-60 [facility] Comment on above: Performed By: #### C MP, TSH, T7 #### [facility] [address] [address] [address] Milind Martinez Cholesterol in LDL [Mass/Vol] 69.6 mg/dL Normal [facility] Comment on above: Performed By: #### C MP, TSH, T7 #### [facility] [address] [address] [address] Milind Martinez Cholesterol.total/Ch olesterol in HDL [Mass ratio] 6.7 {ratio} Normal [facility] Comment on above: Performed By: #### C MP, TSH, T7 #### [facility] [address] [address] [address] Milind Martinez HDL NORMAL > or = 60 mg/dl - LOW CARDIOVASCULAR RISK <40 mg/dl - HIGH CARDIOVASCULAR RISK Normal [facility] Comment on above: Performed By: #### C MP, TSH, T7 #### [facility] [address] [address] [address] Milind Martinez LDL CALC NORMAL SEE BELOW Normal [facility] Comment on above: Result Comment: <100 mg/dl OPTIMAL 100 - 129 mg/dl NEAR OR ABOVE OPTIMAL 130 - 159 mg/dl BORDERLINE HIGH 160 - 189 mg/dl HIGH >190 mg/dl VERY HIGH Performed By: #### C MP, TSH, T7 #### [facility] [address] [address] [address] Milind Martinez Triglyceride [Mass/Vol] 217 mg/dL Critically high <=150 [facility] Comment on above: Performed By: #### C MP, TSH, T7 #### [facility] [address] [place] [address] Dr. Milind Martinez VLDL CALC 43.4 mg/dL Normal [facility] Comment on above: Performed By: #### C MP, TSH, T7 #### [facility] [address] [place] [address] Dr. Milind Martinez PROF 14(COMP METB)on 022 Albumin [Mass/Vol] 3.3 g/dL Critically low 3.4-5.0 Th [facility] Comment on above: Performed By: #### C MP, TSH, T7 #### [facility] [address] [place] [address] Dr. Milind Martinez Albumin/Globulin [Mass ratio] 1.2 {ratio} Normal [facility] Comment on above: Performed By: #### C MP, TSH, T7 #### [facility] [address] [place] [address] Dr. Milind Martinez ALP [Catalytic activity/Vol] 43 U/L Critically low 46-116 [facility] Comment on above: Performed By: #### C MP, TSH, T7 #### [facility] [address] [place] [address] Dr. Milind Martinez ALT [Catalytic activity/Vol] 24 U/L Normal 14-59 [facility] Comment on above: Performed By: #### C MP, TSH, T7 #### [facility] [address] [place] [address] Dr. Milind Martinez Anion gap [Moles/Vol] 11.4 mmol/L Normal [facility] Comment on above: Performed By: #### C MP, TSH, T7 #### [facility] [address] [place] [address] Dr. Milind Martinez AST [Catalytic activity/Vol] 24 U/L Normal 15-37 [facility] Comment on above: Performed By: #### C MP, TSH, T7 #### [facility] [address] [address] [address] Milind Martinez Bilirubin [Mass/Vol] 0.4 mg/dL Normal 0.2-1.0 [facility] Comment on above: Performed By: #### C MP, TSH, T7 #### [facility] [address] [address] [address] Milind Martinez Calcium [Mass/Vol] 8.7 mg/dL Normal 8.5-10.1 [facility] Comment on above: Performed By: #### C MP, TSH, T7 #### [facility] [address] [address] [address] Milind Martinez Chloride [Moles/Vol] 106 mmol/L Normal 98-107 [facility] Comment on above: Performed By: #### C MP, TSH, T7 #### [facility] [address] [place] [address] Dr. Milind Martinez CO2 [Moles/Vol] 29.7 mmol/L Normal 21.0-32.0 [facility] Comment on above: Performed By: #### C MP, TSH, T7 #### [facility] [address] [address] [address] Milind Martinez Creatinine [Mass/Vol] 1.30 mg/dL Critically high 0.55-1.02 [facility] Comment on above: Performed By: #### C MP, TSH, T7 #### [facility] [address] [address] [address] Milind Martinez EGFR-AF PANAMANIAN 47 mL/min/1.73m2 Critically low >=60 [facility] Comment on above: Performed By: #### C MP, TSH, T7 #### [facility] [address] [address] [address] Milind Martinez EGFR-NON AF PANAMANIAN 39 mL/min/1.73m2 Critically low >=60 [facility] Comment on above: Performed By: #### C MP, TSH, T7 #### [facility] [address] [address] [address] Milind Martinez Globulin (S) [Mass/Vol] 2.7 g/dL Normal [facility] Comment on above: Performed By: #### C MP, TSH, T7 #### [facility] [address] [place] [address] Dr. Milind Martinez Glucose [Mass/Vol] 109 mg/dL Critically high 74-106 [facility] Comment on above: Performed By: #### C MP, TSH, T7 #### [facility] [address] [place] [address] Dr. Milind Martinez Potassium [Moles/Vol] 4.1 mmol/L Normal 3.5-5.1 [facility] Comment on above: Performed By: #### C MP, TSH, T7 #### [facility] [address] [place] [address] Dr. Milind Martinez Protein [Mass/Vol] 6.0 g/dL Critically low 6.4-8.2 Th [facility] Comment on above: Performed By: #### C MP, TSH, T7 #### [facility] [address] [place] [address] Dr. Milind Martinez Sodium [Moles/Vol] 143 mmol/L Normal 136-145 [facility] Comment on above: Performed By: #### C MP, TSH, T7 #### [facility] [address] [place] [address] Dr. Milind Martinez Urea nitrogen [Mass/Vol] 34.0 mg/dL Critically high 7.0-18.0 [facility] Comment on above: Performed By: #### C MP, TSH, T7 #### [facility] [address] [place] [address] Dr. Milind Martinez Urea nitrogen/Creatinine [Mass ratio] 26.2 mg/mg Normal [facility] Comment on above: Performed By: #### C MP, TSH, T7 #### [facility] [address] [place] [address] Dr. Milind Martinez TSHon 04-02-2022 TSH 7.887 uIU/mL Critically high 0.358-3.740 [facility] Comment on above: Performed By: #### C MP, TSH, T7 #### [facility] [address] [address] [address] Milind Martinez US KIDNEYSon 03-23-2022 US [...] IJEOMA TIM Date: 2022-03-23 13:26 Normal [facility] MG MAMM SCREEN 3D BOGDAN CADon 03-05-2022 MG MAMM SCREEN 3D BOGDAN CAD Patient: DEJA ZAMORA Exam Date: 03/05/2022 : 1940 Gender:F Ordering : NATHAN JOVEL [facility] Admission #: [id number] Family : Order #: [id number] CLICK HERE TO VIEW EXAM RADIOLOGY REPORT [...] mult.myeloma cancer at age 68. LOCATION: [facility] BREAST COMPOSITION: Scattered areas fibroglandular density. FINDINGS: [...] M.D. on 03/05/2022 at 13:47 Normal [facility] US CAROTID ART BILon -09-2 022 US [...] by: UDAY MAJOR Date: 2021-12-25 15:42 Normal [facility] Vital Signs Date Time Vital Sign Value Performing Clinician Faci lity 12-21-2021 10:00-0400 Body height 147.32 cm Patrick Cotter Other [facility] Other 12-21-2021 10:00-0400 Body mass index (BMI) [Ratio] 27.79 kg/m2 Patrick Cotter Other [facility] Other 12-21-2021 10:00-0400 Body weight 60.33 kg Patrick Cotter Other [facility] Other 10-19-2021 12:00-0500 Body height 147.32 cm Patrick Cotter Other [facility] Other 10-19-2021 12:00-0500 Body mass index (BMI) [Ratio] 27.79 kg/m2 Patrick Cotter Other [facility] Other 10-19-2021 12:00-0500 Body weight 60.33 kg Patrick Cotter Other [facility] Other 08-22-2021 15:00-0500 Body height 147.32 cm Patrick Cotter Other [facility] Other 08-22-2021 15:00-0500 Body mass index (BMI) [Ratio] 27.79 kg/m2 Patrick Cotter Other [facility] Other 08-22-2021 15:00-0500 Body weight 60.33 kg Patrick Cotter Other [facility] Other Encounters Encounter Date Encounter Type Care Provider Facility Start: 08-29-2023 End: 08-30-2023 ambulatory JOLYNN DAO Not Available Start: 08-14-2023 End: 08-14-2023 ambulatory [facility] Start: 08-02-2023 End: 08-02-2023 ambulatory [facility] Start: 04-01-2023 End: 04-02-2023 ambulatory Danny Monroy MD [facility] Start: 03-18-2023 End: 03-19-2023 ambulatory Danny Monroy MD [facility] Start: 02-25-2023 End: 02-25-2023 ambulatory XIMENA MARTINS [facility] Start: 02-11-2023 End: 02-12-2023 ambulatory Danny Monroy MD [facility] Start: 12-05-2022 End: 12-05-2022 ambulatory [facility] Start: 09-20-2022 End: 09-21-2022 ambulatory NATHAN JOVEL Facility:[facility] Start: 09-05-2022 End: 09-05-2022 ambulatory [facility] Start: 08-01-2022 End: 08-02-2022 ambulatory NATHAN JOVEL Facility:[facility] Start: 04-02-2022 End: 04-03-2022 ambulatory NATHAN JOVEL Facility:[facility] Start: 03-23-2022 End: 03-24-[address] XIMENA MARTINS Facility:[facility] Start: 03-05-2022 End: 03-06-[address] UDAY MAJOR Facility:[facility] Start: 12-25-2021 End: 12-26-2021 ambulatory SEE DICK Facility:[facility] Start: 12-21-2021 End: 12-21-2021 ambulatory Patrick Cotter Other [facility] Other Start: 12-21-2021 Postop follow up vis it related to original px Patrick Cotter [facility] Start: 11-02-2021 ambulatory NATHAN MED Facility: Start: 10-19-2021 End: 10-19-2021 ambulatory Patrick Cotter Other [facility] Other Start: 10-19-2021 Postop follow up vis it related to original px Patrick Cotter [facility] Start: 09-18-2021 Admission to [facility] Patrick Cotter [facility] Start: 09-18-2021 End: 09-19-2021 ambulatory Patrick Cotter [facility] [employer] Other Start: 08-29-2021 End: 08-29-2021 ambulatory Patrick Cotter Other [facility] Other Start: 08-29-2021 Telephone encounter Patrick Cotter [facility] Start: 08-22-2021 End: 08-22-2021 ambulatory Patrick Cotter Other [facility] Other Start: 08-22-2021 Office outpatient visit 40 minutes Patrick Cotter [facility] Start: 09-24-2017 End: 09-25-2017 Ambulatory DEFAULT PHYSICIAN Facility:[facility] Payers Date Payer Category Payer Unknown 2021 Self-pay 2003 Medicare 1959 Medicare [id number] 2.1 [id number] 1959 Self-pay [id number] 1959 Unknown [id number] 2.1 [id number] 1940 Unknown [id number] 2.16.84 [id number] 1940 Unknown [id number] 2.16.84 [id number] 1940 Unknown [id number] 2.16.84 [id number] 1940 Unknown [id number] 2.16.84 [id number] 1940 Unknown [id number] 2.16.84 [id number] 1940 Unknown [id number] 2.16.84 [id number] 1940 Unknown [id number] 2.16.84 [id number] 1940 Unknown [id number] 2.16. [id number] 1940 Unknown [id number] 2.16. [id number] 1940 Unknown [id number] 2.16. [id number] 1940 Unknown [id number] 2.16.84 [id number] Unknown [id number] 2.16.8 [id number] Social History Date Type Detail Facility Sex Assigned At [facility] Other Clinical Notes 08-22-2021 to 08-14-2023 Note Date & Type Note Facility 08-14-2023 Note Hypertension is well controlled at home, continue all meds Metoprolol 25 mg bid, cardura 8 mg, clonidine 0.2 mg bid, and norvasc 5 mg. [facility] 08-14-2023 Note Currently stable wit hout worsening symptoms [facility] 08-14-2023 Note Patient here for 2 w soboba follow up hypertension. Clonidine was increased to [...] All other systems reviewed and are negative. [facility] 08-14-2023 Note [facility] C[facility] PROGR ESS NOTE [...] m??? Allergies Allergen Reactions Gemfibrozil Penicillins Unknown Rnqtvto-Oeg-Jjq Reductase Inhibitors Unknown Triamterene-Hydrochlorothiazid Medications: Current Outpatient [...] Testin04/18/23 TTE 5 (more content not included)... [facility] 08-02-2023 Note Stable so far, will monitor with increased clonidine for uncontrolled HTN [facility] 08-02-2023 Note Stable without any worsening sym ptoms [facility] 08-02-2023 Note Hypertension is Curr ently uncontrolled, [...] once or twice every 2 to 3-weeks [facility] 08-02-2023 Note [facility] CARDIOLOGY PROGR ESS NOTE [...] at target sometimes. She was admitted to [facility] in Mar 2023 for e.coli [...] m??? Allergies Allergen Reactions Gemfibrozil Penicillins Unknown Vszkdnl-Wbk-Nde Reductase Inhibitors Unknown Triamterene-Hydrochlorothiazid Medications: Current Outpatient [...] values have be (more content not included)... [facility] 08-02-2023 Note Patient here c/o hyp ertension. [...] at target sometimes. She was admitted to [facility] in Mar 2023 for e.coli [...] All other systems reviewed and are negative. [facility] 02-25-2023 Note [facility] Subjective Deja Zamora is a [...] Allergies Allergies Allergen Reactions Gemfibrozil Penicillins Unknown Oruaygk-Nlz-Vsa Reductase Inhibitors Unknown Triamterene-Hydrochlorothiazid Medications Current Outpatient [...] Disp: , Rfl: (more content not included)... [facility] 12-05-2022 Note Reviewed lipids 04/02- well controlled Chol 133, Trig 217, HDL 20, LDL 69.6 [facility] 12-05-2022 Note Currently stable- no concerning symptoms [facility] 12-05-2022 Note Stable, voiced no concerns [facility] 12-05-2022 Note Continue fenofibrate, zetia and ASA [facility] 12-05-2022 Note Hypertension is much improved and well controlled at home per B/P log Continue all medications. [facility] 12-05-2022 Note Review of Systems Constitutional: Negative [...] currently, due to her son having cancer. [facility] 12-05-2022 Note [facility] CARDIOLOGY PROGR ESS NOTE [...] m??? Allergies Allergen Reactions Gemfibrozil Penicillins Unknown Qprhkgr-Umw-Rxy Reductase Inhibitors Unknown Triamterene-Hydrochlorothiazid Medications: Current Outpatient [...] normal. Labs: 08/01/22 (more content not included)... [facility] 09-05-2022 Note Hypertension is much better controlled at home after review of b/p log. Continue amlodipine 5mg daily, clonidine 0.1mg, cardura 8mg, lasix, hydrochlorothiazide 25mg, metoprolol 75 mg bid, and aldactone 12.5mg [facility] 09-05-2022 Note [facility] CARDIOLOGY PROGR ESS NOTE [...] m??? Allergies Allergen Reactions Gemfibrozil Penicillins Unknown Fvikzmc-Mxw-Bys Reductase Inhibitors Unknown Triamterene-Hydrochlorothiazid Medications: Current Outpatient [...] Thought content normal. (more content not included)... [facility] 09-05-2022 Note Patient here for 2 m [...] All other systems reviewed and are negative. 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 I have encouraged her to continue to build up her endurance by walking. I will see her again in 2 months for final postop visit. 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 [facility] Other evaluation noteNo InformationNort [employer] Other History general Narrative - Reported* Type Description Date Medical History Diabetes Medical History Hyperlipidemia Medical History Pulmonary HPN Medical History Osteoporosis Surgical History R knee Sx Surgical History L Hand Hospitalization History HTN 08/2018 [facility] Other Summary Purpose Family History No Family [...] Arthropathy of left hip (M16.12) Referral Organization [facility] Referring Provider First Name Patrick Referring Provider Last Name Cyndee Referring Provider Specialty Neurologica l Surgery Referred Organization [facility] Referred Provider Ximena Vela Jr Referred Address ,[place],[address] Referred Provider Specialty Orthopedic S urgery Referral Priority Routine General Notes Val Slater 022 10:56:23 AM >Received today. This referral was sent P2P and will wait a week and call them back to see if she was scheduled. They do their own scheduling Additional Source Comments INFORMATION SOURCE (unrecogn ized section and content) DATE CREATED AUTHOR 02/10/[address] [facility] DATE CREATED AUTHOR AUTHOR'S ORGANIZ ATION 09/22/2022 [facility] DATE CREATED AUTHOR AUTHOR'S ORGANIZ ATION 09/23/2022 [facility] DATE CREATED AUTHOR AUTHOR'S ORGANIZ ATION 04/11/2023 [facility] DATE CREATED AUTHOR AUTHOR'S ORGANIZ ATION 08/16/2023 [facility] DATE CREATED AUTHOR AUTHOR'S ORGANIZ ATION 09/02/2023 [facility] EPIC REASON FOR VISIT [...] BE BASED ON THE PRIMARY CLINICAL RECORDS. [employer] provides no warranty or guarantee of the accuracy or completeness of information in this document.
== END 2023-10-21 13:24 | disposition home or self-care (01) ==
LOC: PST 13:23
PROVIDERS: PCP Nurse Practitioner Family; Visit Provider Ophthalmology
DX: Z01.818 Encounter for other preprocedural examination (principal); H25.811 Combined forms of age-related cataract, right eye

== ENCOUNTER 2023-10-24 06:04 | Day surgery (SDC) | payer MEDICARE, SELFPAY ==
--- NOTE | 2023-10-23 | HP_ITS ---
Date: 10/23/2023 HISTORY: Patient is an 83-year-old white female with complaints of declining vision gradually for the left eye. Onset has been over the last two years in a constant fashion. This has effected distance as well as near vision. She states having difficulty at night time while driving because of headlights creating glare and halos. PAST OCULAR HISTORY / PAST MEDICAL HISTORY / SOCIAL HISTORY / MEDICATIONS / ALLERGIES TO MEDICATIONS / REVIEW OF SYSTEMS / PHYSICAL EXAMINATION: Unchanged from previously dictated. ASSESSMENT AND PLAN: Visually significant cataract, left eye. After all risks, expectations, benefits were reviewed with the patient, she elected to go forward with cataract removal. She understands the risks include but not limited to infection, bleeding, loss of vision or loss of the eye itself. Secondly, she understands that postoperatively she is likely to require spectacle correction for her best visual acuity. Finally, a complete ophthalmic exam was performed and there was not determined to be any other source of vision decline other than that of cataract. After understanding all risks as well as expectations as listed above, she elected to go forward with the procedure as listed above and will be doing so in the near future. SHO
--- NOTE | 2023-10-24 | OP_ITS ---
OPERATION DATE: 10/24/2023 SURGEON: Miguel Rutledge M.D. PREOPERATIVE DIAGNOSIS: Nuclear sclerotic cataract right eye. POSTOPERATIVE DIAGNOSIS: Nuclear sclerotic cataract right eye. PROCEDURE NAME: Cataract extraction with intraocular lens placement of the right eye. ANESTHESIA: Topical ESTIMATED BLOOD LOSS: Zero. COMPLICATIONS: None. PROCEDURE: The patient was brought to the Operating Room in supine position. After proper identification, the right eye was prepped and draped in a sterile ophthalmic fashion. A paracentesis was created at the 11 o'clock position. Approximately 1 cc of unpreserved Xylocaine was injected into the anterior chamber followed by Amvisc Plus. Using a 2.6 mm Keratome blade, a clear corneal incision was created at the 9 o'clock limbus. The cystotome was then used to begin a curvilinear capsulorrhexis that was continued for 360 degrees with the Utrata forceps. BSS on a 26 gauge cannula was injected beneath the anterior capsule to hydrodissect as well as hydrodelineate the lens. After ensuring mobility, phacoemulsification was performed in a jjzposw-rjl-cgrdzw-type fashion. After all nuclear material had been removed from the eye, IA was introduced and all residual cortical material was cleaned up. Additional Amvisc Plus was injected into the posterior bag and a lens model MX60, 24.5 diopters was injected and dialed into position. After ensuring centration, IA was reintroduced into the anterior chamber and all residual Amvisc Plus was removed from the eye. BSS on a 30 gauge cannula was injected into the stroma of both the clear corneal incision as well as paracentesis to hydrate the wounds. Additional BSS was injected into the anterior chamber to pressurize the eye at approximately 20 to 22 mmHg by finger tension. 0.1 cc of antibiotic was injected into the anterior chamber and Weck-Sushma sponges were used to check the wounds to be watertight. One drop of apraclonidine and one drop of prednisolone acetate placed into the eye and a shield was placed over top. The patient was sent to the postoperative area in satisfactory condition to follow up the following day for postoperative care. SHO
--- OUTSIDE RECORDS SUMMARY | 2023-10-24 06:06 | XMS_ITS | CCD ---
Author Name Unknown Address [address] [facility] [place] [address] Organization [facility] Care Team Providers Care Humanities Division Chair Name Role Phone PHYSICIAN, DEFAULT Unavailable Unavailable [...] Hmg-Coa Reductase Inhibitors (Statins) Drug allergy Unknown [facility] BERD Other (5 sources) Penicillin Drug Allergy Unknown [facility] BERD Other (2 sources) Penicillins; Translations: [PENICILLINS] Drug allergy (disorder) [facility] Repository (1 source) Dlwhwkc-FBU-JsM Reductase Inhibitor Drug allergy (disorder) 022 [facility] Repository (2 sources) black walnut pollen extract; Translations: [HCBXNQF-VCZ-BXO REDUCTASE INHIBITORS] Drug Allergy 017 [facility] Repository (1 source) Dextroamphetamine Drug Allergy [facility] Repository (1 source) Gemfibrozil Drug Allergy [facility] Repository (1 source) hydroCHLOROthiazide / Triamterene Drug Allergy [facility] Repository (1 source) Penicillin Drug Allergy [facility] Repository (1 source) rosuvastatin Drug Allergy [facility] Repository (1 source) Gemfibrozil; Translations: [GEMFIBROZIL] Drug Allergy [facility] Repository (1 source) TRIAMTERENE-HYDROCHLOR OTHIAZID; Translations: [TRIAMTERENE-HYDROCHLO ROTHIAZID] Propensity to adverse reactions to drug (disorder) [facility] Repository Medications Current Medications Medication Drug [...] (5 sources) Multivitamin Adults - Orally Active Century 3 1000 MG (5 sources) take 1 capsule by mouth once daily Century 3 1000 MG 1 capsule Orally Once [...] [facility] Office Visiton 08-14-2023 Follow-up visit [id number] Deja Zamora 1940 F Date Provider Department Center 08/14/2023 SEE BOATENG Family History Problem Relation Age of Onset Coronary artery disease Father Family Status - Relation Status Age at Father Level of Service:74791 [place] OFFICE/OUTPATIENT ESTABLISHED MOD MDM 30 MIN Normal [facility] Office Visiton 08-02-2023 Follow-up visit [id number] Deja Zamora 1940 F Date Provider Department Center 08/02/2023 120-MAYELIN, SEE BH [facility] Family History Problem Relation Age of Onset Coronary artery disease Father Family Status - Relation Status Age at Father Level of Service:07338 [place] OFFICE/OUTPATIENT ESTABLISHED MOD MDM 30-39 MIN Normal [facility] Office Visiton 02-25-2023 Follow-up visit [id number] Deja Zamora 1940 F Date Provider Department Center 02/25/2023 XIMENA LIZ CARD [facility] Family History Problem Relation Age of Onset Coronary artery disease Father Family Status - Relation Status Age at Father Level of Service:49940 [place] OFFICE/OUTPATIENT ESTABLISHED MOD MDM 30-39 MIN Normal [facility] 29on 12-05-2022 29 Addended by: [place] on: 12/05/2022 04:05 PM Modules accepted: Orders Normal [facility] Office Visiton 12-05-2022 Follow-up visit [id number] Deja Zamora 1940 F Date Provider Department Center 12/05/2022 Gayla-SEE DICK CARD [facility] Family History Problem Relation Age of Onset Coronary artery disease Father Family Status - Relation Status Age at Father Level of Service:60597 [place] OFFICE/OUTPATIENT ESTABLISHED MOD MDM 30-39 MIN Reason for Visit and Comments: Follow-up [710101] - 3 month Chest Pain [988511] - Yesterday had a little bit of pain in my heart that lasted about a minute. BP monitor showed irregular heartbeat. Stress [103] - Under stress currently, due to son having Stage IV Lung Cancer. Normal [facility] FREE THYROXINE INDEX T7on FTI 2.59 Normal 1.30-4.50 [facility] Comment on above: Performed By: #### C MP, TSH, T7 #### [facility] [address] [address] [address] Milind Martinez T3U 37.0 % Normal 30.0-39.0 [facility] Comment on above: Performed By: #### C MP, TSH, T7 #### [facility] [address] [address] [address] Milind Martinez T4 [Mass/Vol] 7.00 ug/dL Normal 4.80-13.90 [facility] Comment on above: Performed By: #### C MP, TSH, T7 #### [facility] [address] [address] [address] Milind Martinez TSHon 09-20-2022 TSH 5.715 uIU/mL Critically high 0.358-3.740 [facility] Comment on above: Performed By: #### C MP, TSH, T7 #### [facility] [address] [address] [address] Milind Martinez Office Visiton 09-05-2022 Follow-up visit [id number] Deja Zamora 1940 F Date Provider Department Center 09/05/2022 SEE BOATENG [facility] Family History Problem Relation Age of Onset Coronary artery disease Father Family Status - Relation Status Age at Father Level of Service:08113 [place] OFFICE/OUTPATIENT ESTABLISHED LOW MDM 20-29 MIN Reason for Visit and Comments: Hypertension [049495] Normal [facility] FREE THYROXINE INDEX T7on FTI 2.56 Normal 1.30-4.50 [facility] Comment on above: Performed By: #### C MP, TSH, T7 #### [facility] [address] [place] [address] Dr. Milind Martinez T3U 35.0 % Normal 30.0-39.0 [facility] Comment on above: Performed By: #### C MP, TSH, T7 #### [facility] [address] [place] [address] Dr. Milind Martinez T4 [Mass/Vol] 7.30 ug/dL Normal 4.80-13.90 [facility] Comment on above: Performed By: #### C MP, TSH, T7 #### [facility] [address] [place] [address] Dr. Milind Martinez GLYCOHEMOGLOBIN A1Con 2021 ADA RECOMMENDATION SEE BELOW Normal [facility] Comment on above: Result Comment: ADA RECOMMENDED LIMIT 4.0 - 6.0 ADA THERAPEUTIC TARGET < 7.0 ACTION SUGGESTED > 7.0 Performed By: #### A 1C #### [facility] [address] [place] [address] Dr. Milind Martinez Glucose [Mass/Vol] 229 mg/dL Normal [facility] Comment on above: Performed By: #### A 1C #### [facility] [address] [place] [address] Dr. Milind Martinez HbA1c (Bld) [Mass fraction] 9.6 % Critically high 4.5-6.2 [facility] Comment on above: Performed By: #### A 1C #### [facility] [address] [place] [address] Dr. Milind Martinez PROF 14(COMP METB)on 022 Albumin [Mass/Vol] 3.1 g/dL Critically low 3.4-5.0 [facility] Comment on above: Performed By: #### C MP, TSH, T7 #### [facility] [address] [place] [address] Dr. Milind Martinez Albumin/Globulin [Mass ratio] 1.0 {ratio} Normal [facility] Comment on above: Performed By: #### C MP, TSH, T7 #### [facility] [address] [place] [address] Dr. Milind Martinez ALP [Catalytic activity/Vol] 48 U/L Normal 46-116 [facility] Comment on above: Performed By: #### C MP, TSH, T7 #### [facility] [address] [place] [address] Dr. Milind Martinez ALT [Catalytic activity/Vol] 19 U/L Normal 14-59 [facility] Comment on above: Performed By: #### C MP, TSH, T7 #### [facility] [address] [place] [address] Dr. Milind Martinez Anion gap [Moles/Vol] 12.3 mmol/L Normal [facility] Comment on above: Performed By: #### C MP, TSH, T7 #### [facility] [address] [place] [address] Dr. Milind Martinez AST [Catalytic activity/Vol] 30 U/L Normal 15-37 [facility] Comment on above: Performed By: #### C MP, TSH, T7 #### [facility] [address] [place] [address] Dr. Milind Martinez Bilirubin [Mass/Vol] 0.5 mg/dL Normal 0.2-1.0 [facility] Comment on above: Performed By: #### C MP, TSH, T7 #### [facility] [address] [place] [address] Dr. Milind Martinez Calcium [Mass/Vol] 8.9 mg/dL Normal 8.5-10.1 [facility] Comment on above: Performed By: #### C MP, TSH, T7 #### [facility] [address] [place] [address] Dr. Milind Martinez Chloride [Moles/Vol] 104 mmol/L Normal 98-107 [facility] Comment on above: Performed By: #### C MP, TSH, T7 #### [facility] [address] [place] [address] Dr. Milind Martinez CO2 [Moles/Vol] 28.2 mmol/L Normal 21.0-32.0 [facility] Comment on above: Performed By: #### C MP, TSH, T7 #### [facility] [address] [place] [address] Dr. Milind Martinez Creatinine [Mass/Vol] 1.54 mg/dL Critically high 0.55-1.02 [facility] Comment on above: Performed By: #### C MP, TSH, T7 #### [facility] [address] [place] [address] Dr. Milind Martinez EGFR-AF [facility] LUCIAN 39 mL/min/1.73m2 Critically low >=60 [facility] Comment on above: Performed By: #### C MP, TSH, T7 #### [facility] [address] [place] [address] Dr. Milind Martinez EGFR-NON AF [facility] LUCIAN 32 mL/min/1.73m2 Critically low >=60 [facility] Comment on above: Performed By: #### C MP, TSH, T7 #### [facility] [address] [place] [address] Dr. Milind Martinez Globulin (S) [Mass/Vol] 3.2 g/dL Normal [facility] Comment on above: Performed By: #### C MP, TSH, T7 #### [facility] [address] [place] [address] Dr. Milind Martinez Glucose [Mass/Vol] 180 mg/dL Critically high 74-106 T [facility] Comment on above: Performed By: #### C MP, TSH, T7 #### [facility] [address] [place] [address] Dr. Milind Martinez Potassium [Moles/Vol] 4.5 mmol/L Normal 3.5-5.1 [facility] Comment on above: Performed By: #### C MP, TSH, T7 #### [facility] [address] [place] [address] Dr. Milind Martinez Protein [Mass/Vol] 6.3 g/dL Critically low 6.4-8.2 Th [facility] Comment on above: Performed By: #### C MP, TSH, T7 #### [facility] [address] [place] [address] Dr. Milind Martinez Sodium [Moles/Vol] 140 mmol/L Normal 136-145 [facility] Comment on above: Performed By: #### C MP, TSH, T7 #### [facility] [address] [place] [address] Dr. Milind Martinez Urea nitrogen [Mass/Vol] 46.0 mg/dL Critically high 7.0-18.0 [facility] Comment on above: Performed By: #### C MP, TSH, T7 #### [facility] [address] [place] [address] Dr. Milind Martinez Urea nitrogen/Creatinine [Mass ratio] 29.9 mg/mg Normal [facility] Comment on above: Performed By: #### C MP, TSH, T7 #### [facility] [address] [place] [address] Dr. Milind Martinez TSHon 08-01-2022 TSH 12.769 uIU/mL Critically high 0.358-3.740 [facility] Comment on above: Performed By: #### C MP, TSH, T7 #### [facility] [address] [place] [address] Dr. Milind Martinez INSULINon 04-03-2022 Insulin 2.5 uIU/mL Critically low 2.6-24.9 [facility] Comment on above: Performed By: #### C MP, TSH, T7 #### [facility] [address] [place] [address] Dr. Milind Martinez T4, T3U, FTI LABCORPon 04-03 Free Thyroxine Index 1.8 Normal 1.2-4.9 [facility] Comment on above: Performed By: #### T HYLC #### [facility] [address] [place] [address] Dr. Milind Martinez T3 Uptake 26 % Normal 24-39 [facility] Comment on above: Performed By: #### T HYLC #### [facility] [address] [place] [address] Dr. Milind Martinez T4 [Mass/Vol] 7.1 ug/dL Normal 4.5-12.0 [facility] Comment on above: Performed By: #### T HYLC #### [facility] [address] [place] [address] Dr. Milind Martinez CBC AUTO DIFFon 04-02-2022 BASO # 0.0 103/ul Normal 0.0-0.1 [facility] Comment on above: Performed By: #### C BC #### [facility] [address] [place] [address] Dr. Milind Martinez Basophils/100 WBC (Bld) 0.9 % Normal 0.2-2.0 [facility] Comment on above: Performed By: #### C BC #### [facility] [address] [place] [address] Dr. Milind Martinez EO # 0.2 103/ul Normal 0.0-0.7 [facility] Comment on above: Performed By: #### C BC #### [facility] [address] [place] [address] Dr. Milind Martinez Eosinophils/100 WBC (Bld) 5.3 % Normal 0.9-7.0 [facility] Comment on above: Performed By: #### C BC #### [facility] [address] [place] [address] Dr. Milind Martinez Erythrocyte distribution width (RBC) [Ratio] 13.2 % Normal 11.0-15.0 [facility] Comment on above: Performed By: #### C BC #### [facility] [address] [place] [address] Dr. Milind Martinez Hematocrit (Bld) [Volume fraction] 37.1 % Normal 36.0-48.0 [facility] Comment on above: Performed By: #### C BC #### [facility] [address] [place] [address] Dr. Milind Martinez Hemoglobin (Bld) [Mass/Vol] 12.0 g/dL Normal 12.0-16.0 [facility] Comment on above: Performed By: #### C BC #### [facility] [address] [place] [address] Dr. Milind Martinez IG # 0.01 10e3/ul Normal 0.00-0.03 [facility] Comment on above: Performed By: #### C BC #### [facility] [address] [place] [address] Dr. Milind Martinez IG % 0.2 % Normal 0.0-0.5 [facility] Comment on above: Performed By: #### C BC #### [facility] [address] [place] [address] Dr. Milind Martinez LYMPH # 1.8 103/ul Normal 1.2-3.8 [facility] Comment on above: Performed By: #### C BC #### [facility] [address] [place] [address] Dr. Milind Martinez Lymphocytes/100 WBC (Bld) 41.9 % Normal 20.5-60.0 [facility] Comment on above: Performed By: #### C BC #### [facility] [address] [place] [address] Dr. Milind Martinez MANUAL DIFF REQ NO Normal [facility] Comment on above: Performed By: #### C BC #### [facility] [address] [address] [address] Milind Martinez MCH (RBC) [Entitic mass] 31.2 pg Normal 26.7-34.0 [facility] Comment on above: Performed By: #### C BC #### [facility] [address] [place] [address] Dr. Milind Martinez MCHC (RBC) [Mass/Vol] 32.3 g/dL Normal 29.9-35.2 [facility] Comment on above: Performed By: #### C BC #### [facility] [address] [place] [address] Dr. Milind Martinez MCV (RBC) [Entitic vol] 96.4 fL Normal 81.0-99.0 [facility] Comment on above: Performed By: #### C BC #### [facility] [address] [place] [address] Dr. Milind Martinez MONO # 0.3 103/ul Normal 0.3-0.8 [facility] Comment on above: Performed By: #### C BC #### [facility] [address] [place] [address] Dr. Milind Martinez Monocytes/100 WBC (Bld) 5.8 % Normal 1.7-12.0 [facility] Comment on above: Performed By: #### C BC #### [facility] [address] [place] [address] Dr. Milind Martinez NEUT # 2.0 103/ul Normal 1.4-6.5 [facility] Comment on above: Performed By: #### C BC #### [facility] [address] [place] [address] Dr. Milind Martinez Neutrophils/100 WBC (Bld) 45.9 % Normal 43.0-75.0 [facility] Comment on above: Performed By: #### C BC #### [facility] [address] [place] [address] Dr. Milind Martinez Platelet mean volume (Bld) [Entitic vol] 11.8 fL Normal 9.5-13.5 [facility] Comment on above: Performed By: #### C BC #### [facility] [address] [address] [address] Milind Martinez PLT 159 103/ul Normal 150-450 [facility] Comment on above: Performed By: #### C BC #### [facility] [address] [address] [address] Milind Martinez RBC 3.85 106/ul Critically low 4.20-5.40 [facility] Comment on above: Performed By: #### C BC #### [facility] [address] [address] [address] Milind Martinez WBC 4.3 103/ul Normal 4.0-11.0 [facility] Comment on above: Performed By: #### C BC #### [facility] [address] [address] [address] Milind Martinez GLYCOHEMOGLOBIN A1Con 2021 ADA RECOMMENDATION SEE BELOW Normal [facility] Comment on above: Result Comment: ADA RECOMMENDED LIMIT 4.0 - 6.0 ADA THERAPEUTIC TARGET < 7.0 ACTION SUGGESTED > 7.0 Performed By: #### A 1C #### [facility] [address] [address] [address] Milind Martinez Glucose [Mass/Vol] 214 mg/dL Normal [facility] Comment on above: Performed By: #### A 1C #### [facility] [address] [address] [address] Milind Martinez HbA1c (Bld) [Mass fraction] 9.1 % Critically high 4.5-6.2 [facility] Comment on above: Performed By: #### A 1C #### [facility] [address] [address] [address] Milind Martinez IRONon 04-02-2022 Iron [Mass/Vol] 126.0 ug/dL Normal 50.0-170.0 [facility] Comment on above: Performed By: #### C MP, TSH, T7 #### [facility] [address] [address] [address] Milind Martinez LIPID PROFILEon 04-02-2022 CHOL-HDL RATIO NORM SEE BELOW Normal [facility] Comment on above: Result Comment: 3.3 - 4.4 LOW RISK 4.4 - 7.1 AVERAGE RISK 7.1 - 11.0 MODERATE RISK >11.0 HIGH RISK Performed By: #### C MP, TSH, T7 #### [facility] [address] [address] [address] Milind Martinez Cholesterol [Mass/Vol] 133 mg/dL Normal <=200 [facility] Comment on above: Performed By: #### C MP, TSH, T7 #### [facility] [address] [address] [address] Milind Martinez Cholesterol in HDL [Mass/Vol] 20 mg/dL Critically low 40-60 [facility] Comment on above: Performed By: #### C MP, TSH, T7 #### [facility] [address] [address] [address] Milind Martinez Cholesterol in LDL [Mass/Vol] 69.6 mg/dL Normal [facility] Comment on above: Performed By: #### C MP, TSH, T7 #### [facility] [address] [address] [address] Milind Martinez Cholesterol.total/Ch olesterol in HDL [Mass ratio] 6.7 {ratio} Normal [facility] Comment on above: Performed By: #### C MP, TSH, T7 #### [facility] [address] [address] [address] Milind Martinez HDL NORMAL > or = 60 mg/dl - LOW CARDIOVASCULAR RISK <40 mg/dl - HIGH CARDIOVASCULAR RISK Normal [facility] Comment on above: Performed By: #### C MP, TSH, T7 #### [facility] [address] [address] [address] Milind Martinez LDL CALC NORMAL SEE BELOW Normal [facility] Comment on above: Result Comment: <100 mg/dl OPTIMAL 100 - 129 mg/dl NEAR OR ABOVE OPTIMAL 130 - 159 mg/dl BORDERLINE HIGH 160 - 189 mg/dl HIGH >190 mg/dl VERY HIGH Performed By: #### C MP, TSH, T7 #### [facility] [address] [address] [address] Milind Martinez Triglyceride [Mass/Vol] 217 mg/dL Critically high <=150 [facility] Comment on above: Performed By: #### C MP, TSH, T7 #### [facility] [address] [place] [address] Dr. Milind Martinez VLDL CALC 43.4 mg/dL Normal [facility] Comment on above: Performed By: #### C MP, TSH, T7 #### [facility] [address] [place] [address] Dr. Milind Martinez PROF 14(COMP METB)on 022 Albumin [Mass/Vol] 3.3 g/dL Critically low 3.4-5.0 Th [facility] Comment on above: Performed By: #### C MP, TSH, T7 #### [facility] [address] [place] [address] Dr. Milind Martinez Albumin/Globulin [Mass ratio] 1.2 {ratio} Normal [facility] Comment on above: Performed By: #### C MP, TSH, T7 #### [facility] [address] [place] [address] Dr. Milind Martinez ALP [Catalytic activity/Vol] 43 U/L Critically low 46-116 [facility] Comment on above: Performed By: #### C MP, TSH, T7 #### [facility] [facility] [address] [place] [address] Dr. Milind Martinez ALT [Catalytic activity/Vol] 24 U/L Normal 14-59 [facility] Comment on above: Performed By: #### C MP, TSH, T7 #### [facility] [address] [place] [address] Dr. Milind Martinez Anion gap [Moles/Vol] 11.4 mmol/L Normal [facility] Comment on above: Performed By: #### C MP, TSH, T7 #### [facility] [address] [place] [address] Dr. Milind Martinez AST [Catalytic activity/Vol] 24 U/L Normal 15-37 [facility] Comment on above: Performed By: #### C MP, TSH, T7 #### [facility] [address] [address] [address] Milind Martinez Bilirubin [Mass/Vol] 0.4 mg/dL Normal 0.2-1.0 [facility] Comment on above: Performed By: #### C MP, TSH, T7 #### [facility] [address] [address] [address] Milind Martinez Calcium [Mass/Vol] 8.7 mg/dL Normal 8.5-10.1 [facility] Comment on above: Performed By: #### C MP, TSH, T7 #### [facility] [address] [address] [address] Milind Martinez Chloride [Moles/Vol] 106 mmol/L Normal 98-107 [facility] Comment on above: Performed By: #### C MP, TSH, T7 #### [facility] [address] [place] [address] Dr. Milind Martinez CO2 [Moles/Vol] 29.7 mmol/L Normal 21.0-32.0 [facility] Comment on above: Performed By: #### C MP, TSH, T7 #### [facility] [address] [address] [address] Milind Martinez Creatinine [Mass/Vol] 1.30 mg/dL Critically high 0.55-1.02 [facility] Comment on above: Performed By: #### C MP, TSH, T7 #### [facility] [address] [address] [address] Milind Martinez EGFR-AF [facility] LUCIAN 47 mL/min/1.73m2 Critically low >=60 [facility] Comment on above: Performed By: #### C MP, TSH, T7 #### [facility] [address] [address] [address] Milind Martinez EGFR-NON AF [facility] LUCIAN 39 mL/min/1.73m2 Critically low >=60 [facility] Comment on above: Performed By: #### C MP, TSH, T7 #### [facility] [address] [address] [address] Milind Martinez Globulin (S) [Mass/Vol] 2.7 g/dL Normal [facility] Comment on above: Performed By: #### C MP, TSH, T7 #### [facility] [address] [place] [address] Dr. Milind Martinez Glucose [Mass/Vol] 109 mg/dL Critically high 74-106 T [facility] Comment on above: Performed By: #### C MP, TSH, T7 #### [facility] [address] [place] [address] Dr. Milind Martinez Potassium [Moles/Vol] 4.1 mmol/L Normal 3.5-5.1 [facility] Comment on above: Performed By: #### C MP, TSH, T7 #### [facility] [address] [place] [address] Dr. Milind Martinez Protein [Mass/Vol] 6.0 g/dL Critically low 6.4-8.2 Th [facility] Comment on above: Performed By: #### C MP, TSH, T7 #### [facility] [address] [place] [address] Dr. Milind Martinez Sodium [Moles/Vol] 143 mmol/L Normal 136-145 [facility] Comment on above: Performed By: #### C MP, TSH, T7 #### [facility] [address] [place] [address] Dr. Milind Martinez Urea nitrogen [Mass/Vol] 34.0 mg/dL Critically high 7.0-18.0 [facility] Comment on above: Performed By: #### C MP, TSH, T7 #### [facility] [address] [place] [address] Dr. Milind Martinez Urea nitrogen/Creatinine [Mass ratio] 26.2 mg/mg Normal [facility] Comment on above: Performed By: #### C MP, TSH, T7 #### [facility] [address] [place] [address] Dr. Milind Martinez TSHon 04-02-2022 TSH 7.887 uIU/mL Critically high 0.358-3.740 [facility] Comment on above: Performed By: #### C MP, TSH, T7 #### [facility] [address] [address] [address] Milind Martinez US KIDNEYSon 03-23-2022 US [...] The [facility] MG MAMM SCREEN 3D BOGDAN CADon 03-05-2022 MG MAMM SCREEN 3D BOGDAN CAD Patient: DEJA ZAMORA Exam Date: 03/05/2022 : 1940 Gender:F Ordering : NATHAN JOVEL [facility] Admission #: [id number] Family : Order #: [id number] CLICK HERE TO VIEW EXAM RADIOLOGY REPORT [...] The [facility] BREAST COMPOSITION: Scattered areas fibroglandular density. FINDINGS: [...] The [facility] US CAROTID ART BILon -09-2 022 US [...] MAJOR Date: 2021-12-25 15:42 Normal [facility] Vital Signs Date Time Vital Sign Value Performing Clinician Faci lity 12-21-2021 10:00-0400 Body height 147.32 cm Patrick Cotter Other [facility] Other 12-21-2021 10:00-0400 Body mass index (BMI) [Ratio] 27.79 kg/m2 Patrick Cotter Other [facility] Other 12-21-2021 10:00-0400 Body weight 60.33 kg Patrick Cotter Other [facility] Other 10-19-2021 12:00-0500 Body height 147.32 cm Patrick Cotter Other [facility] Other 10-19-2021 12:00-0500 Body mass index (BMI) [Ratio] 27.79 kg/m2 Patrick Cotter Other [facility] Other 10-19-2021 12:00-0500 Body weight 60.33 kg Patrick Cotter Other [facility] Other 08-22-2021 15:00-0500 Body height 147.32 cm Patrick Cotter Other [facility] Other 08-22-2021 15:00-0500 Body mass index (BMI) [Ratio] 27.79 kg/m2 Patrick Cotter Other [facility] Other 08-22-2021 15:00-0500 Body weight 60.33 kg Patrick Cotter Other [facility] Other Encounters Encounter Date Encounter Type Care Provider Facility Start: 08-29-2023 End: 08-30-2023 ambulatory JOLYNN DAO Not Available Start: 08-14-2023 End: 08-14-2023 ambulatory [facility] Start: 08-02-2023 End: 08-02-2023 ambulatory [facility] Start: 04-01-2023 End: 04-02-2023 ambulatory Danny Monroy MD [facility] Start: 03-18-2023 End: 03-19-2023 ambulatory Danny Monroy MD [facility] Start: 02-25-2023 End: 02-25-2023 ambulatory XIMENA MARTINS [facility] Start: 02-11-2023 End: 02-12-2023 ambulatory Danny Monroy MD [facility] Start: 12-05-2022 End: 12-05-2022 ambulatory [facility] Start: 09-20-2022 End: 09-21-2022 ambulatory NATHAN JOVEL Facility:[facility] Start: 09-05-2022 End: 09-05-2022 ambulatory [facility] Start: 08-01-2022 End: 08-02-2022 ambulatory NATHAN JOVEL Facility:[facility] Start: 04-02-2022 End: 04-03-2022 ambulatory NATHAN JOVEL Facility:[facility] Start: 03-23-2022 End: 03-24-[address] XIMENA MARTINS Facility:[facility] Start: 03-05-2022 End: 03-06-[address] UDAY MAJOR Facility:[facility] Start: 12-25-2021 End: 12-26-2021 ambulatory SEE DICK Facility:[facility] Start: 12-21-2021 End: 12-21-2021 ambulatory Patrick Cotter Other [facility] Other Start: 12-21-2021 Postop follow up vis it related to original px Patrick Cotter [facility] Start: 11-02-2021 ambulatory NATHAN MED Facility: Start: 10-19-2021 End: 10-19-2021 ambulatory Patrick Cotter Other [facility] Other Start: 10-19-2021 Postop follow up vis it related to original px Patrick Cotter [facility] Start: 09-18-[address] [facility] Patrick Cotter [facility] Start: 09-18-2021 End: 09-19-2021 ambulatory Patrick Cotter [facility] Other Start: 08-29-2021 End: 08-29-2021 ambulatory Patrick Cotter Other [facility] Other Start: 08-29-2021 Telephone encounter Patrick Cotter [facility] Start: 08-22-2021 End: 08-22-2021 ambulatory Patrick Cotter Other [facility] Other Start: 08-22-2021 Office outpatient visit 40 minutes Patrick Cotter [facility] Start: 09-24-2017 End: 09-25-2017 Ambulatory DEFAULT PHYSICIAN Facility:[facility] Payers Date Payer Category Payer Unknown 2021 Self-pay 2003 Medicare 1959 Medicare [id number] 2.1 [id number] 1959 Self-pay [id number] 1959 Unknown [id number] 2.1 [id number] 1940 Unknown [id number] 2.16.84 [id number] 1940 Unknown [id number] 2.16.84 [id number] 1940 Unknown [id number] 2.16.84 0.1.593308.3.579.2.593 1940 Unknown [id number] 2.16.84 0.1.641328.3.579.2.593 1940 Unknown [id number] 2.16.84 0.1.969766.3.579.2.593 1940 Unknown [id number] 2.16.84 0.1.667620.3.579.2.593 1938 Unknown [id number] 2.16.84 0.1.282227.3.579.2.593 1940 Unknown [id number] 2.16. 840.1.045781.3.579.2.196 1940 Unknown [id number] 2.16. [id number] 1938 Unknown [id number] 2.16. 840.1.100668.3.579.2.196 1940 Unknown [id number] 2.16.84 0.1.849729.3.579.2.1259 Unknown [id number] 2.16.8 [id number] Social History Date Type Detail Facility Sex Assigned At [facility] Other Clinical Notes 08-22-2021 to 08-14-2023 Note Date & Type Note Facility 08-14-2023 Note Hypertension is well controlled at home, continue all meds Metoprolol 25 mg bid, cardura 8 mg, clonidine 0.2 mg bid, and norvasc 5 mg. [facility] 08-14-2023 Note Currently stable wit hout worsening symptoms [facility] 08-14-2023 Note Patient here for 2 w pamunkey follow up hypertension. Clonidine was increased to [...] All other systems reviewed and are negative. [facility] 08-14-2023 Note [facility]TP CARDIOLOGY PROGR ESS [...] m??? Allergies Allergen Reactions Gemfibrozil Penicillins Unknown Bdaijgp-Ydw-Krt Reductase Inhibitors Unknown Triamterene-Hydrochlorothiazid Medications: Current Outpatient [...] Testin04/18/23 TTE 5 (more content not included)... [facility] 08-02-2023 Note Stable so far, will monitor with increased clonidine for uncontrolled HTN [facility] 08-02-2023 Note Stable without any worsening sym ptoms [facility] 08-02-2023 Note Hypertension is Curr ently [...] once or twice every 2 to 3-weeks [facility] 08-02-2023 Note UTP CARDIOLOGY PROGR ESS [...] at target sometimes. She was admitted to [facility] in Mar 2023 for e.coli and [...] m??? Allergies Allergen Reactions Gemfibrozil Penicillins Unknown Mturwtd-Ouj-Cvp Reductase Inhibitors Unknown Triamterene-Hydrochlorothiazid Medications: Current Outpatient [...] values have be (more content not included)... [facility] 08-02-2023 Note Patient here c/o hyp [...] at target sometimes. She was admitted to [facility] in Mar 2023 for e.coli and [...] All other systems reviewed and are negative. [facility] 02-25-2023 Note [place] [facility] - [facility] Subjective Deja Zamora is a [...] Allergies Allergies Allergen Reactions Gemfibrozil Penicillins Unknown Otyemde-Noc-Gzm Reductase Inhibitors Unknown Triamterene-Hydrochlorothiazid Medications Current Outpatient [...] Disp: , Rfl: (more content not included)... [facility] 12-05-2022 Note Reviewed lipids 04/02- well controlled Chol 133, Trig 217, HDL 20, LDL 69.6 [facility] 12-05-2022 Note Currently stable- no concerning symptoms [facility] 12-05-2022 Note Stable, voiced no concerns [facility] 12-05-2022 Note Continue fenofibrate, zetia and ASA [facility] 12-05-2022 Note Hypertension is much improved and well controlled at home per B/P log Continue all medications. [facility] 12-05-2022 Note Review of Systems Constitutional: [...] currently, due to her son having cancer. [facility] 12-05-2022 Note UTP CARDIOLOGY PROGR ESS [...] m??? Allergies Allergen Reactions Gemfibrozil Penicillins Unknown Maddyxs-Zdx-Srw Reductase Inhibitors Unknown Triamterene-Hydrochlorothiazid Medications: Current Outpatient [...] normal. Labs: 08/01/22 (more content not included)... [facility] 09-05-2022 Note Hypertension is much better controlled at home after review of b/p log. Continue amlodipine 5mg daily, clonidine 0.1mg, cardura 8mg, lasix, hydrochlorothiazide 25mg, metoprolol 75 mg bid, and aldactone 12.5mg [facility] 09-05-2022 Note UTP CARDIOLOGY PROGR ESS [...] m??? Allergies Allergen Reactions Gemfibrozil Penicillins Unknown Zszddma-Miz-Lkg Reductase Inhibitors Unknown Triamterene-Hydrochlorothiazid Medications: Current Outpatient [...] Thought content normal. (more content not included)... [facility] 09-05-2022 Note Patient here for 2 [...] All other systems reviewed and are negative. 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 I have encouraged her to continue to build up her endurance by walking. I will see her again in 2 months for final postop visit. 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 [facility] Other evaluation noteNo InformationNort [employer] Other History general Narrative - Reported* Type Description Date Medical History Diabetes Medical History Hyperlipidemia Medical History Pulmonary HPN Medical History Osteoporosis Surgical History R knee Sx Surgical History L Hand Hospitalization History HTN 08/2018 [facility] Other Summary Purpose Family History No Family [...] of left hip (M16.12) Referral Organization [facility] Referring Provider First Name Patrick Referring Provider Last Name Cyndee Referring Provider Specialty Neurologica l Surgery Referred Organization [facility] Referred Provider Ximena Vela Jr Referred Address ,[place],[address] Referred Provider Specialty Orthopedic S urgery Referral Priority Routine General Notes Val Slater 022 10:56:23 AM >Received today. This referral was sent P2P and will wait a week and call them back to see if she was scheduled. They do their own scheduling Additional Source Comments INFORMATION SOURCE (unrecogn ized section and content) DATE CREATED AUTHOR 02/10/2018 [facility] DATE CREATED AUTHOR AUTHOR'S ORGANIZ ATION 09/22/2022 [facility] DATE CREATED AUTHOR AUTHOR'S ORGANIZ ATION 09/23/2022 [facility] DATE CREATED AUTHOR AUTHOR'S ORGANIZ ATION 04/11/2023 [facility] DATE CREATED AUTHOR AUTHOR'S ORGANIZ ATION 08/16/2023 [facility] DATE CREATED AUTHOR AUTHOR'S ORGANIZ ATION 09/02/2023 [facility] EPIC REASON FOR VISIT [...] BE BASED ON THE PRIMARY CLINICAL RECORDS. [employer] provides no warranty or guarantee of the accuracy or completeness of information in this document.
[2023-10-24] MEDS: PHENYLEPHRINE HCL 2.5% OP SOL 40 DROP/2 ML BOTTLE OP ×4 (06:30→07:02)
[2023-10-24] MEDS: DIAZEPAM 5 MG TABLET PO (06:30)
[2023-10-24] MEDS: BESIFLOXACIN HCL 100 DROP DROPS.SUSP OP ×4 (06:31→07:03)
[2023-10-24] MEDS: TROPICAMIDE 1% OP SOL 300 DROP/15 ML BOTTLE OP ×4 (06:31→07:01)
[2023-10-24] MEDS: PROPARACAINE HCL 0.5% 300 DROP/15 ML BOTTLE OP ×4 (06:46→07:02)
[2023-10-24 06:58] VITALS: BP 168/69; PULSE 57; RESP 19; TEMP 35.9; O2SAT 98
[2023-10-24 07:32] VITALS: BP 166/62; PULSE 52; RESP 15; O2SAT 100
[2023-10-24] MEDS: HYALURONATE SODIUM 16 MG/ML SYRINGE OP (07:36)
[2023-10-24] MEDS: APRACLONIDINE HCL 100 DROP/5 ML BOTTLE OP (07:36)
[2023-10-24] MEDS: LIDOCAINE 2% JELLY 10 ML TOPICAL (07:36)
[2023-10-24] MEDS: PHENYLEPHRINE/KETOROLAC 1-0.3% ML VIAL 4 ML IRR (07:37)
[2023-10-24] MEDS: LIDOCAINE HCL 1% PF 20 MG/2 ML VIAL INJ (07:37)
[2023-10-24] MEDS: PREDNISOLONE ACETATE OP 1% SUSP 100 DROPS/5 ML 1 DROP OP (07:37)
[2023-10-24] MEDS: BETADINE POVIDONE-IODINE 5% OP SOL 30 ML BOTTLE OP (07:37)
[2023-10-24] MEDS: TETRACAINE HCL 0.5% OP SOL 80 DROP/4 ML BOTTLE OP (07:38)
[2023-10-24 07:39] VITALS: BP 174/58; PULSE 50; RESP 16; O2SAT 100
== END 2023-10-24 08:07 | disposition home or self-care (01) ==
LOC: SURGOUT 06:04
PROVIDERS: PCP Nurse Practitioner Family; Visit Provider Ophthalmology
PROC: (CPT 66984; principal; 2023-10-24 07:30)
DX: H25.11 Age-related nuclear cataract, right eye (principal)
CPT/HCPCS: 66984; V2630

== ENCOUNTER 2023-11-08 13:53 | Outpatient (OUT) | payer MEDICARE, SELFPAY ==
[2023-11-08 14:49] LABS: Bilirubin Urine NEGATIVE (NEGATIVE); Blood Urine TRACE-I (NEGATIVE); Clarity Urine SL CLOUDY (CLEAR); Color Urine YELLOW (YELLOW); Glucose Urine UA >=1000 mg/dL (NEGATIVE); Ketones Urine NEGATIVE (NEGATIVE); Leukocyte Esterase Urine TRACE (NEGATIVE); Nitrite Urine NEGATIVE (NEGATIVE); Protein Urine >=300 mg/dL (NEG/TRACE); Specific Gravity Urine 1.025 (1.005-1.025); Urobilinogen Urine 0.2 EU/dL (0.2-1.0); pH Urine 5.5 (5.0-9.0)
[2023-11-08 15:47] LABS: Bacteria Urine SMALL #/HPF (NONE SEEN); Cast Seen? NONE SEEN #/LPF (NONE SEEN); Crystals Seen? None Seen #/HPF (None Seen); Mucus Urine NONE SEEN (NONE SEEN); Squamous Epithelial Cell Urine FEW #/LPF (NONE/RARE); WBC Urine 50-75 #/HPF (NONE SEEN)
== END 2023-11-08 13:54 | disposition home or self-care (01) ==
LOC: LAB 13:54
PROVIDERS: PCP Nurse Practitioner Family; Visit Provider Nurse Practitioner Family
DX: R30.0 Dysuria (principal)
CPT/HCPCS: 81001; 87086; 87150; 87186

== ENCOUNTER 2023-11-27 10:06 | Outpatient (OUT) | payer MEDICARE, SELFPAY ==
[2023-11-27 10:31] LABS: Bilirubin Urine NEGATIVE (NEGATIVE); Blood Urine TRACE-I (NEGATIVE); Clarity Urine CLEAR (CLEAR); Color Urine YELLOW (YELLOW); Glucose Urine UA 500 mg/dL (NEGATIVE); Ketones Urine NEGATIVE (NEGATIVE); Leukocyte Esterase Urine NEGATIVE (NEGATIVE); Nitrite Urine NEGATIVE (NEGATIVE); Protein Urine >=300 mg/dL (NEG/TRACE); Specific Gravity Urine >=1.030 (1.005-1.025); Urobilinogen Urine 0.2 EU/dL (0.2-1.0); pH Urine 5.5 (5.0-9.0)
[2023-11-27 11:59] LABS: Bacteria Urine MODERATE #/HPF (NONE SEEN); Cast Seen? NONE SEEN #/LPF (NONE SEEN); Crystals Seen? None Seen #/HPF (None Seen); Mucus Urine NONE SEEN (NONE SEEN); RBC Urine 0-2 #/HPF (0-2); Squamous Epithelial Cell Urine FEW #/LPF (NONE/RARE); WBC Urine 0-2 #/HPF (NONE SEEN)
== END 2023-11-27 10:07 | disposition home or self-care (01) ==
LOC: LAB 10:10
PROVIDERS: PCP Nurse Practitioner Family; Visit Provider Nurse Practitioner Family
DX: N39.0 Urinary tract infection, site not specified (principal)
CPT/HCPCS: 81001; 87086; 87150; 87186

== ENCOUNTER 2023-12-11 12:58 | Outpatient (OUT) | payer MEDICARE, SELFPAY ==
--- NOTE | 2023-12-11 13:15 | P.CN_ITS ---
Consult Note: HPI Data of Consult Patient: known to practice within the last 3 years Requesting Physician: Nuzhat Keller NP Primary Care Provider: NATHAN JOVEL Consult Narrative Reason for consult: f/u Narrative: Deja Zamora a pleasant 82 year old female presents for evaluation and management of chronic low back pain with left sided radiculopathy and at times NC. Patient rating pain today 4/10 sharp shooting pain that radiated to left foot and toes. Patient notices mild improvement in symptoms with gabapentin. Patient is following with neurology from tremors and weakness, continues to follow with cardiology regarding BP and carotid stenosis. cc:: CC: Nuzhat Keller NP Review of Systems ROS Status of ROS 10 or more systems reviewed and unremark able except as noted in history and below Musculoskeletal Reports: back pain PFSH PFSH Medical History (Updated 12/11/23 @ 13:26 by Nuzhat Keller NP) Cataracts, bilateral ?H26.9 - Unspecified cataract (ICD-10) Intractable nausea and vomiting ?R11.2 - Nausea with vomiting, unspecified (ICD-10) Diabetes ?E11.9 - Type 2 diabetes mellitus without complications (ICD-10) Dupuytren contracture ?M72.0 - Palmar fascial fibromatosis [Dupuytren] (ICD-10) Skin cancer ?C44.90 - Unspecified malignant neoplasm of skin, unspecified (ICD-10) Degenerative disc disease Age related osteoporosis ?M81.0 - Age-related osteoporosis without current pathological fracture (ICD- 10) Gastritis ?K29.70 - Gastritis, unspecified, without bleeding (ICD-10) Kidney failure ?N19 - Unspecified kidney failure (ICD-10) HTN (hypertension) ?I10 - Essential (primary) hypertension (ICD-10) High cholesterol ?E78.00 - Pure hypercholesterolemia, unspecified (ICD-10) Pulmonary HTN ?I27.20 - Pulmonary hypertension, unspecified (ICD-10) Surgical History History of right knee surgery ?Z98.890 - Other specified postprocedural states (ICD-10) History of sinus surgery ?Z98.890 - Other specified postprocedural states (ICD-10) History of cholecystectomy ?Z90.49 - Acquired absence of other specified parts of digestive tract (ICD- 10) Previous back surgery ?Z98.890 - Other specified postprocedural states (ICD-10) Family History (Updated 09/17/23 @ 12:01 by Erin Miranda RN) Other Family history of CHF (congestive heart failure) Family history of cancer Family history of diabetes mellitus Family history of hypertension Social History (Updated 09/17/23 @ 12:02 by Erin Miranda RN) Within the past year, how often did you have a drink containing alcohol: never Score interpretation: A score less than 3 is consistent with normal alcohol consumption. Smoking status: Former smoker Second hand tobacco smoke exposure: No Non-prescribed substance use: denies use Previous occupational history: Retired Known occupational exposures/hazards: No Highest level of school completed/degree received: high school graduate Meds Home Medications and Allergies Home Medications ?Medication ?Instructions ?Recorded ?Confirmed ?Type amlodipine 5 mg tablet 5 mg PO DAILY 02/11/23 09/19/23 History calcium carbonate 600 mg-vitamin 1 tab PO BID 02/11/23 09/19/23 History D3 5 mcg (200 unit) tablet (Calcium 600 + D(3)) coenzyme Q10 100 mg capsule (Co 100 mg PO DAILY 02/11/23 09/19/23 History Q-10) doxazosin 8 mg tablet 8 mg PO BID 02/11/23 09/19/23 History ezetimibe 10 mg tablet 10 mg PO DAILY 02/11/23 09/19/23 History fenofibrate 160 mg tablet 160 mg PO DAILY 02/11/23 09/19/23 History fluticasone propionate 50 1 spray intranasal DAILY PRN 02/11/23 09/19/23 History mcg/actuation nasal allergy symptoms spray,suspension (24 Hour Allergy Relief) furosemide 20 mg tablet 20 mg PO DAILY PRN edema 02/11/23 09/19/23 History insulin glargine 100 unit/mL 16 unit subcut QPM 02/11/23 09/19/23 History subcutaneous solution (Lantus U-100 Insulin) metoprolol tartrate 50 mg tablet 25 mg PO BID 02/11/23 09/19/23 History (Lopressor) multivitamin (Daily Multi-Vitamin 1 tab PO DAILY 02/11/23 09/19/23 History tablet) pantoprazole 40 mg tablet,delayed 40 mg PO DAILY 02/11/23 09/19/23 History release (Protonix) potassium chloride 10 mEq 10 meq PO DAILY PRN edema 02/11/23 09/19/23 History tablet,extended release (K-Tab) spironolactone 25 mg tablet 12.5 mg PO .every other day 02/11/23 09/19/23 Histor y aspirin 81 mg chewable tablet 81 mg PO DAILY 04/17/23 09/19/23 History levothyroxine 25 mcg tablet 25 mcg PO DAILY 04/17/23 09/19/23 History (Synthroid) clonidine HCl 0.1 mg tablet 0.1 mg PO BID #60 tabs 04/18/23 09/19/23 Rx liothyronine 5 mcg tablet 5 mcg PO DAILY #30 tabs 04/18/23 09/19/23 Rx gabapentin 100 mg capsule 100 mg PO BEDTIME #30 caps 09/12/23 09/19/23 Rx gabapentin 300 mg capsule 300 mg PO DAILY #30 caps 09/12/23 09/19/23 Rx Allergies Allergy/AdvReac Type Severity Reaction Status Date / Time Penicillins Allergy Verified 04/29/23 11:01 [id number] Reductase Allergy Verified 04/29/23 11:01 Inhibitor Exam Constitutional Documenting provider has reviewed patient's vital signs: yes Common normals: no apparent distress, oriented x3, healthy appearing, alert and well nourished General appearance: cooperative HENMT Common normals: normocephalic, hearing grossly normal bilaterally and moist oral mucous membranes Head and scalp: normocephalic Eye Common normals: PERRL Pupil: PERRL Neck & C-Spine Common normals: full ROM General: normal visual inspection Chest Common normals: inspection of chest normal Respiratory Common normals: normal respiratory effort, no retractions and no use of accessory muscles Back & Pelvis Lumbar spine/lower back: ROM limited, pain with ROM and straight leg raise positive left Sacroiliac joints: SI joint(s) abnormal (pain with thigh thrust, gaelsens and vicente on left side.) Other: intermittent radiculopathy to left leg. Extremity Common normals: normal to inspection and full ROM Other: no tremor on exam, pt reports left hand tremor Neuro Common normals: oriented x3, CN's II-XII intact bilaterally, moves all extremities, no focal motor deficits, no sensory deficits noted and deep tendon reflexes 2+ bilaterally Sensorium/orientation: alert Gait (neuro): assistive device used cane Motor exam: strength 5/5 throughout and no movement abnormalities noted Psych Common normals: mental status grossly normal, thought process normal, cooperative, affect normal, speech normal and activity/motor behavior normal Speech: normal speech Thought process: normal thought process Results Additional Findings Additional findings: If on a controlled substance or opioids, I have checked an [place] report on this patient and there are no aberrancies noted in the prescribing history.??If on a controlled substance or opioid a drug screen was completed and reviewed within the last year, and if there has not been a drug screen completed we ordered one today to monitor higher risk, state monitored pain medication use. As part of providing excellent, safe, comprehensive care, the following was completed at our patient's visit: 1. A medication reconciliation and review to ensure accurate knowledge of current/active medications, including asking our patients to inform us about any [id number] medications or herbal remedies/nutritional supplements/alternative remedies. 2. A review to specifically ensure our patients have had annual screening for screening for depression, screening for tobacco use, and screening for unhealthy alcohol use. For concerning screenings had a discussion with the patient, provided patient education, and recommended follow-up with primary care provider when appropriate. If patient noted with a risk of falling, they received education on strength, gait, and balance training to prevent future risk of falling. Assessment and Plan Assessment and Plan (1) Lumbar stenosis with neurogenic claudication: Assessment and Plan: The patient has had over 3 months of moderate to severe low back and SIJ pain with functional impairment and inadequate response to conservative care including NSAIDS (unless there are contraindication such as concurrent blood thinners), multiple oral or topical pain medications, and home exercise program/physical therapy.? Patient has completed >6 weeks of guided home exercise program and/or formal physical therapy program without relief of their symptoms.? I have reviewed the imaging of the lumbosacral spine and no red flags were identified.? The imaging reveals radiographic findings consistent with lumbar stenosis We discussed the risks and benefits of the procedure with the patient, and we are NOT planning on using sedation as outlined in the guidelines from Medicare unless there is a documented reason that sedation would be strongly recommended.?? The procedure will be completed with fluoroscopic guidance.? (2) Sacroiliitis: (3) Lumbar spondylosis: (4) Lumbar postlaminectomy syndrome: (5) Lumbar radiculopathy: Plan left l4-5 l5-s1 TFESI under fluoroscopy left nerve block of SIJ under fluoroscopy change gabapentin 100mg AM 300mg HS continue HEP as tolerated not a candidate for vertiflex with hx of osteoporosis, consider SCS trial in the future f/u 2 weeks after completion of injections
== END 2023-12-11 12:59 | disposition home or self-care (01) ==
LOC: PM 12:59
PROVIDERS: PCP Nurse Practitioner Family; Visit Provider Nurse Practitioner
DX: M48.062 Spinal stenosis, lumbar region with neurogenic claudication (principal); M46.1 Sacroiliitis, not elsewhere classified; M47.816 Spondylosis without myelopathy or radiculopathy, lumbar region; M96.1 Postlaminectomy syndrome, not elsewhere classified; M54.16 Radiculopathy, lumbar region
CPT/HCPCS: G0463

== ENCOUNTER 2023-12-17 14:24 | Outpatient (OUT) | payer MEDICARE, SELFPAY ==
[2023-12-17 14:45] LABS: Bilirubin Urine NEGATIVE (NEGATIVE); Blood Urine NEGATIVE (NEGATIVE); Clarity Urine CLEAR (CLEAR); Color Urine LT. YELLOW (YELLOW); Glucose Urine UA 500 mg/dL (NEGATIVE); Ketones Urine NEGATIVE (NEGATIVE); Leukocyte Esterase Urine NEGATIVE (NEGATIVE); Nitrite Urine NEGATIVE (NEGATIVE); Protein Urine 100 mg/dL (NEG/TRACE); Urobilinogen Urine 0.2 EU/dL (0.2-1.0); pH Urine 5.5 (5.0-9.0)
[2023-12-17 15:14] LABS: Bacteria Urine NONE SEEN #/HPF (NONE SEEN); Cast Seen? SEEN #/LPF (NONE SEEN); Crystals Seen? None Seen #/HPF (None Seen); Hyaline Casts Urine RARE; Mucus Urine NONE SEEN (NONE SEEN); RBC Urine 0-2 #/HPF (0-2); Squamous Epithelial Cell Urine FEW #/LPF (NONE/RARE); WBC Urine 0-2 #/HPF (NONE SEEN)
== END 2023-12-17 14:25 | disposition home or self-care (01) ==
LOC: LAB 14:25
PROVIDERS: PCP Nurse Practitioner Family; Visit Provider Nurse Practitioner Family
DX: N39.0 Urinary tract infection, site not specified (principal)
CPT/HCPCS: 81001; 87086

== ENCOUNTER 2024-02-11 11:13 | Outpatient (OUT) | payer MEDICARE, SELFPAY ==
--- NOTE | 2024-02-11 | US_ITS ---
The [address] [address] Patient Name: EDILIA HERNANDEZ MRN: [id number] date: 1940 Sex: F Assigned Patient Location: [place] Current Patient Location: [place] Accession/Order Number: [id number] Exam Date: 02/11/2024 11:16 Report Date: 02/11/2024 13:08 At the request of: JUANA WHITE Procedure: US renal BI EXAMINATION: US renal BI HISTORY: STAGE 4 CHRONIC KIDNEY DISEASE N18.4 COMPARISON: No relevant comparison available. TECHNIQUE: Ultrasound examination was performed of the bladder. FINDINGS: Right Kidney: Normal in size, contour and echotexture. The cortex measures 0.7 cm. Diffuse increase in cortical echotexture. Areas of anechoic echogenicity measuring up to 1.2 cm, simple cyst. Area of hyperechogenicity in the lower pole measuring 0.8 cm. Height: 5.06 cm Length: 9.32 cm Width: 4.75 cm Left Kidney: Normal in size, contour and echotexture. The cortex measures 0.6 cm. Diffuse increase in cortical echotexture. 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
== END 2024-02-11 11:14 | disposition home or self-care (01) ==
LOC: US 11:13
PROVIDERS: PCP Nurse Practitioner Family; Visit Provider Internal Medicine
DX: N18.4 Chronic kidney disease, stage 4 (severe) (principal)
CPT/HCPCS: 76775

== ENCOUNTER 2024-02-18 10:41 | Outpatient (OUT) | payer MEDICARE, SELFPAY ==
--- OUTSIDE RECORDS SUMMARY | 2024-02-18 10:46 | XMS_ITS | CCD ---
Author Organization [facility] Team Providers Care Industrial Manufacturing Technician Name Role Phone PHYSICIAN, DEFAULT Unavailable Unavailable PHYSICIAN, DEFAULT Unavailable Unavailable Patrick Cotter Unavailable Patrick Cotter Attending Unavailable Patrick Cotter Admitting Unavailable True Devine Primary Care Unavailable MED, NATHAN Attending Unavailable MED, NATHAN Admitting Unavailable MED, NATHAN Primary Care Unavailable ZIEBER, DR UDAY Romero Consulting Unavailable [...] Primary Care Unavailable MED, NATHAN Consulting Unavailable ELIEZER, DR BUENO Attending Unavailable MOUKAHEATH, DR BUENO Admitting Unavailable MOUKARBEL, DR BUENO Consulting Unavailable MED, NATHAN Primary Care Unavailable IJEOMA TIM Consulting Unavailable Eliana LINARES, Danny Carrasco Attending Unavailable Elaina LINARES, Danny Carrasco Attending Unavailable Eliana LINARES, Danny Carrasco Attending Unavailable JOLYNN DAO Attending Unavailable THALIA GRUBBS Unavailable MAYELIN, SEE Attending Unavailable MAYELIN, SEE Attending Unavailable XIMENA MARTINS Attending Unavailable ZOILA MOORE Attending Unavailable Allergies Allergy Classification Reported Allergen(s) Allergy Type Date of Onset Reaction(s) Facility (5 sources) Hmg-Coa Reductase Inhibitors (Statins) Drug allergy Unknown [facility] Other (5 sources) Penicillin Drug Allergy Unknown [facility] [facility] [employer] [facility] Other (2 sources) Penicillins; Translations: [PENICILLINS] Drug allergy (disorder) [facility] Repository (1 source) Edmxzzn-YVJ-IwR Reductase Inhibitor Drug allergy (disorder) [facility] Repository (2 sources) black walnut pollen extract; Translations: [EBKECGX-DSB-NGM REDUCTASE INHIBITORS] Drug Allergy 017 [facility] Repository (1 source) Dextroamphetamine Drug Allergy [facility] Repository (1 source) Gemfibrozil Drug Allergy [facility] Repository (1 source) hydroCHLOROthiazide / Triamterene Drug Allergy [facility] Repository (1 source) Penicillin Drug Allergy [facility] Repository (1 source) rosuvastatin Drug Allergy [facility] Repository (1 source) Gemfibrozil; Translations: [GEMFIBROZIL] Drug Allergy [facility] Repository (1 source) TRIAMTERENE-HYDROCHLOR OTHIAZID; Translations: [TRIAMTERENE-HYDROCHLO ROTHIAZID] Propensity to adverse reactions to drug (disorder) [facility] Repository Medications Current Medications Medication Drug [...] (5 sources) Multivitamin Adults - Orally Active Jefferson 3 1000 MG (5 sources) take 1 capsule by mouth once daily Jefferson 3 1000 MG 1 capsule Orally Once [...] Onset: 04-02-2022 Episodic Disorders of lipid metabolism (1 source) Hyperlipidemia, unspecified; Translations: [HYPERLIPIDEMIA UNSPECIFIED] Onset: 04-03-2022 Chronic Essential hypertension (6 sources) [...] Translations: [ANEMIA UNSPECIFIED] Onset: 04-03-2022 Episodic Other screening for suspected conditions (not [...] Range Facility Office Visiton 08-14-2023 Follow-up visit [id number] Deja Zamora 1940 F Date Provider Department Center 08/14/2023 SEE BOATENG Family History Problem Relation Age of Onset Coronary artery disease Father Family Status - Relation Status Age at Father Level of Service:77205 NC OFFICE/OUTPATIENT ESTABLISHED MOD MDM 30 MIN Normal [facility] Office Visiton 08-02-2023 Follow-up visit [id number] Deja Zamora 1940 F Date Provider Department Center 08/02/2023 SEE BOATENG [facility] Family History Problem Relation Age of Onset Coronary artery disease Father Family Status - Relation Status Age at Father Level of Service:62415 NC OFFICE/OUTPATIENT ESTABLISHED MOD MDM 30-39 MIN Normal [facility] Office Visiton 02-25-2023 Follow-up visit [id number] Deja Zamora Hemant 1940 F Date Provider Department Center 02/25/2023 XIMENA LIZ [facility] Family History Problem Relation Age of Onset Coronary artery disease Father Family Status - Relation Status Age at Father Level of Service:03437 NC OFFICE/OUTPATIENT ESTABLISHED MOD MDM 30-39 MIN Normal [facility] FREE THYROXINE INDEX T7on FTI 2.59 Normal 1.30-4.50 [facility] Comment on above: Performed By: #### C MP, TSH, T7 #### [facility] [address] [place] [address] Dr. Milind Martinez T3U 37.0 % Normal 30.0-39.0 [facility] Comment on above: Performed By: #### C MP, TSH, T7 #### [facility] [address] [place] [address] Dr. Milind Martinez T4 [Mass/Vol] 7.00 ug/dL Normal 4.80-13.90 [facility] Comment on above: Performed By: #### C MP, TSH, T7 #### [facility] [address] [place] [address] Dr. Milind Martinez TSHon 09-20-2022 TSH 5.715 uIU/mL Critically high 0.358-3.740 [facility] Comment on above: Performed By: #### C MP, TSH, T7 #### [facility] [address] [place] [address] Dr. Milind Martinez FREE THYROXINE INDEX T7on FTI 2.56 Normal 1.30-4.50 [facility] Comment on above: Performed By: #### C MP, TSH, T7 #### [facility] [address] [place] [address] Dr. Milind Martinez T3U 35.0 % Normal 30.0-39.0 [facility] Comment on above: Performed By: #### C MP, TSH, T7 #### [facility] [address] [place] [address] Dr. Milind Martinez T4 [Mass/Vol] 7.30 ug/dL Normal 4.80-13.90 [facility] Comment on above: Performed By: #### C MP, TSH, T7 #### [facility] [address] [address] [address] Milind Martinez GLYCOHEMOGLOBIN A1Con 2021 ADA RECOMMENDATION SEE BELOW Normal [facility] Comment on above: Result Comment: ADA RECOMMENDED LIMIT 4.0 - 6.0 ADA THERAPEUTIC TARGET < 7.0 ACTION SUGGESTED > 7.0 Performed By: #### A 1C #### [facility] [address] [address] [address] Milind Martinez Glucose [Mass/Vol] 229 mg/dL Normal [facility] Comment on above: Performed By: #### A 1C #### [facility] [address] [place] [address] Dr. Milind Martinez HbA1c (Bld) [Mass fraction] 9.6 % Critically high 4.5-6.2 [facility] Comment on above: Performed By: #### A 1C #### [facility] [address] [place] [address] Dr. Milind Martinez PROF 14(COMP METB)on 022 Albumin [Mass/Vol] 3.1 g/dL Critically low 3.4-5.0 [facility] Comment on above: Performed By: #### C MP, TSH, T7 #### [facility] [address] [address] [address] Milind Martinez Albumin/Globulin [Mass ratio] 1.0 {ratio} Normal [facility] Comment on above: Performed By: #### C MP, TSH, T7 #### [facility] [address] [address] [address] Milind Martinez ALP [Catalytic activity/Vol] 48 U/L Normal 46-116 [facility] Comment on above: Performed By: #### C MP, TSH, T7 #### [facility] [address] [place] [address] Dr. Milind Martinez ALT [Catalytic activity/Vol] 19 U/L Normal 14-59 [facility] Comment on above: Performed By: #### C MP, TSH, T7 #### [facility] [address] [address] [address] Milind Martinez Anion gap [Moles/Vol] 12.3 mmol/L Normal [facility] Comment on above: Performed By: #### C MP, TSH, T7 #### [facility] [address] [place] [address] Dr. Milind Martinez AST [Catalytic activity/Vol] 30 U/L Normal 15-37 [facility] Comment on above: Performed By: #### C MP, TSH, T7 #### [facility] [address] [place] [address] Dr. Milind Martinez Bilirubin [Mass/Vol] 0.5 mg/dL Normal 0.2-1.0 [facility] Comment on above: Performed By: #### C MP, TSH, T7 #### [facility] [address] [place] [address] Dr. Milind Martinez Calcium [Mass/Vol] 8.9 mg/dL Normal 8.5-10.1 [facility] Comment on above: Performed By: #### C MP, TSH, T7 #### [facility] [address] [place] [address] Dr. Milind Martinez Chloride [Moles/Vol] 104 mmol/L Normal 98-107 [facility] Comment on above: Performed By: #### C MP, TSH, T7 #### [facility] [address] [place] [address] Dr. Milind Martinez CO2 [Moles/Vol] 28.2 mmol/L Normal 21.0-32.0 [facility] Comment on above: Performed By: #### C MP, TSH, T7 #### [facility] [address] [place] [address] Dr. Milind Martinez Creatinine [Mass/Vol] 1.54 mg/dL Critically high 0.55-1.02 [facility] Comment on above: Performed By: #### C MP, TSH, T7 #### [facility] [address] [place] [address] Dr. Milind Martinez EGFR-AF ERITREAN 39 mL/min/1.73m2 Critically low >=60 [facility] Comment on above: Performed By: #### C MP, TSH, T7 #### [facility] [address] [place] [address] Dr. Milind Martinez EGFR-NON AF ERITREAN 32 mL/min/1.73m2 Critically low >=60 [facility] Comment on above: Performed By: #### C MP, TSH, T7 #### [facility] [address] [place] [address] Dr. Milind Martinez Globulin (S) [Mass/Vol] 3.2 g/dL Normal [facility] Comment on above: Performed By: #### C MP, TSH, T7 #### [facility] [address] [place] [address] Dr. Milind Martinez Glucose [Mass/Vol] 180 mg/dL Critically high 74-106 [facility] Comment on above: Performed By: #### C MP, TSH, T7 #### [facility] [address] [place] [address] Dr. Milind Martinez Potassium [Moles/Vol] 4.5 mmol/L Normal 3.5-5.1 [facility] Comment on above: Performed By: #### C MP, TSH, T7 #### [facility] [address] [place] [address] Dr. Milind Martinez Protein [Mass/Vol] 6.3 g/dL Critically low 6.4-8.2 [facility] Comment on above: Performed By: #### C MP, TSH, T7 #### [facility] [address] [place] [address] Dr. Milind Martinez Sodium [Moles/Vol] 140 mmol/L Normal 136-145 [facility] Comment on above: Performed By: #### C MP, TSH, T7 #### [facility] [address] [place] [address] Dr. Milind Martinez Urea nitrogen [Mass/Vol] 46.0 mg/dL Critically high 7.0-18.0 [facility] Comment on above: Performed By: #### C MP, TSH, T7 #### [facility] [address] [place] [address] Dr. Milind Martinez Urea nitrogen/Creatinine [Mass ratio] 29.9 mg/mg Normal [facility] Comment on above: Performed By: #### C MP, TSH, T7 #### [facility] [address] [place] [address] Dr. Mliind Martinez TSHon 08-01-2022 TSH 12.769 uIU/mL Critically high 0.358-3.740 [facility] Comment on above: Performed By: #### C MP, TSH, T7 #### [facility] [address] [place] [address] Dr. Milind Martinez INSULINon 04-03-2022 Insulin 2.5 uIU/mL Critically low 2.6-24.9 [facility] Comment on above: Performed By: #### C MP, TSH, T7 #### [facility] [address] [place] [address] Dr. Milind Martinez T4, T3U, FTI LABCORPon 04-03 Free Thyroxine Index 1.8 Normal 1.2-4.9 [facility] Comment on above: Performed By: #### T HYLC #### [facility] [address] [place] [address] Dr. Milind Martinez T3 Uptake 26 % Normal 24-39 [facility] Comment on above: Performed By: #### T HYLC #### [facility] [address] [place] [address] Dr. Milind Martinez T4 [Mass/Vol] 7.1 ug/dL Normal 4.5-12.0 [facility] Comment on above: Performed By: #### T HYLC #### [facility] [address] [place] [address] Dr. Milind Martinez CBC AUTO DIFFon 04-02-2022 BASO # 0.0 103/ul Normal 0.0-0.1 [facility] Comment on above: Performed By: #### C BC #### [facility] [address] [place] [address] Dr. Milind Martinez Basophils/100 WBC (Bld) 0.9 % Normal 0.2-2.0 [facility] Comment on above: Performed By: #### C BC #### [facility] [address] [place] [address] Dr. Milind Martinez EO # 0.2 103/ul Normal 0.0-0.7 [facility] Comment on above: Performed By: #### C BC #### [facility] [address] [place] [address] Dr. Milind Martinez Eosinophils/100 WBC (Bld) 5.3 % Normal 0.9-7.0 [facility] Comment on above: Performed By: #### C BC #### [facility] [address] [place] [address] Dr. Milind Martinez Erythrocyte distribution width (RBC) [Ratio] 13.2 % Normal 11.0-15.0 [facility] Comment on above: Performed By: #### C BC #### [facility] [address] [place] [address] Dr. Milind Martinez Hematocrit (Bld) [Volume fraction] 37.1 % Normal 36.0-48.0 [facility] Comment on above: Performed By: #### C BC #### [facility] [address] [place] [address] Dr. Milind Martinez Hemoglobin (Bld) [Mass/Vol] 12.0 g/dL Normal 12.0-16.0 [facility] Comment on above: Performed By: #### C BC #### [facility] [address] [place] [address] Dr. Milind Martinez IG # 0.01 10e3/ul Normal 0.00-0.03 [facility] Comment on above: Performed By: #### C BC #### [facility] [address] [place] [address] Dr. Milind Martinez IG % 0.2 % Normal 0.0-0.5 [facility] Comment on above: Performed By: #### C BC #### [facility] [address] [place] [address] Dr. Milind Martinez LYMPH # 1.8 103/ul Normal 1.2-3.8 [facility] Comment on above: Performed By: #### C BC #### [facility] [address] [place] [address] Dr. Milind Martinez Lymphocytes/100 WBC (Bld) 41.9 % Normal 20.5-60.0 [facility] Comment on above: Performed By: #### C BC #### [facility] [address] [place] [address] Dr. Milind Martinez MANUAL DIFF REQ NO Normal [facility] Comment on above: Performed By: #### C BC #### [facility] [address] [place] [address] Dr. Milind Martinez MCH (RBC) [Entitic mass] 31.2 pg Normal 26.7-34.0 [facility] Comment on above: Performed By: #### C BC #### [facility] [address] [place] [address] Dr. Milind Martinez MCHC (RBC) [Mass/Vol] 32.3 g/dL Normal 29.9-35.2 [facility] Comment on above: Performed By: #### C BC #### [facility] [address] [place] [address] Dr. Milind Martinez MCV (RBC) [Entitic vol] 96.4 fL Normal 81.0-99.0 [facility] Comment on above: Performed By: #### C BC #### [facility] [address] [place] [address] Dr. Milind Martinez MONO # 0.3 103/ul Normal 0.3-0.8 [facility] Comment on above: Performed By: #### C BC #### [facility] [address] [place] [address] Dr. Milind Martinez Monocytes/100 WBC (Bld) 5.8 % Normal 1.7-12.0 [facility] Comment on above: Performed By: #### C BC #### [facility] [address] [place] [address] Dr. Milind Martinez NEUT # 2.0 103/ul Normal 1.4-6.5 [facility] Comment on above: Performed By: #### C BC #### [facility] [address] [address] [address] Milind Martinez Neutrophils/100 WBC (Bld) 45.9 % Normal 43.0-75.0 [facility] Comment on above: Performed By: #### C BC #### [facility] [address] [address] [address] Milind Martinez Platelet mean volume (Bld) [Entitic vol] 11.8 fL Normal 9.5-13.5 [facility] Comment on above: Performed By: #### C BC #### [facility] [address] [address] [address] Milind Martinez PLT 159 103/ul Normal 150-450 [facility] Comment on above: Performed By: #### C BC #### [facility] [address] [address] [address] Milind Martinze RBC 3.85 106/ul Critically low 4.20-5.40 [facility] Comment on above: Performed By: #### C BC #### [facility] [address] [address] [address] Milind Martinez WBC 4.3 103/ul Normal 4.0-11.0 [facility] Comment on above: Performed By: #### C BC #### [facility] [address] [address] [address] Milind Martinez GLYCOHEMOGLOBIN A1Con 2021 ADA RECOMMENDATION SEE BELOW Normal [facility] Comment on above: Result Comment: ADA RECOMMENDED LIMIT 4.0 - 6.0 ADA THERAPEUTIC TARGET < 7.0 ACTION SUGGESTED > 7.0 Performed By: #### A 1C #### [facility] [address] [address] [address] Milind Martinez Glucose [Mass/Vol] 214 mg/dL Normal [facility] Comment on above: Performed By: #### A 1C #### [facility] [address] [address] [address] Milind Martinez HbA1c (Bld) [Mass fraction] 9.1 % Critically high 4.5-6.2 [facility] Comment on above: Performed By: #### A 1C #### [facility] [address] [address] [address] Milind Martinez IRONon 04-02-2022 Iron [Mass/Vol] 126.0 ug/dL Normal 50.0-170.0 [facility] Comment on above: Performed By: #### C MP, TSH, T7 #### [facility] [address] [address] [address] Milind Martinez LIPID PROFILEon 04-02-2022 CHOL-HDL RATIO NORM SEE BELOW Normal [facility] Comment on above: Result Comment: 3.3 - 4.4 LOW RISK 4.4 - 7.1 AVERAGE RISK 7.1 - 11.0 MODERATE RISK >11.0 HIGH RISK Performed By: #### C MP, TSH, T7 #### [facility] [address] [address] [address] Milind Martinez Cholesterol [Mass/Vol] 133 mg/dL Normal <=200 [facility] Comment on above: Performed By: #### C MP, TSH, T7 #### [facility] [address] [address] [address] Milind Martinez Cholesterol in HDL [Mass/Vol] 20 mg/dL Critically low 40-60 [facility] Comment on above: Performed By: #### C MP, TSH, T7 #### [facility] [address] [address] [address] Milind Martinez Cholesterol in LDL [Mass/Vol] 69.6 mg/dL Normal [facility] Comment on above: Performed By: #### C MP, TSH, T7 #### [facility] [address] [place], [place] [address] Dr. Milind Martinez Cholesterol.total/Ch olesterol in HDL [Mass ratio] 6.7 {ratio} Normal [facility] Comment on above: Performed By: #### C MP, TSH, T7 #### [facility] [address] [address] [address] Milind Martinez HDL NORMAL > or = 60 mg/dl - LOW CARDIOVASCULAR RISK <40 mg/dl - HIGH CARDIOVASCULAR RISK Normal [facility] Comment on above: Performed By: #### C MP, TSH, T7 #### [facility] [address] [address] [address] Milind Martinez LDL CALC NORMAL SEE BELOW Normal [facility] Comment on above: Result Comment: <100 mg/dl OPTIMAL 100 - 129 mg/dl NEAR OR ABOVE OPTIMAL 130 - 159 mg/dl BORDERLINE HIGH 160 - 189 mg/dl HIGH >190 mg/dl VERY HIGH Performed By: #### C MP, TSH, T7 #### [facility] [address] [address] [address] Milind Martinez Triglyceride [Mass/Vol] 217 mg/dL Critically high <=150 [facility] Comment on above: Performed By: #### C MP, TSH, T7 #### [facility] [address] [address] [address] Milind Martinez VLDL CALC 43.4 mg/dL Normal [facility] Comment on above: Performed By: #### C MP, TSH, T7 #### [facility] [address] [address] [address] Milind Martinez PROF 14(COMP METB)on 022 Albumin [Mass/Vol] 3.3 g/dL Critically low 3.4-5.0 [facility] Comment on above: Performed By: #### C MP, TSH, T7 #### [facility] [address] [address] [address] Milind Martinez Albumin/Globulin [Mass ratio] 1.2 {ratio} Normal [facility] Comment on above: Performed By: #### C MP, TSH, T7 #### [facility] [address] [address] [address] Milind Martinez ALP [Catalytic activity/Vol] 43 U/L Critically low 46-116 [facility] Comment on above: Performed By: #### C MP, TSH, T7 #### [facility] [address] [address] [address] Milind Martinez ALT [Catalytic activity/Vol] 24 U/L Normal 14-59 [facility] Comment on above: Performed By: #### C MP, TSH, T7 #### [facility] [address] [address] [address] Milind Martinez Anion gap [Moles/Vol] 11.4 mmol/L Normal [facility] Comment on above: Performed By: #### C MP, TSH, T7 #### [facility] [address] [address] [address] Milind Martinez AST [Catalytic activity/Vol] 24 U/L Normal 15-37 [facility] Comment on above: Performed By: #### C MP, TSH, T7 #### [facility] [address] [address] [address] Milind Martinez Bilirubin [Mass/Vol] 0.4 mg/dL Normal 0.2-1.0 [facility] Comment on above: Performed By: #### C MP, TSH, T7 #### [facility] [address] [place] [address] Dr. Milind Martinez Calcium [Mass/Vol] 8.7 mg/dL Normal 8.5-10.1 [facility] Comment on above: Performed By: #### C MP, TSH, T7 #### [facility] [address] [address] [address] Milind Martinze Chloride [Moles/Vol] 106 mmol/L Normal 98-107 [facility] Comment on above: Performed By: #### C MP, TSH, T7 #### [facility] [address] [address] [address] Milind Martinez CO2 [Moles/Vol] 29.7 mmol/L Normal 21.0-32.0 [facility] Comment on above: Performed By: #### C MP, TSH, T7 #### [facility] [address] [address] [address] Milind Martinez Creatinine [Mass/Vol] 1.30 mg/dL Critically high 0.55-1.02 [facility] Comment on above: Performed By: #### C MP, TSH, T7 #### [facility] [address] [address] [address] Milind Martinez EGFR-AF ERITREAN 47 mL/min/1.73m2 Critically low >=60 [facility] Comment on above: Performed By: #### C MP, TSH, T7 #### [facility] [address] [place] [address] Dr. Milind Martinez EGFR-NON AF ERITREAN 39 mL/min/1.73m2 Critically low >=60 [facility] Comment on above: Performed By: #### C MP, TSH, T7 #### [facility] [address] [place] [address] Dr. Milind Martinez Globulin (S) [Mass/Vol] 2.7 g/dL Normal [facility] Comment on above: Performed By: #### C MP, TSH, T7 #### [facility] [address] [place] [address] Dr. Milind Martinez Glucose [Mass/Vol] 109 mg/dL Critically high 74-106 [facility] Comment on above: Performed By: #### C MP, TSH, T7 #### [facility] [address] [place] [address] Dr. Milind Martinez Potassium [Moles/Vol] 4.1 mmol/L Normal 3.5-5.1 [facility] Comment on above: Performed By: #### C MP, TSH, T7 #### [facility] [address] [place] [address] Dr. Milind Martinez Protein [Mass/Vol] 6.0 g/dL Critically low 6.4-8.2 [facility] Comment on above: Performed By: #### C MP, TSH, T7 #### [facility] [address] [place] [address] Dr. Milind Martinez Sodium [Moles/Vol] 143 mmol/L Normal 136-145 [facility] Comment on above: Performed By: #### C MP, TSH, T7 #### [facility] [address] [place] [address] Dr. Milind Martinez Urea nitrogen [Mass/Vol] 34.0 mg/dL Critically high 7.0-18.0 [facility] Comment on above: Performed By: #### C MP, TSH, T7 #### [facility] [address] [address] [address] Milind Martinez Urea nitrogen/Creatinine [Mass ratio] 26.2 mg/mg Normal [facility] Comment on above: Performed By: #### C MP, TSH, T7 #### [facility] [address] [address] [address] Milind Martinez TSHon 04-02-2022 TSH 7.887 uIU/mL Critically high 0.358-3.740 [facility] Comment on above: Performed By: #### C MP, TSH, T7 #### [facility] [address] [place], [place] [address] Dr. Milind Martinez US KIDNEYSon 03-23-2022 US [...] the left renal artery. Reference: J Ultrasound. 2009 Dec: 12(4): 133-143. Based on classification of RA stenosis by color-Doppler US from Aida and Chris (Am J Hypertens, 1996). Normal [...] IJEOMA TIM Date: 2022-03-23 13:26 Normal [facility] MAMM SCREEN 3D BOGDAN CADon 03-05-2022 MG MAMM SCREEN 3D BOGDAN CAD Patient: DEJA ZAMORA Exam Date: 03/05/2022 : 1940 Gender:F Ordering : NATHAN JOVEL [facility] Admission #: [id number] Family : Order #: [id number] CLICK HERE TO VIEW EXAM RADIOLOGY REPORT [...] mult.myeloma cancer at age 68. LOCATION: [facility] BREAST COMPOSITION: Scattered areas fibroglandular [...] M.D. on 03/05/2022 at 13:47 Normal [facility] US CAROTID ART BILon 05-09-2 022 US [...] by: UDAY MAJOR Date: 2021-12-25 15:42 Normal [facility] Vital Signs Date Time Vital Sign Value Performing Clinician Faci lity 12-21-2021 10:00-0400 Body height 147.32 cm Patrick Cotter Other [facility] Other 12-21-2021 10:00-0400 Body mass index (BMI) [Ratio] 27.79 kg/m2 Patrick Cotter Other [facility] Other 12-21-2021 10:00-0400 Body weight 60.33 kg Patrick Cotter Other [facility] Other 10-19-2021 12:00-0500 Body height 147.32 cm Patrick Cotter Other [facility] Other 10-19-2021 12:00-0500 Body mass index (BMI) [Ratio] 27.79 kg/m2 Patrick Cotter Other [facility] Other 10-19-2021 12:00-0500 Body weight 60.33 kg Patrick Cotter Other [facility] Other 08-22-2021 15:00-0500 Body height 147.32 cm Patrick Cotter Other [facility] Other 08-22-2021 15:00-0500 Body mass index (BMI) [Ratio] 27.79 kg/m2 Patrick Cotter Other [facility] Other 08-22-2021 15:00-0500 Body weight 60.33 kg Patrick Cotter Other [facility] Other Encounters Encounter Date Encounter Type Care Provider Facility Start: 02-11-2024 End: 02-11-2024 ambulatory ZOILA [facility] Start: 08-29-2023 End: 08-30-2023 ambulatory JOLYNN DAO Not Available Start: 08-14-2023 End: 08-14-2023 ambulatory [facility] Start: 08-02-2023 End: 08-02-2023 ambulatory [facility] Start: 04-01-2023 End: 04-02-2023 ambulatory Danny Monroy MD [facility] Start: 03-18-2023 End: 03-19-2023 ambulatory Danny Monroy MD [facility] Start: 02-25-2023 End: [facility]: 02-11-2023 End: 02-12-2023 ambulatory Danny Monroy MD [facility] Start: 09-20-2022 End: 09-21-2022 ambulatory NATHAN JOVEL Facility:[facility] Start: 08-01-2022 End: 08-02-2022 ambulatory NATHAN JOVEL Facility:[facility] Start: 04-02-2022 End: 04-03-2022 ambulatory NATHAN JOVEL Facility:[facility] Start: 03-23-2022 End: 03-24-[address] XIMENA MARTINS Facility:[facility] Start: 03-05-2022 End: 03-06-[address] UDAY MAJOR Facility:[facility] Start: 12-25-2021 End: 12-26-2021 ambulatory SEE DICK Facility:[facility] Start: 12-21-2021 End: 12-21-2021 ambulatory Patrickshan Cotter Other [facility] Other Start: 12-21-2021 Postop follow up vis it related to original px Patrick Cotter [facility] Start: 11-02-2021 ambulatory NATHAN JOVEL Facility: [facility] Start: 10-19-2021 End: 10-19-2021 ambulatory Patrick Cotter Other [facility] Other Start: 10-19-2021 Postop follow up vis it related to original px Patrick Cotter [facility] Start: 09-18-2021 Admission to [facility] Patrick Cotter [facility] Start: 09-18-2021 End: 09-19-2021 ambulatory Patrick Cotter [facility] Other Start: 08-29-2021 End: 08-29-2021 ambulatory Patrick Cotter Other [facility] Other Start: 08-29-2021 Telephone encounter Patrick Cotter [facility] Start: 08-22-2021 End: 08-22-2021 ambulatory Patrick Cotter Other [facility] Other Start: 08-22-2021 Office outpatient visit 40 minutes Patrick Cotter [facility] Start: 09-24-2017 End: 09-25-2017 Ambulatory DEFAULT PHYSICIAN Facility:[facility] Payers Date Payer Category Payer Unknown 2021 Self-pay 2003 Medicare 1959 Medicare [id number] 2.1 [id number] 1959 Self-pay [id number] 1959 Unknown [id number] 2.1 [id number] 1940 Unknown [id number] 2.16.84 [id number] 1940 Unknown [id number] 2.16.84 [id number] 1940 Unknown [id number] 2.16.84 0.1.533835.3.579.2.593 1940 Unknown [id number] 2.16.84 0.1.398035.3.579.2.593 1940 Unknown [id number] 2.16.84 0.1.103269.3.579.2.593 1940 Unknown [id number] 2.16.84 0.1.053749.3.579.2.593 1938 Unknown [id number] 2.16.84 0.1.663362.3.579.2.593 1940 Unknown [id number] 2.16. 840.1.848615.3.579.2.196 1940 Unknown [id number] 2.16. 840.1.929377.3.579.2.196 1940 Unknown [id number] 2.16. 840.1.937767.3.579.2.196 1940 Unknown [id number] 2.16.84 0.1.054665.3.579.2.1259 Unknown [id number] 2.16.8 [id number] Social History Date Type Detail Facility Sex Assigned At [facility] Other Clinical Notes 08-22-2021 to 02-11-2024 Note Date & Type Note Facility 02-11-2024 Note Patient here for 6 m o follow up hypertension and pulmonary hypertension. Had labs in Aug 2023. She is just recovering from shingles. She is now seeing nephrology, who increased her lasix to 20mg every day she says. Says she's very fatigued and a little lightheaded today. Denies chest pain, SOB, and palpitations. Had renal US this morning. Review of Systems Constitutional: Positive for malaise/fatigue. Cardiovascular: Positive for leg swelling (improving). Musculoskeletal: Positive for arthritis, back pain and muscle weakness. Neurological: Positive for dizziness, light-headedness and weakness. All other systems reviewed and are negative. [facility] 08-14-2023 Note Hypertension is well controlled at home, continue all meds Metoprolol 25 mg bid, cardura 8 mg, clonidine 0.2 mg bid, and norvasc 5 mg. [facility] 08-14-2023 Note Currently stable wit hout worsening symptoms [facility] 08-14-2023 Note UTP CARDIOLOGY PROGR ESS [...] m??? Allergies Allergen Reactions Gemfibrozil Penicillins Unknown Cjfapvu-Xvl-Hwb Reductase Inhibitors Unknown Triamterene-Hydrochlorothiazid Medications: Current Outpatient [...] Testin04/18/23 TTE 5 (more content not included)... [facility] 08-14-2023 Note Patient here for 2 w [place] follow up hypertension. Clonidine was increased to [...] All other systems reviewed and are negative. [facility] 08-02-2023 Note Stable so far, will monitor with increased clonidine for uncontrolled HTN [facility] 08-02-2023 Note Stable without any worsening sym ptoms [facility] 08-02-2023 Note Hypertension is Curr ently [...] once or twice every 2 to 3-weeks [facility] 08-02-2023 Note UTP CARDIOLOGY PROGR ESS [...] at target sometimes. She was admitted to [facility] in Mar 2023 for e.coli and [...] m??? Allergies Allergen Reactions Gemfibrozil Penicillins Unknown Nxibyav-Nno-Acy Reductase Inhibitors Unknown Triamterene-Hydrochlorothiazid Medications: Current Outpatient [...] values have be (more content not included)... [facility] 08-02-2023 Note Patient here c/o hyp [...] at target sometimes. She was admitted to [facility] in Mar 2023 for e.coli and [...] All other systems reviewed and are negative. [facility] 02-25-2023 Note OR Cardiology - [facility] Subjective Deja Zamora is a 82 [...] Allergies Allergies Allergen Reactions Gemfibrozil Penicillins Unknown Zwyqvhv-Vto-Hir Reductase Inhibitors Unknown Triamterene-Hydrochlorothiazid Medications Current Outpatient [...] Disp: , Rfl: (more content not included)... 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 I have encouraged her to continue to build up her endurance by walking. I will see her again in 2 months for final postop visit. 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 [facility] Other evaluation noteNo InformationNort Any.DO Other History general Narrative - Reported* Type Description Date Medical History Diabetes Medical History Hyperlipidemia Medical History Pulmonary HPN Medical History Osteoporosis Surgical History R knee Sx Surgical History L Hand Hospitalization History HTN 08/2018 [facility] Other Summary Purpose Family History No Family [...] Treat Left Hip Pain Please schedule in [facility] Office Diagnosis 1 Arthropathy of left hip (M16.12) Referral Organization [facility] Referring Provider First Name Patrick Referring Provider Last Name Cyndee Referring Provider Specialty Neurologica l Surgery Referred Organization [facility] Referred Provider Ximena Vela Jr Referred Address ,[place], [place],[address] Referred Provider Specialty Orthopedic S urgery Referral Priority Routine General Notes Fore, Val M 022 10:56:23 AM >Received today. This referral was sent P2P and will wait a week and call them back to see if she was scheduled. They do their own scheduling Additional Source Comments INFORMATION SOURCE (unrecogn ized section and content) DATE CREATED AUTHOR 02/10/2018 [facility] DATE CREATED AUTHOR AUTHOR'S ORGANIZ ATION 09/22/2022 [facility] DATE CREATED AUTHOR AUTHOR'S ORGANIZ ATION 09/23/2022 [facility] DATE CREATED AUTHOR AUTHOR'S ORGANIZ ATION 04/11/2023 [facility] DATE CREATED AUTHOR AUTHOR'S ORGANIZ ATION 09/02/2023 [facility] DATE CREATED AUTHOR AUTHOR'S ORGANIZ ATION 02/12/2024 [facility] REASON FOR VISIT (unrecogniz ed section [...] BE BASED ON THE PRIMARY CLINICAL RECORDS. [employer] provides no warranty or guarantee of the accuracy or completeness of information in this document.
[2024-02-18 11:25] LABS: Hematocrit 33.1 % (36.0-48.0); Hemoglobin 10.6 g/dL (12.0-16.0); Mean Corpuscular Hemoglobin 31.9 pg (26.7-34.0); Mean Corpuscular Volume 99.7 fL (81.0-99.0); Mean Platelet Volume 12.4 fL (9.5-13.5); Platelet Count 158 10^3/uL (150-450); Red Blood Count 3.32 10^6/uL (4.20-5.40); Red Cell Distribution Width 14.1 % (11.0-15.0); White Blood Count 5.5 10^3/uL (4.0-11.0)
[2024-02-18 11:35] LABS: Albumin Level 2.7 g/dL (3.4-5.0); Anion Gap 12.2; BUN Creatinine Ratio 25.5; Calcium 8.4 mg/dL (8.5-10.1); Chloride 105 mmol/L (98-107); Estimated GFR (African America 22 (>=60); Estimated GFR (Non-African Ame 18 (>=60); Glucose 374 mg/dL (74-106); Phosphorus 4.8 mg/dL (2.6-4.7); Potassium 5.2 mmol/L (3.5-5.1); Sodium 139 mmol/L (136-145); Uric Acid 6.4 mg/dL (2.6-6.0)
[2024-02-18 11:35] LABS: Protein Creatinine Ratio Urine 1.82; Total Protein Urine Random 151.2 mg/dL (<=11.9)
[2024-02-18 11:44] LABS: Bilirubin Urine NEGATIVE (NEGATIVE); Blood Urine NEGATIVE (NEGATIVE); Clarity Urine CLEAR (CLEAR); Color Urine LT. YELLOW (YELLOW); Glucose Urine UA 250 mg/dL (NEGATIVE); Ketones Urine NEGATIVE (NEGATIVE); Leukocyte Esterase Urine TRACE (NEGATIVE); Nitrite Urine NEGATIVE (NEGATIVE); Protein Urine 100 mg/dL (NEG/TRACE); Specific Gravity Urine 1.025 (1.005-1.025); Urobilinogen Urine 0.2 EU/dL (0.2-1.0); pH Urine 5.5 (5.0-9.0)
[2024-02-18 12:03] LABS: Percent Iron Saturation 25.6 %
[2024-02-18 12:20] LABS: Bacteria Urine TRACE #/HPF (NONE SEEN); Cast Seen? SEEN #/LPF (NONE SEEN); Crystals Seen? None Seen #/HPF (None Seen); Hyaline Casts Urine FEW; Mucus Urine NONE SEEN (NONE SEEN); Squamous Epithelial Cell Urine RARE #/LPF (NONE/RARE)
[2024-02-19 12:09] LABS: PTH, Intact 36 pg/mL (15-65)
[2024-02-21 08:11] LABS: Albumin 2.7 g/dL (2.9-4.4); Alpha-1-Globulin 0.3 g/dL (0.0-0.4); Alpha-2-Globulin 0.7 g/dL (0.4-1.0); Free Kappa Lt Chains,S 37.7 mg/L (3.3-19.4); Free Lambda Lt Chains,S 22.4 mg/L (5.7-26.3); Gamma Globulin 0.4 g/dL (0.4-1.8); Immunoglobulin A, Qn, Serum 315 mg/dL (64-422); Immunoglobulin G, Qn, Serum 471 mg/dL (586-1602); Immunoglobulin M, Qn, Serum 40 mg/dL (26-217); Kappa/Lambda Ratio,S 1.68 (0.26-1.65); Protein, Total 5.1 g/dL (6.0-8.5)
== END 2024-02-18 10:42 | disposition home or self-care (01) ==
LOC: LAB 10:42
PROVIDERS: PCP Nurse Practitioner Family; Visit Provider Internal Medicine
DX: E78.5 Hyperlipidemia, unspecified (principal); N18.9 Chronic kidney disease, unspecified; D63.1 Anemia in chronic kidney disease; N25.81 Secondary hyperparathyroidism of renal origin; E11.22 Type 2 diabetes mellitus with diabetic chronic kidney disease; I12.9 Hypertensive chronic kidney disease with stage 1 through stage 4 chronic kidney disease, or unspecified chronic kidney disease
CPT/HCPCS: 36415; 80069; 81001; 82306; 82570; 82728; 82784; 83521; 83540; 83550; 83735; 83970; 84155; 84156; 84165; 84166; 84550; 85027; 86335

== ENCOUNTER 2024-02-21 08:11 | Outpatient (OUT) | payer MEDICARE, SELFPAY ==
--- OUTSIDE RECORDS SUMMARY | 2024-02-21 08:16 | XMS_ITS ---
Patient Summarization (C-CDA 2.1 CCD) Created on: February 21, 2024 DEJA ZAMORA : 1940 Sex: Female Author Organization Sample organization Care Team Providers Care Professor Of Physics Name Role Phone PHYSICIAN, DEFAULT Unavailable Unavailable PHYSICIAN, DEFAULT Unavailable Unavailable Patrick Cotter Unavailable Patrick Cotter Attending Unavailable Patrick Cotter Admitting Unavailable True Devine Primary Care Unavailable MEDNATHAN Attending Unavailable MED, NATHAN Admitting Unavailable MED, NATHAN Primary Care Unavailable ZIEBDERIAN, DR UDAY Romero Consulting Unavailable MED, NATHAN Attending Unavailable MED, NATHAN Admitting Unavailable MED, NATHAN Primary Care Unavailable MED NATHAN Consulting Unavailable MAYELIN, SEE Attending Unavailable MAYELIN, SEE Admitting Unavailable ZIMAYRA, DR UDAY Romero Consulting Unavailable MED, NATHAN Primary Care Unavailable MAYELIN, SEE Consulting Unavailable MED, NATHAN Attending Unavailable MED, NATHAN Admitting Unavailable MED, NATHAN Primary Care Unavailable MED, NATHAN Consulting Unavailable MED, NATHAN Attending Unavailable MED, NATHAN Admitting Unavailable MED, NATHAN Primary Care Unavailable MED, NATHNA Consulting Unavailable MED, NATHAN Attending Unavailable MED, [...] Unavailable JOLYNN DAO Attending Unavailable THALIA GRUBBS Referring Unavailable XIMENA MARTINS Attending Unavailable MAYELIN, SEE Attending Unavailable MAYELIN, SEE Attending Unavailable ZOILA MOORE Attending Unavailable Allergies Allergy Classification Reported Allergen(s) Allergy Type Date of Onset Reaction(s) Facility (5 sources) Hmg-Coa Reductase Inhibitors (Statins) Drug allergy Unknown [facility] [place] [facility] Other (5 sources) Penicillin Drug Allergy Unknown [employer] Other (2 sources) Penicillins; Translations: [PENICILLINS] Drug allergy (disorder) [facility] Repository (1 source) Wxdkycl-UGQ-MrK Reductase Inhibitor Drug allergy (disorder) [facility] Repository (2 sources) black walnut pollen extract; Translations: [TRKDWBK-UQB-RSV REDUCTASE INHIBITORS] Drug Allergy 017 [facility] Repository (1 source) Dextroamphetamine Drug Allergy [facility] Repository (1 source) Gemfibrozil Drug Allergy [facility] Repository (1 source) hydroCHLOROthiazide / Triamterene Drug Allergy [facility] Repository (1 source) Penicillin Drug Allergy [facility] Repository (1 source) rosuvastatin Drug Allergy [facility] Repository (1 source) Gemfibrozil; Translations: [GEMFIBROZIL] Drug Allergy [facility] Repository (1 source) TRIAMTERENE-HYDROCHLOR OTHIAZID; Translations: [TRIAMTERENE-HYDROCHLO ROTHIAZID] Propensity to adverse reactions to drug (disorder) [facility] Repository Encounters Encounter Date Encounter Type Care Provider Facility Start: 02-11-2024 End: 02-11-2024 ambulatory ZOILA MOORE [facility] Start: 08-29-2023 End: 08-30-2023 ambulatory JOLYNN DAO Not Available Start: 08-14-2023 End: 08-14-2023 ambulatory [facility] Start: 08-02-2023 End: 08-02-2023 ambulatory [facility] Start: 04-01-2023 End: 04-02-2023 ambulatory Danny Monroy MD Facility:[facility] Start: 03-18-2023 End: 03-19-2023 ambulatory Danny Monroy MD Facility:[facility] Start: 02-25-2023 End: 02-[facility]: 02-11-2023 End: 02-12-2023 ambulatory Danny Monroy MD Facility:[facility] Start: 09-20-2022 End: 09-21-2022 ambulatory NATHAN JOVEL Facility:[facility] Start: 08-01-2022 End: 08-02-2022 ambulatory NATHAN JOVEL Facility:[facility] Start: 04-02-2022 End: 04-03-2022 ambulatory NATHAN JOVEL Facility:[facility] Start: 03-23-2022 End: 03-24-[address] XIMENA MARTINS Facility:[facility] Start: 03-05-2022 End: 03-06-[address] UDAY MAJOR Facility:[facility] Start: 12-25-2021 End: 12-26-2021 ambulatory SEE DICK Facility:[facility] Start: 12-21-2021 End: 12-21-2021 ambulatory Patrick Cotter Other [employer] Other Start: 12-21-2021 Postop follow up vis it related to original px Patrick Cotter [facility] Start: 11-02-2021 ambulatory NATHAN JOVEL Facility: [facility] Start: 10-19-2021 End: 10-19-2021 ambulatory Patrick Cotter Other [employer] Other Start: 10-19-2021 Postop follow up vis it related to original px Patrick Cotter [facility] Start: 09-18-2021 Admission to same [facility] y surgery center Patrick Cotter [facility] Start: 09-18-2021 End: 09-19-2021 ambulatory Patrick Hopkins Cotter [facility] [place] [facility] Other Start: 08-29-2021 End: 08-29-2021 ambulatory Patrick Cotter Other [employer] Other Start: 08-29-2021 Telephone encounter Patrick Cotter [facility] Start: 08-22-2021 End: 08-22-2021 ambulatory Patrick Cyndee Other [facility] [place] [employer] Other Start: 08-22-2021 Office outpatient visit 40 minutes Patrick Cotter [facility] Start: 09-24-2017 End: 09-25-2017 Ambulatory DEFAULT PHYSICIAN Facility:[facility] Medications Current Medications Medication Drug Class(es) Dates [...] (5 sources) Multivitamin Adults - Orally Active Beckley 3 1000 MG (5 sources) take 1 capsule by mouth once daily Beckley 3 1000 MG 1 capsule Orally Once [...] a meal Orally Once a day Active Payers Date Payer Category Payer Unknown 2021 Self-pay 2003 Medicare 1959 Medicare [id number] 2.1 [id number] 1959 Self-pay [id number] 1959 Unknown [id number] 2.1 [id number] 1940 Unknown [id number] 2.16.84 [id number] 1940 Unknown [id number] 2.16.84 [id number] 1940 Unknown [id number] 2.16.84 [id number] 1940 Unknown [id number] 2.16.84 [id number] 1940 Unknown [id number] 2.16.84 [id number] 1940 Unknown [id number] 2.16.84 [id number] 1940 Unknown [id number] 2.16.84 [id number] 1940 Unknown [id number] 2.16. [id number] 1940 Unknown [id number] 2.16. [id number] 1940 Unknown [id number] 2.16. [id number] 1940 Unknown [id number] 2.16.84 [id number] Unknown [id number] 2.16.8 [id number] Problems Active Problems Problem Classification Problem Date [...] Value Interpretation Reference Range Facility Office Visiton 02-11-2024 Follow-up visit [id number] Deja Zamora 1940 F Date Provider Department Center 02/11/2024 ZOILA WALDRON [facility] Family History Problem Relation Age of Onset Coronary artery disease Father Family Status - Relation Status Age at Father Level of Service:53554 [place] OFFICE/OUTPATIENT ESTABLISHED MOD MDM 30 MIN Normal [facility] Office Visiton 08-14-2023 Follow-up visit [id number] Deja Zamora Hemant 1940 F Date Provider Department Center 08/14/2023 SEE BOATENG [facility] Family History Problem Relation Age of Onset Coronary artery disease Father Family Status - Relation Status Age at Father Level of Service:18200 [place] OFFICE/OUTPATIENT ESTABLISHED MOD MDM 30 MIN Normal [facility] Office Visiton 08-02-2023 Follow-up visit [id number] Deja Zamora Hemant 1940 F Date Provider Department Center 08/02/2023 SEE BOATENG [facility] Family History Problem Relation Age of Onset Coronary artery disease Father Family Status - Relation Status Age at Father Level of Service:77896 [place] OFFICE/OUTPATIENT ESTABLISHED MOD MDM 30-39 MIN Normal [facility] Office Visiton 02-25-2023 Follow-up visit [id number] Deja Zamora Hemant 1940 F Date Provider Department Center 02/25/2023 XIMENA LIZ [facility] Family History Problem Relation Age of Onset Coronary artery disease Father Family Status - Relation Status Age at Father Level of Service:86328 [place] OFFICE/OUTPATIENT ESTABLISHED MOD MDM 30-39 MIN Normal [facility] FREE THYROXINE INDEX T7on FTI 2.59 Normal 1.30-4.50 [facility] Comment on above: Performed By: #### C MP, TSH, T7 #### [facility] [address] [address] [address] Milind Martinez T3U 37.0 % Normal 30.0-39.0 [facility] Comment on above: Performed By: #### C MP, TSH, T7 #### [facility] [address] [place] [address] Dr. Milind Martinez T4 [Mass/Vol] 7.00 ug/dL Normal 4.80-13.90 [facility] Comment on above: Performed By: #### C MP, TSH, T7 #### [facility] [address] [place] [address] Dr. Milind Martinez TSHon 09-20-2022 TSH 5.715 uIU/mL Critically high 0.358-3.740 [facility] Comment on above: Performed By: #### C MP, TSH, T7 #### [facility] [address] [place] [address] Dr. Milind Martinez FREE THYROXINE INDEX T7on FTI 2.56 Normal 1.30-4.50 [facility] Comment on above: Performed By: #### C MP, TSH, T7 #### [facility] [address] [place] [address] Dr. Milind Martinez T3U 35.0 % Normal 30.0-39.0 [facility] Comment on above: Performed By: #### C MP, TSH, T7 #### [facility] [address] [place] [address] Dr. Milind Martinez T4 [Mass/Vol] 7.30 ug/dL Normal 4.80-13.90 [facility] Comment on above: Performed By: #### C MP, TSH, T7 #### [facility] [address] [place] [address] Dr. Milind Martinez GLYCOHEMOGLOBIN A1Con 2021 ADA RECOMMENDATION SEE BELOW Normal [facility] Comment on above: Result Comment: ADA RECOMMENDED LIMIT 4.0 - 6.0 ADA THERAPEUTIC TARGET < 7.0 ACTION SUGGESTED > 7.0 Performed By: #### A 1C #### [facility] [address] [place] [address] Dr. Milind Martinez Glucose [Mass/Vol] 229 mg/dL Normal [facility] Comment on above: Performed By: #### A 1C #### [facility] [address] [place] [address] Dr. Milind Martinez HbA1c (Bld) [Mass fraction] 9.6 % Critically high 4.5-6.2 [facility] Comment on above: Performed By: #### A 1C #### [facility] [address] [place] [address] Dr. Milind Martinez PROF 14(COMP METB)on 022 Albumin [Mass/Vol] 3.1 g/dL Critically low 3.4-5.0 [facility] Comment on above: Performed By: #### C MP, TSH, T7 #### [facility] [address] [place] [address] Dr. Milind Martinez Albumin/Globulin [Mass ratio] 1.0 {ratio} Normal [facility] Comment on above: Performed By: #### C MP, TSH, T7 #### [facility] [address] [place] [address] Dr. Milind Martinez ALP [Catalytic activity/Vol] 48 U/L Normal 46-116 [facility] Comment on above: Performed By: #### C MP, TSH, T7 #### [facility] [address] [place] [address] Dr. Milind Martinez ALT [Catalytic activity/Vol] 19 U/L Normal 14-59 [facility] Comment on above: Performed By: #### C MP, TSH, T7 #### [facility] [address] [place] [address] Dr. Milind Martinez Anion gap [Moles/Vol] 12.3 mmol/L Normal [facility] Comment on above: Performed By: #### C MP, TSH, T7 #### [facility] [address] [place] [address] Dr. Milind Martinez AST [Catalytic activity/Vol] 30 U/L Normal 15-37 [facility] Comment on above: Performed By: #### C MP, TSH, T7 #### [facility] [address] [place] [address] Dr. Milind Martinez Bilirubin [Mass/Vol] 0.5 mg/dL Normal 0.2-1.0 [facility] Comment on above: Performed By: #### C MP, TSH, T7 #### [facility] [address] [place] [address] Dr. Milind Martinez Calcium [Mass/Vol] 8.9 mg/dL Normal 8.5-10.1 [facility] Comment on above: Performed By: #### C MP, TSH, T7 #### [facility] [address] [address] [address] Milind Martinez Chloride [Moles/Vol] 104 mmol/L Normal 98-107 [facility] Comment on above: Performed By: #### C MP, TSH, T7 #### [facility] [address] [place] [address] Dr. Milind Martinez CO2 [Moles/Vol] 28.2 mmol/L Normal 21.0-32.0 [facility] Comment on above: Performed By: #### C MP, TSH, T7 #### [facility] [address] [place] [address] Dr. Milind Martinez Creatinine [Mass/Vol] 1.54 mg/dL Critically high 0.55-1.02 [facility] Comment on above: Performed By: #### C MP, TSH, T7 #### [facility] [address] [place] [address] Dr. Milind Martinez EGFR-AF CYMRO 39 mL/min/1.73m2 Critically low >=60 [facility] Comment on above: Performed By: #### C MP, TSH, T7 #### [facility] [address] [place] [address] Dr. Milind Martinez EGFR-NON AF CYMRO 32 mL/min/1.73m2 Critically low >=60 [facility] Comment on above: Performed By: #### C MP, TSH, T7 #### [facility] [address] [place] [address] Dr. Milind Martinez Globulin (S) [Mass/Vol] 3.2 g/dL Normal [facility] Comment on above: Performed By: #### C MP, TSH, T7 #### [facility] [address] [address] [address] Milind Martinez Glucose [Mass/Vol] 180 mg/dL Critically high 74-106 T [facility] Comment on above: Performed By: #### C MP, TSH, T7 #### [facility] [address] [address] [address] Milind Martinez Potassium [Moles/Vol] 4.5 mmol/L Normal 3.5-5.1 [facility] Comment on above: Performed By: #### C MP, TSH, T7 #### [facility] [address] [address] [address] Milind Martinez Protein [Mass/Vol] 6.3 g/dL Critically low 6.4-8.2 [facility] Comment on above: Performed By: #### C MP, TSH, T7 #### [facility] [address] [address] [address] Milind Martinez Sodium [Moles/Vol] 140 mmol/L Normal 136-145 [facility] Comment on above: Performed By: #### C MP, TSH, T7 #### [facility] [address] [address] [address] Milind Martinez Urea nitrogen [Mass/Vol] 46.0 mg/dL Critically high 7.0-18.0 [facility] Comment on above: Performed By: #### C MP, TSH, T7 #### [facility] [address] [address] [address] Milind Martinez Urea nitrogen/Creatinine [Mass ratio] 29.9 mg/mg Normal [facility] Comment on above: Performed By: #### C MP, TSH, T7 #### [facility] [address] [address] [address] Milind Martinez TSHon 08-01-2022 TSH 12.769 uIU/mL Critically high 0.358-3.740 [facility] Comment on above: Performed By: #### C MP, TSH, T7 #### [facility] [address] [address] [address] Milind Martinez INSULINon 04-03-2022 Insulin 2.5 uIU/mL Critically low 2.6-24.9 [facility] Comment on above: Performed By: #### C MP, TSH, T7 #### [facility] [address] [place] [address] Dr. Milind Martinez T4, T3U, FTI LABCORPon 04-03 Free Thyroxine Index 1.8 Normal 1.2-4.9 [facility] Comment on above: Performed By: #### T HYLC #### [facility] [address] [place] [address] Dr. Milind Martinez T3 Uptake 26 % Normal 24-39 [facility] Comment on above: Performed By: #### T HYLC #### [facility] [address] [place] [address] Dr. Milind Martinez T4 [Mass/Vol] 7.1 ug/dL Normal 4.5-12.0 [facility] Comment on above: Performed By: #### T HYLC #### [facility] [address] [place] [address] Dr. Milind Martinez CBC AUTO DIFFon 04-02-2022 BASO # 0.0 103/ul Normal 0.0-0.1 [facility] Comment on above: Performed By: #### C BC #### [facility] [address] [place] [address] Dr. Milind Martinez Basophils/100 WBC (Bld) 0.9 % Normal 0.2-2.0 [facility] Comment on above: Performed By: #### C BC #### [facility] [address] [place] [address] Dr. Milind Martinez EO # 0.2 103/ul Normal 0.0-0.7 [facility] Comment on above: Performed By: #### C BC #### [facility] [address] [place] [address] Dr. Milind Martinez Eosinophils/100 WBC (Bld) 5.3 % Normal 0.9-7.0 [facility] Comment on above: Performed By: #### C BC #### [facility] [address] [place] [address] Dr. Milind Martinez Erythrocyte distribution width (RBC) [Ratio] 13.2 % Normal 11.0-15.0 [facility] Comment on above: Performed By: #### C BC #### [facility] [address] [place] [address] Dr. Milind Martinez Hematocrit (Bld) [Volume fraction] 37.1 % Normal 36.0-48.0 [facility] Comment on above: Performed By: #### C BC #### [facility] [address] [place] [address] Dr. Milind Martinez Hemoglobin (Bld) [Mass/Vol] 12.0 g/dL Normal 12.0-16.0 [facility] Comment on above: Performed By: #### C BC #### [facility] [address] [place] [address] Dr. Milind Martinez IG # 0.01 10e3/ul Normal 0.00-0.03 [facility] Comment on above: Performed By: #### C BC #### [facility] [address] [place] [address] Dr. Milind Martinez IG % 0.2 % Normal 0.0-0.5 [facility] Comment on above: Performed By: #### C BC #### [facility] [address] [place] [address] Dr. Milind Martinez LYMPH # 1.8 103/ul Normal 1.2-3.8 [facility] Comment on above: Performed By: #### C BC #### [facility] [address] [place] [address] Dr. Milind Martinez Lymphocytes/100 WBC (Bld) 41.9 % Normal 20.5-60.0 [facility] Comment on above: Performed By: #### C BC #### [facility] [address] [place] [address] Dr. Milind Martinez MANUAL DIFF REQ NO Normal [facility] Comment on above: Performed By: #### C BC #### [facility] [address] [place] [address] Dr. Milind Martinez MCH (RBC) [Entitic mass] 31.2 pg Normal 26.7-34.0 [facility] Comment on above: Performed By: #### C BC #### [facility] [address] [place] [address] Dr. Milind Martinez MCHC (RBC) [Mass/Vol] 32.3 g/dL Normal 29.9-35.2 [facility] Comment on above: Performed By: #### C BC #### [facility] [address] [place] [address] Dr. Milind Martinez MCV (RBC) [Entitic vol] 96.4 fL Normal 81.0-99.0 [facility] Comment on above: Performed By: #### C BC #### [facility] [address] [place] [address] Dr. Milind Martinez MONO # 0.3 103/ul Normal 0.3-0.8 [facility] Comment on above: Performed By: #### C BC #### [facility] [address] [place] [address] Dr. Milind Martinez Monocytes/100 WBC (Bld) 5.8 % Normal 1.7-12.0 [facility] Comment on above: Performed By: #### C BC #### [facility] [address] [place] [address] Dr. Milind Martinez NEUT # 2.0 103/ul Normal 1.4-6.5 [facility] Comment on above: Performed By: #### C BC #### [facility] [address] [place] [address] Dr. Milind Martinez Neutrophils/100 WBC (Bld) 45.9 % Normal 43.0-75.0 [facility] Comment on above: Performed By: #### C BC #### [facility] [address] [place] [address] Dr. Milind Martinez Platelet mean volume (Bld) [Entitic vol] 11.8 fL Normal 9.5-13.5 [facility] Comment on above: Performed By: #### C BC #### [facility] [address] [place] [address] Dr. Milind Martinez PLT 159 103/ul Normal 150-450 [facility] Comment on above: Performed By: #### C BC #### [facility] [address] [address] [address] Milind Martinez RBC 3.85 106/ul Critically low 4.20-5.40 [facility] Comment on above: Performed By: #### C BC #### [facility] [address] [address] [address] Milind Martinez WBC 4.3 103/ul Normal 4.0-11.0 [facility] Comment on above: Performed By: #### C BC #### [facility] [address] [address] [address] Milind Martinez GLYCOHEMOGLOBIN A1Con 2021 ADA RECOMMENDATION SEE BELOW Normal [facility] Comment on above: Result Comment: ADA RECOMMENDED LIMIT 4.0 - 6.0 ADA THERAPEUTIC TARGET < 7.0 ACTION SUGGESTED > 7.0 Performed By: #### A 1C #### [facility] [address] [place] [address] Dr. Milind Martinez Glucose [Mass/Vol] 214 mg/dL Normal [facility] Comment on above: Performed By: #### A 1C #### [facility] [address] [address] [address] Milind Martinez HbA1c (Bld) [Mass fraction] 9.1 % Critically high 4.5-6.2 [facility] Comment on above: Performed By: #### A 1C #### [facility] [address] [place] [address] Dr. Milind Martinez IRONon 04-02-2022 Iron [Mass/Vol] 126.0 ug/dL Normal 50.0-170.0 [facility] Comment on above: Performed By: #### C MP, TSH, T7 #### [facility] [address] [place] [address] Dr. Milind Martinez LIPID PROFILEon 04-02-2022 CHOL-HDL RATIO NORM SEE BELOW Normal [facility] Comment on above: Result Comment: 3.3 - 4.4 LOW RISK 4.4 - 7.1 AVERAGE RISK 7.1 - 11.0 MODERATE RISK >11.0 HIGH RISK Performed By: #### C MP, TSH, T7 #### [facility] [address] [place] [address] Dr. Milind Martinez Cholesterol [Mass/Vol] 133 mg/dL Normal <=200 [facility] Comment on above: Performed By: #### C MP, TSH, T7 #### [facility] [address] [address] [address] Milind Martinez Cholesterol in HDL [Mass/Vol] 20 mg/dL Critically low 40-60 [facility] Comment on above: Performed By: #### C MP, TSH, T7 #### [facility] [address] [place] [address] Dr. Milind Martinez Cholesterol in LDL [Mass/Vol] 69.6 mg/dL Normal [facility] Comment on above: Performed By: #### C MP, TSH, T7 #### [facility] [address] [place] [address] Dr. Milind Martinez Cholesterol.total/Ch olesterol in HDL [Mass ratio] 6.7 {ratio} Normal [facility] Comment on above: Performed By: #### C MP, TSH, T7 #### [facility] [address] [place] [address] Dr. Milind Martinez HDL NORMAL > or = 60 mg/dl - LOW CARDIOVASCULAR RISK <40 mg/dl - HIGH CARDIOVASCULAR RISK Normal [facility] Comment on above: Performed By: #### C MP, TSH, T7 #### [facility] [address] [place] [address] Dr. Milind Martinez LDL CALC NORMAL SEE BELOW Normal [facility] Comment on above: Result Comment: <100 mg/dl OPTIMAL 100 - 129 mg/dl NEAR OR ABOVE OPTIMAL 130 - 159 mg/dl BORDERLINE HIGH 160 - 189 mg/dl HIGH >190 mg/dl VERY HIGH Performed By: #### C MP, TSH, T7 #### [facility] [address] [place] [address] Dr. Milind Martinez Triglyceride [Mass/Vol] 217 mg/dL Critically high <=150 [facility] Comment on above: Performed By: #### C MP, TSH, T7 #### [facility] [address] [place] [address] Dr. Milind Martinez VLDL CALC 43.4 mg/dL Normal [facility] Comment on above: Performed By: #### C MP, TSH, T7 #### [facility] [address] [place] [address] Dr. Milind Martinez PROF 14(COMP METB)on 022 Albumin [Mass/Vol] 3.3 g/dL Critically low 3.4-5.0 [facility] Comment on above: Performed By: #### C MP, TSH, T7 #### [facility] [address] [place] [address] Dr. Milind Martinez Albumin/Globulin [Mass ratio] 1.2 {ratio} Normal [facility] Comment on above: Performed By: #### C MP, TSH, T7 #### [facility] [address] [place] [address] Dr. Milind Martinez ALP [Catalytic activity/Vol] 43 U/L Critically low 46-116 [facility] Comment on above: Performed By: #### C MP, TSH, T7 #### [facility] [address] [place] [address] Dr. Milind Martinez ALT [Catalytic activity/Vol] 24 U/L Normal 14-59 [facility] Comment on above: Performed By: #### C MP, TSH, T7 #### [facility] [address] [place] [address] Dr. Milind Martinez Anion gap [Moles/Vol] 11.4 mmol/L Normal [facility] Comment on above: Performed By: #### C MP, TSH, T7 #### [facility] [address] [place] [address] Dr. Milind Martinez AST [Catalytic activity/Vol] 24 U/L Normal 15-37 [facility] Comment on above: Performed By: #### C MP, TSH, T7 #### [facility] [address] [place] [address] Dr. Milind Martinez Bilirubin [Mass/Vol] 0.4 mg/dL Normal 0.2-1.0 [facility] Comment on above: Performed By: #### C MP, TSH, T7 #### [facility] [address] [place] [address] Dr. Milind Martinez Calcium [Mass/Vol] 8.7 mg/dL Normal 8.5-10.1 [facility] Comment on above: Performed By: #### C MP, TSH, T7 #### [facility] [address] [place] [address] Dr. Milind Martinez Chloride [Moles/Vol] 106 mmol/L Normal 98-107 [facility] Comment on above: Performed By: #### C MP, TSH, T7 #### [facility] [address] [place] [address] Dr. Milind Martinez CO2 [Moles/Vol] 29.7 mmol/L Normal 21.0-32.0 [facility] Comment on above: Performed By: #### C MP, TSH, T7 #### [facility] [address] [place] [address] Dr. Milind Martinez Creatinine [Mass/Vol] 1.30 mg/dL Critically high 0.55-1.02 [facility] Comment on above: Performed By: #### C MP, TSH, T7 #### [facility] [address] [place] [address] Dr. Milind Martinez EGFR-AF CYMRO 47 mL/min/1.73m2 Critically low >=60 [facility] Comment on above: Performed By: #### C MP, TSH, T7 #### [facility] [address] [place] [address] Dr. Milind Martinez EGFR-NON AF CYMRO 39 mL/min/1.73m2 Critically low >=60 [facility] Comment on above: Performed By: #### C MP, TSH, T7 #### [facility] [address] [place] [address] Dr. Milind Martinez Globulin (S) [Mass/Vol] 2.7 g/dL Normal [facility] Comment on above: Performed By: #### C MP, TSH, T7 #### [facility] [address] [address] [address] Milind Martinez Glucose [Mass/Vol] 109 mg/dL Critically high 74-106 T [facility] Comment on above: Performed By: #### C MP, TSH, T7 #### [facility] [address] [place] [address] Dr. Milind Martinez Potassium [Moles/Vol] 4.1 mmol/L Normal 3.5-5.1 [facility] Comment on above: Performed By: #### C MP, TSH, T7 #### [facility] [address] [place] [address] Dr. Milind Martinez Protein [Mass/Vol] 6.0 g/dL Critically low 6.4-8.2 [facility] Comment on above: Performed By: #### C MP, TSH, T7 #### [facility] [address] [place] [address] Dr. Milind Martinez Sodium [Moles/Vol] 143 mmol/L Normal 136-145 [facility] Comment on above: Performed By: #### C MP, TSH, T7 #### [facility] [address] [place] [address] Dr. Milind Martinez Urea nitrogen [Mass/Vol] 34.0 mg/dL Critically high 7.0-18.0 [facility] Comment on above: Performed By: #### C MP, TSH, T7 #### [facility] [address] [place] [address] Dr. Milind Martinez Urea nitrogen/Creatinine [Mass ratio] 26.2 mg/mg Normal [facility] Comment on above: Performed By: #### C MP, TSH, T7 #### [facility] [address] [place] [address] Dr. Milind Martinez TSHon 04-02-2022 TSH 7.887 uIU/mL Critically high 0.358-3.740 [facility] Comment on above: Performed By: #### C MP, TSH, T7 #### [facility] [address] [place] [address] Dr. Milind Martinez US KIDNEYSon 03-23-2022 US [...] by: IJEOMA TIM Date: 2022-03-23 13:26 Normal [facility] MG MAMM SCREEN 3D BOGDAN CADon 03-05-2022 MG MAMM SCREEN 3D BOGDAN CAD Patient: MARY DEJA Mj Exam Date: 03/05/2022 : 1940 Gender:F Ordering : [facility] Admission #: [id number] Family : Order #: [id number] CLICK HERE TO VIEW EXAM RADIOLOGY REPORT PROCEDURE: MAMMOGRAM SCREENING 3D BILATERAL CAD COMPARISON: MG MAMM SCREEN BOGDAN W CAD, 02/24/2020. MG MAMM SCREEN BOGDAN W CAD, 11/27/2018. MG MAMM BOGDAN SCRN W CAD DIG, 10/02/2011. MG MAMM SCREEN 3D BOGDAN CAD, 02/27/2021. INDICATIONS: Screening mammography Calculator Name [facility] Breast Cancer Risk Assessment Tool 5 Year Breast Cancer Risk 1.10% Lifetime Breast Cancer Risk 1.30% Personal Breast Cancer No Personal Ovarian Cancer No Treatments None Family Cancers Sister with lung cancer at age 55; Brother with mult.myeloma cancer at age 49; Brother with mult.myeloma cancer at age 70. LOCATION: [facility] BREAST COMPOSITION: Scattered areas [...] M.D. on 03/05/2022 at 13:47 Normal [facility] US CAROTID ART BILon [...] by: UDAY MAJOR Date: 2021-12-25 15:42 Normal [facility] Social History Date Type Detail Facility Sex Assigned At [facility] Other Vital Signs Date Time Vital Sign Value Performing Clinician Marissa florez 12-21-2021 10:00-0400 Body height 147.32 cm Patrick Cotter Other [facility] Other 12-21-2021 10:00-0400 Body mass index (BMI) [Ratio] 27.79 kg/m2 Patrick Cotter Other [facility] Other 12-21-2021 10:00-0400 Body weight 60.33 kg Patrick Cotter Other [facility] Other 10-19-2021 12:00-0500 Body height 147.32 cm Patrick Cotter Other [facility] Other 10-19-2021 12:00-0500 Body mass index (BMI) [Ratio] 27.79 kg/m2 Patrick Cotter Other [facility] Other 10-19-2021 12:00-0500 Body weight 60.33 kg Patrick Cotter Other [facility] Other 08-22-2021 15:00-0500 Body height 147.32 cm Patrick Cotter Other [facility] Other 08-22-2021 15:00-0500 Body mass index (BMI) [Ratio] 27.79 kg/m2 Patrick Octter Other [facility] Other 08-22-2021 15:00-0500 Body weight 60.33 kg Patrick Cotter Other [facility] Other Clinical Notes 08-22-2021 to 02-11-2024 Note Date & Type Note Facility 02-11-2024 Note [place] [facility] Subjective Deja Zamora is a 83 y.o. year old female patient being seen for 3 mo follow up hypertension, carotid artery stenosis, and pulmonary hypertension. Says she's been having dizzy spells the past 1-2 weeks. She did bring her BP log from home. She had routine labs last month. Patient Active Problem List Diagnosis Abdominal pain Anemia Primary hypertension Carotid artery stenosis Fatigue Hyperlipidemia Nausea and vomiting Santosh rhythm disorder Orthostatic hypotension Osteoporosis Pulmonary hypertension (CMS/HCC) Thickened endometrium Type 2 diabetes mellitus (CMS/HCC) Vertigo Acute sinusitis Difficulty walking Fluid level behind tympanic membrane of both ears Intervertebral disc disorders with radiculopathy, lumbar region Type 2 diabetes mellitus without complication (CMS/HCC) Bilateral renal artery stenosis (CMS/HCC) Stage 4 chronic kidney disease (CMS/HCC) Healthy adult Age-related nuclear cataract of both eyes Secondary hyperparathyroidism (CMS/HCC) Family History Problem Relation Name Age [...] readings at home showed systolic sometimes 90-100. 02/11/2024 She is having issues with dizziness. She has been on gabapentin for her recent outbreak with shingles. Her BP is high in clinic - she reports this happens but she gets controlled Bps at home. ROS Constitutional: Positive for malaise/fatigue. Cardiovascular: Positive for leg swelling (improving). Musculoskeletal: Positive for arthritis, back pain and muscle weakness. Neurological: Positive for dizziness, light-headedness and weakness. All other systems reviewed and are negative. Objective Visit Vitals BP (!) 198/62 (BP Location: Right arm, Patient Position: Sitting) Pulse 62 Ht 1.473 m (4' 10 ) Wt 57.6 kg (127 lb) SpO2 97% BMI 26.54 kg/m??? OB Status Postmenopausal Smoking Status Never BSA 1.54 m??? Physical Exam Constitutional: Appearance: She is [...] Allergies Allergies Allergen Reactions Gemfibrozil Penicillins Unknown Icapusx-Yen-Ghj Reductase Inhibitors Unknown Triamterene-Hydrochlorothiazid (more content not included)... [facility] 02-11-2024 Note Patient here for 6 m [...] All other systems reviewed and are negative. [facility] 08-14-2023 Note Hypertension is well controlled at home, continue all meds Metoprolol 25 mg bid, cardura 8 mg, clonidine 0.2 mg bid, and norvasc 5 mg. [facility] 08-14-2023 Note Currently stable wit hout worsening symptoms [facility] 08-14-2023 Note Patient here for 2 w hamilton follow up hypertension. Clonidine was increased to [...] All other systems reviewed and are negative. [facility] 08-14-2023 Note [facility] ESS [...] m??? Allergies Allergen Reactions Gemfibrozil Penicillins Unknown Syjmkjq-Bgs-Tsf Reductase Inhibitors Unknown Triamterene-Hydrochlorothiazid Medications: Current Outpatient [...] Testin04/18/23 TTE 5 (more content not included)... [facility] 08-02-2023 Note Stable so far, will monitor with increased clonidine for uncontrolled HTN [facility] 08-02-2023 Note Stable without any worsening sym ptoms [facility] 08-02-2023 Note Hypertension is Curr ently [...] once or twice every 2 to 3-weeks [facility] 08-02-2023 Note [facility] ESS [...] target sometimes. She was admitted to [facility] in Mar 2023 for e.coli and [...] m??? Allergies Allergen Reactions Gemfibrozil Penicillins Unknown Tjqhxmg-Rys-Uae Reductase Inhibitors Unknown Triamterene-Hydrochlorothiazid Medications: Current Outpatient [...] values have be (more content not included)... [facility] 08-02-2023 Note Patient here c/o hyp [...] target sometimes. She was admitted to [facility] in Mar 2023 for e.coli and [...] All other systems reviewed and are negative. [facility] 02-25-2023 Note [place] [facility] Subjective Deja Zamora is a [...] Allergies Allergies Allergen Reactions Gemfibrozil Penicillins Unknown Yruurbh-Xnx-Apq Reductase Inhibitors Unknown Triamterene-Hydrochlorothiazid Medications Current Outpatient [...] Disp: , Rfl: (more content not included)... 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 I have encouraged her to continue to build up her endurance by walking. I will see her again in 2 months for final postop visit. 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 [facility] Other evaluation noteNo InformationNort Sko[facility] Other History general Narrative - Reported* Type Description Date Medical History Diabetes Medical History Hyperlipidemia Medical History Pulmonary HPN Medical History Osteoporosis Surgical History R knee Sx Surgical History L Hand Hospitalization History HTN 08/2018 [facility] Other Summary Purpose Family History No Family [...] Arthropathy of left hip (M16.12) Referral Organization [facility] urosurgery Referring Provider First Name Patrick Referring Provider Last Name Cyndee Referring Provider Specialty Neurologica l Surgery Referred Organization [facility] Referred Provider Ximena Vela Jr Referred Address ,[place], [place],[address] Referred Provider Specialty Orthopedic S urgery Referral Priority Routine General Notes Val Slater 022 10:56:23 AM >Received today. This referral was sent P2P and will wait a week and call them back to see if she was scheduled. They do their own scheduling Additional Source Comments INFORMATION SOURCE (unrecogn ized section and content) DATE CREATED AUTHOR 02/10/2018 [facility] DATE CREATED AUTHOR AUTHOR'S ORGANIZ ATION 09/22/2022 [facility] DATE CREATED AUTHOR AUTHOR'S ORGANIZ ATION 09/23/2022 [facility] DATE CREATED AUTHOR AUTHOR'S ORGANIZ ATION 04/11/2023 [facility] DATE CREATED AUTHOR AUTHOR'S ORGANIZ ATION 09/02/2023 [facility] EPIC DATE CREATED AUTHOR AUTHOR'S ORGANIZ ATION 02/20/[address] [facility] REASON FOR VISIT (unrecogniz ed [...] BE BASED ON THE PRIMARY CLINICAL RECORDS. [employer] provides no warranty or guarantee of the accuracy or completeness of information in this document.
[2024-02-21 08:44] LABS: Basophils Absolute Auto 0.1 10^3/uL (0.0-0.1); Basophils Percent Auto 1.1 % (0.2-2.0); Eosinophils Absolute Auto 0.2 10^3/uL (0.0-0.7); Eosinophils Percent Auto 4.3 % (0.9-7.0); Hematocrit 33.9 % (36.0-48.0); Immature Granulocytes Abs Auto 0.01 10^3/uL (0.00-0.03); Immature Granulocytes Pct Auto 0.2 % (0.0-0.5); Lymphocytes Absolute Auto 2.5 10^3/uL (1.2-3.8); Lymphocytes Percent Auto 46.5 % (20.5-60.0); Mean Corpuscular HGB Conc 32.4 g/dL (29.9-35.2); Mean Corpuscular Hemoglobin 32.1 pg (26.7-34.0); Mean Corpuscular Volume 98.8 fL (81.0-99.0); Mean Platelet Volume 12.6 fL (9.5-13.5); Monocytes Absolute Auto 0.4 10^3/uL (0.3-0.8); Monocytes Percent Auto 6.5 % (1.7-12.0); Neutrophils Absolute Auto 2.2 10^3/uL (1.4-6.5); Neutrophils Percent Auto 41.4 % (43.0-75.0); Platelet Count 162 10^3/uL (150-450); Red Blood Count 3.43 10^6/uL (4.20-5.40); Red Cell Distribution Width 14.1 % (11.0-15.0); White Blood Count 5.4 10^3/uL (4.0-11.0)
[2024-02-21 09:22] LABS: Alanine Aminotransferase 22 U/L (14-59); Albumin Globulin Ratio 0.9; Albumin Level 2.6 g/dL (3.4-5.0); Alkaline Phosphatase 52 U/L (46-116); Anion Gap 11.8; Aspartate Amino Transferase 28 U/L (15-37); BUN Creatinine Ratio 25.9; Bilirubin Total 0.4 mg/dL (0.2-1.0); Calcium 8.6 mg/dL (8.5-10.1); Carbon Dioxide 26.9 mmol/L (21.0-32.0); Chloride 108 mmol/L (98-107); Chol HDL Ratio 7.6; Cholesterol 130 mg/dL (<=200); Estimated GFR (African America 26 (>=60); Estimated GFR (Non-African Ame 22 (>=60); Globulin 2.9 g/dL; Glucose 160 mg/dL (74-106); HDL Cholesterol 17 mg/dL (40-60); Potassium 3.7 mmol/L (3.5-5.1); Sodium 143 mmol/L (136-145); Total Protein 5.5 g/dL (6.4-8.2); Triglycerides 239 mg/dL (<=150); VLDL CHOLESTEROL 47.8 mg/dL
== END 2024-02-21 08:12 | disposition home or self-care (01) ==
LOC: LAB 08:11
PROVIDERS: PCP Nurse Practitioner Family; Visit Provider Nurse Practitioner Family
DX: E78.00 Pure hypercholesterolemia, unspecified (principal)
CPT/HCPCS: 36415; 80053; 80061; 85025

== ENCOUNTER 2024-03-04 08:38 | Outpatient (OUT) | payer MEDICARE, SELFPAY ==
--- OUTSIDE RECORDS SUMMARY | 2024-03-04 08:59 | XMS_ITS | CCD ---
Author Organization [facility] Team Providers Care Predatory Game Hunter Name Role Phone PHYSICIAN, DEFAULT Unavailable Unavailable PHYSICIAN, DEFAULT Unavailable Unavailable Patrick Cotter Unavailable Patrick Cotter Attending Unavailable Patrick Cotter Admitting Unavailable True Devine Primary Care Unavailable NATHAN JOVEL Attending Unavailable MED, NATHAN Admitting Unavailable MED, [...] Admitting Unavailable MED, NATHAN Primary Care Unavailable EMD, NATHAN Consulting Unavailable MED, NATHAN Attending Unavailable MED, NATHAN Admitting Unavailable MED, NATHAN Primary Care Unavailable MED, NATHAN Consulting Unavailable ELIEZER, DR BUENO Attending Unavailable MOUKAHEATH, DR BUENO Admitting Unavailable MOUKARBCLAUDIA, DR BUENO Consulting Unavailable MED, NATHAN Primary Care Unavailable IJEOMA TIM Consulting Unavailable Eliana LINARES, Danny Carrasco Attending Unavailable Eliana LINARES, Danny Carrasco Attending Unavailable Eliana LINARES, Danny Carrasco Attending Unavailable JOLYNN DAO Attending Unavailable THALIA GRUBBS Unavailable XIMENA MARTINS Attending Unavailable MAYELIN, SEE Attending Unavailable MAYELIN, SEE Attending Unavailable ZOILA MOORE Attending Unavailable Allergies Allergy Classification Reported Allergen(s) Allergy Type Date of Onset Reaction(s) Facility (5 sources) Hmg-Coa Reductase Inhibitors (Statins) Drug allergy Unknown [facility] Mantis Deposition Other (5 sources) Penicillin Drug Allergy Unknown [facility] Mantis Deposition Other (2 sources) Penicillins; Translations: [PENICILLINS] Drug allergy (disorder) [facility] Repository (1 source) Ilnlcxb-DZP-XiW Reductase Inhibitor Drug allergy (disorder) [facility] Repository (2 sources) black walnut pollen extract; Translations: [FTXLERA-UWI-RTA REDUCTASE INHIBITORS] Drug Allergy 017 [facility] Repository (1 source) Dextroamphetamine Drug Allergy [facility] Repository (1 source) Gemfibrozil Drug Allergy [facility] Repository (1 source) hydroCHLOROthiazide / Triamterene Drug Allergy [facility] Repository (1 source) Penicillin Drug Allergy [facility] Repository (1 source) rosuvastatin Drug Allergy [facility] Repository (1 source) Gemfibrozil; Translations: [GEMFIBROZIL] Drug Allergy [facility] Repository (1 source) TRIAMTERENE-HYDROCHLOR OTHIAZID; Translations: [TRIAMTERENE-HYDROCHLO ROTHIAZID] Propensity to adverse reactions to drug (disorder) [facility] Repository Medications Current Medications Medication Drug [...] (5 sources) Multivitamin Adults - Orally Active [place] 3 1000 MG (5 sources) take 1 capsule by mouth once daily [place] 3 1000 MG 1 capsule Orally Once [...] Range Facility Office Visiton 02-11-2024 Follow-up visit [id number] Deja Zamora 1940 F Date Provider Department Center 02/11/2024 Elliot-ZOILA [facility] Family History Problem Relation Age of Onset Coronary artery disease Father Family Status - Relation Status Age at Father Level of Service:16850 ND OFFICE/OUTPATIENT ESTABLISHED MOD MDM 30 MIN Normal [facility] Office Visiton 08-14-2023 Follow-up visit [id number] Deja Zamora 1940 F Date Provider Department Center 08/14/2023 SEE [facility]ATENG [facility] Family History Problem Relation Age of Onset Coronary artery disease Father Family Status - Relation Status Age at Father Level of Service:91593 ND OFFICE/OUTPATIENT ESTABLISHED MOD MDM 30 MIN Normal [facility] Office Visiton 08-02-2023 Follow-up visit [id number] Deja Zamora 1940 F Date Provider Department Center 08/02/2023 SEE BOATENG [facility] Family History Problem Relation Age of Onset Coronary artery disease Father Family Status - Relation Status Age at Father Level of Service:91997 ND OFFICE/OUTPATIENT ESTABLISHED MOD MDM 30-39 MIN Normal [facility] Office Visiton 02-25-2023 Follow-up visit [id number] Deja Zamora 1940 F Date Provider Department Center 02/25/2023 XIMENA LIZ [facility] Family History Problem Relation Age of Onset Coronary artery disease Father Family Status - Relation Status Age at Father Level of Service:22755 ND OFFICE/OUTPATIENT ESTABLISHED MOD MDM 30-39 MIN Normal [facility] FREE THYROXINE INDEX T7on FTI 2.59 Normal 1.30-4.50 [facility] Comment on above: Performed By: #### C MP, TSH, T7 #### [facility] [address] [place] [address] Dr. Milind Martinez T3U 37.0 % Normal 30.0-39.0 [facility] Comment on above: Performed By: #### C MP, TSH, T7 #### [facility] [address] [place] [address] Dr. Milind Martinez T4 [Mass/Vol] 7.00 ug/dL Normal 4.80-13.90 [facility] Comment on above: Performed By: #### C MP, TSH, T7 #### [facility] [address] [place] [address] Dr. Milind Martinez TSHon 09-20-2022 TSH 5.715 uIU/mL Critically high 0.358-3.740 [facility] Comment on above: Performed By: #### C MP, TSH, T7 #### [facility] [address] [place] [address] Dr. Milind Martinez FREE THYROXINE INDEX T7on FTI 2.56 Normal 1.30-4.50 [facility] Comment on above: Performed By: #### C MP, TSH, T7 #### [facility] [address] [place] [address] Dr. Milind Martinez T3U 35.0 % Normal 30.0-39.0 [facility] Comment on above: Performed By: #### C MP, TSH, T7 #### [facility] [address] [place] [address] Dr. Milind Martinez T4 [Mass/Vol] 7.30 ug/dL Normal 4.80-13.90 [facility] Comment on above: Performed By: #### C MP, TSH, T7 #### [facility] [address] [place] [address] Dr. Milind Martinez GLYCOHEMOGLOBIN A1Con 2021 ADA RECOMMENDATION SEE BELOW Normal [facility] Comment on above: Result Comment: ADA RECOMMENDED LIMIT 4.0 - 6.0 ADA THERAPEUTIC TARGET < 7.0 ACTION SUGGESTED > 7.0 Performed By: #### A 1C #### [facility] [address] [place] [address] Dr. Milind Martinez Glucose [Mass/Vol] 229 mg/dL Normal [facility] Comment on above: Performed By: #### A 1C #### [facility] [address] [place] [address] Dr. Milind Martinez HbA1c (Bld) [Mass fraction] 9.6 % Critically high 4.5-6.2 [facility] Comment on above: Performed By: #### A 1C #### [facility] [address] [place] [address] Dr. Milind Martinez PROF 14(COMP METB)on 022 Albumin [Mass/Vol] 3.1 g/dL Critically low 3.4-5.0 [facility] Comment on above: Performed By: #### C MP, TSH, T7 #### [facility] [address] [place] [address] Dr. Milind Martinez Albumin/Globulin [Mass ratio] 1.0 {ratio} Normal [facility] Comment on above: Performed By: #### C MP, TSH, T7 #### [facility] [address] [place] [address] Dr. Milind Martinez ALP [Catalytic activity/Vol] 48 U/L Normal 46-116 [facility] Comment on above: Performed By: #### C MP, TSH, T7 #### [facility] [address] [place] [address] Dr. Milind Martinez ALT [Catalytic activity/Vol] 19 U/L Normal 14-59 [facility] Comment on above: Performed By: #### C MP, TSH, T7 #### [facility] [address] [place] [address] Dr. Milind Martinez Anion gap [Moles/Vol] 12.3 mmol/L Normal [facility] Comment on above: Performed By: #### C MP, TSH, T7 #### [facility] [address] [place] [address] Dr. Milind Martinez AST [Catalytic activity/Vol] 30 U/L Normal 15-37 [facility] Comment on above: Performed By: #### C MP, TSH, T7 #### [facility] [address] [place] [address] Dr. Milind Martinez Bilirubin [Mass/Vol] 0.5 mg/dL Normal 0.2-1.0 [facility] Comment on above: Performed By: #### C MP, TSH, T7 #### [facility] [address] [place] [address] Dr. Milind Martinez Calcium [Mass/Vol] 8.9 mg/dL Normal 8.5-10.1 [facility] Comment on above: Performed By: #### C MP, TSH, T7 #### [facility] [address] [place] [address] Dr. Milind Martinez Chloride [Moles/Vol] 104 mmol/L Normal 98-107 [facility] Comment on above: Performed By: #### C MP, TSH, T7 #### [facility] [address] [place] [address] Dr. Milind Martinez CO2 [Moles/Vol] 28.2 mmol/L Normal 21.0-32.0 [facility] Comment on above: Performed By: #### C MP, TSH, T7 #### [facility] [address] [address] [address] Milind Martinez Creatinine [Mass/Vol] 1.54 mg/dL Critically high 0.55-1.02 [facility] Comment on above: Performed By: #### C MP, TSH, T7 #### [facility] [address] [address] [address] Milind Martinez EGFR-AF PANAMANIAN 39 mL/min/1.73m2 Critically low >=60 [facility] Comment on above: Performed By: #### C MP, TSH, T7 #### [facility] [address] [address] [address] Milind Martinez EGFR-NON AF PANAMANIAN 32 mL/min/1.73m2 Critically low >=60 [facility] Comment on above: Performed By: #### C MP, TSH, T7 #### [facility] [address] [address] [address] Milind Martinez Globulin (S) [Mass/Vol] 3.2 g/dL Normal [facility] Comment on above: Performed By: #### C MP, TSH, T7 #### [facility] [address] [address] [address] Milind Martinez Glucose [Mass/Vol] 180 mg/dL Critically high 74-106 [facility] Comment on above: Performed By: #### C MP, TSH, T7 #### [facility] [address] [address] [address] Milind Martinez Potassium [Moles/Vol] 4.5 mmol/L Normal 3.5-5.1 [facility] Comment on above: Performed By: #### C MP, TSH, T7 #### [facility] [address] [address] [address] Milind Martinez Protein [Mass/Vol] 6.3 g/dL Critically low 6.4-8.2 [facility] Comment on above: Performed By: #### C MP, TSH, T7 #### [facility] [address] [address] [address] Milind Martinez Sodium [Moles/Vol] 140 mmol/L Normal 136-145 [facility] Comment on above: Performed By: #### C MP, TSH, T7 #### [facility] [address] [address] [address] Milind Martinez Urea nitrogen [Mass/Vol] 46.0 mg/dL Critically high 7.0-18.0 [facility] Comment on above: Performed By: #### C MP, TSH, T7 #### [facility] [address] [place] [address] Dr. Milind Martinez Urea nitrogen/Creatinine [Mass ratio] 29.9 mg/mg Normal [facility] Comment on above: Performed By: #### C MP, TSH, T7 #### [facility] [address] [place] [address] Dr. Milind Martinez TSHon 08-01-2022 TSH 12.769 uIU/mL Critically high 0.358-3.740 [facility] Comment on above: Performed By: #### C MP, TSH, T7 #### [facility] [address] [place] [address] Dr. Milind Martinez INSULINon 04-03-2022 Insulin 2.5 uIU/mL Critically low 2.6-24.9 [facility] Comment on above: Performed By: #### C MP, TSH, T7 #### [facility] [address] [place] [address] Dr. Milind Martinez T4, T3U, FTI LABCORPon 04-03 Free Thyroxine Index 1.8 Normal 1.2-4.9 [facility] Comment on above: Performed By: #### T HYLC #### [facility] [address] [place] [address] Dr. Milind Martinez T3 Uptake 26 % Normal 24-39 [facility] Comment on above: Performed By: #### T HYLC #### [facility] [address] [place] [address] Dr. Milind Martinez T4 [Mass/Vol] 7.1 ug/dL Normal 4.5-12.0 [facility] Comment on above: Performed By: #### T HYLC #### [facility] [address] [place] [address] Dr. Milind Martinez CBC AUTO DIFFon 04-02-2022 BASO # 0.0 103/ul Normal 0.0-0.1 [facility] Comment on above: Performed By: #### C BC #### [facility] [address] [place] [address] Dr. Milind Martinez Basophils/100 WBC (Bld) 0.9 % Normal 0.2-2.0 [facility] Comment on above: Performed By: #### C BC #### [facility] [address] [place] [address] Dr. Milind Martinez EO # 0.2 103/ul Normal 0.0-0.7 [facility] Comment on above: Performed By: #### C BC #### [facility] [address] [place] [address] Dr. Milind Martinez Eosinophils/100 WBC (Bld) 5.3 % Normal 0.9-7.0 [facility] Comment on above: Performed By: #### C BC #### [facility] [address] [place] [address] Dr. Milind Martinez Erythrocyte distribution width (RBC) [Ratio] 13.2 % Normal 11.0-15.0 [facility] Comment on above: Performed By: #### C BC #### [facility] [address] [place] [address] Dr. Milind Martinez Hematocrit (Bld) [Volume fraction] 37.1 % Normal 36.0-48.0 [facility] Comment on above: Performed By: #### C BC #### [facility] [address] [place] [address] Dr. Milind Martinez Hemoglobin (Bld) [Mass/Vol] 12.0 g/dL Normal 12.0-16.0 [facility] Comment on above: Performed By: #### C BC #### [facility] [address] [place] [address] Dr. Milind Martinez IG # 0.01 10e3/ul Normal 0.00-0.03 [facility] Comment on above: Performed By: #### C BC #### [facility] [address] [place] [address] Dr. Milind Martinez IG % 0.2 % Normal 0.0-0.5 [facility] Comment on above: Performed By: #### C BC #### [facility] [address] [place] [address] Dr. Milind Martinez LYMPH # 1.8 103/ul Normal 1.2-3.8 [facility] Comment on above: Performed By: #### C BC #### [facility] [address] [place] [address] Dr. Milind Martinez Lymphocytes/100 WBC (Bld) 41.9 % Normal 20.5-60.0 [facility] Comment on above: Performed By: #### C BC #### [facility] [address] [place] [address] Dr. Milind Martinez MANUAL DIFF REQ NO Normal [facility] Comment on above: Performed By: #### C BC #### [facility] [address] [place] [address] Dr. Milind Martinez MCH (RBC) [Entitic mass] 31.2 pg Normal 26.7-34.0 [facility] Comment on above: Performed By: #### C BC #### [facility] [address] [place] [address] Dr. Milind Martinez MCHC (RBC) [Mass/Vol] 32.3 g/dL Normal 29.9-35.2 [facility] Comment on above: Performed By: #### C BC #### [facility] [address] [place] [address] Dr. Milind Martinez MCV (RBC) [Entitic vol] 96.4 fL Normal 81.0-99.0 [facility] Comment on above: Performed By: #### C BC #### [facility] [address] [place] [address] Dr. Milind Martinez MONO # 0.3 103/ul Normal 0.3-0.8 [facility] Comment on above: Performed By: #### C BC #### [facility] [address] [address] [address] Milind Martinez Monocytes/100 WBC (Bld) 5.8 % Normal 1.7-12.0 [facility] Comment on above: Performed By: #### C BC #### [facility] [address] [place] [address] Dr. Milind Martinez NEUT # 2.0 103/ul Normal 1.4-6.5 [facility] Comment on above: Performed By: #### C BC #### [facility] [address] [place] [address] Dr. Milind Martinez Neutrophils/100 WBC (Bld) 45.9 % Normal 43.0-75.0 [facility] Comment on above: Performed By: #### C BC #### [facility] [address] [place] [address] Dr. Milind Martinez Platelet mean volume (Bld) [Entitic vol] 11.8 fL Normal 9.5-13.5 [facility] Comment on above: Performed By: #### C BC #### [facility] [address] [place] [address] Dr. Milind Martinez PLT 159 103/ul Normal 150-450 [facility] Comment on above: Performed By: #### C BC #### [facility] [address] [place] [address] Dr. Milind Martinez RBC 3.85 106/ul Critically low 4.20-5.[address] [facility] Comment on above: Performed By: #### C BC #### [facility] [address] [place] [address] Dr. Milind Martinez WBC 4.3 103/ul Normal 4.0-11.0 [facility] Comment on above: Performed By: #### C BC #### [facility] [address] [place] [address] Dr. Milind Martinez GLYCOHEMOGLOBIN A1Con 2021 ADA RECOMMENDATION SEE BELOW Normal [facility] Comment on above: Result Comment: ADA RECOMMENDED LIMIT 4.0 - 6.0 ADA THERAPEUTIC TARGET < 7.0 ACTION SUGGESTED > 7.0 Performed By: #### A 1C #### [facility] [address] [place] [address] Dr. Milind Mratinez Glucose [Mass/Vol] 214 mg/dL Normal [facility] Comment on above: Performed By: #### A 1C #### [facility] [address] [place] [address] Dr. Milind Martinez HbA1c (Bld) [Mass fraction] 9.1 % Critically high 4.5-6.2 [facility] Comment on above: Performed By: #### A 1C #### [facility] [address] [place] [address] Dr. Milind Martinez IRONon 04-02-2022 Iron [Mass/Vol] 126.0 ug/dL Normal 50.0-170.0 [facility] Comment on above: Performed By: #### C MP, TSH, T7 #### [facility] [address] [place] [address] Dr. Milind Martinez LIPID PROFILEon 04-02-2022 CHOL-HDL RATIO NORM SEE BELOW Normal [facility] Comment on above: Result Comment: 3.3 - 4.4 LOW RISK 4.4 - 7.1 AVERAGE RISK 7.1 - 11.0 MODERATE RISK >11.0 HIGH RISK Performed By: #### C MP, TSH, T7 #### [facility] [address] [place] [address] Dr. Milind Martinez Cholesterol [Mass/Vol] 133 mg/dL Normal <=200 [facility] Comment on above: Performed By: #### C MP, TSH, T7 #### [facility] [address] [place] [address] Dr. Milind Martinez Cholesterol in HDL [Mass/Vol] 20 mg/dL Critically low 40-60 [facility] Comment on above: Performed By: #### C MP, TSH, T7 #### [facility] [address] [place] [address] Dr. Milind Martinez Cholesterol in LDL [Mass/Vol] 69.6 mg/dL Normal [facility] Comment on above: Performed By: #### C MP, TSH, T7 #### [facility] [address] [place] [address] Dr. Milind Martinez Cholesterol.total/Ch olesterol in HDL [Mass ratio] 6.7 {ratio} Normal [facility] Comment on above: Performed By: #### C MP, TSH, T7 #### [facility] [address] [place] [address] Dr. Milind Martinez HDL NORMAL > or = 60 mg/dl - LOW CARDIOVASCULAR RISK <40 mg/dl - HIGH CARDIOVASCULAR RISK Normal [facility] Comment on above: Performed By: #### C MP, TSH, T7 #### [facility] [address] [place] [address] Dr. Milind Martinez LDL CALC NORMAL SEE BELOW Normal [facility] Comment on above: Result Comment: <100 mg/dl OPTIMAL 100 - 129 mg/dl NEAR OR ABOVE OPTIMAL 130 - 159 mg/dl BORDERLINE HIGH 160 - 189 mg/dl HIGH >190 mg/dl VERY HIGH Performed By: #### C MP, TSH, T7 #### [facility] [address] [place] [address] Dr. Milind Martinez Triglyceride [Mass/Vol] 217 mg/dL Critically high <=150 [facility] Comment on above: Performed By: #### C MP, TSH, T7 #### [facility] [address] [place] [address] Dr. Milind Martinez VLDL CALC 43.4 mg/dL Normal [facility] Comment on above: Performed By: #### C MP, TSH, T7 #### [facility] [address] [place] [address] Dr. Milind Martinez PROF 14(COMP METB)on 022 Albumin [Mass/Vol] 3.3 g/dL Critically low 3.4-5.0 [facility] Comment on above: Performed By: #### C MP, TSH, T7 #### [facility] [address] [place] [address] Dr. Milind Martinez Albumin/Globulin [Mass ratio] 1.2 {ratio} Normal [facility] Comment on above: Performed By: #### C MP, TSH, T7 #### [facility] [address] [place] [address] Dr. Milind Martinez ALP [Catalytic activity/Vol] 43 U/L Critically low 46-116 [facility] Comment on above: Performed By: #### C MP, TSH, T7 #### [facility] [address] [address] [address] Milind Martinez ALT [Catalytic activity/Vol] 24 U/L Normal 14-59 [facility] Comment on above: Performed By: #### C MP, TSH, T7 #### [facility] [address] [address] [address] Milind Martinez Anion gap [Moles/Vol] 11.4 mmol/L Normal [facility] Comment on above: Performed By: #### C MP, TSH, T7 #### [facility] [address] [place] [address] Dr. Milind Martinez AST [Catalytic activity/Vol] 24 U/L Normal 15-37 [facility] Comment on above: Performed By: #### C MP, TSH, T7 #### [facility] [address] [place] [address] Dr. Milind Martinez Bilirubin [Mass/Vol] 0.4 mg/dL Normal 0.2-1.0 [facility] Comment on above: Performed By: #### C MP, TSH, T7 #### [facility] [address] [place] [address] Dr. Milind Martinez Calcium [Mass/Vol] 8.7 mg/dL Normal 8.5-10.1 [facility] Comment on above: Performed By: #### C MP, TSH, T7 #### [facility] [address] [place] [address] Dr. Milind Martinez Chloride [Moles/Vol] 106 mmol/L Normal 98-107 [facility] Comment on above: Performed By: #### C MP, TSH, T7 #### [facility] [address] [place] [address] Dr. Milind Martinez CO2 [Moles/Vol] 29.7 mmol/L Normal 21.0-32.0 [facility] Comment on above: Performed By: #### C MP, TSH, T7 #### [facility] [address] [address] [address] Milind Martinez Creatinine [Mass/Vol] 1.30 mg/dL Critically high 0.55-1.02 [facility] Comment on above: Performed By: #### C MP, TSH, T7 #### [facility] [address] [address] [address] Milind Martinez EGFR-AF PANAMANIAN 47 mL/min/1.73m2 Critically low >=60 [facility] Comment on above: Performed By: #### C MP, TSH, T7 #### [facility] [address] [address] [address] Milind Martinez EGFR-NON AF PANAMANIAN 39 mL/min/1.73m2 Critically low >=60 [facility] Comment on above: Performed By: #### C MP, TSH, T7 #### [facility] [address] [place] [address] Dr. Milind Martinez Globulin (S) [Mass/Vol] 2.7 g/dL Normal [facility] Comment on above: Performed By: #### C MP, TSH, T7 #### [facility] [address] [address] [address] Milind Martinez Glucose [Mass/Vol] 109 mg/dL Critically high 74-106 [facility] Comment on above: Performed By: #### C MP, TSH, T7 #### [facility] [address] [place] [address] Dr. Milind Martinez Potassium [Moles/Vol] 4.1 mmol/L Normal 3.5-5.1 [facility] Comment on above: Performed By: #### C MP, TSH, T7 #### [facility] [address] [address] [address] Milind Martinez Protein [Mass/Vol] 6.0 g/dL Critically low 6.4-8.2 [facility] Comment on above: Performed By: #### C MP, TSH, T7 #### [facility] [address] [place] [address] Dr. Milind Martinez Sodium [Moles/Vol] 143 mmol/L Normal 136-145 [facility] Comment on above: Performed By: #### C MP, TSH, T7 #### [facility] [address] [address] [address] Milind Martinez Urea nitrogen [Mass/Vol] 34.0 mg/dL Critically high 7.0-18.0 [facility] Comment on above: Performed By: #### C MP, TSH, T7 #### [facility] [address] [address] [address] Milind Martinez Urea nitrogen/Creatinine [Mass ratio] 26.2 mg/mg Normal [facility] Comment on above: Performed By: #### C MP, TSH, T7 #### [facility] [address] [address] [address] Milind Martinez TSHon 04-02-2022 TSH 7.887 uIU/mL Critically high 0.358-3.740 [facility] Comment on above: Performed By: #### C MP, TSH, T7 #### [facility] [address] [address] [address] Milind Martinez US KIDNEYSon 03-23-2022 US [...] IJEOMA TIM Date: 2022-03-23 13:26 Normal [facility] MAMM SCREEN 3D BOGDAN CADon 03-05-2022 MG MAMM SCREEN 3D BOGDAN CAD Patient: DEJA ZAMORA Exam Date: 03/05/2022 : 1940 Gender:F Ordering : NATHAN JOVEL [facility] Admission #: [id number] Family : Order #: [id number] CLICK HERE TO VIEW EXAM RADIOLOGY REPORT [...] mult.myeloma cancer at age 68. LOCATION: [facility] BREAST COMPOSITION: Scattered areas fibroglandular density. FINDINGS: [...] Major M.D. on 03/05/2022 at 13:47 Normal [facility] US CAROTID ART BILon 05-09-2 022 [...] by: UDAY MAJOR Date: 2021-12-25 15:42 Normal [facility] Vital Signs Date Time Vital Sign Value Performing Clinician Marissa florez 12-21-2021 10:00-0400 Body height 147.32 cm Patrick Cotter Other [facility] Other 12-21-2021 10:00-0400 Body mass index (BMI) [Ratio] 27.79 kg/m2 Patrick Cotter Other [facility] Other 12-21-2021 10:00-0400 Body weight 60.33 kg Patrick Cotter Other [facility] Other 03-03-2022 12:00-0500 Body height 147.32 cm Patrick Cotter Other [facility] Other 10-19-2021 12:00-0500 Body mass index (BMI) [Ratio] 27.79 kg/m2 Patrick Cotter Other [facility] Other 10-19-2021 12:00-0500 Body weight 60.33 kg Patrick Cotter Other [facility] Other 08-22-2021 15:00-0500 Body height 147.32 cm Patrick Cotter Other [facility] Other 08-22-2021 15:00-0500 Body mass index (BMI) [Ratio] 27.79 kg/m2 Patrick Cotter Other [facility] Other 08-22-2021 15:00-0500 Body weight 60.33 kg Patrick Cotter Other [facility] Other Encounters Encounter Date Encounter Type Care Provider Facility Start: 02-11-2024 End: 02-11-2024 ambulatory ZOILA [facility] Start: 08-29-2023 End: 08-30-2023 ambulatory JOLYNN DAO Not Available Start: 08-14-2023 End: 08-14-2023 ambulatory [facility] Start: 08-02-2023 End: 08-02-2023 ambulatory [facility] Start: 04-01-2023 End: 04-02-2023 ambulatory Danny Monroy MD [facility] Start: 03-18-2023 End: 03-19-2023 ambulatory Danny Monroy MD [facility] Start: 02-25-2023 End: 02-25-2023 ambulatory [facility] Start: 02-11-2023 End: 02-12-2023 ambulatory Danny Monroy MD Facility:[facility] Start: 09-20-2022 End: 09-21-2022 ambulatory NATHAN JOVEL Facility:[facility] Start: 08-01-2022 End: 08-02-2022 ambulatory NATHAN JOVEL Facility:[facility] Start: 04-02-2022 End: 04-03-2022 ambulatory NATHAN JOVEL Facility:[facility] Start: 03-23-2022 End: 03-24-[address] XIMENA MARTINS Facility:[facility] Start: 03-05-2022 End: 03-06-[address] UDAY MAJOR Facility:[facility] Start: 12-25-2021 End: 12-26-2021 ambulatory SEE DICK Facility:[facility] Start: 12-21-2021 End: 12-21-2021 ambulatory Patrick Cotter Other [facility] Other Start: 12-21-2021 Postop follow up vis it related to original px Patrick Cotter [facility] Start: 11-02-2021 ambulatory NATHAN MED Facility: [facility] Start: 10-19-2021 End: 10-19-2021 ambulatory Patrick Cotter Other [facility] Other Start: 10-19-2021 Postop follow up vis it related to original px Patrick Cotter [facility] Start: 09-18-2021 [facility]mission [facility] Patrick Cotter [facility] Start: 09-18-2021 End: 09-19-2021 ambulatory Patrick E Cotter [facility] Other Start: 08-29-2021 End: 08-29-2021 ambulatory Patrick Cotter Other [facility] Other Start: 08-29-2021 Telephone encounter Patrick Cotter [facility] Start: 08-22-2021 End: 08-22-2021 ambulatory Patrick Cotter Other [facility] Other Start: 08-22-2021 Office outpatient visit 40 minutes Patrick Cyndee GRIER [facility] Start: 09-24-2017 End: 09-25-2017 Ambulatory DEFAULT PHYSICIAN Facility:[facility] Payers Date Payer Category Payer Unknown 2021 Self-pay 2003 Medicare 1961 Medicare [id number] 2.1 [id number] 1959 Self-pay [id number] 1959 Unknown [id number] 2.1 [id number] 1940 Unknown [id number] 2.16.84 [id number] 1940 Unknown [id number] 2.16.84 0.1.595911.3.579.2.593 1940 Unknown [id number] 2.16.84 0.1.897646.3.579.2.593 1940 Unknown [id number] 2.16.84 0.1.342325.3.579.2.593 1940 Unknown [id number] 2.16.84 0.1.450444.3.579.2.593 1940 Unknown [id number] 2.16.84 0.1.422069.3.579.2.593 1938 Unknown [id number] 2.16.84 0.1.891878.3.579.2.593 1940 Unknown [id number] 2.16. 840.1.289390.3.579.2.196 1940 Unknown [id number] 2.16. 840.1.185725.3.579.2.196 1940 Unknown [id number] 2.16. 840.1.628163.3.579.2.196 1940 Unknown [id number] 2.16.84 0.1.288957.3.579.2.1259 Unknown [id number] 2.16.8 [id number] Social History Date Type Detail Facility Sex Assigned At [facility] Other Clinical Notes 08-22-2021 to 02-11-2024 Note Date & Type Note Facility 02-11-2024 Note [place] [facility] - [facility] Subjective Deja Zamora is a 83 [...] Allergies Allergies Allergen Reactions Gemfibrozil Penicillins Unknown Ohkfcwi-Hdq-Wuf Reductase Inhibitors Unknown Triamterene-Hydrochlorothiazid (more content not included)... [facility] 02-11-2024 Note Patient here for 6 [...] All other systems reviewed and are negative. [facility] 08-14-2023 Note Hypertension is well controlled at home, continue all meds Metoprolol 25 mg bid, cardura 8 mg, clonidine 0.2 mg bid, and norvasc 5 mg. [facility] 08-14-2023 Note Currently stable wit hout worsening symptoms [facility] 08-14-2023 Note Patient here for 2 w [place] follow up hypertension. Clonidine was increased to [...] All other systems reviewed and are negative. [facility] 08-14-2023 Note [facility] CARDIOLOGY PROGR ESS [...] m??? Allergies Allergen Reactions Gemfibrozil Penicillins Unknown Qglhixr-Yob-Xke Reductase Inhibitors Unknown Triamterene-Hydrochlorothiazid Medications: Current Outpatient [...] Testin04/18/23 TTE 5 (more content not included)... [facility] 08-02-2023 Note Stable so far, will monitor with increased clonidine for uncontrolled HTN [facility] 08-02-2023 Note Stable without any worsening sym ptoms [facility] 08-02-2023 Note Hypertension is Curr ently [...] once or twice every 2 to 3-weeks [facility] 08-02-2023 Note [facility] CARDIOLOGY PROGR ESS [...] at target sometimes. She was admitted to [facility] in Mar 2023 for e.coli and [...] m??? Allergies Allergen Reactions Gemfibrozil Penicillins Unknown Stholrf-Vmc-Gar Reductase Inhibitors Unknown Triamterene-Hydrochlorothiazid Medications: Current Outpatient [...] values have be (more content not included)... [facility] 08-02-2023 Note Patient here c/o hyp [...] at target sometimes. She was admitted to [facility] in Mar 2023 for e.coli and [...] All other systems reviewed and are negative. [facility] 02-25-2023 Note [place] [facility] - [facility] Subjective Deja Zamora [...] Allergies Allergies Allergen Reactions Gemfibrozil Penicillins Unknown Khdyzub-Urx-Aok Reductase Inhibitors Unknown Triamterene-Hydrochlorothiazid Medications Current Outpatient [...] Disp: , Rfl: (more content not included)... 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 I have encouraged her to continue to build up her endurance by walking. I will see her again in 2 months for final postop visit. 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 [facility] Other evaluation noteNo InformationNort Cloud 66 Other History general Narrative - Reported* Type Description Date Medical History Diabetes Medical History Hyperlipidemia Medical History Pulmonary HPN Medical History Osteoporosis Surgical History R knee Sx Surgical History L Hand Hospitalization History HTN 08/2018 [facility] Other Summary Purpose Family History No Family [...] of left hip (M16.12) Referral Organization [facility] urosurgery Referring Provider First Name Patrick Referring Provider Last Name Cyndee Referring Provider Specialty Neurologica l Surgery Referred Organization [facility] Referred Provider Ximena Vela Jr Referred Address ,[place],[address] Referred Provider Specialty Orthopedic S urgery Referral Priority Routine General Notes Val Slater 022 10:56:23 AM >Received today. This referral was sent P2P and will wait a week and call them back to see if she was scheduled. They do their own scheduling Additional Source Comments INFORMATION SOURCE (unrecogn ized section and content) DATE CREATED AUTHOR 02/10/[address] [facility] DATE CREATED AUTHOR AUTHOR'S ORGANIZ ATION 09/22/2022 [facility] DATE CREATED AUTHOR AUTHOR'S ORGANIZ ATION 09/23/2022 [facility] DATE CREATED AUTHOR AUTHOR'S ORGANIZ ATION 04/11/[address] [facility] DATE CREATED AUTHOR AUTHOR'S ORGANIZ ATION 09/02/2023 [facility] DATE CREATED AUTHOR AUTHOR'S ORGANIZ ATION 02/20/2024 [facility] REASON FOR VISIT (unrecogniz ed section [...] BE BASED ON THE PRIMARY CLINICAL RECORDS. [employer] provides no warranty or guarantee of the accuracy or completeness of information in this document.
[2024-03-04 10:36] LABS: Albumin Level 2.9 g/dL (3.4-5.0); Anion Gap 15.6; BUN Creatinine Ratio 22.9; Calcium 8.5 mg/dL (8.5-10.1); Carbon Dioxide 24.6 mmol/L (21.0-32.0); Chloride 107 mmol/L (98-107); Estimated GFR (African America 30 (>=60); Estimated GFR (Non-African Ame 25 (>=60); Glucose 169 mg/dL (74-106); Phosphorus 3.6 mg/dL (2.6-4.7); Potassium 4.2 mmol/L (3.5-5.1); Sodium 143 mmol/L (136-145)
== END 2024-03-04 08:39 | disposition home or self-care (01) ==
LOC: LAB 08:39
PROVIDERS: PCP Nurse Practitioner Family; Visit Provider Internal Medicine
DX: N18.4 Chronic kidney disease, stage 4 (severe) (principal); I12.9 Hypertensive chronic kidney disease with stage 1 through stage 4 chronic kidney disease, or unspecified chronic kidney disease; E11.22 Type 2 diabetes mellitus with diabetic chronic kidney disease; N25.81 Secondary hyperparathyroidism of renal origin; D63.1 Anemia in chronic kidney disease
CPT/HCPCS: 36415; 80069

== ENCOUNTER 2024-03-04 08:40 | Outpatient (OUT) | payer MEDICARE, SELFPAY ==
--- OUTSIDE RECORDS SUMMARY | 2024-03-04 09:02 | XMS_ITS | CCD ---
Author Organization [facility] Team Providers Care Putty Tinter Maker Name Role Phone PHYSICIAN, DEFAULT Unavailable Unavailable [...] MOUKAHEATH, DR BUENO Admitting Unavailable MOUKARBCLAUDIA, DR BEUNO Consulting Unavailable MED, NATHAN Primary Care Unavailable [...] Hmg-Coa Reductase Inhibitors (Statins) Drug allergy Unknown Clout [facility] Other (5 sources) Penicillin Drug Allergy Unknown Clout [facility] Other (2 sources) Penicillins; Translations: [PENICILLINS] Drug allergy (disorder) [facility] Repository (1 source) Hfiotcs-NOL-JgT Reductase Inhibitor Drug allergy (disorder) [facility] Repository (2 sources) black walnut pollen extract; Translations: [MLVHHXW-GDV-QJS REDUCTASE INHIBITORS] Drug Allergy 017 [facility] Repository (1 source) Dextroamphetamine Drug Allergy [facility] Repository (1 source) Gemfibrozil Drug Allergy [facility] Repository (1 source) hydroCHLOROthiazide / Triamterene Drug Allergy [facility] Repository (1 source) Penicillin Drug Allergy [facility] Repository (1 source) rosuvastatin Drug Allergy [facility] Repository (1 source) Gemfibrozil; Translations: [GEMFIBROZIL] Drug Allergy [facility] Repository (1 source) TRIAMTERENE-HYDROCHLOR OTHIAZID; Translations: [TRIAMTERENE-HYDROCHLO ROTHIAZID] Propensity to adverse reactions to drug (disorder) [facility] Repository Medications Current Medications Medication [...] (5 sources) Multivitamin Adults - Orally Active Otis 3 1000 MG (5 sources) take 1 capsule by mouth once daily Otis 3 1000 MG 1 capsule Orally Once [...] [facility] Facility Office Visiton 02-11-2024 Follow-up visit [id number] Deja Zamora 1940 F Date Provider Department Center 02/11/2024 Elliot-ZOILA MOORE [facility] Family History Problem Relation Age of Onset Coronary artery disease Father Family Status - Relation Status Age at Father Level of Service:58449 ME OFFICE/OUTPATIENT ESTABLISHED MOD MDM 30 MIN Normal [facility] Office Visiton 08-14-2023 Follow-up visit [id number] Deja Zamora 1940 F Date Provider Department Center 08/14/2023 SEE BOATENG CARD [facility] Family History Problem Relation Age of Onset Coronary artery disease Father Family Status - Relation Status Age at Father Level of Service:24214 ME OFFICE/OUTPATIENT ESTABLISHED MOD MDM 30 MIN Normal [facility] Office Visiton 08-02-2023 Follow-up visit [id number] Deja Zamora 1940 F Date Provider Department Center 08/02/2023 SEE BOATENG [facility] Family History Problem Relation Age of Onset Coronary artery disease Father Family Status - Relation Status Age at Father Level of Service:17860 ME OFFICE/OUTPATIENT ESTABLISHED MOD MDM 30-39 MIN Normal [facility] Office Visiton 02-25-2023 Follow-up visit [id number] Deja Zamora 1940 F Date Provider Department Center 02/25/2023 XIMENA LIZ [facility] Family History Problem Relation Age of Onset Coronary artery disease Father Family Status - Relation Status Age at Father Level of Service:80213 ME OFFICE/OUTPATIENT ESTABLISHED MOD MDM 30-39 MIN Normal [facility] FREE THYROXINE INDEX T7on FTI 2.59 Normal 1.30-4.50 [facility] Comment on above: Performed By: #### C MP, TSH, T7 #### [facility] [address] [place] [address] Dr. Milind Martinez T3U 37.0 % Normal 30.0-39.0 [facility] Comment on above: Performed By: #### C MP, TSH, T7 #### [facility] [address] [place] [address] Dr. Milind Martinez T4 [Mass/Vol] 7.00 ug/dL Normal 4.80-13.90 [facility] Comment on above: Performed By: #### C MP, TSH, T7 #### [facility] [address] [place] [address] Dr. Milind Martinez TSHon 09-20-2022 TSH 5.715 uIU/mL Critically high 0.358-3.740 [facility] Comment on above: Performed By: #### C MP, TSH, T7 #### [facility] [address] [place] [address] Dr. Milind Martinez FREE THYROXINE INDEX T7on FTI 2.56 Normal 1.30-4.50 [facility] Comment on above: Performed By: #### C MP, TSH, T7 #### [facility] [address] [place] [address] Dr. Milind Martinez T3U 35.0 % Normal 30.0-39.0 [facility] Comment on above: Performed By: #### C MP, TSH, T7 #### [facility] [address] [place] [address] Dr. Milind Martinez T4 [Mass/Vol] 7.30 ug/dL Normal 4.80-13.90 [facility] Comment on above: Performed By: #### C MP, TSH, T7 #### [facility] [address] [place] [address] Dr. Milind Martinez GLYCOHEMOGLOBIN A1Con 2021 ADA RECOMMENDATION SEE BELOW Normal [facility] Comment on above: Result Comment: ADA RECOMMENDED LIMIT 4.0 - 6.0 ADA THERAPEUTIC TARGET < 7.0 ACTION SUGGESTED > 7.0 Performed By: #### A 1C #### [facility] [address] [place] [address] Dr. Milind Martinez Glucose [Mass/Vol] 229 mg/dL Normal [facility] Comment on above: Performed By: #### A 1C #### [facility] [address] [place] [address] Dr. Milind Martinez HbA1c (Bld) [Mass fraction] 9.6 % Critically high 4.5-6.2 [facility] Comment on above: Performed By: #### A 1C #### [facility] [address] [place] [address] Dr. Milind Martinez PROF 14(COMP METB)on 022 Albumin [Mass/Vol] 3.1 g/dL Critically low 3.4-5.0 [facility] Comment on above: Performed By: #### C MP, TSH, T7 #### [facility] [address] [place] [address] Dr. Milind Martinez Albumin/Globulin [Mass ratio] 1.0 {ratio} Normal [facility] Comment on above: Performed By: #### C MP, TSH, T7 #### [facility] [address] [place] [address] Dr. Milind Martinez ALP [Catalytic activity/Vol] 48 U/L Normal 46-116 [facility] Comment on above: Performed By: #### C MP, TSH, T7 #### [facility] [address] [place] [address] Dr. Milind Martinez ALT [Catalytic activity/Vol] 19 U/L Normal 14-59 [facility] Comment on above: Performed By: #### C MP, TSH, T7 #### [facility] [address] [place] [address] Dr. Milind Martinez Anion gap [Moles/Vol] 12.3 mmol/L Normal [facility] Comment on above: Performed By: #### C MP, TSH, T7 #### [facility] [address] [place] [address] Dr. Milind Martinez AST [Catalytic activity/Vol] 30 U/L Normal 15-37 [facility] Comment on above: Performed By: #### C MP, TSH, T7 #### [facility] [address] [place] [address] Dr. Milind Martinez Bilirubin [Mass/Vol] 0.5 mg/dL Normal 0.2-1.0 [facility] Comment on above: Performed By: #### C MP, TSH, T7 #### [facility] [address] [place] [address] Dr. Milind Martinez Calcium [Mass/Vol] 8.9 mg/dL Normal 8.5-10.1 [facility] Comment on above: Performed By: #### C MP, TSH, T7 #### [facility] [address] [place] [address] Dr. Milind Martinez Chloride [Moles/Vol] 104 mmol/L Normal 98-107 [facility] Comment on above: Performed By: #### C MP, TSH, T7 #### [facility] [address] [place] [address] Dr. Milind Martinez CO2 [Moles/Vol] 28.2 mmol/L Normal 21.0-32.0 [facility] Comment on above: Performed By: #### C MP, TSH, T7 #### [facility] [address] [address] [address] Milind Martinez Creatinine [Mass/Vol] 1.54 mg/dL Critically high 0.55-1.02 [facility] Comment on above: Performed By: #### C MP, TSH, T7 #### [facility] [address] [address] [address] Milind Martinez EGFR-AF [facility] 39 mL/min/1.73m2 Critically low >=60 [facility] Comment on above: Performed By: #### C MP, TSH, T7 #### [facility] [address] [address] [address] Milind Martinez EGFR-NON AF [facility] 32 mL/min/1.73m2 Critically low >=60 [facility] Comment on above: Performed By: #### C MP, TSH, T7 #### [facility] [address] [address] [address] Milind Martinez Globulin (S) [Mass/Vol] 3.2 g/dL Normal [facility] Comment on above: Performed By: #### C MP, TSH, T7 #### [facility] [address] [address] [address] Milind Martinez Glucose [Mass/Vol] 180 mg/dL Critically high 74-[address] [facility] Comment on above: Performed By: #### C MP, TSH, T7 #### [facility] [address] [address] [address] Milind Martinez Potassium [Moles/Vol] 4.5 mmol/L Normal 3.5-5.1 [facility] Comment on above: Performed By: #### C MP, TSH, T7 #### [facility] [address] [address] [address] Milind Martinez Protein [Mass/Vol] 6.3 g/dL Critically low 6.4-8.2 [facility] Comment on above: Performed By: #### C MP, TSH, T7 #### [facility] [address] [address] [address] Milind Martinez Sodium [Moles/Vol] 140 mmol/L Normal 136-145 [facility] Comment on above: Performed By: #### C MP, TSH, T7 #### [facility] [address] [address] [address] Milind Martinez Urea nitrogen [Mass/Vol] 46.0 mg/dL Critically high 7.0-18.0 [facility] Comment on above: Performed By: #### C MP, TSH, T7 #### [facility] [address] [place] [address] Dr. Milind Martinez Urea nitrogen/Creatinine [Mass ratio] 29.9 mg/mg Normal [facility] Comment on above: Performed By: #### C MP, TSH, T7 #### [facility] [address] [place] [address] Dr. Milind Martinez TSHon 08-01-2022 TSH 12.769 uIU/mL Critically high 0.358-3.740 [facility] Comment on above: Performed By: #### C MP, TSH, T7 #### [facility] [address] [place] [address] Dr. Milind Martinez INSULINon 04-03-2022 Insulin 2.5 uIU/mL Critically low 2.6-24.9 [facility] Comment on above: Performed By: #### C MP, TSH, T7 #### [facility] [address] [place] [address] Dr. Milind Martinez T4, T3U, FTI [facility] 04-03 Free Thyroxine Index 1.8 Normal 1.2-4.9 [facility] Comment on above: Performed By: #### T HYLC #### [facility] [address] [place] [address] Dr. Milind Martinez T3 Uptake 26 % Normal 24-39 [facility] Comment on above: Performed By: #### T HYLC #### [facility] [address] [place] [address] Dr. Milind Martinez T4 [Mass/Vol] 7.1 ug/dL Normal 4.5-12.0 [facility] Comment on above: Performed By: #### T HYLC #### [facility] [address] [place] [address] Dr. Milind Martinez CBC AUTO DIFFon 04-02-2022 BASO # 0.0 103/ul Normal 0.0-0.1 [facility] Comment on above: Performed By: #### C BC #### [facility] [address] [place] [address] Dr. Milind Martinez Basophils/100 WBC (Bld) 0.9 % Normal 0.2-2.0 [facility] Comment on above: Performed By: #### C BC #### [facility] [address] [place] [address] Dr. Milind Martinez EO # 0.2 103/ul Normal 0.0-0.7 [facility] Comment on above: Performed By: #### C BC #### [facility] [address] [place] [address] Dr. Milind Martinez Eosinophils/100 WBC (Bld) 5.3 % Normal 0.9-7.0 [facility] Comment on above: Performed By: #### C BC #### [facility] [address] [place] [address] Dr. Milind Martinez Erythrocyte distribution width (RBC) [Ratio] 13.2 % Normal 11.0-15.0 [facility] Comment on above: Performed By: #### C BC #### [facility] [address] [place] [address] Dr. Milind Martinez Hematocrit (Bld) [Volume fraction] 37.1 % Normal 36.0-48.0 [facility] Comment on above: Performed By: #### C BC #### [facility] [address] [place] [address] Dr. Milind Martinez Hemoglobin (Bld) [Mass/Vol] 12.0 g/dL Normal 12.0-16.0 [facility] Comment on above: Performed By: #### C BC #### [facility] [address] [place] [address] Dr. Milind Martinez IG # 0.01 10e3/ul Normal 0.00-0.03 [facility] Comment on above: Performed By: #### C BC #### [facility] [address] [place] [address] Dr. Milind Martinez IG % 0.2 % Normal 0.0-0.5 [facility] Comment on above: Performed By: #### C BC #### [facility] [address] [place] [address] Dr. Milind Martinez LYMPH # 1.8 103/ul Normal 1.2-3.8 [facility] Comment on above: Performed By: #### C BC #### [facility] [address] [place] [address] Dr. Milind Martinez Lymphocytes/100 WBC (Bld) 41.9 % Normal 20.5-60.0 [facility] Comment on above: Performed By: #### C BC #### [facility] [address] [place] [address] Dr. Milind Martinez MANUAL DIFF REQ NO Normal [facility] Comment on above: Performed By: #### C BC #### [facility] [address] [place] [address] Dr. Milind Martinez MCH (RBC) [Entitic mass] 31.2 pg Normal 26.7-34.0 [facility] Comment on above: Performed By: #### C BC #### [facility] [address] [place] [address] Dr. Milind Martinez MCHC (RBC) [Mass/Vol] 32.3 g/dL Normal 29.9-35.2 [facility] Comment on above: Performed By: #### C BC #### [facility] [address] [place] [address] Dr. Milind Martinez MCV (RBC) [Entitic vol] 96.4 fL Normal 81.0-99.0 [facility] Comment on above: Performed By: #### C BC #### [facility] [address] [place] [address] Dr. Milind Martinez MONO # 0.3 103/ul Normal 0.3-0.8 [facility] Comment on above: Performed By: #### C BC #### [facility] [address] [address] [address] Milind Martinez Monocytes/100 WBC (Bld) 5.8 % Normal 1.7-12.0 [facility] Comment on above: Performed By: #### C BC #### [facility] [address] [place] [address] Dr. Milind Martinez NEUT # 2.0 103/ul Normal 1.4-6.5 [facility] Comment on above: Performed By: #### C BC #### [facility] [address] [place] [address] Dr. Milind Martinez Neutrophils/100 WBC (Bld) 45.9 % Normal 43.0-75.0 [facility] Comment on above: Performed By: #### C BC #### [facility] [address] [place] [address] Dr. Milind Martinez Platelet mean volume (Bld) [Entitic vol] 11.8 fL Normal 9.5-13.5 [facility] Comment on above: Performed By: #### C BC #### [facility] [address] [place] [address] Dr. Milind Martinez PLT 159 103/ul Normal 150-450 [facility] Comment on above: Performed By: #### C BC #### [facility] [address] [place] [address] Dr. Milind Martinez RBC 3.85 106/ul Critically low 4.20-5.40 [facility] Comment on above: Performed By: #### C BC #### [facility] [address] [place] [address] Dr. Milind Martinez WBC 4.3 103/ul Normal 4.0-11.0 [facility] Comment on above: Performed By: #### C BC #### [facility] [address] [place] [address] Dr. Milind Martinez GLYCOHEMOGLOBIN A1Con 2021 ADA RECOMMENDATION SEE BELOW Normal [facility] Comment on above: Result Comment: ADA RECOMMENDED LIMIT 4.0 - 6.0 ADA THERAPEUTIC TARGET < 7.0 ACTION SUGGESTED > 7.0 Performed By: #### A 1C #### [facility] [address] [place] [address] Dr. Milind Martinez Glucose [Mass/Vol] 214 mg/dL Normal [facility] Comment on above: Performed By: #### A 1C #### [facility] [address] [place] [address] Dr. Milind Martinez HbA1c (Bld) [Mass fraction] 9.1 % Critically high 4.5-6.2 [facility] Comment on above: Performed By: #### A 1C #### [facility] [address] [place] [address] Dr. Milind Martinez IRONon 04-02-2022 Iron [Mass/Vol] 126.0 ug/dL Normal 50.0-170.0 [facility] Comment on above: Performed By: #### C MP, TSH, T7 #### [facility] [address] [place] [address] Dr. Milind Martinez LIPID PROFILEon 04-02-2022 CHOL-HDL RATIO NORM SEE BELOW Normal [facility] Comment on above: Result Comment: 3.3 - 4.4 LOW RISK 4.4 - 7.1 AVERAGE RISK 7.1 - 11.0 MODERATE RISK >11.0 HIGH RISK Performed By: #### C MP, TSH, T7 #### [facility] [address] [place] [address] Dr. Milind Martinez Cholesterol [Mass/Vol] 133 mg/dL Normal <=200 [facility] Comment on above: Performed By: #### C MP, TSH, T7 #### [facility] [address] [place] [address] Dr. Milind Martinez Cholesterol in HDL [Mass/Vol] 20 mg/dL Critically low 40-60 [facility] Comment on above: Performed By: #### C MP, TSH, T7 #### [facility] [address] [place] [address] Dr. Milind Martinez Cholesterol in LDL [Mass/Vol] 69.6 mg/dL Normal [facility] Comment on above: Performed By: #### C MP, TSH, T7 #### [facility] [address] [place] [address] Dr. Milind Martinez Cholesterol.total/Ch olesterol in HDL [Mass ratio] 6.7 {ratio} Normal [facility] Comment on above: Performed By: #### C MP, TSH, T7 #### [facility] [address] [place] [address] Dr. Milind Martinez HDL NORMAL > or = 60 mg/dl - LOW CARDIOVASCULAR RISK <40 mg/dl - HIGH CARDIOVASCULAR RISK Normal [facility] Comment on above: Performed By: #### C MP, TSH, T7 #### [facility] [address] [place] [address] Dr. Milind Martinez LDL CALC NORMAL SEE BELOW Normal [facility] Comment on above: Result Comment: <100 mg/dl OPTIMAL 100 - 129 mg/dl NEAR OR ABOVE OPTIMAL 130 - 159 mg/dl BORDERLINE HIGH 160 - 189 mg/dl HIGH >190 mg/dl VERY HIGH Performed By: #### C MP, TSH, T7 #### [facility] [address] [place] [address] Dr. Milind Martinez Triglyceride [Mass/Vol] 217 mg/dL Critically high <=150 [facility] Comment on above: Performed By: #### C MP, TSH, T7 #### [facility] [address] [place] [address] Dr. Milind Martinez VLDL CALC 43.4 mg/dL Normal [facility] Comment on above: Performed By: #### C MP, TSH, T7 #### [facility] [address] [place] [address] Dr. Milind Martinez PROF 14(COMP METB)on 022 Albumin [Mass/Vol] 3.3 g/dL Critically low 3.4-5.0 [facility] Comment on above: Performed By: #### C MP, TSH, T7 #### [facility] [address] [place] [address] Dr. Milind Martinez Albumin/Globulin [Mass ratio] 1.2 {ratio} Normal [facility] Comment on above: Performed By: #### C MP, TSH, T7 #### [facility] [address] [place] [address] Dr. Milind Martinez ALP [Catalytic activity/Vol] 43 U/L Critically low 46-116 [facility] Comment on above: Performed By: #### C MP, TSH, T7 #### [facility] [address] [address] [address] Milind Martinez ALT [Catalytic activity/Vol] 24 U/L Normal 14-59 [facility] Comment on above: Performed By: #### C MP, TSH, T7 #### [facility] [address] [address] [address] Milind Martinez Anion gap [Moles/Vol] 11.4 mmol/L Normal [facility] Comment on above: Performed By: #### C MP, TSH, T7 #### [facility] [address] [place] [address] Dr. Milind Martinez AST [Catalytic activity/Vol] 24 U/L Normal 15-37 [facility] Comment on above: Performed By: #### C MP, TSH, T7 #### [facility] [address] [place] [address] Dr. Milind Martinez Bilirubin [Mass/Vol] 0.4 mg/dL Normal 0.2-1.0 [facility] Comment on above: Performed By: #### C MP, TSH, T7 #### [facility] [address] [place] [address] Dr. Milind Martinez Calcium [Mass/Vol] 8.7 mg/dL Normal 8.5-10.1 [facility] Comment on above: Performed By: #### C MP, TSH, T7 #### [facility] [address] [place] [address] Dr. Milind Martinez Chloride [Moles/Vol] 106 mmol/L Normal 98-107 [facility] Comment on above: Performed By: #### C MP, TSH, T7 #### [facility] [address] [place] [address] Dr. Milind Martinez CO2 [Moles/Vol] 29.7 mmol/L Normal 21.0-32.0 [facility] Comment on above: Performed By: #### C MP, TSH, T7 #### [facility] [address] [address] [address] Milind Martinez Creatinine [Mass/Vol] 1.30 mg/dL Critically high 0.55-1.02 [facility] Comment on above: Performed By: #### C MP, TSH, T7 #### [facility] [address] [address] [address] Milind Martinez EGFR-AF [facility] 47 mL/min/1.73m2 Critically low >=60 [facility] Comment on above: Performed By: #### C MP, TSH, T7 #### [facility] [address] [address] [address] Milind Martinez EGFR-NON AF [facility] 39 mL/min/1.73m2 Critically low >=60 [facility] Comment on above: Performed By: #### C MP, TSH, T7 #### [facility] [address] [place] [address] Dr. Milind Martinez Globulin (S) [Mass/Vol] 2.7 g/dL Normal [facility] Comment on above: Performed By: #### C MP, TSH, T7 #### [facility] [address] [address] [address] Milind Martinez Glucose [Mass/Vol] 109 mg/dL Critically high 74-106 [facility] Comment on above: Performed By: #### C MP, TSH, T7 #### [facility] [address] [place] [address] Dr. Milind Martinez Potassium [Moles/Vol] 4.1 mmol/L Normal 3.5-5.1 [facility] Comment on above: Performed By: #### C MP, TSH, T7 #### [facility] [address] [address] [address] Milind Martinez Protein [Mass/Vol] 6.0 g/dL Critically low 6.4-8.2 [facility] Comment on above: Performed By: #### C MP, TSH, T7 #### [facility] [address] [place] [address] Dr. Milind Martinez Sodium [Moles/Vol] 143 mmol/L Normal 136-145 [facility] Comment on above: Performed By: #### C MP, TSH, T7 #### [facility] [address] [address] [address] Milind Martinez Urea nitrogen [Mass/Vol] 34.0 mg/dL Critically high 7.0-18.0 [facility] Comment on above: Performed By: #### C MP, TSH, T7 #### [facility] [address] [address] [address] Milind Martinez Urea nitrogen/Creatinine [Mass ratio] 26.2 mg/mg Normal [facility] Comment on above: Performed By: #### C MP, TSH, T7 #### [facility] [address] [address] [address] Milind Martinez TSHon 04-02-2022 TSH 7.887 uIU/mL Critically high 0.358-3.740 [facility] Comment on above: Performed By: #### C MP, TSH, T7 #### [facility] [address] [address] [address] Milind Martinez US KIDNEYSon 03-23-2022 US [...] IJEOMA TIM Date: 2022-03-23 13:26 Normal [facility] MAMM SCREEN 3D BOGDAN CADon 03-05-2022 MG MAMM SCREEN 3D BOGDAN CAD Patient: DEJA ZAMORA Exam Date: 03/05/2022 : 1940 Gender:F Ordering : [facility]AN [facility] Admission #: [id number] Family : Order #: [id number] CLICK HERE TO VIEW EXAM RADIOLOGY REPORT [...] mult.myeloma cancer at age 68. LOCATION: [facility] BREAST COMPOSITION: Scattered areas fibroglandular [...] Major M.D. on 03/05/2022 at 13:47 Normal [facility] US CAROTID ART BILon 05-09-2 [...] by: UDAY MAJOR Date: 2021-12-25 15:42 Normal [facility] Vital Signs Date Time Vital Sign Value Performing Clinician Marissa florez 12-21-2021 10:00-0400 Body height 147.32 cm Patrick Cotter Other [email or web address] Other 12-21-2021 10:00-0400 Body mass index (BMI) [Ratio] 27.79 kg/m2 Patrick Cotter Other [email or web address] Other 12-21-2021 10:00-0400 Body weight 60.33 kg Patrick Cotter Other [email or web address] Other 03-03-2022 12:00-0500 Body height 147.32 cm Patrick Cotter Other [email or web address] Other 10-19-2021 12:00-0500 Body mass index (BMI) [Ratio] 27.79 kg/m2 Patrick Cotter Other [email or web address] Other 10-19-2021 12:00-0500 Body weight 60.33 kg Patrick Cotter Other [email or web address] Other 08-22-2021 15:00-0500 Body height 147.32 cm Patrick Cotter Other [email or web address] Other 08-22-2021 15:00-0500 Body mass index (BMI) [Ratio] 27.79 kg/m2 Patrick Cotter Other [email or web address] Other 08-22-2021 15:00-0500 Body weight 60.33 kg Patrick Cotter Other [email or web address] Other Encounters Encounter Date Encounter Type Care Provider Facility Start: 02-11-2024 End: 02-11-2024 ambulatory ZOILA [facility] Start: 08-29-2023 End: 08-30-2023 ambulatory JOLYNN DAO Not Available Start: 08-14-2023 End: 08-14-2023 ambulatory [facility] Start: 08-02-2023 End: 08-02-2023 ambulatory [facility] Start: 04-01-2023 End: 04-02-2023 ambulatory Danny Monroy MD [facility] Start: 03-18-2023 End: 03-19-2023 ambulatory Danny Monroy MD [facility] Start: 02-25-2023 End: 02-25-2023 ambulatory [facility] Start: 02-11-2023 End: 02-12-2023 ambulatory Danny Monroy MD Facility:[facility] Start: 09-20-2022 End: 09-21-2022 ambulatory NATHAN JOVEL Facility:[facility] Start: 08-01-2022 End: 08-02-2022 ambulatory NATHAN JOVEL Facility:[facility] Start: 04-02-2022 End: 04-03-2022 ambulatory NATHAN JOVEL Facility:[facility] Start: 03-23-2022 End: 03-24-[address] XIMENA MARTINS Facility:[facility] Start: 03-05-2022 End: 03-06-[address] UDAY MAJOR Facility:[facility] Start: 12-25-2021 End: 12-26-2021 ambulatory SEE DICK Facility:[facility] Start: 12-21-2021 End: 12-21-2021 ambulatory Patrick Cotter Other [email or web address] Other Start: 12-21-2021 Postop follow up vis it related to original px Patrick Cotter [facility] Start: 11-02-2021 ambulatory NATHAN MED Facility: [facility] Start: 10-19-2021 End: 10-19-2021 ambulatory Patrick Cotter Other [email or web address] Other Start: 10-19-2021 Postop follow up vis it related to original px Patrick Cotter [facility] Start: 09-18-2021 [facility]mission to [facility] Patrick Cotter [facility] Start: 09-18-2021 End: 09-19-2021 ambulatory Patrick E Cotter [facility] Other Start: 08-29-2021 End: 08-29-2021 ambulatory Patrick Cotter Other [email or web address] Other Start: 08-29-2021 Telephone encounter Patrick Cotter [facility] Start: 08-22-2021 End: 08-22-2021 ambulatory Patrick Cotter Other [email or web address] Other Start: 08-22-2021 Office outpatient visit 40 minutes Patrick Cyndee GRIER [facility] Start: 09-24-2017 End: 09-25-2017 Ambulatory DEFAULT PHYSICIAN Facility:[facility] Payers Date Payer Category Payer Unknown 2021 Self-pay 2003 Medicare 1961 Medicare [id number] 2.1 [id number] 1959 Self-pay [id number] 1959 Unknown [id number] 2.1 [id number] 1940 Unknown [id number] 2.16.84 [id number] 1940 Unknown [id number] 2.16.84 0.1.469843.3.579.2.593 1940 Unknown [id number] 2.16.84 0.1.158445.3.579.2.593 1940 Unknown [id number] 2.16.84 0.1.041561.3.579.2.593 1940 Unknown [id number] 2.16.84 0.1.584034.3.579.2.593 1940 Unknown [id number] 2.16.84 0.1.162033.3.579.2.593 1940 Unknown [id number] 2.16.84 0.1.093734.3.579.2.593 1940 Unknown [id number] 2.16. 840.1.046856.3.579.2.196 1940 Unknown [id number] 2.16. 840.1.273486.3.579.2.196 1940 Unknown [id number] 2.16. 840.1.279475.3.579.2.196 1940 Unknown [id number] 2.16.84 0.1.935327.3.579.2.1259 Unknown [id number] 2.16.8 [id number] Social History Date Type Detail Facility Sex Assigned At [email or web address] Other Clinical Notes 08-22-2021 to 02-11-2024 Note Date & Type Note Facility 02-11-2024 Note [facility] - [facility] Subjective Deja Zamora [...] Allergies Allergies Allergen Reactions Gemfibrozil Penicillins Unknown Kwymorl-Aru-Kuf Reductase Inhibitors Unknown Triamterene-Hydrochlorothiazid (more content not included)... [facility] 02-11-2024 Note Patient here for [...] All other systems reviewed and are negative. [facility] 08-14-2023 Note Hypertension is well controlled at home, continue all meds Metoprolol 25 mg bid, cardura 8 mg, clonidine 0.2 mg bid, and norvasc 5 mg. [facility] 08-14-2023 Note Currently stable wit hout worsening symptoms [facility] 08-14-2023 Note Patient here for 2 w cachil dehe follow up hypertension. Clonidine was increased to [...] All other systems reviewed and are negative. [facility] 08-14-2023 Note [facility] [...] m??? Allergies Allergen Reactions Gemfibrozil Penicillins Unknown Ztsgseu-Zoh-Zxg Reductase Inhibitors Unknown Triamterene-Hydrochlorothiazid Medications: Current Outpatient [...] Testin04/18/23 TTE 5 (more content not included)... [facility] 08-02-2023 Note Stable so far, will monitor with increased clonidine for uncontrolled HTN [facility] 08-02-2023 Note Stable without any worsening sym ptoms [facility] 08-02-2023 Note Hypertension is Curr [...] once or twice every 2 to 3-weeks [facility] 08-02-2023 Note [facility] C[facility] PRO[facility] [...] at target sometimes. She was admitted to [facility] in Mar 2023 for e.coli and dehydration. [...] m??? Allergies Allergen Reactions Gemfibrozil Penicillins Unknown Gavoxqj-Nfn-Wgk Reductase Inhibitors Unknown Triamterene-Hydrochlorothiazid Medications: Current Outpatient [...] values have be (more content not included)... [facility] 08-02-2023 Note Patient here c/o [...] at target sometimes. She was admitted to [facility] in Mar 2023 for e.coli and dehydration. [...] All other systems reviewed and are negative. [facility] 02-25-2023 Note [facility] - [facility] Subjective Deja Zamora [...] Allergies Allergies Allergen Reactions Gemfibrozil Penicillins Unknown Ngnkrfl-Fzr-Jzq Reductase Inhibitors Unknown Triamterene-Hydrochlorothiazid Medications Current Outpatient [...] Disp: , Rfl: (more content not included)... 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 I have encouraged her to continue to build up her endurance by walking. I will see her again in 2 months for final postop visit. 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 [email or web address] Other evaluation noteNo [employer] Other History general Narrative - Reported* Type Description Date Medical History Diabetes Medical History Hyperlipidemia Medical History Pulmonary HPN Medical History Osteoporosis Surgical History R knee Sx Surgical History L Hand Hospitalization History HTN 08/2018 [email or web address] Other Summary Purpose Family History No Family [...] Arthropathy of left hip (M16.12) Referral Organization [facility] Referring Provider First Name Patrick Referring Provider Last Name Cyndee Referring Provider Specialty Neurologica l Surgery Referred Organization [facility] Referred Provider Ximena Vela Jr Referred Address ,[place],[address] Referred Provider Specialty Orthopedic S urgery Referral Priority Routine General Notes Val Slater 022 10:56:23 AM >Received today. This referral was sent P2P and will wait a week and call them back to see if she was scheduled. They do their own scheduling Additional Source Comments INFORMATION SOURCE (unrecogn ized section and content) DATE CREATED AUTHOR 02/10/[address] [facility] DATE CREATED AUTHOR AUTHOR'S ORGANIZ ATION 09/22/2022 [facility] DATE CREATED AUTHOR AUTHOR'S ORGANIZ ATION 09/23/2022 [facility] DATE CREATED AUTHOR AUTHOR'S ORGANIZ ATION 04/11/2023 [facility] DATE CREATED AUTHOR AUTHOR'S ORGANIZ ATION 09/02/2023 [facility] DATE CREATED AUTHOR AUTHOR'S ORGANIZ ATION 02/20/2024 [facility] REASON FOR VISIT (unrecogniz ed section [...] BE BASED ON THE PRIMARY CLINICAL RECORDS. [employer] provides no warranty or guarantee of the accuracy or completeness of information in this document.
[2024-03-04 09:11] LABS: Estimated Average Glucose 212 mg/dL
== END 2024-03-04 08:41 | disposition home or self-care (01) ==
PROVIDERS: PCP Nurse Practitioner Family; Visit Provider Nurse Practitioner Family
DX: I12.9 Hypertensive chronic kidney disease with stage 1 through stage 4 chronic kidney disease, or unspecified chronic kidney disease (principal); N18.4 Chronic kidney disease, stage 4 (severe); E11.22 Type 2 diabetes mellitus with diabetic chronic kidney disease; D63.1 Anemia in chronic kidney disease; N25.81 Secondary hyperparathyroidism of renal origin
CPT/HCPCS: 36415; 80069; 83036

== ENCOUNTER 2024-05-16 12:48 | Inpatient (IN) | payer MEDICARE, SELFPAY ==
[2024-05-16] VITALS (22 sets, daily range): BP systolic 157–242; BP diastolic 50–112; PULSE 59–78; TEMP 36.4–36.7; O2SAT 94–99; BMI 25.1; BMI 27.4
--- OUTSIDE RECORDS SUMMARY | 2024-05-16 12:59 | XMS_ITS | CCD ---
Author Organization [facility] Team Providers Care Net Ui Developer Name Role Phone PHYSICIAN, DEFAULT Unavailable Unavailable [...] Attending Unavailable MOUKAHEATH, DR BUENO Admitting Unavailable MOUKAHEATH, DR BUENO Consulting Unavailable MED, NATHAN Primary Care Unavailable IJEOMA TIM Consulting Unavailable Eliana LINARES, Danny Carrasco Attending Unavailable Eliana LINARES, Danny Carrasco Attending Unavailable Eliana LINARES, Danny Carrasco Attending Unavailable JOLYNN DAO Attending Unavailable THALIA GRUBBS Unavailable ZOILA MOORE Attending Unavailable MAYELINSEE Attending Unavailable MAYELINSEE Attending Unavailable XIMENA MARTINS Attending Unavailable Allergies Allergy Classification Reported Allergen(s) Allergy Type Date of Onset Reaction(s) Facility (5 sources) Hmg-Coa Reductase Inhibitors (Statins) Drug allergy Unknown [facility] Other (5 sources) Penicillin Drug Allergy Unknown [facility] Other (2 sources) Penicillins; Translations: [PENICILLINS] Drug allergy (disorder) [facility] Repository (1 source) Ztgvwdv-LIF-JnT Reductase Inhibitor Drug allergy (disorder) [facility] Repository (2 sources) black walnut pollen extract; Translations: [AFYBUHL-GJK-IFD REDUCTASE INHIBITORS] Drug Allergy [address] [facility] Repository (1 source) Dextroamphetamine Drug Allergy [facility] Repository (1 source) Gemfibrozil Drug Allergy [facility] Repository (1 source) hydroCHLOROthiazide / Triamterene Drug Allergy [facility] Repository (1 source) Penicillin Drug Allergy [facility] Rep[facility] (1 source) rosuvastatin Drug Allergy [facility] Rep[facility] (1 source) Gemfibrozil; Translations: [GEMFIBROZIL] Drug Allergy [facility] Repository (1 source) TRIAMTERENE-HYDROCHLOR OTHIAZID; Translations: [TRIAMTERENE-HYDROCHLO ROTHIAZID] Propensity to adverse reactions to drug (disorder) [facility] Repository Medications Current Medications Medication Drug [...] (5 sources) Multivitamin Adults - Orally Active [place] 3 1000 MG (5 sources) take 1 capsule by mouth once daily [place] 3 1000 MG 1 capsule Orally Once [...] Translations: [Chronic diastolic (congestive) heart failure] Onset: 03-18-2024 Chronic Diabetes mellitus without complication (9 sources) [...] Value Interpretation Reference Range Facility Office Visiton 03-18-2024 Follow-up visit [id number] Deja Zamora 1940 F Date Provider Department Center 03/18/2024 Doni-XIMENA MARTINS [facility]ER [facility] Family History Problem Relation Age of Onset Coronary artery disease Father Family Status - Relation Status Age at Father Level of Service:27370 FL OFFICE/OUTPATIENT ESTABLISHED MOD MDM 30 MIN Normal [facility] Office Visiton 02-11-2024 Follow-up visit [id number] Deja Zamora 1940 F Date Provider Department Center 02/11/2024 ZOILA WALDRON [facility]INDER [facility] Family History Problem Relation Age of Onset Coronary artery disease Father Family Status - Relation Status Age at Father Level of Service:23957 FL OFFICE/OUTPATIENT ESTABLISHED MOD MDM 30 MIN Normal [facility] Office Visiton 08-14-2023 Follow-up visit [id number] Deja Zamora 1940 F Date Provider Department Center 08/14/2023 JOSIANESSEE [facility] Family History Problem Relation Age of Onset Coronary artery disease Father Family Status - Relation Status Age at Father Level of Service:39174 [place] OFFICE/OUTPATIENT ESTABLISHED MOD MDM 30 MIN Normal [facility] Office Visiton 08-02-2023 Follow-up visit [id number] Deja Zamora 1940 F Date Provider Department Center 08/02/2023 BetiMAYELIN SEE JAVI [facility] Family History Problem Relation Age of Onset Coronary artery disease Father Family Status - Relation Status Age at Father Level of Service:14157 [place] OFFICE/OUTPATIENT ESTABLISHED MOD MDM 30-39 MIN Normal [facility] FREE THYROXINE INDEX T7on FTI 2.59 Normal 1.30-4.50 [facility] Comment on above: Performed By: #### C MP, TSH, T7 #### [facility] [address] [place] [address] Dr. Milind Martinez T3U 37.0 % Normal 30.0-39.0 [facility] Comment on above: Performed By: #### C MP, TSH, T7 #### [facility] [address] [place] [address] Dr. Milind Martinez T4 [Mass/Vol] 7.00 ug/dL Normal 4.80-13.90 [facility] Comment on above: Performed By: #### C MP, TSH, T7 #### [facility] [address] [place] [address] Dr. Milind Martinez TSHon 09-20-2022 TSH 5.715 uIU/mL Critically high 0.358-3.740 [facility] Comment on above: Performed By: #### C MP, TSH, T7 #### [facility] [address] [place] [address] Dr. Milind Martinez FREE THYROXINE INDEX T7on FTI 2.56 Normal 1.30-4.50 [facility] Comment on above: Performed By: #### C MP, TSH, T7 #### [facility] [address] [place] [address] Dr. Milind Martinez T3U 35.0 % Normal 30.0-39.0 [facility] Comment on above: Performed By: #### C MP, TSH, T7 #### [facility] [address] [place] [address] Dr. Milind Martinez T4 [Mass/Vol] 7.30 ug/dL Normal 4.80-13.90 [facility] Comment on above: Performed By: #### C MP, TSH, T7 #### [facility] [address] [place] [address] Dr. Milind Martinez GLYCOHEMOGLOBIN A1Con 2021 ADA RECOMMENDATION SEE BELOW Normal [facility] Comment on above: Result Comment: ADA RECOMMENDED LIMIT 4.0 - 6.0 ADA THERAPEUTIC TARGET < 7.0 ACTION SUGGESTED > 7.0 Performed By: #### A 1C #### [facility] [address] [place] [address] Dr. Milind Martinez Glucose [Mass/Vol] 229 mg/dL Normal [facility] Comment on above: Performed By: #### A 1C #### [facility] [address] [place] [address] Dr. Milind Martinez HbA1c (Bld) [Mass fraction] 9.6 % Critically high 4.5-6.2 [facility] Comment on above: Performed By: #### A 1C #### [facility] [address] [place] [address] Dr. Milind Martinez PROF 14(COMP METB)on 022 Albumin [Mass/Vol] 3.1 g/dL Critically low 3.4-5.0 [facility] Comment on above: Performed By: #### C MP, TSH, T7 #### [facility] [address] [place] [address] Dr. Milind Martinez Albumin/Globulin [Mass ratio] 1.0 {ratio} Normal [facility] Comment on above: Performed By: #### C MP, TSH, T7 #### [facility] [address] [place], [place] [id number] Dr. Milind Martinez ALP [Catalytic activity/Vol] 48 U/L Normal 46-116 [facility] Comment on above: Performed By: #### C MP, TSH, T7 #### [facility] [address] [address] [address] Milind Martinez ALT [Catalytic activity/Vol] 19 U/L Normal 14-59 [facility] Comment on above: Performed By: #### C MP, TSH, T7 #### [facility] [address] [address] [address] Milind Martinez Anion gap [Moles/Vol] 12.3 mmol/L Normal [facility] Comment on above: Performed By: #### C MP, TSH, T7 #### [facility] [address] [place] [address] Dr. Milind Martinez AST [Catalytic activity/Vol] 30 U/L Normal 15-37 [facility] Comment on above: Performed By: #### C MP, TSH, T7 #### [facility] [address] [place] [address] Dr. Milind Martinez Bilirubin [Mass/Vol] 0.5 mg/dL Normal 0.2-1.0 [facility] Comment on above: Performed By: #### C MP, TSH, T7 #### [facility] [address] [place] [address] Dr. Milind Martinez Calcium [Mass/Vol] 8.9 mg/dL Normal 8.5-10.1 [facility] Comment on above: Performed By: #### C MP, TSH, T7 #### [facility] [address] [place] [address] Dr. Milind Martinez Chloride [Moles/Vol] 104 mmol/L Normal 98-[address] [facility] Comment on above: Performed By: #### C MP, TSH, T7 #### [facility] [address] [place] [address] Dr. Milind Martinez CO2 [Moles/Vol] 28.2 mmol/L Normal 21.0-32.0 [facility] Comment on above: Performed By: #### C MP, TSH, T7 #### [facility] [address] [address] [address] Milind Martinez Creatinine [Mass/Vol] 1.54 mg/dL Critically high 0.55-1.02 [facility] Comment on above: Performed By: #### C MP, TSH, T7 #### [facility] [address] [address] [address] Milind Martinez EGFR-AF CROATIAN 39 mL/min/1.73m2 Critically low >=60 [facility] Comment on above: Performed By: #### C MP, TSH, T7 #### [facility] [address] [address] [address] Milind Martinez EGFR-NON AF CROATIAN 32 mL/min/1.73m2 Critically low >=60 [facility] Comment on above: Performed By: #### C MP, TSH, T7 #### [facility] [address] [address] [address] Milind Matrinez Globulin (S) [Mass/Vol] 3.2 g/dL Normal [facility] Comment on above: Performed By: #### C MP, TSH, T7 #### [facility] [address] [address] [address] Milind Martinez Glucose [Mass/Vol] 180 mg/dL Critically high 74-[address] [facility] Comment on above: Performed By: #### C MP, TSH, T7 #### [facility] [address] [address] [address] Milind Martinez Potassium [Moles/Vol] 4.5 mmol/L Normal 3.5-5.1 [facility] Comment on above: Performed By: #### C MP, TSH, T7 #### [facility] [address] [address] [address] Milind Martinez Protein [Mass/Vol] 6.3 g/dL Critically low 6.4-8.2 [facility] Comment on above: Performed By: #### C MP, TSH, T7 #### [facility] [address] [address] [address] Milind Martinez Sodium [Moles/Vol] 140 mmol/L Normal 136-145 [facility] Comment on above: Performed By: #### C MP, TSH, T7 #### [facility] [address] [address] [address] Milind Martinez Urea nitrogen [Mass/Vol] 46.0 mg/dL Critically high 7.0-18.0 [facility] Comment on above: Performed By: #### C MP, TSH, T7 #### [facility] [address] [address] [address] Milind Martinez Urea nitrogen/Creatinine [Mass ratio] 29.9 mg/mg Normal [facility] Comment on above: Performed By: #### C MP, TSH, T7 #### [facility] [address] [place] [address] Dr. Milind Martinez TSHon 08-01-2022 TSH 12.769 uIU/mL Critically high 0.358-3.740 [facility] Comment on above: Performed By: #### C MP, TSH, T7 #### [facility] [address] [place] [address] Dr. Milind Martinez INSULINon 04-03-2022 Insulin 2.5 uIU/mL Critically low 2.6-24.9 [facility] Comment on above: Performed By: #### C MP, TSH, T7 #### [facility] [address] [address] [address] Milind Martinez T4, T3U, FTI LABCORPon 04-03 Free Thyroxine Index 1.8 Normal 1.2-4.9 [facility] Comment on above: Performed By: #### T HYLC #### [facility] [address] [place] [address] Dr. Milind Martinez T3 Uptake 26 % Normal 24-39 [facility] Comment on above: Performed By: #### T HYLC #### [facility] [address] [place] [address] Dr. Milind Martinez T4 [Mass/Vol] 7.1 ug/dL Normal 4.5-12.0 [facility] Comment on above: Performed By: #### T HYLC #### [facility] [address] [place] [address] Dr. Milind Martinez CBC AUTO DIFFon 04-02-2022 BASO # 0.0 103/ul Normal 0.0-0.1 [facility] Comment on above: Performed By: #### C BC #### [facility] [address] [place] [address] Dr. Milind Martinez Basophils/100 WBC (Bld) 0.9 % Normal 0.2-2.0 [facility] Comment on above: Performed By: #### C BC #### [facility] [address] [place] [address] Dr. Milind Martinez EO # 0.2 103/ul Normal 0.0-0.7 [facility] Comment on above: Performed By: #### C BC #### [facility] [address] [place] [address] Dr. Milind Martinez Eosinophils/100 WBC (Bld) 5.3 % Normal 0.9-7.0 [facility] Comment on above: Performed By: #### C BC #### [facility] [address] [place] [address] Dr. Milind Maritnez Erythrocyte distribution width (RBC) [Ratio] 13.2 % Normal 11.0-15.0 [facility] Comment on above: Performed By: #### C BC #### [facility] [address] [place] [address] Dr. Milind Martinez Hematocrit (Bld) [Volume fraction] 37.1 % Normal 36.0-48.0 [facility] Comment on above: Performed By: #### C BC #### [facility] [address] [place] [address] Dr. Milind Martinez Hemoglobin (Bld) [Mass/Vol] 12.0 g/dL Normal 12.0-16.0 [facility] Comment on above: Performed By: #### C BC #### [facility] [address] [place] [address] Dr. Milind Martinez IG # 0.01 10e3/ul Normal 0.00-0.03 [facility] Comment on above: Performed By: #### C BC #### [facility] [address] [place] [address] Dr. Milind Martinez IG % 0.2 % Normal 0.0-0.5 [facility] Comment on above: Performed By: #### C BC #### [facility] [address] [place] [address] Dr. Milind Martinez LYMPH # 1.8 103/ul Normal 1.2-3.[address] [facility] Comment on above: Performed By: #### C BC #### [facility] [address] [place] [address] Dr. Milind Martinez Lymphocytes/100 WBC (Bld) 41.9 % Normal 20.5-60.[address] [facility] Comment on above: Performed By: #### C BC #### [facility] [address] [place] [address] Dr. Milind Martinez MANUAL DIFF REQ NO Normal [facility] Comment on above: Performed By: #### C BC #### [facility] [address] [place] [address] Dr. Milind Martinez MCH (RBC) [Entitic mass] 31.2 pg Normal 26.7-34.0 [facility] Comment on above: Performed By: #### C BC #### [facility] [address] [place] [address] Dr. Milind Martinez MCHC (RBC) [Mass/Vol] 32.3 g/dL Normal 29.9-35.[address] [facility] Comment on above: Performed By: #### C BC #### [facility] [address] [place] [address] Dr. Milind Martinez MCV (RBC) [Entitic vol] 96.4 fL Normal 81.0-99.[address] [facility] Comment on above: Performed By: #### C BC #### [facility] [address] [place] [address] Dr. Milind Martinez MONO # 0.3 103/ul Normal 0.3-0.[address] [facility] Comment on above: Performed By: #### C BC #### [facility] [address] [place] [address] Dr. Milind Martinez Monocytes/100 WBC (Bld) 5.8 % Normal 1.7-12.0 [facility] Comment on above: Performed By: #### C BC #### [facility] [address] [place] [address] Dr. Milind Martinez NEUT # 2.0 103/ul Normal 1.4-6.5 [facility] Comment on above: Performed By: #### C BC #### [facility] [address] [place] [address] Dr. Milind Martinez Neutrophils/100 WBC (Bld) 45.9 % Normal 43.0-75.0 [facility] Comment on above: Performed By: #### C BC #### [facility] [address] [place] [address] Dr. Milind Martinez Platelet mean volume (Bld) [Entitic vol] 11.8 fL Normal 9.5-13.5 [facility] Comment on above: Performed By: #### C BC #### [facility] [address] [place] [address] Dr. Milind Martinez PLT 159 103/ul Normal 150-450 [facility] Comment on above: Performed By: #### C BC #### [facility] [address] [place] [address] Dr. Milind Martinez RBC 3.85 106/ul Critically low 4.20-5.40 [facility] Comment on above: Performed By: #### C BC #### [facility] [address] [place] [address] Dr. Milind Martinez WBC 4.3 103/ul Normal 4.0-11.0 [facility] Comment on above: Performed By: #### C BC #### [facility] [address] [place] [address] Dr. Milind Martinez GLYCOHEMOGLOBIN A1Con 2021 ADA RECOMMENDATION SEE BELOW Normal [facility] Comment on above: Result Comment: ADA RECOMMENDED LIMIT 4.0 - 6.0 ADA THERAPEUTIC TARGET < 7.0 ACTION SUGGESTED > 7.0 Performed By: #### A 1C #### [facility] [address] [place] [address] Dr. Milind Martinez Glucose [Mass/Vol] 214 mg/dL Normal [facility] Comment on above: Performed By: #### A 1C #### [facility] [address] [place] [address] Dr. Milind Martinez HbA1c (Bld) [Mass fraction] 9.1 % Critically high 4.5-6.2 [facility] Comment on above: Performed By: #### A 1C #### [facility] [address] [place] [address] Dr. Milind Martinez IRONon 04-02-2022 Iron [Mass/Vol] 126.0 ug/dL Normal 50.0-170.0 [facility] Comment on above: Performed By: #### C MP, TSH, T7 #### [facility] [address] [place] [address] Dr. Milind Martinez LIPID PROFILEon 04-02-2022 CHOL-HDL RATIO NORM SEE BELOW Normal [facility] Comment on above: Result Comment: 3.3 - 4.4 LOW RISK 4.4 - 7.1 AVERAGE RISK 7.1 - 11.0 MODERATE RISK >11.0 HIGH RISK Performed By: #### C MP, TSH, T7 #### [facility] [address] [place] [address] Dr. Milind Martinez Cholesterol [Mass/Vol] 133 mg/dL Normal <=200 [facility] Comment on above: Performed By: #### C MP, TSH, T7 #### [facility] [address] [place] [address] Dr. Milind Martinez Cholesterol in HDL [Mass/Vol] 20 mg/dL Critically low 40-[address] [facility] Comment on above: Performed By: #### C MP, TSH, T7 #### [facility] [address] [place] [address] Dr. Milind Martinez Cholesterol in LDL [Mass/Vol] 69.6 mg/dL Normal [facility] Comment on above: Performed By: #### C MP, TSH, T7 #### [facility] [address] [place] [address] Dr. Milind Martinez Cholesterol.total/Ch olesterol in HDL [Mass ratio] 6.7 {ratio} Normal [facility] Comment on above: Performed By: #### C MP, TSH, T7 #### [facility] [address] [place] [address] Dr. Milind Martinez HDL NORMAL > or = 60 mg/dl - LOW CARDIOVASCULAR RISK <40 mg/dl - HIGH CARDIOVASCULAR RISK Normal [facility] Comment on above: Performed By: #### C MP, TSH, T7 #### [facility] [address] [place] [address] Dr. Milind Martinez LDL CALC NORMAL SEE BELOW Normal [facility] Comment on above: Result Comment: <100 mg/dl OPTIMAL 100 - 129 mg/dl NEAR OR ABOVE OPTIMAL 130 - 159 mg/dl BORDERLINE HIGH 160 - 189 mg/dl HIGH >190 mg/dl VERY HIGH Performed By: #### C MP, TSH, T7 #### [facility] [address] [place] [address] Dr. Milind Martinez Triglyceride [Mass/Vol] 217 mg/dL Critically high <=150 [facility] Comment on above: Performed By: #### C MP, TSH, T7 #### [facility] [address] [place] [address] Dr. Milind Martinez VLDL CALC 43.4 mg/dL Normal [facility] Comment on above: Performed By: #### C MP, TSH, T7 #### [facility] [address] [place] [address] Dr. Milind Martinez PROF 14(COMP METB)on 022 Albumin [Mass/Vol] 3.3 g/dL Critically low 3.4-5.[address] [facility] Comment on above: Performed By: #### C MP, TSH, T7 #### [facility] [address] [place] [address] Dr. Milind Martinez Albumin/Globulin [Mass ratio] 1.2 {ratio} Normal [facility] Comment on above: Performed By: #### C MP, TSH, T7 #### [facility] [address] [place] [address] Dr. Milind Martinez ALP [Catalytic activity/Vol] 43 U/L Critically low 46-116 [facility] Comment on above: Performed By: #### C MP, TSH, T7 #### [facility] [address] [address] [address] Milind Martinez ALT [Catalytic activity/Vol] 24 U/L Normal 14-59 [facility] Comment on above: Performed By: #### C MP, TSH, T7 #### [facility] [address] [address] [address] Milidn Martinez Anion gap [Moles/Vol] 11.4 mmol/L Normal [facility] Comment on above: Performed By: #### C MP, TSH, T7 #### [facility] [address] [place] [address] Dr. Milind Martinez AST [Catalytic activity/Vol] 24 U/L Normal 15-37 [facility] Comment on above: Performed By: #### C MP, TSH, T7 #### [facility] [address] [place] [address] Dr. Milind Martinez Bilirubin [Mass/Vol] 0.4 mg/dL Normal 0.2-1.0 [facility] Comment on above: Performed By: #### C MP, TSH, T7 #### [facility] [address] [place] [address] Dr. Milind Martinez Calcium [Mass/Vol] 8.7 mg/dL Normal 8.5-10.1 [facility] Comment on above: Performed By: #### C MP, TSH, T7 #### [facility] [address] [place] [address] Dr. Milind Martinez Chloride [Moles/Vol] 106 mmol/L Normal 98-[address] [facility] Comment on above: Performed By: #### C MP, TSH, T7 #### [facility] [facility] [address] [place] [address] Dr. Milind Martinez CO2 [Moles/Vol] 29.7 mmol/L Normal 21.0-32.0 [facility] Comment on above: Performed By: #### C MP, TSH, T7 #### [facility] [address] [address] [address] Milind Martinez Creatinine [Mass/Vol] 1.30 mg/dL Critically high 0.55-1.02 [facility] Comment on above: Performed By: #### C MP, TSH, T7 #### [facility] [address] [place] [address] Dr. Milind Martinez EGFR-AF CROATIAN 47 mL/min/1.73m2 Critically low >=60 [facility] Comment on above: Performed By: #### C MP, TSH, T7 #### [facility] [address] [place] [address] Dr. Milind Martinez EGFR-NON AF CROATIAN 39 mL/min/1.73m2 Critically low >=60 [facility] Comment on above: Performed By: #### C MP, TSH, T7 #### [facility] [address] [place] [address] Dr. Milind Martinez Globulin (S) [Mass/Vol] 2.7 g/dL Normal [facility] Comment on above: Performed By: #### C MP, TSH, T7 #### [facility] [address] [place] [address] Dr. Milind Martinez Glucose [Mass/Vol] 109 mg/dL Critically high 74-106 [facility] Comment on above: Performed By: #### C MP, TSH, T7 #### [facility] [address] [place] [address] Dr. Milind Martinez Potassium [Moles/Vol] 4.1 mmol/L Normal 3.5-5.1 [facility] Comment on above: Performed By: #### C MP, TSH, T7 #### [facility] [address] [place] [address] Dr. Milind Martinez Protein [Mass/Vol] 6.0 g/dL Critically low 6.4-8.2 [facility] Comment on above: Performed By: #### C MP, TSH, T7 #### [facility] [address] [place] [address] Dr. Milind Martinez Sodium [Moles/Vol] 143 mmol/L Normal 136-145 [facility] Comment on above: Performed By: #### C MP, TSH, T7 #### [facility] [address] [place], [place] [address] Dr. Milind Martinez Urea nitrogen [Mass/Vol] 34.0 mg/dL Critically high 7.0-18.0 [facility] Comment on above: Performed By: #### C MP, TSH, T7 #### [facility] [address] [address] [address] Milind Martinez Urea nitrogen/Creatinine [Mass ratio] 26.2 mg/mg Normal [facility] Comment on above: Performed By: #### C MP, TSH, T7 #### [facility] [address] [address] [address] Milind Martinez TSHon 04-02-2022 TSH 7.887 uIU/mL Critically high 0.358-3.740 [facility] Comment on above: Performed By: #### C MP, TSH, T7 #### [facility] [address] [address] [address] Milind Martinez US KIDNEYSon 03-23-2022 US [...] stenosis by color-Doppler US from Zistephenr and Chris (Am J Hypertens, 1996). Normal [...] IJEOMA TIM Date: 2022-03-23 13:26 Normal [facility] MAMM SCREEN 3D BOGDAN CADon 03-05-2022 MG MAMM SCREEN 3D BOGDAN CAD Patient: DEJA ZAMORA Exam Date: 03/05/2022 : 1940 Gender:F Ordering : NATHAN JOVEL [facility] Admission #: [id number] Family : Order #: [id number] CLICK HERE TO VIEW EXAM RADIOLOGY REPORT [...] mult.myeloma cancer at age 68. LOCATION: The [facility] BREAST COMPOSITION: Scattered areas fibroglandular [...] Major M.D. on 03/05/2022 at 13:47 Normal [facility] US CAROTID ART BILon 05-09-2 022 [...] by: UDAY MAJOR Date: 2021-12-25 15:42 Normal [facility] Vital Signs Date Time Vital Sign Value Performing Clinician Marissa florez 12-21-2021 10:00-0400 Body height 147.32 cm Patrick Cotter Other [facility] [employer] Other 12-21-2021 10:00-0400 Body mass index (BMI) [Ratio] 27.79 kg/m2 Patrick Cotter Other [facility] [employer] Other 12-21-2021 10:00-0400 Body weight 60.33 kg Patrick Cotter Other [facility] [employer] Other 10-19-2021 12:00-0500 Body height 147.32 cm Patrick Cotter Other [facility] [employer] Other 10-19-2021 12:00-0500 Body mass index (BMI) [Ratio] 27.79 kg/m2 Patrick Cotter Other [facility] [employer] Other 10-19-2021 12:00-0500 Body weight 60.33 kg Patrick Cotter Other [facility] [employer] Other 08-22-2021 15:00-0500 Body height 147.32 cm Patrick Cotter Other [facility] Other 08-22-2021 15:00-0500 Body mass index (BMI) [Ratio] 27.79 kg/m2 Patrick Cotter Other [facility] Other 08-22-2021 15:00-0500 Body weight 60.33 kg Patrick Cotter Other [facility] Other Encounters Encounter Date Encounter Type Care Provider Facility Start: 03-18-2024 End: 03-18-2024 ambulatory [facility] Start: 02-11-2024 End: 02-11-2024 ambulatory ZOILA [facility] Start: 08-29-2023 End: 08-30-2023 ambulatory JOLYNN DAO Not Available Start: 08-14-2023 End: 08-14-2023 ambulatory [facility] Start: 08-02-2023 End: 08-02-2023 ambulatory [facility] Start: 04-01-2023 End: 04-02-2023 ambulatory Danny Monroy MD Facility: [facility] Start: 03-18-2023 End: 03-19-2023 ambulatory Danny Monroy MD Facility: [facility] Start: 02-11-2023 End: 02-12-2023 ambulatory Danny Monroy [...] 12-21-2021 End: 12-21-2021 ambulatory Patrickshan Cotter Other [facility] [employer] Other Start: 12-21-2021 Postop follow up vis it related to original px Patrick Cotter [facility] Start: 11-02-2021 ambulatory NATHAN MED Facility: [facility] Start: 10-19-2021 End: 10-19-2021 ambulatory Patrick Cotter Other [facility] [employer] Other Start: 10-19-2021 Postop follow up vis it related to original px Patrick Cotter [facility] Start: 09-18-2021 Admission to same [facility] center Patrick Cotter [facility] Start: 09-18-2021 End: 09-19-2021 ambulatory Patrick E Cotter [facility] [employer] Other Start: 08-29-2021 End: 08-29-2021 ambulatory Patrick Cotter Other [facility] [employer] Other Start: 08-29-2021 Telephone encounter Patrick Cotter [facility] Start: 08-22-2021 End: 08-22-2021 ambulatory Patrick Cotter Other [facility] [employer] Other Start: 08-22-2021 Office outpatient visit 40 minutes Patrick Cyndee GRIER [facility] Start: 09-24-2017 End: 09-25-2017 Ambulatory DEFAULT PHYSICIAN Facility:[facility] Payers Date Payer Category Payer Unknown 2021 Self-pay 2003 Medicare 1959 Medicare [id number] 2.1 [id number] 1959 Self-pay [id number] 1959 Unknown [id number] 2.1 [id number] 1940 Unknown [id number] 2.16.84 [id number] 1940 Unknown [id number] 2.16.84 [id number] 1940 Unknown [id number] 2.16.84 0.1.749610.3.579.2.593 1938 Unknown [id number] 2.16.84 0.1.532746.3.579.2.593 1938 Unknown [id number] 2.16.84 0.1.971269.3.579.2.593 1938 Unknown [id number] 2.16.84 0.1.041420.3.579.2.593 1938 Unknown [id number] 2.16.84 0.1.059902.3.579.2.593 1938 Unknown [id number] 2.16. 840.1.631931.3.579.2.196 1940 Unknown [id number] 2.16. 840.1.907565.3.579.2.196 1940 Unknown [id number] 2.16. 840.1.106675.3.579.2.196 1940 Unknown [id number] 2.16.84 0.1.877217.3.579.2.1259 Unknown [id number] 2.16.8 [id number] Social History Date Type Detail Facility Sex Assigned At [employer] Other Clinical Notes 08-22-2021 to 03-18-2024 Note Date & Type Note Facility 03-18-2024 Note [facility] Subjective Deja Zamora is a 83 y.o. year old female patient being seen for 1 mo follow up hypertension. She had several labs last month for her branch examiner. And a lipid panel also. He changed her furosemide to every other day, and discontinued potassium. LE edema has resolved. Denies chest pain, SOB, and palpitations. Says her BP continues to run up and down . Sometimes goes as low as 108 and as high as 174 systolic. Patient Active Problem List Diagnosis Abdominal pain [...] lot of arthritis and back issues. She is currently taking amlodipine 5 mg daily [she developed edema on higher dose], doxazosin 8 mg twice daily, hydrochlorothiazide 25 mg once daily and metoprolol tartrate 50 mg twice daily, spironolactone 12.5 mg daily. In addition she is on aspirin 81 mg daily, ezetimibe and fenofibrate. She is intolerant to statins. she denies chest pain, shortness of breath, palpitations, dizziness, syncope and leg edema. she has good exercise tolerance. There is no claudication. She has been having dizzy spells occasionally. BP readings at home showed systolic sometimes 90-100. Sometimes her systolic blood pressure is as high as 150. Recently she has been having elevated potassium. Renal function got a little bit worse. Potassium supplementation was stopped. Her furosemide was reduced to every other day. Review of Systems Constitutional: Positive for malaise/fatigue. Musculoskeletal: Positive for arthritis, back pain and muscle weakness. Neurological: Positive for dizziness, focal weakness, light-headedness (improving) and weakness. All other systems reviewed and are negative. Objective Visit Vitals BP 148/64 (BP Location: Left arm, Patient Position: Sitting) Pulse 59 Ht 1.473 m (4' 10 ) Wt 55.3 kg (122 lb) SpO2 98% BMI 25.50 kg/m??? OB Status Postmenopausal Smoking Status Never BSA 1.5 m??? Physical Exam Constitutional: Appearance: She is [...] Allergies Allergies Allergen Reactions Gemfibrozil Penicillins Unknown Egftdwa-Wvd-Gqe Reductase Inhibitors Unknown Triamterene-Hydrochlorothiazid Medications Current Outpatient Medications: amLODIPine (Norvasc) 5 mg tablet, Take 1 tablet (5 mg) by mouth once daily as directed., Disp: 90 tablet, Rfl: 3 aspirin 81 mg EC tablet, Take 1 tablet every day by oral route., Disp: , Rfl: calcium carbonate-vitamin D3 600 mg-5 mcg (200 unit) tablet, Calcium 600 + D(3) 1200mg, Disp: , Rfl: cloNIDine (Catapres) 0.2 mg tablet, Take 1 tablet (0.2 mg) by mouth in the morning and at bedtime., Disp: 180 tablet, Rfl: 3 doxazosin (Cardura) 8 (more content not included)... [facility] 02-11-2024 Note [facility] - [facility] Subjective Deja Zamora is [...] Allergies Allergies Allergen Reactions Gemfibrozil Penicillins Unknown Mbxlzeb-Bah-Ele Reductase Inhibitors Unknown Triamterene-Hydrochlorothiazid (more content not included)... [facility] 02-11-2024 Note Patient here for 6 [...] systems reviewed and are negative. [facility] 08-14-2023 Note Hypertension is well controlled at home, continue all meds Metoprolol 25 mg bid, cardura 8 mg, clonidine 0.2 mg bid, and norvasc [address] [facility] 08-14-2023 Note Currently stable wit hout worsening symptoms [facility] 08-14-2023 Note Patient here for 2 w comanche follow up hypertension. Clonidine was increased to [...] systems reviewed and are negative. [facility] 08-14-2023 Note UTP CARDIOLOGY PROGR ESS [...] m??? Allergies Allergen Reactions Gemfibrozil Penicillins Unknown Bypsrwb-Euy-Ran Reductase Inhibitors Unknown Triamterene-Hydrochlorothiazid Medications: Current Outpatient [...] 5 (more content not included)... [facility] 08-02-2023 Note Stable so far, will monitor with increased clonidine for uncontrolled HTN [facility] 08-02-2023 Note Stable without any worsening sym ptoms [facility] 08-02-2023 Note Hypertension is Curr ently [...] twice every 2 to 3-weeks [facility] 08-02-2023 Note UTP CARDIOLOGY PROGR ESS [...] at target sometimes. She was admitted to [facility] in Mar 2023 for e.coli [...] m??? Allergies Allergen Reactions Gemfibrozil Penicillins Unknown Mkrjpjo-Bmc-Ntn Reductase Inhibitors Unknown Triamterene-Hydrochlorothiazid Medications: Current Outpatient [...] be (more content not included)... [facility] 08-02-2023 Note Patient here c/o hyp [...] at target sometimes. She was admitted to [facility] in Mar 2023 for e.coli [...] systems reviewed and are negative. 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 I have encouraged her to continue to build up her endurance by walking. I will see her again in 2 months for final postop visit. 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 [facility] Other evaluation noteNo InformationNort Colibri Heart Valve Other History general Narrative - Reported* Type Description Date Medical History Diabetes Medical History Hyperlipidemia Medical History Pulmonary HPN Medical History Osteoporosis Surgical History R knee Sx Surgical History L Hand Hospitalization History HTN 08/2018 [facility] [employer] Other Summary Purpose Family History No Family History Records FoundNo Family History Records FoundNo Family History Records FoundNo Family History Records FoundNo Family History Records FoundNo Family History Records Found Advance Directives No Advanced Directives Records FoundNo Advanced Directives Records FoundNo Advanced Directives Records FoundNo Advanced Directives Records FoundNo Advanced Directives Records FoundNo Advanced Directives Records Found Reason for Referral Reason *FU 05/12 Evaluate and Treat Left Hip Pain Please schedule in [facility] Office Diagnosis 1 Arthropathy of left hip (M16.12) Referral Organization [facility] urosurgery Referring Provider First Name Patrick Referring Provider Last Name Cyndee Referring Provider Specialty Neurologica l Surgery Referred Organization [facility] Referred Provider Ximena Vela Jr Referred Address ,[place], [place],[address] Referred Provider Specialty Orthopedic S urgery Referral Priority Routine General Notes Val Slater 022 10:56:23 AM >Received today. This referral was sent P2P and will wait a week and call them back to see if she was scheduled. They do their own scheduling Additional Source Comments INFORMATION SOURCE (unrecogn ized section and content) DATE CREATED AUTHOR 02/10/2018 [facility] DATE CREATED AUTHOR AUTHOR'S ORGANIZ ATION 09/22/2022 [facility] DATE CREATED AUTHOR AUTHOR'S ORGANIZ ATION 09/23/2022 [facility] DATE CREATED AUTHOR AUTHOR'S ORGANIZ ATION 04/11/2023 [facility] DATE CREATED AUTHOR AUTHOR'S ORGANIZ ATION 09/02/2023 [facility] EPIC DATE CREATED AUTHOR AUTHOR'S ORGANIZ ATION 03/20/2024 [facility] REASON FOR VISIT (unrecogniz ed section [...] BE BASED ON THE PRIMARY CLINICAL RECORDS. The [employer] provides no warranty or guarantee of the accuracy or completeness of information in this document.
--- NOTE | 2024-05-16 13:00 | CT_ITS ---
The [address] [address] Patient Name: EDILIA HERNANDEZ MRN: [id number] date: 1940 Sex: F Assigned Patient Location: ER Current Patient Location: ER Accession/Order Number: [id number] Exam Date: 05/16/2024 13:08 Report Date: 05/16/2024 13:31 At the request of: LILY MO Procedure: CT stroke head/brain wo con EXAM: CT stroke head/brain wo con HISTORY: left sided weakness COMPARISON: MRI brain 08/07/2023. TECHNIQUE: Axial noncontrast CT imaging of the head was performed with coronal and sagittal reformats. This CT exam was performed using one or more of the following dose reduction techniques: Automated exposure control, adjustment of the MA and/or kV according to patient size, or use of iterative reconstruction technique. FINDINGS: Calvarium/skull base: No evidence of acute fracture or destructive lesion. Paranasal sinuses: No air fluid levels. Brain: No acute intracranial hemorrhage. No acute large vascular territory infarct. 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 Mild parenchymal volume loss. Empty sella. No mass lesion or mass effect. No hydrocephalus. CT/CT stroke head/brain wo con IMPRESSION: 1. No acute intracranial process. If there is clinical concern for acute ischemia recommend MRI brain for further evaluation. 2. Stable chronic changes described above. Electronically authenticated by: ISACC GOVEA Date: 05/16/2024 13:31
--- NOTE | 2024-05-16 13:00 | ECG_ITS ---
The [facility] Test Date: 2024-05-16 Pat Name: EDILIA HERNANDEZ Department: Room: - Gender: Female Passenger Bar[employer]: : 1940 Requested By: NATHAN JOVEL Order Number: [id number] Reading MD: KANDACE BROWN Measurements Intervals [place] Rate: 61 P: 90 AK: 208 QRS: 60 QRSD: 76 T: 58 QT: 386 QTc: 388 Interpretive Statements 1100 Sinus rhythm 1108 Marked sinus arrhythmia 9130 borderline ECG Compared to ECG 04/17/2023 10:41:04 ST (T wave) deviation no longer present Possible ischemia no longer present Electronically Signed On 05-17-2024 7:51:15 EDT by KANDACE BROWN
[2024-05-16 13:03] LABS: Glucometer 175 mg/dL (74-106)
--- NOTE | 2024-05-16 13:17 | PC.NURSE ---
Low back pain with complaints of lower extremity weakness.
[2024-05-16 13:24] LABS: Basophils Absolute Auto 0.1 10^3/uL (0.0-0.1); Basophils Percent Auto 1.1 % (0.2-2.0); Eosinophils Absolute Auto 0.1 10^3/uL (0.0-0.7); Eosinophils Percent Auto 2.3 % (0.9-7.0); Hematocrit 28.3 % (36.0-48.0); Hemoglobin 9.1 g/dL (12.0-16.0); Immature Granulocytes Abs Auto 0.02 10^3/uL (0.00-0.03); Immature Granulocytes Pct Auto 0.4 % (0.0-0.5); Lymphocytes Absolute Auto 1.9 10^3/uL (1.2-3.8); Lymphocytes Percent Auto 32.5 % (20.5-60.0); Mean Corpuscular HGB Conc 32.2 g/dL (29.9-35.2); Mean Corpuscular Volume 96.3 fL (81.0-99.0); Mean Platelet Volume 11.5 fL (9.5-13.5); Monocytes Absolute Auto 0.3 10^3/uL (0.3-0.8); Monocytes Percent Auto 4.6 % (1.7-12.0); Neutrophils Absolute Auto 3.4 10^3/uL (1.4-6.5); Neutrophils Percent Auto 59.1 % (43.0-75.0); Platelet Count 227 10^3/uL (150-450); Red Blood Count 2.94 10^6/uL (4.20-5.40); Red Cell Distribution Width 13.2 % (11.0-15.0); White Blood Count 5.7 10^3/uL (4.0-11.0)
[2024-05-16 13:34] LABS: INR 1.43; Prothrombin Time 14.6 sec (9.0-11.6)
[2024-05-16 13:37] LABS: Alanine Aminotransferase 16 U/L (14-59); Albumin Globulin Ratio 0.6; Alkaline Phosphatase 53 U/L (46-116); Anion Gap 9.3; Aspartate Amino Transferase 29 U/L (15-37); BUN Creatinine Ratio 19.5; Bilirubin Total 0.4 mg/dL (0.2-1.0); Calcium 8.3 mg/dL (8.5-10.1); Carbon Dioxide 28.7 mmol/L (21.0-32.0); Chloride 104 mmol/L (98-107); Estimated GFR (African America 27 (>=60); Estimated GFR (Non-African Ame 22 (>=60); Globulin 3.1 g/dL; Glucose 176 mg/dL (74-106); Sodium 137 mmol/L (136-145); Total Protein 5.1 g/dL (6.4-8.2)
--- NOTE | 2024-05-16 13:38 | ED_ITS ---
HPI HPI - Back Pain/Injury General Chief Complaint: Back Pain/Injury Stated Complaint: LEFT SIDE PAIN AND WEAKNESS Time Seen by Provider: 05/16/24 13:00 Source: patient Mode of arrival: Wheelchair Limitations: no limitations History of Present Illness HPI Narrative: The patient presented to us with a left-sided upper and lower extremity weakness that started yesterday at 8:30 AM, patient mentioned that she went to sleep with no complain to wake up to find that she have this weakness in the left leg as well as the left upper extremity, the patient mentioned that she lives by herself and she usually able to manage every daily activity but for the last 24 hours she has been leaning on things because she is very weak, she mentioned that left hand weakness on the digital assistant and when she is trying to put her arm above her head She also mentioned that she had some previous history of weakness that is mild in her both legs due to back pain but this is new and it is different The patient mentioned that she have to lean on things and sometimes she feels that she is falling She did have some frontal headache the evening before that but she did not have any headache today The patient also mentioned that her blood pressure control has been a chronic issue with her [employer] former Related Data Home Medications ?Medication ?Instructions ?Recorded ?Confirmed amlodipine 5 mg tablet 5 mg PO DAILY 02/11/23 09/19/23 calcium carbonate 600 mg-vitamin 1 tab PO BID 02/11/23 09/19/23 D3 5 mcg (200 unit) tablet (Calcium 600 + D(3)) coenzyme Q10 100 mg capsule (Co 100 mg PO DAILY 02/11/23 09/19/23 Q-10) doxazosin 8 mg tablet 8 mg PO BID 02/11/23 09/19/23 ezetimibe 10 mg tablet 10 mg PO DAILY 02/11/23 09/19/23 fenofibrate 160 mg tablet 160 mg PO DAILY 02/11/23 09/19/23 fluticasone propionate 50 1 spray intranasal DAILY PRN 02/11/23 09/19/23 mcg/actuation nasal allergy symptoms spray,suspension (24 Hour Allergy Relief) furosemide 20 mg tablet 20 mg PO DAILY PRN edema 02/11/23 09/19/23 insulin glargine 100 unit/mL 16 unit subcut QPM 02/11/23 09/19/23 subcutaneous solution (Lantus U-100 Insulin) metoprolol tartrate 50 mg tablet 25 mg PO BID 02/11/23 09/19/23 (Lopressor) multivitamin (Daily Multi-Vitamin 1 tab PO DAILY 02/11/23 09/19/23 tablet) pantoprazole 40 mg tablet,delayed 40 mg PO DAILY 02/11/23 09/19/23 release (Protonix) potassium chloride 10 mEq 10 meq PO DAILY PRN edema 02/11/23 09/19/23 tablet,extended release (K-Tab) spironolactone 25 mg tablet 12.5 mg PO .every other day 02/11/23 09/19/23 aspirin 81 mg chewable tablet 81 mg PO DAILY 04/17/23 09/19/23 levothyroxine 25 mcg tablet 25 mcg PO DAILY 04/17/23 09/19/23 (Synthroid) Previous Rx's ?Medication ?Instructions ?Recorded clonidine HCl 0.1 mg tablet 0.1 mg PO BID #60 tabs 04/18/23 liothyronine 5 mcg tablet 5 mcg PO DAILY #30 tabs 04/18/23 gabapentin 100 mg capsule 100 mg PO BEDTIME #30 caps 09/12/23 gabapentin 300 mg capsule 300 mg PO DAILY #30 caps 09/12/23 Allergies Allergy/AdvReac Type Severity Reaction Status Date / Time Penicillins Allergy Verified 04/29/23 11:01 [id number] Reductase Allergy Verified 04/29/23 11:01 Inhibitor Opioid HPI Opioid Management Most Recent Opioid Data: Last Pain Scale 3 04/29/23 11:05 [facility] Medical History (Updated 05/16/24 @ 14:20 by Marlene Quiros MD) Cataracts, bilateral ?H26.9 - Unspecified cataract (ICD-10) Intractable nausea and vomiting ?R11.2 - Nausea with vomiting, unspecified (ICD-10) Diabetes ?E11.9 - Type 2 diabetes mellitus without complications (ICD-10) Dupuytren contracture ?M72.0 - Palmar fascial fibromatosis [Dupuytren] (ICD-10) Skin cancer ?C44.90 - Unspecified malignant neoplasm of skin, unspecified (ICD-10) Degenerative disc disease Age related osteoporosis ?M81.0 - Age-related osteoporosis without current pathological fracture (ICD- 10) Gastritis ?K29.70 - Gastritis, unspecified, without bleeding (ICD-10) Kidney failure ?N19 - Unspecified kidney failure (ICD-10) HTN (hypertension) ?I10 - Essential (primary) hypertension (ICD-10) High cholesterol ?E78.00 - Pure hypercholesterolemia, unspecified (ICD-10) Pulmonary HTN ?I27.20 - Pulmonary hypertension, unspecified (ICD-10) Surgical History History of right knee surgery ?Z98.890 - Other specified postprocedural states (ICD-10) History of sinus surgery ?Z98.890 - Other specified postprocedural states (ICD-10) History of cholecystectomy ?Z90.49 - Acquired absence of other specified parts of digestive tract (ICD- 10) Previous back surgery ?Z98.890 - Other specified postprocedural states (ICD-10) Family History (Updated 09/17/23 @ 12:01 by Erin Miranda RN) Other Family history of CHF (congestive heart failure) Family history of cancer Family history of diabetes mellitus Family history of hypertension Social History (Updated 09/17/23 @ 12:02 by Erin Miranda RN) Within the past year, how often did you have a drink containing alcohol: never Score interpretation: A score less than 3 is consistent with normal alcohol consumption. Smoking status: Former smoker Second hand tobacco smoke exposure: No Non-prescribed substance use: denies use Previous occupational history: Retired Known occupational exposures/hazards: No Highest level of school completed/degree received: high school graduate Little interest or pleasure in doing things: not at all Feeling down, depressed, or hopeless: not at all Exam Narrative Exam Narrative: Nurses notes and vital signs reviewed and patient is not hypoxic. General: Well-appearing and in no apparent distress. Skin: Warm, dry, no pallor noted. No rash. Head: Normocephalic, atraumatic. Neck: Supple, non-tender. Eye: Pupils are equal, round and EOMI. No scleral icterus. Ears, Nose, Mouth, and Throat: TM are clear, no nasal mucosal hypertrophy. Oral mucosa is moist, no posterior oropharynx erythema, uvula is mid-line Cardiovascular: Regular Rate and Rhythm without murmur, gallop or rub. Respiratory: No accessory muscle use or respiratory distress. Lungs are clear to auscultation, no wheezing, rales or rhonchi Chest Wall: no tenderness Back: No midline thoracic or lumbar vertebral tenderness. No CVA tenderness Musculoskeletal: normal ROM, no calf or popliteal tenderness, no lower extremity edema/swelling GI: Abdomen is soft, non-distended. Normal bowel sounds. No masses appreciated. No tenderness to palpation. No rebound, guarding, or rigidity noted. Neurological: A&O x4. No cranial nerve dysfunction observed. No truncal ataxia. Moves all extremities. Sensation intact. Psychiatric: Cooperative and interactive. Normal mood and affect. The patient NIHSS score upon arrival was normal ( 0) Constitutional Vital Signs, click to edit/add: Last Vital Signs Temp 98.0 F 05/16/24 12:54 Pulse 61 05/16/24 14:01 Resp 15 05/16/24 14:01 BP 191/66 H 05/16/24 14:01 Pulse Ox 98 05/16/24 13:30 O2 Del Method Room Air 05/16/24 12:54 Course Vital Signs Vital signs: Vital Signs Temperature 98.0 F 05/16/24 12:54 Pulse Rate 67 05/16/24 12:54 Respiratory Rate 18 05/16/24 12:54 Blood Pressure 202/69 H 05/16/24 12:54 Pulse Oximetry 97 05/16/24 12:54 Oxygen Delivery Method Room Air 05/16/24 12:54 Temperature 98.0 F 05/16/24 12:54 Pulse Rate 61 05/16/24 14:01 Respiratory Rate 15 05/16/24 14:01 Blood Pressure 191/66 H 05/16/24 14:01 Pulse Oximetry 98 05/16/24 13:30 Oxygen Delivery Method Room Air 05/16/24 12:54 MDM - Back Pain/Injury MDM Narrative Medical decision making narrative: The patient EKG upon arrival showing sinus rhythm with a heart rate of [address] elevation or depression The patient presenting to us more than 24 hours after her first noticed weakness, the patient last known well is the day before yesterday and she does have the risk factor for elevated blood pressure that is an ongoing problem The patient CBC showed no acute significant pathology she have a history of chronic anemia chemistry showing chronic kidney disease as well which is not an acute finding The patient case was discussed with teleneurology specialist and she mentioned that initially the plan was to do a CT angio head and neck but since the patient have chronic kidney disease the patient will have MRI and MRA mostly done as an inpatient Right now no need to control the blood pressure and it will be kept elevated for permissive hypertension after possible stroke The patient case was discussed with and he agrees with above mentioned plan Lab Data Labs: Lab Results 05/16/24 05/16/24 Range/Units 13:02 13:05 WBC 5.7 (4.0-11.0) 10^3/uL RBC 2.94 L (4.20-5.40) 10^6/uL Hgb 9.1 L (12.0-16.0) g/dL Hct 28.3 L (36.0-48.0) % MCV 96.3 (81.0-99.0) fL MCH 31.0 (26.7-34.0) pg MCHC 32.2 (29.9-35.2) g/dL RDW 13.2 (11.0-15.0) % Plt Count 227 (150-450) 10^3/uL MPV 11.5 (9.5-13.5) fL Neut % (Auto) 59.1 (43.0-75.0) % Lymph % (Auto) 32.5 (20.5-60.0) % [place] % (Auto) 4.6 (1.7-12.0) % Eos % (Auto) 2.3 (0.9-7.0) % Baso % (Auto) 1.1 (0.2-2.0) % Neut # (Auto) 3.4 (1.4-6.5) 10^3/uL Lymph # (Auto) 1.9 (1.2-3.8) 10^3/uL [place] # (Auto) 0.3 (0.3-0.8) 10^3/uL Eos # (Auto) 0.1 (0.0-0.7) 10^3/uL Baso # (Auto) 0.1 (0.0-0.1) 10^3/uL Abs Immat Gran (auto) 0.02 (0.00-0.03) 10^3/uL Imm/Tot Granulo (auto) 0.4 (0.0-0.5) % PT 14.6 H (9.0-11.6) sec INR 1.43 Sodium 137 (136-145) mmol/L Potassium 5.0 (3.5-5.1) mmol/L Chloride 104 (98-107) mmol/L Carbon Dioxide 28.7 (21.0-32.0) mmol/L Anion Gap 9.3 BUN 41.0 H (7.0-18.0) mg/dL Creatinine 2.10 H (0.55-1.02) mg/dL Est GFR ( Amer) 27 L (>=60) Est GFR (Non-Af Amer) 22 L (>=60) BUN/Creatinine Ratio 19.5 Glucose 176 H (74-106) mg/dL Calcium 8.3 L (8.5-10.1) mg/dL Total Bilirubin 0.4 (0.2-1.0) mg/dL AST 29 (15-37) U/L ALT 16 (14-59) U/L Alkaline Phosphatase 53 (46-116) U/L Troponin I High Sens 33.3 (4.0-51.3) pg/mL Total Protein 5.1 L (6.4-8.2) g/dL Albumin 2.0 L (3.4-5.0) g/dL Globulin 3.1 g/dL Albumin/Globulin Ratio 0.6 POC Glucose 175 H (74-106) mg/dL Discharge Plan Discharge Chief Complaint: Back Pain/Injury Clinical Impression: Stroke, Weakness, Hypertension, uncontrolled Patient Disposition: Admitted As Inpatient Time of Disposition Decision: 14:20
[2024-05-16 13:39] LABS: Troponin I High Sensitivity 33.3 pg/mL (4.0-51.3)
--- OUTSIDE RECORDS SUMMARY | 2024-05-16 15:36 | XMS_ITS | CCD ---
Author Organization [facility] Providers Care Pediatric Licensed Practical Nurse Name Role Phone PHYSICIAN, DEFAULT Unavailable Unavailable [...] Hmg-Coa Reductase Inhibitors (Statins) Drug allergy Unknown ki work [facility] Other (5 sources) Penicillin Drug Allergy Unknown ki work [facility] [employer] [facility] [employer] Other (2 sources) Penicillins; Translations: [PENICILLINS] Drug allergy (disorder) [facility] Repository (1 source) Icswzar-MWO-EgN Reductase Inhibitor Drug allergy (disorder) [facility] Repository (2 sources) black walnut pollen extract; Translations: [BKDDZKD-SCA-CCN REDUCTASE INHIBITORS] Drug Allergy 017 [facility] Repository (1 source) Dextroamphetamine Drug Allergy [facility] Repository (1 source) Gemfibrozil Drug Allergy [facility] Repository (1 source) hydroCHLOROthiazide / Triamterene Drug Allergy [facility] Repository (1 source) Penicillin Drug Allergy [facility] Rep[facility] (1 source) rosuvastatin Drug Allergy [facility] Rep[facility] (1 source) Gemfibrozil; Translations: [GEMFIBROZIL] Drug Allergy [facility] Repository (1 source) TRIAMTERENE-HYDROCHLOR OTHIAZID; Translations: [TRIAMTERENE-HYDROCHLO ROTHIAZID] Propensity to adverse reactions to drug (disorder) [facility] Repository Medications Current Medications Medication Drug Class(es) [...] (5 sources) Multivitamin Adults - Orally Active [place] 3 1000 MG (5 sources) take 1 capsule by mouth once daily [place] 3 1000 MG 1 capsule Orally Once [...] [facility] Office Visiton 03-18-2024 Follow-up visit [id number] Deja Zamora 1940 F Date Provider Department Center 03/18/2024 Doni-XIMENA MARTINS VARINDER [facility] Family History Problem Relation Age of Onset Coronary artery disease Father Family Status - Relation Status Age at Father Level of Service:37925 [place] OFFICE/OUTPATIENT ESTABLISHED MOD MDM 30 MIN Normal [facility] Office Visiton 02-11-2024 Follow-up visit [id number] Deja Zamora 1940 F Date Provider Department Center 02/11/2024 ZOILA WALDRON VARINDER [facility] Family History Problem Relation Age of Onset Coronary artery disease Father Family Status - Relation Status Age at Father Level of Service:89741 [place] OFFICE/OUTPATIENT ESTABLISHED MOD MDM 30 MIN Normal [facility] Office Visiton 08-14-2023 Follow-up visit [id number] Deja Zamora 1940 F Date Provider Department Center 08/14/2023 JOSIANESSEE [facility] Family History Problem Relation Age of Onset Coronary artery disease Father Family Status - Relation Status Age at Father Level of Service:62142 [place] OFFICE/OUTPATIENT ESTABLISHED MOD MDM 30 MIN Normal [facility] Office Visiton 08-02-2023 Follow-up visit [id number] Deja Zamora 1940 F Date Provider Department Center 08/02/2023 BetiMAYELIN SEE JAVI [facility] Family History Problem Relation Age of Onset Coronary artery disease Father Family Status - Relation Status Age at Father Level of Service:30497 [place] OFFICE/OUTPATIENT ESTABLISHED MOD MDM 30-39 MIN Normal [facility] FREE THYROXINE INDEX T7on FTI 2.59 Normal 1.30-4.50 [facility] Comment on above: Performed By: #### C MP, TSH, T7 #### [facility] [address] [place] [address] Dr. Milind Martinez T3U 37.0 % Normal 30.0-39.0 [facility] Comment on above: Performed By: #### C MP, TSH, T7 #### [facility] [address] [place] [address] Dr. Milind Martinez T4 [Mass/Vol] 7.00 ug/dL Normal 4.80-13.90 [facility] Comment on above: Performed By: #### C MP, TSH, T7 #### [facility] [address] [place] [address] Dr. Milind Martinez TSHon 09-20-2022 TSH 5.715 uIU/mL Critically high 0.358-3.[address] [facility] Comment on above: Performed By: #### C MP, TSH, T7 #### [facility] [address] [place] [address] Dr. Milind Martinez FREE THYROXINE INDEX T7on FTI 2.56 Normal 1.30-4.50 [facility] Comment on above: Performed By: #### C MP, TSH, T7 #### [facility] [address] [place] [address] Dr. Milind Martinez T3U 35.0 % Normal 30.0-39.0 [facility] Comment on above: Performed By: #### C MP, TSH, T7 #### [facility] [address] [place] [address] Dr. Milind Martinez T4 [Mass/Vol] 7.30 ug/dL Normal 4.80-13.90 [facility] Comment on above: Performed By: #### C MP, TSH, T7 #### [facility] [address] [place] [address] Dr. Milind Martinez GLYCOHEMOGLOBIN A1Con 2021 ADA RECOMMENDATION SEE BELOW Normal [facility] Comment on above: Result Comment: ADA RECOMMENDED LIMIT 4.0 - 6.0 ADA THERAPEUTIC TARGET < 7.0 ACTION SUGGESTED > 7.0 Performed By: #### A 1C #### [facility] [address] [place] [address] Dr. Milind Martinez Glucose [Mass/Vol] 229 mg/dL Normal [facility] Comment on above: Performed By: #### A 1C #### [facility] [address] [place] [address] Dr. Milind Martinez HbA1c (Bld) [Mass fraction] 9.6 % Critically high 4.5-6.2 [facility] Comment on above: Performed By: #### A 1C #### [facility] [address] [place] [address] Dr. Milind Martinez PROF 14(COMP METB)on 022 Albumin [Mass/Vol] 3.1 g/dL Critically low 3.4-5.0 [facility] Comment on above: Performed By: #### C MP, TSH, T7 #### [facility] [address] [place] [address] Dr. Milind Martinez Albumin/Globulin [Mass ratio] 1.0 {ratio} Normal [facility] Comment on above: Performed By: #### C MP, TSH, T7 #### [facility] [address] [place], [place] [id number] Dr. Milind Martinez ALP [Catalytic activity/Vol] 48 U/L Normal 46-116 [facility] Comment on above: Performed By: #### C MP, TSH, T7 #### [facility] [address] [address] [address] Milind Martinez ALT [Catalytic activity/Vol] 19 U/L Normal 14-59 [facility] Comment on above: Performed By: #### C MP, TSH, T7 #### [facility] [address] [address] [address] Milind Martinez Anion gap [Moles/Vol] 12.3 mmol/L Normal [facility] Comment on above: Performed By: #### C MP, TSH, T7 #### [facility] [address] [place] [address] Dr. Milind Martinez AST [Catalytic activity/Vol] 30 U/L Normal 15-37 [facility] Comment on above: Performed By: #### C MP, TSH, T7 #### [facility] [address] [place] [address] Dr. Milind Martinez Bilirubin [Mass/Vol] 0.5 mg/dL Normal 0.2-1.0 [facility] Comment on above: Performed By: #### C MP, TSH, T7 #### [facility] [address] [place] [address] Dr. Milind Martinez Calcium [Mass/Vol] 8.9 mg/dL Normal 8.5-10.1 [facility] Comment on above: Performed By: #### C MP, TSH, T7 #### [facility] [address] [place] [address] Dr. Milind Martinez Chloride [Moles/Vol] 104 mmol/L Normal 98-107 [facility] Comment on above: Performed By: #### C MP, TSH, T7 #### [facility] [address] [place] [address] Dr. Milind Martinez CO2 [Moles/Vol] 28.2 mmol/L Normal 21.0-32.0 [facility] Comment on above: Performed By: #### C MP, TSH, T7 #### [facility] [address] [address] [address] Milind Martinez Creatinine [Mass/Vol] 1.54 mg/dL Critically high 0.55-1.02 [facility] Comment on above: Performed By: #### C MP, TSH, T7 #### [facility] [address] [address] [address] Milind Martinez EGFR-AF PARAGUAYAN 39 mL/min/1.73m2 Critically low >=60 [facility] Comment on above: Performed By: #### C MP, TSH, T7 #### [facility] [address] [address] [address] Milind Martinez EGFR-NON AF PARAGUAYAN 32 mL/min/1.73m2 Critically low >=60 [facility] Comment on above: Performed By: #### C MP, TSH, T7 #### [facility] [address] [address] [address] Milind Martinez Globulin (S) [Mass/Vol] 3.2 g/dL Normal [facility] Comment on above: Performed By: #### C MP, TSH, T7 #### [facility] [address] [address] [address] Milind Martinez Glucose [Mass/Vol] 180 mg/dL Critically high 74-106 T [facility] Comment on above: Performed By: #### C MP, TSH, T7 #### [facility] [address] [address] [address] Milind Martinez Potassium [Moles/Vol] 4.5 mmol/L Normal 3.5-5.1 [facility] Comment on above: Performed By: #### C MP, TSH, T7 #### [facility] [address] [address] [address] Milind Martinez Protein [Mass/Vol] 6.3 g/dL Critically low 6.4-8.2 [facility] Comment on above: Performed By: #### C MP, TSH, T7 #### [facility] [address] [address] [address] Milind Martinez Sodium [Moles/Vol] 140 mmol/L Normal 136-145 [facility] Comment on above: Performed By: #### C MP, TSH, T7 #### [facility] [address] [address] [address] Milind Martinez Urea nitrogen [Mass/Vol] 46.0 mg/dL Critically high 7.0-18.0 [facility] Comment on above: Performed By: #### C MP, TSH, T7 #### [facility] [address] [address] [address] Milind Martinez Urea nitrogen/Creatinine [Mass ratio] 29.9 mg/mg Normal [facility] Comment on above: Performed By: #### C MP, TSH, T7 #### [facility] [address] [place] [address] Dr. Milind Martinez TSHon 08-01-2022 TSH 12.769 uIU/mL Critically high 0.358-3.740 [facility] Comment on above: Performed By: #### C MP, TSH, T7 #### [facility] [address] [place] [address] Dr. Milind Martinez INSULINon 04-03-2022 Insulin 2.5 uIU/mL Critically low 2.6-24.9 [facility] Comment on above: Performed By: #### C MP, TSH, T7 #### [facility] [address] [address] [address] Milind Martinez T4, T3U, FTI [facility]on 04-03 Free Thyroxine Index 1.8 Normal 1.2-4.9 [facility] Comment on above: Performed By: #### T HYLC #### [facility] [address] [place] [address] Dr. Milind Martinez T3 Uptake 26 % Normal 24-39 [facility] Comment on above: Performed By: #### T HYLC #### [facility] [address] [place] [address] Dr. Milind Martinez T4 [Mass/Vol] 7.1 ug/dL Normal 4.5-12.0 [facility] Comment on above: Performed By: #### T HYLC #### [facility] [address] [place] [address] Dr. Milind Martinez CBC AUTO DIFFon 04-02-2022 BASO # 0.0 103/ul Normal 0.0-0.1 [facility] Comment on above: Performed By: #### C BC #### [facility] [address] [place] [address] Dr. Milind Martinez Basophils/100 WBC (Bld) 0.9 % Normal 0.2-2.0 [facility] Comment on above: Performed By: #### C BC #### [facility] [address] [place] [address] Dr. Milind Martinez EO # 0.2 103/ul Normal 0.0-0.7 [facility] Comment on above: Performed By: #### C BC #### [facility] [address] [place] [address] Dr. Milind Martinez Eosinophils/100 WBC (Bld) 5.3 % Normal 0.9-7.0 [facility] Comment on above: Performed By: #### C BC #### [facility] [address] [place] [address] Dr. Milind Martinez Erythrocyte distribution width (RBC) [Ratio] 13.2 % Normal 11.0-15.0 [facility] Comment on above: Performed By: #### C BC #### [facility] [address] [place] [address] Dr. Milind Martinez Hematocrit (Bld) [Volume fraction] 37.1 % Normal 36.0-48.0 [facility] Comment on above: Performed By: #### C BC #### [facility] [address] [place] [address] Dr. Milind Martinez Hemoglobin (Bld) [Mass/Vol] 12.0 g/dL Normal 12.0-16.0 [facility] Comment on above: Performed By: #### C BC #### [facility] [address] [place] [address] Dr. Milind Martinez IG # 0.01 10e3/ul Normal 0.00-0.03 [facility] Comment on above: Performed By: #### C BC #### [facility] [address] [place] [address] Dr. Milind Martinez IG % 0.2 % Normal 0.0-0.5 [facility] Comment on above: Performed By: #### C BC #### [facility] [address] [place] [address] Dr. Milind Martinez LYMPH # 1.8 103/ul Normal 1.2-3.8 [facility] Comment on above: Performed By: #### C BC #### [facility] [address] [place] [address] Dr. Milind Martinez Lymphocytes/100 WBC (Bld) 41.9 % Normal 20.5-60.0 [facility] Comment on above: Performed By: #### C BC #### [facility] [address] [place] [address] Dr. Milind Martinez MANUAL DIFF REQ NO Normal [facility] Comment on above: Performed By: #### C BC #### [facility] [address] [place] [address] Dr. Milind Martinez MCH (RBC) [Entitic mass] 31.2 pg Normal 26.7-34.0 [facility] Comment on above: Performed By: #### C BC #### [facility] [address] [place] [address] Dr. Milind Martinez MCHC (RBC) [Mass/Vol] 32.3 g/dL Normal 29.9-35.2 [facility] Comment on above: Performed By: #### C BC #### [facility] [address] [place] [address] Dr. Milind Martinez MCV (RBC) [Entitic vol] 96.4 fL Normal 81.0-99.0 [facility] Comment on above: Performed By: #### C BC #### [facility] [address] [place] [address] Dr. Milind Martinez MONO # 0.3 103/ul Normal 0.3-0.8 [facility] Comment on above: Performed By: #### C BC #### [facility] [address] [place] [address] Dr. Milind Martinez Monocytes/100 WBC (Bld) 5.8 % Normal 1.7-12.0 [facility] Comment on above: Performed By: #### C BC #### [facility] [address] [place] [address] Dr. Milind Martinez NEUT # 2.0 103/ul Normal 1.4-6.5 [facility] Comment on above: Performed By: #### C BC #### [facility] [address] [place] [address] Dr. Milind Martinez Neutrophils/100 WBC (Bld) 45.9 % Normal 43.0-75.0 [facility] Comment on above: Performed By: #### C BC #### [facility] [address] [place] [address] Dr. Milind Martinez Platelet mean volume (Bld) [Entitic vol] 11.8 fL Normal 9.5-13.5 [facility] Comment on above: Performed By: #### C BC #### [facility] [address] [place] [address] Dr. Milind Martinez PLT 159 103/ul Normal 150-450 [facility] Comment on above: Performed By: #### C BC #### [facility] [address] [place] [address] Dr. Milind Martinez RBC 3.85 106/ul Critically low 4.20-5.40 [facility] Comment on above: Performed By: #### C BC #### [facility] [address] [place] [address] Dr. Milind Martinez WBC 4.3 103/ul Normal 4.0-11.0 [facility] Comment on above: Performed By: #### C BC #### [facility] [address] [place] [address] Dr. Milind Martinez GLYCOHEMOGLOBIN A1Con 2021 ADA RECOMMENDATION SEE BELOW Normal [facility] Comment on above: Result Comment: ADA RECOMMENDED LIMIT 4.0 - 6.0 ADA THERAPEUTIC TARGET < 7.0 ACTION SUGGESTED > 7.0 Performed By: #### A 1C #### [facility] [address] [place] [address] Dr. Milind Martinez Glucose [Mass/Vol] 214 mg/dL Normal [facility] Comment on above: Performed By: #### A 1C #### [facility] [address] [place] [address] Dr. Milind Martinez HbA1c (Bld) [Mass fraction] 9.1 % Critically high 4.5-6.2 [facility] Comment on above: Performed By: #### A 1C #### [facility] [address] [place] [address] Dr. Milind Martinez IRONon 04-02-2022 Iron [Mass/Vol] 126.0 ug/dL Normal 50.0-170.0 [facility] Comment on above: Performed By: #### C MP, TSH, T7 #### [facility] [address] [place] [address] Dr. Milind Martinez LIPID PROFILEon 04-02-2022 CHOL-HDL RATIO NORM SEE BELOW Normal [facility] Comment on above: Result Comment: 3.3 - 4.4 LOW RISK 4.4 - 7.1 AVERAGE RISK 7.1 - 11.0 MODERATE RISK >11.0 HIGH RISK Performed By: #### C MP, TSH, T7 #### [facility] [address] [place] [address] Dr. Milind Martinez Cholesterol [Mass/Vol] 133 mg/dL Normal <=200 [facility] Comment on above: Performed By: #### C MP, TSH, T7 #### [facility] [address] [place] [address] Dr. Milind Martinez Cholesterol in HDL [Mass/Vol] 20 mg/dL Critically low 40-60 [facility] Comment on above: Performed By: #### C MP, TSH, T7 #### [facility] [address] [place] [address] Dr. Milind Martinez Cholesterol in LDL [Mass/Vol] 69.6 mg/dL Normal [facility] Comment on above: Performed By: #### C MP, TSH, T7 #### [facility] [address] [place] [address] Dr. Milind Martinez Cholesterol.total/Ch olesterol in HDL [Mass ratio] 6.7 {ratio} Normal [facility] Comment on above: Performed By: #### C MP, TSH, T7 #### [facility] [address] [place] [address] Dr. Milind Martinez HDL NORMAL > or = 60 mg/dl - LOW CARDIOVASCULAR RISK <40 mg/dl - HIGH CARDIOVASCULAR RISK Normal [facility] Comment on above: Performed By: #### C MP, TSH, T7 #### [facility] [address] [place] [address] Dr. Milind Martinez LDL CALC NORMAL SEE BELOW Normal [facility] Comment on above: Result Comment: <100 mg/dl OPTIMAL 100 - 129 mg/dl NEAR OR ABOVE OPTIMAL 130 - 159 mg/dl BORDERLINE HIGH 160 - 189 mg/dl HIGH >190 mg/dl VERY HIGH Performed By: #### C MP, TSH, T7 #### [facility] [address] [place] [address] Dr. Milind Martinez Triglyceride [Mass/Vol] 217 mg/dL Critically high <=150 [facility] Comment on above: Performed By: #### C MP, TSH, T7 #### [facility] [address] [place] [address] Dr. Milind Martinez VLDL CALC 43.4 mg/dL Normal [facility] Comment on above: Performed By: #### C MP, TSH, T7 #### [facility] [address] [place] [address] Dr. Milind Martinez PROF 14(COMP METB)on 022 Albumin [Mass/Vol] 3.3 g/dL Critically low 3.4-5.0 [facility] Comment on above: Performed By: #### C MP, TSH, T7 #### [facility] [address] [place] [address] Dr. Milind Martinez Albumin/Globulin [Mass ratio] 1.2 {ratio} Normal [facility] Comment on above: Performed By: #### C MP, TSH, T7 #### [facility] [address] [place] [address] Dr. Milind Martinez ALP [Catalytic activity/Vol] 43 U/L Critically low 46-116 [facility] Comment on above: Performed By: #### C MP, TSH, T7 #### [facility] [address] [address] [address] Milind Martinez ALT [Catalytic activity/Vol] 24 U/L Normal 14-59 [facility] Comment on above: Performed By: #### C MP, TSH, T7 #### [facility] [address] [address] [address] Milind Martinez Anion gap [Moles/Vol] 11.4 mmol/L Normal [facility] Comment on above: Performed By: #### C MP, TSH, T7 #### [facility] [address] [place] [address] Dr. Milind Martinez AST [Catalytic activity/Vol] 24 U/L Normal 15-37 [facility] Comment on above: Performed By: #### C MP, TSH, T7 #### [facility] [address] [place] [address] Dr. Milind Martinez Bilirubin [Mass/Vol] 0.4 mg/dL Normal 0.2-1.0 [facility] Comment on above: Performed By: #### C MP, TSH, T7 #### [facility] [address] [place] [address] Dr. Milind Martinez Calcium [Mass/Vol] 8.7 mg/dL Normal 8.5-10.1 [facility] Comment on above: Performed By: #### C MP, TSH, T7 #### [facility] [address] [place] [address] Dr. Milind Martinez Chloride [Moles/Vol] 106 mmol/L Normal 98-107 [facility] Comment on above: Performed By: #### C MP, TSH, T7 #### [facility] [address] [place] [address] Dr. Milind Martinez CO2 [Moles/Vol] 29.7 mmol/L Normal 21.0-32.0 [facility] Comment on above: Performed By: #### C MP, TSH, T7 #### [facility] [address] [address] [address] Milind Martinez Creatinine [Mass/Vol] 1.30 mg/dL Critically high 0.55-1.02 [facility] Comment on above: Performed By: #### C MP, TSH, T7 #### [facility] [address] [place] [address] Dr. Milind Martinez EGFR-AF PARAGUAYAN 47 mL/min/1.73m2 Critically low >=60 [facility] Comment on above: Performed By: #### C MP, TSH, T7 #### [facility] [address] [place] [address] Dr. Milind Martinez EGFR-NON AF PARAGUAYAN 39 mL/min/1.73m2 Critically low >=60 [facility] Comment on above: Performed By: #### C MP, TSH, T7 #### [facility] [address] [place] [address] Dr. Milind Martinez Globulin (S) [Mass/Vol] 2.7 g/dL Normal [facility] Comment on above: Performed By: #### C MP, TSH, T7 #### [facility] [address] [place] [address] Dr. Milind Martinez Glucose [Mass/Vol] 109 mg/dL Critically high 74-106 [facility] Comment on above: Performed By: #### C MP, TSH, T7 #### [facility] [address] [place] [address] Dr. Milidn Martinez Potassium [Moles/Vol] 4.1 mmol/L Normal 3.5-5.1 [facility] Comment on above: Performed By: #### C MP, TSH, T7 #### [facility] [address] [place] [address] Dr. Milind Martinez Protein [Mass/Vol] 6.0 g/dL Critically low 6.4-8.2 [facility] Comment on above: Performed By: #### C MP, TSH, T7 #### [facility] [address] [place] [address] Dr. Milind Martinez Sodium [Moles/Vol] 143 mmol/L Normal 136-145 [facility] Comment on above: Performed By: #### C MP, TSH, T7 #### [facility] [address] [place], [place] [address] Dr. Milind Martinez Urea nitrogen [Mass/Vol] 34.0 mg/dL Critically high 7.0-18.0 [facility] Comment on above: Performed By: #### C MP, TSH, T7 #### [facility] [address] [address] [address] Milind Martinez Urea nitrogen/Creatinine [Mass ratio] 26.2 mg/mg Normal [facility] Comment on above: Performed By: #### C MP, TSH, T7 #### [facility] [address] [place] [address] Dr. Milind Martinez TSHon 04-02-2022 TSH 7.887 uIU/mL Critically high 0.358-3.740 [facility] Comment on above: Performed By: #### C MP, TSH, T7 #### [facility] [address] [place] [address] [address] Milidn Martinez US KIDNEYSon 03-23-2022 US KIDNEYS Ultrasound [...] IJEOMA TIM Date: 2022-03-23 13:26 Normal [facility] MAMM SCREEN 3D BOGDAN CADon 03-05-2022 MG MAMM SCREEN 3D BOGDAN CAD Patient: DEJA ZAMORA Exam Date: 03/05/2022 : 1940 Gender:F Ordering : NATHAN JOVEL [facility] Admission #: [id number] Family : Order #: [id number] CLICK HERE TO VIEW EXAM RADIOLOGY REPORT [...] at age 68. LOCATION: [facility] BREAST COMPOSITION: Scattered areas fibroglandular density. FINDINGS: [...] Major M.D. on 03/05/2022 at 13:47 Normal [facility] US CAROTID ART BILon 05-09-2 [...] by: UDAY MAJOR Date: 2021-12-25 15:42 Normal [facility] Vital Signs Date Time Vital Sign Value Performing Clinician Marissa florez 12-21-2021 10:00-0400 Body height 147.32 cm Patrick Cotter Other [facility] 12-21-2021 10:00-0400 Body mass index (BMI) [Ratio] 27.79 kg/m2 Patrick Cotter Other [facility] Other 12-21-2021 10:00-0400 Body weight 60.33 kg Patrick Cotter Other [facility] Other 10-19-2021 12:00-0500 Body height 147.32 cm Patrick Cotter Other [facility] Other 10-19-2021 12:00-0500 Body mass index (BMI) [Ratio] 27.79 kg/m2 Patrick Cotter Other [facility] Other 10-19-2021 12:00-0500 Body weight 60.33 kg Patrick Cotter Other [facility] Other 08-22-2021 15:00-0500 Body height 147.32 cm Patrick Cotter Other [facility] Other 08-22-2021 15:00-0500 Body mass index (BMI) [Ratio] 27.79 kg/m2 Patrick Cotter Other [facility] Other 08-22-2021 15:00-0500 Body weight 60.33 kg Patrick Cotter Other [facility] Other Encounters Encounter Date Encounter Type Care Provider Facility Start: 03-18-2024 End: 03-18-2024 ambulatory [facility] Start: 02-11-2024 End: 02-11-2024 ambulatory ZOILA [facility] Start: 08-29-2023 End: 08-30-2023 ambulatory JOLYNN DAO Not Available Start: 08-14-2023 End: 08-14-2023 ambulatory [facility] Start: 08-02-2023 End: 08-02-2023 ambulatory [facility] Start: 04-01-2023 End: 04-02-2023 ambulatory [...] 12-21-2021 End: 12-21-2021 ambulatory Patrickshan Cotter Other [facility] Start: 12-21-2021 Postop follow up vis it related to original px Patrick Cotter [facility] Start: 11-02-2021 ambulatory NATHAN MED Facility: [facility] Start: 10-19-2021 End: 10-19-2021 ambulatory Patrick Cotter Other [facility] Start: 10-19-2021 Postop follow up vis it related to original px Patrick Cotter [facility] Neuro[facility] Start: 09-18-2021 Admission to same [facility] Patrick Cotter [facility] Start: 09-18-2021 End: 09-19-2021 ambulatory Patrick E Cotter [facility] Start: 08-29-2021 End: 08-29-2021 ambulatory Patrick Cotter Other [facility] Other Start: 08-29-2021 Telephone encounter Patrick Cotter [facility] Start: 08-22-2021 End: 08-22-2021 ambulatory Patrick Cotter Other [facility] Other Start: 08-22-2021 Office outpatient visit 40 minutes Patrick Cyndee GRIER [facility] Neuro[facility] Start: 09-24-2017 End: 09-25-2017 Ambulatory DEFAULT PHYSICIAN Facility:[facility] Payers Date Payer Category Payer Unknown 2021 Self-pay 2003 Medicare 1959 Medicare [id number] 2.1 [id number] 1959 Self-pay [id number] 1959 Unknown [id number] 2.1 [id number] 1940 Unknown [id number] 2.16.84 [id number] 1940 Unknown [id number] 2.16.84 [id number] 1940 Unknown [id number] 2.16.84 [id number] 1938 Unknown [id number] 2.16.84 [id number] 1938 Unknown [id number] 2.16.84 [id number] 1938 Unknown [id number] 2.16.84 [id number] 1938 Unknown [id number] 2.16.84 [id number] 1938 Unknown [id number] 2.16. [id number] 1940 Unknown [id number] 2.16. [id number] 1940 Unknown [id number] 2.16. [id number] 1940 Unknown [id number] 2.16.84 [id number] Unknown [id number] 2.16.8 [id number] Social History Date Type Detail Facility Sex Assigned At [facility] Other Clinical Notes 08-22-2021 to 03-18-2024 Note Date & Type Note Facility 03-18-2024 Note OR Cardiology - [facility] Subjective Deja Zamora is a 83 y.o. year old female patient being seen for 1 mo follow up hypertension. 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 And a lipid panel also. He changed [...] Allergies Allergies Allergen Reactions Gemfibrozil Penicillins Unknown Geihljy-Apt-Gpq Reductase Inhibitors Unknown Triamterene-Hydrochlorothiazid Medications Current Outpatient [...] doxazosin (Cardura) 8 (more content not included)... [facility] 02-11-2024 Note OR Cardiology - [facility] Subjective Deja Zamora is [...] Allergies Allergies Allergen Reactions Gemfibrozil Penicillins Unknown Ypcinmu-Yeo-Ujt Reductase Inhibitors Unknown Triamterene-Hydrochlorothiazid (more content not included)... [facility] 02-11-2024 Note Patient here for 6 m [...] All other systems reviewed and are negative. [facility] 08-14-2023 Note Hypertension is well controlled at home, continue all meds Metoprolol 25 mg bid, cardura 8 mg, clonidine 0.2 mg bid, and norvasc 5 mg. [facility] 08-14-2023 Note Currently stable wit hout worsening symptoms [facility] 08-14-2023 Note Patient here for 2 w [place] follow up hypertension. Clonidine was increased to [...] All other systems reviewed and are negative. [facility] 08-14-2023 Note UTP CARDIOLOGY PROGR ESS NOTE [...] m??? Allergies Allergen Reactions Gemfibrozil Penicillins Unknown Ihhsvpb-Wno-Hhu Reductase Inhibitors Unknown Triamterene-Hydrochlorothiazid Medications: Current Outpatient [...] Testin04/18/23 TTE 5 (more content not included)... [facility] 08-02-2023 Note Stable so far, will monitor with increased clonidine for uncontrolled HTN [facility] 08-02-2023 Note Stable without any worsening sym ptoms [facility] 08-02-2023 Note Hypertension is Curr ently uncontrolled, [...] once or twice every 2 to 3-weeks [facility] 08-02-2023 Note [facility]TP CARDIOLOGY PROGR ESS NOTE [...] admitted to [facility] in Mar 2023 for e.coli and dehydration. [...] m??? Allergies Allergen Reactions Gemfibrozil Penicillins Unknown Zktlwry-Hjv-Scy Reductase Inhibitors Unknown Triamterene-Hydrochlorothiazid Medications: Current Outpatient [...] values have be (more content not included)... [facility] 08-02-2023 Note Patient here c/o hyp ertension. [...] admitted to [facility] in Mar 2023 for e.coli and dehydration. [...] All other systems reviewed and are negative. 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 I have encouraged her to continue to build up her endurance by walking. I will see her again in 2 months for final postop visit. 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 [facility] Other evaluation noteNo InformationNort [employer] Other History general Narrative - Reported* Type Description Date Medical History Diabetes Medical History Hyperlipidemia Medical History Pulmonary HPN Medical History Osteoporosis Surgical History R knee Sx Surgical History L Hand Hospitalization History HTN 08/2018 [facility] Other Summary Purpose Family History No Family [...] Arthropathy of left hip (M16.12) Referral Organization [facility] urosurgery Referring Provider First Name Patrick Referring Provider Last Name Cyndee Referring Provider Specialty Neurologica l Surgery Referred Organization [facility] Referred Provider Ximena Vela Jr Referred Address ,[place], [place],[address] Referred Provider Specialty Orthopedic S urgery Referral Priority Routine General Notes Val Slater 022 10:56:23 AM >Received today. This referral was sent P2P and will wait a week and call them back to see if she was scheduled. They do their own scheduling Additional Source Comments INFORMATION SOURCE (unrecogn ized section and content) DATE CREATED AUTHOR 02/10/2018 [facility] DATE CREATED AUTHOR AUTHOR'S ORGANIZ ATION 09/22/2022 [facility] DATE CREATED AUTHOR AUTHOR'S ORGANIZ ATION 09/23/2022 [facility] DATE CREATED AUTHOR AUTHOR'S ORGANIZ ATION 04/11/2023 [facility] DATE CREATED AUTHOR AUTHOR'S ORGANIZ ATION 09/02/2023 [facility] EPIC DATE CREATED AUTHOR AUTHOR'S ORGANIZ ATION 03/20/2024 [facility] REASON FOR VISIT (unrecogniz ed section [...] BE BASED ON THE PRIMARY CLINICAL RECORDS. [email or web address] provides no warranty or guarantee of the accuracy or completeness of information in this document.
--- NOTE | 2024-05-16 15:57 | MR_ITS ---
The [place] [id number] Patient Name: EDILIA HERNANDEZ MRN: [id number] date: 1940 Sex: F Assigned Patient Location: ICU Current Patient Location: ICU Accession/Order Number: [id number] Exam Date: 05/16/2024 10:04 Report Date: 05/18/2024 11:13 At the request of: SHAIKH ANTONINO Procedure: MR head/brain wo con MRI brain without contrast, 05/18/2024. HISTORY: History of CVA. COMPARISON: MRI brain without contrast, 07/26/2023. CT head without contrast, 05/17/2024. TECHNIQUE: Multiplanar, multisequence MRI imaging of the brain without contrast. FINDINGS: There is mucosal thickening of the maxillary sinuses. Mastoid air cells are clear. Nasopharynx normal. 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 Prior cataract surgery. Extracranial soft tissue structures are unremarkable. Moderate brain atrophy. No hydrocephalus. No shift of midline. Mild chronic microvascular ischemic changes in the cerebral white matter. The diffusion images show diffusion restriction consistent with acute to subacute lacunar infarction in the left thalamus measuring 1.4 cm. No mass effect. No hemorrhage. No other diffusion signal abnormality. No acute hemorrhage. No masses. MR/MR head/brain wo con IMPRESSION: 1. Acute to subacute lacunar infarction in the left thalamus measuring 1.4 cm. No mass effect or hemorrhage. 2. Stable brain atrophy. Electronically authenticated by: YASMIN VAN Date: 05/18/2024 11:13
[2024-05-16 16:02] LABS: Glucometer 160 mg/dL (74-106)
[2024-05-16 16:20] LABS: Estimated Average Glucose 226 mg/dL; Glycohemoglobin A1C 9.5 % (4.5-6.2)
[2024-05-16 16:22] LABS: Chol HDL Ratio 8.5; Cholesterol 110 mg/dL (<=200); HDL Cholesterol 13 mg/dL (40-60); Triglycerides 274 mg/dL (<=150); VLDL CHOLESTEROL 54.8 mg/dL
[2024-05-16] MEDS: INSULIN ASPART 300 UNIT/3 ML PEN SUBQ ×2 (17:27→21:44)
[2024-05-16] MEDS: ASPIRIN 81 MG TAB.CHEW PO (17:28)
[2024-05-16] MEDS: HYDRALAZINE HCL 20 MG/ML VIAL 10 MG IVP (17:38)
[2024-05-16 19:42] LABS: Glucometer 230 mg/dL (74-106)
[2024-05-16] MEDS: CALCIUM CARBONATE 600 MG/VITAMIN D3 400 IU TABLET 1 TAB PO (20:34)
[2024-05-16] MEDS: INSULIN DETEMIR 300 UNIT/3 ML INSULN.PEN 16 UNIT SUBQ (20:34)
[2024-05-16] MEDS: DOXAZOSIN MESYLATE 2 MG TABLET 8 MG PO (20:34)
[2024-05-16] MEDS: METOPROLOL TARTRATE 25 MG TABLET PO (20:34)
[2024-05-16] MEDS: CLONIDINE HCL 0.2 MG TABLET PO (20:35)
[2024-05-16] MEDS: HEPARIN SODIUM (PORCINE) 5,000 UNIT/ML VIAL 5000 UNIT SUBQ (21:43)
[2024-05-17] VITALS (21 sets, daily range): BP systolic 123–210; BP diastolic 60–70; PULSE 61–92; TEMP 36.3–36.9; O2SAT 95–98
[2024-05-17 00:36] LABS: Glucometer 72 mg/dL (74-106)
[2024-05-17 01:58] LABS: Glucometer 77 mg/dL (74-106)
[2024-05-17 03:34] LABS: Glucometer 58 mg/dL (74-106)
[2024-05-17] MEDS: HYDRALAZINE HCL 20 MG/ML VIAL 10 MG IVP (03:39)
--- NOTE | 2024-05-17 04:05 | PC.NURSE ---
Limb drift noted in all limbs at this time.
[2024-05-17 04:33] LABS: Glucometer 122 mg/dL (74-106)
[2024-05-17 05:35] LABS: Basophils Absolute Auto 0.1 10^3/uL (0.0-0.1); Basophils Percent Auto 1.2 % (0.2-2.0); Eosinophils Absolute Auto 0.1 10^3/uL (0.0-0.7); Eosinophils Percent Auto 2.7 % (0.9-7.0); Hemoglobin 9.3 g/dL (12.0-16.0); Immature Granulocytes Abs Auto 0.03 10^3/uL (0.00-0.03); Immature Granulocytes Pct Auto 0.6 % (0.0-0.5); Lymphocytes Absolute Auto 1.5 10^3/uL (1.2-3.8); Lymphocytes Percent Auto 28.4 % (20.5-60.0); Mean Corpuscular HGB Conc 32.1 g/dL (29.9-35.2); Mean Corpuscular Hemoglobin 30.6 pg (26.7-34.0); Mean Corpuscular Volume 95.4 fL (81.0-99.0); Mean Platelet Volume 11.5 fL (9.5-13.5); Monocytes Absolute Auto 0.2 10^3/uL (0.3-0.8); Monocytes Percent Auto 4.4 % (1.7-12.0); Neutrophils Absolute Auto 3.3 10^3/uL (1.4-6.5); Neutrophils Percent Auto 62.7 % (43.0-75.0); Platelet Count 205 10^3/uL (150-450); Red Blood Count 3.04 10^6/uL (4.20-5.40); Red Cell Distribution Width 13.4 % (11.0-15.0); White Blood Count 5.2 10^3/uL (4.0-11.0)
[2024-05-17] MEDS: HEPARIN SODIUM (PORCINE) 5,000 UNIT/ML VIAL 5000 UNIT SUBQ ×3 (05:44→20:38)
[2024-05-17] MEDS: LEVOTHYROXINE SODIUM 25 MCG TABLET PO (05:44)
[2024-05-17 06:05] LABS: Alanine Aminotransferase 18 U/L (14-59); Albumin Globulin Ratio 0.6; Alkaline Phosphatase 52 U/L (46-116); Aspartate Amino Transferase 26 U/L (15-37); BUN Creatinine Ratio 21.5; Bilirubin Total 0.3 mg/dL (0.2-1.0); Calcium 8.2 mg/dL (8.5-10.1); Carbon Dioxide 24.1 mmol/L (21.0-32.0); Chloride 105 mmol/L (98-107); Estimated GFR (African America 27 (>=60); Estimated GFR (Non-African Ame 23 (>=60); Globulin 3.1 g/dL; Glucose 173 mg/dL (74-106); Potassium 4.1 mmol/L (3.5-5.1); Sodium 138 mmol/L (136-145); Total Protein 5.1 g/dL (6.4-8.2)
[2024-05-17] MEDS: DOXAZOSIN MESYLATE 2 MG TABLET 8 MG PO ×2 (10:04→20:30)
[2024-05-17] MEDS: ASPIRIN 81 MG TAB.CHEW PO (10:04)
[2024-05-17] MEDS: FENOFIBRATE 54 MG TABLET 162 MG PO (10:04)
[2024-05-17] MEDS: OMEPRAZOLE 40 MG CAPSULE.DR PO (10:05)
[2024-05-17] MEDS: CALCIUM CARBONATE 600 MG/VITAMIN D3 400 IU TABLET 1 TAB PO ×2 (10:05→20:30)
[2024-05-17] MEDS: MULTIVITAMIN TABLET 1 TAB PO (10:05)
[2024-05-17] MEDS: LOSARTAN POTASSIUM 50 MG TABLET 100 MG PO (10:05)
[2024-05-17] MEDS: METOPROLOL TARTRATE 25 MG TABLET 50 MG PO ×2 (10:05→20:30)
[2024-05-17] MEDS: AMLODIPINE BESYLATE 5 MG TABLET 10 MG PO (10:05)
[2024-05-17] MEDS: FUROSEMIDE 40 MG TABLET PO (10:05)
[2024-05-17] MEDS: LIOTHYRONINE SODIUM 5 MCG TABLET PO (10:06)
[2024-05-17] MEDS: EZETIMIBE 10 MG TABLET PO (10:06)
[2024-05-17] MEDS: CLONIDINE HCL 0.2 MG TABLET PO ×2 (10:07→20:31)
[2024-05-17 11:15] LABS: Glucometer 284 mg/dL (74-106)
--- NOTE | 2024-05-17 12:03 | PM.HP ---
HPI H&P: HPI History of Present Illness Chief complaint: STROKE, WEAKNESS Narrative: 83 y o female with hx of chronic LBP, chronic LLE weakness/numbness reports worsening of her low back pain, but along with that, she reported left sided UE and LE weakness and numbness. Her symptoms started on . She came to ED yesterday and at that time her biggest complaint was inability to walk due to back pain and LLE weakness and generalized weakness. Patient is a poor historian and during my assessment, kept on changing her story and I was unable to ascertain the true nature and timeline of her symptoms. Last night, it was reported that patient Right sided weakness/numbness and facial drooping which resolved quickly overnight w/o any intervention. She has poorly controlled HTN at baseline and presented with HTN emergency with SBP as high as 240 at one point. Her case was d/w Tele stroke who recommended admission for stroke work up. Patient currently at the time of evaluation is complaining of LUE and LLE weakness. She reports that ever since her low back surgery, her LUE is also weak which does not make anatomical sense. Denies fall or recent injury. Her BP throughout the night was poorly controlled and persistently above 180/100. She was given IV hydralazine as needed but BP was not aggressively lowered to allow permissive HTN. Opioid HPI Opioid Management Most Recent Pain and Opioid Data: Last Pain Scale 0 05/17/24 11:14 Last Pain Assessment 05/17/24 12:11 Last ORT Total Score 0 05/16/24 15:50 Last ORT Risk Category Low Risk 05/16/24 15:50 Review of Systems ROS Status of ROS 10 or more systems reviewed and unremarkable except as noted in history and below [facility] Medical History (Updated 05/17/24 @ 12:29 by Shaikh Deisy MD) Hypothyroid ?E03.9 - Hypothyroidism, unspecified (ICD-10) HLD (hyperlipidemia) ?E78.5 - Hyperlipidemia, unspecified (ICD-10) Lumbar spondylosis ?M47.816 - Spondylosis without myelopathy or radiculopathy, lumbar region (ICD-10) Lumbar postlaminectomy syndrome ?M96.1 - Postlaminectomy syndrome, not elsewhere classified (ICD-10) Sacroiliac joint dysfunction of both sides ?M53.3 - Sacrococcygeal disorders, not elsewhere classified (ICD-10) Acute kidney failure ?N17.9 - Acute kidney failure, unspecified (ICD-10) Colitis ?K52.9 - Noninfective gastroenteritis and colitis, unspecified (ICD-10) Elevated troponin ?R77.8 - Other specified abnormalities of plasma proteins (ICD-10) Kidney disease ?N28.9 - Disorder of kidney and ureter, unspecified (ICD-10) Weakness ?R53.1 - Weakness (ICD-10) Tremor ?R25.1 - Tremor, unspecified (ICD-10) Lumbar radiculopathy ?M54.16 - Radiculopathy, lumbar region (ICD-10) Sacroiliitis ?M46.1 - Sacroiliitis, not elsewhere classified (ICD-10) Stroke ?I63.9 - Cerebral infarction, unspecified (ICD-10) Weakness ?R53.1 - Weakness (ICD-10) Hypertension, uncontrolled ?I10 - Essential (primary) hypertension (ICD-10) Lumbar stenosis with neurogenic claudication ?M48.062 - Spinal stenosis, lumbar region with neurogenic claudication (ICD-10) CKD stage 4 secondary to hypertension ?I12.9 - Hypertensive chronic kidney disease with stage 1 through stage 4 chronic kidney disease, or unspecified chronic kidney disease (ICD-10) ?N18.4 - Chronic kidney disease, stage 4 (severe) (ICD-10) CHF (congestive heart failure) ?I50.9 - Heart failure, unspecified (ICD-10) Shingles ?B02.9 - Zoster without complications (ICD-10) Cataracts, bilateral ?H26.9 - Unspecified cataract (ICD-10) Intractable nausea and vomiting ?R11.2 - Nausea with vomiting, unspecified (ICD-10) Diabetes ?E11.9 - Type 2 diabetes mellitus without complications (ICD-10) Dupuytren contracture ?M72.0 - Palmar fascial fibromatosis [Dupuytren] (ICD-10) Skin cancer ?C44.90 - Unspecified malignant neoplasm of skin, unspecified (ICD-10) Degenerative disc disease Age related osteoporosis ?M81.0 - Age-related osteoporosis without current pathological fracture (ICD-10) Gastritis ?K29.70 - Gastritis, unspecified, without bleeding (ICD-10) Kidney failure ?N19 - Unspecified kidney failure (ICD-10) HTN (hypertension) ?I10 - Essential (primary) hypertension (ICD-10) High cholesterol ?E78.00 - Pure hypercholesterolemia, unspecified (ICD-10) Pulmonary HTN ?I27.20 - Pulmonary hypertension, unspecified (ICD-10) Surgical History History of right knee surgery ?Z98.890 - Other specified postprocedural states (ICD-10) History of sinus surgery ?Z98.890 - Other specified postprocedural states (ICD-10) History of cholecystectomy ?Z90.49 - Acquired absence of other specified parts of digestive tract (ICD-10) Previous back surgery ?Z98.890 - Other specified postprocedural states (ICD-10) Family History (Updated 05/16/24 @ 16:33 by Sara Conley) Other Family history of CHF (congestive heart failure) Family history of cancer Family history of diabetes mellitus Family history of hypertension Social History (Updated 05/16/24 @ 16:34 by Sara Conley) Within the past year, how often did you have a drink containing alcohol: never Score interpretation: A score less than 3 is consistent with normal alcohol consumption. 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 Known occupational exposures/hazards: No Highest level of school completed/degree received: 11th grade Do you want help with school or training: No Are you now , , , , never or living with a partner: In a typical week, how many times do you talk on the telephone with family, friends, or neighbors: twice per week How often do you get together with friends or relatives: twice per week How often do you attend voodoo or church services: 1-3 times per year Do you belong to any clubs or organizations such as voodoo groups unions, fraternal or athletic groups, or school groups: no Total score: 1 Score interpretation: A score of less than or equal to 1 indicates the most socially isolated. Little interest or pleasure in doing things: not at all Feeling down, depressed, or hopeless: not at all Feel stressed/tense/nervous/anxious/difficulty sleeping: not at all Due to disability, difficulty making decisions: No Do you think of yourself as: straight/heterosexual Gender Identity: female Meds Home Medications and Allergies Home Medications ?Medication ?Instructions ?Recorded ?Confirmed ?Type amlodipine 5 mg tablet 5 mg PO DAILY 02/11/23 05/16/24 History calcium carbonate 600 mg-vitamin 1 tab PO BID 02/11/23 05/16/24 History D3 5 mcg (200 unit) tablet (Calcium 600 + D(3)) coenzyme Q10 100 mg capsule (Co 100 mg PO DAILY 02/11/23 05/16/24 History Q-10) doxazosin 8 mg tablet 8 mg PO BID 02/11/23 05/16/24 History ezetimibe 10 mg tablet 10 mg PO DAILY 02/11/23 05/16/24 History fenofibrate 160 mg tablet 160 mg PO DAILY 02/11/23 05/16/24 History fluticasone propionate 50 1 spray intranasal DAILY PRN 02/11/23 05/16/24 History mcg/actuation nasal allergy symptoms spray,suspension (24 Hour Allergy Relief) furosemide 20 mg tablet 20 mg PO .QOD 02/11/23 05/17/24 History multivitamin (Daily Multi-Vitamin 1 tab PO DAILY 02/11/23 05/16/24 History tablet) pantoprazole 40 mg tablet,delayed 40 mg PO DAILY 02/11/23 05/16/24 History release (Protonix) spironolactone 25 mg tablet 12.5 mg PO .every other day 02/11/23 05/16/24 History aspirin 81 mg chewable tablet 81 mg PO DAILY 04/17/23 05/16/24 History levothyroxine 25 mcg tablet 25 mcg PO DAILY 04/17/23 05/16/24 History (Synthroid) liothyronine 5 mcg tablet 5 mcg PO DAILY #30 tabs 04/18/23 05/16/24 Rx clonidine HCl 0.2 mg tablet 0.2 mg PO Q12H HTN 05/16/24 05/16/24 History insulin glargine 100 unit/mL (3 16 unit subcut QPM 05/16/24 05/16/24 History mL) subcutaneous pen (Lantus Solostar U-100 Insulin) metoprolol tartrate 25 mg tablet 25 mg PO BID 05/16/24 05/16/24 History Allergies Allergy/AdvReac Type Severity Reaction Status Date / Time Penicillins Allergy Verified 04/29/23 11:01 Zipzlar-YXZ-RiW Reductase Allergy Verified 04/29/23 11:01 Inhibitor Exam Constitutional Vital Signs, click to edit/add: Last Vital Signs Temp 98.5 F 05/17/24 11:52 Pulse 90 05/17/24 12:00 Resp 16 05/17/24 11:52 BP 188/68 H 05/17/24 11:52 Pulse Ox 95 05/17/24 11:52 O2 Del Method Room Air 05/17/24 11:52 Documenting provider has reviewed patient's vital signs: yes Common normals: no apparent distress and oriented x3 General appearance: cooperative HENMT Common normals: normocephalic and head/scalp atraumatic Head and scalp: normocephalic and atraumatic Eye Common normals: conjunctivae normal and no scleral icterus Conjunctiva: conjunctiva(e) normal Respiratory Common normals: normal respiratory effort and clear to auscultation bilaterally Effort & inspection: able to speak in complete sentences Auscultation: clear to auscultation bilaterally Cardio Common normals: regular rate, S1 normal heart sound and S2 normal heart sound Rate: regular rate Heart sounds: S1 normal and S2 normal GI Common normals: Normal to inspection, nondistended, normoactive bowel sounds present, soft to palpation, non-tender and no hepatosplenomegaly Palpation: soft and no hepatosplenomegaly Extremity Common normals: no clubbing, cyanosis or edema Neuro Common normals: oriented x3 and moves all extremities Speech: speech normal Gait (neuro): unable to assess gait Motor exam: strength abnormal left upper extremity 3 / 5 , left lower extremity 3 / 5 Psych Common normals: mental status grossly normal, denies hallucinations, denies homicidal ideation and denies suicidal ideation Results Labs Labs: Short CBC 05/16/24 05/17/24 Range/Units 13:05 05:23 WBC 5.7 5.2 (4.0-11.0) 10^3/uL Hgb 9.1 L 9.3 L (12.0-16.0) g/dL Hct 28.3 L 29.0 L (36.0-48.0) % Plt Count 227 205 (150-450) 10^3/uL BMP 05/16/24 05/17/24 13:05 05:23 Sodium 137 138 Potassium 5.0 4.1 Chloride 104 105 Carbon Dioxide 28.7 24.1 BUN 41.0 H 45.0 H Creatinine 2.10 H 2.09 H Glucose 176 H 173 H Calcium 8.3 L 8.2 L Liver Function 05/16/24 05/17/24 Range/Units 13:05 05:23 Total Bilirubin 0.4 0.3 (0.2-1.0) mg/dL AST 29 26 (15-37) U/L ALT 16 18 (14-59) U/L Alkaline Phosphatase 53 52 (46-116) U/L Albumin 2.0 L 2.0 L (3.4-5.0) g/dL Assessment and Plan Assessment and Plan (1) Hypertensive emergency: Assessment and Plan: Poorly controlled, persistently above 180/100 Increased Lopressor to 50 q12, added losartan 100 mg, increased amlodipine to 10, added imdur 60 mg. Goal BP 180/100 due to suspected CVA and underlying carotid artery disease. Transfer to ICU as per Tele stroke for close hemodynamic monitoring. C/w IV hydralazine as needed. If needed, might need continuous IV infusion for BP. (2) Suspected cerebrovascular accident (CVA): Assessment and Plan: Suspected CVA. Has left UE and LE weakness. CT no acute finding. Repeat CTH recommended by tele stroke. MRI/ECHO is still pending. PT/OT eval. Neuro checks. Close hemodynamic monitoring. c/w ASA, added plavix as per tele stroke (3) CKD stage 4 secondary to hypertension: Assessment and Plan: Renal function at baseline. Monitor. (4) Diabetes: Assessment and Plan: Poorly controlled at baseline. A1C is 9. became hypoglycemic overnight when she was given SSI Monitor FSBS closely. Qualifiers: Diabetes mellitus type: type 2 Diabetes mellitus senior care insulin use: with senior care use Diabetes mellitus complication status: with kidney complications Diabetes mellitus complication detail: with chronic kidney disease Chronic kidney disease stage: stage 4 (severe) Qualified Code(s): E11.22 - Type 2 diabetes mellitus with diabetic chronic kidney disease; N18.4 - Chronic kidney disease, stage 4 (severe); Z79.4 - senior living (current) use of insulin (5) HLD (hyperlipidemia): Assessment and Plan: allergy to statins. C/w fenofibrate Qualifiers: Hyperlipidemia type: unspecified Qualified Code(s): E78.5 - Hyperlipidemia, unspecified (6) Lumbar postlaminectomy syndrome: Assessment and Plan: Chronic LBP pain, worsened from baseline. On combination of PO/IV narcotics. PT/OT eval Added gabapentin 100 TID (7) Hypothyroid: Assessment and Plan: TSH slightly above goal. This could be due to acute illness/stress. C/w home dose. Repeat as outpatient. Qualifiers: Hypothyroidism type: unspecified Qualified Code(s): E03.9 - Hypothyroidism, unspecified
[2024-05-17] MEDS: INSULIN ASPART 300 UNIT/3 ML PEN SUBQ (12:08)
--- NOTE | 2024-05-17 12:16 | CT_ITS ---
The [address] [address] Patient Name: EDILIA HERNANDEZ MRN: [id number] date: 1940 Sex: F Assigned Patient Location: [place] Current Patient Location: [place] Accession/Order Number: [id number] Exam Date: 05/17/2024 12:30 Report Date: 05/17/2024 13:20 At the request of: SHAIKH ANTONINO Procedure: CT head/brain wo con EXAM: CT head/brain wo con HISTORY: Left-sided weakness, worsening COMPARISON: CT head 05/08/2024. MRI brain 07/26/2023 TECHNIQUE: Axial noncontrast CT imaging of the head was performed with coronal and sagittal reformats. This CT exam was performed using one or more of the following dose reduction techniques: Automated exposure control, adjustment of the MA and/or kV according to patient size, or use of iterative reconstruction technique. FINDINGS: Calvarium/skull base: No evidence of acute fracture or destructive lesion. Paranasal sinuses: No air fluid levels. Brain: No acute intracranial hemorrhage. Developing hypodensity involving the left lateral thalamus measuring 14 mm concerning for acute ischemia. Stable appearance of hypodensity involving the right basal ganglia unchanged from prior brain MR. Stable parenchymal volume loss. No mass lesion or mass effect. No hydrocephalus. Intracranial atherosclerosis. CT/CT head/brain wo con IMPRESSION: Acute infarct involving the left lateral thalamus. Notification of Results Provider/Agent notified: Dr. Olivas Time/Date notified: 05/17/2024 11:20 AM MDT Notifying Staff: Dr. Govea Electronically authenticated by: ISACC GOVEA Date: 05/17/2024 13:20
[2024-05-17] MEDS: ISOSORBIDE MONONITRATE 60 MG TAB.ER.24H PO (13:10)
[2024-05-17] MEDS: CLOPIDOGREL BISULFATE 75 MG TABLET PO (13:10)
[2024-05-17 16:52] LABS: Glucometer 185 mg/dL (74-106)
[2024-05-17 20:22] LABS: Glucometer 314 mg/dL (74-106)
[2024-05-17] MEDS: INSULIN DETEMIR 300 UNIT/3 ML INSULN.PEN 16 UNIT SUBQ (20:36)
[2024-05-18] VITALS (20 sets, daily range): BP systolic 122–183; BP diastolic 52–76; PULSE 58–84; TEMP 36.1–36.9; O2SAT 90–98
[2024-05-18] MEDS: HEPARIN SODIUM (PORCINE) 5,000 UNIT/ML VIAL 5000 UNIT SUBQ ×2 (05:41→14:38)
[2024-05-18] MEDS: LEVOTHYROXINE SODIUM 25 MCG TABLET PO (05:41)
[2024-05-18 05:51] LABS: Basophils Absolute Auto 0.1 10^3/uL (0.0-0.1); Eosinophils Absolute Auto 0.3 10^3/uL (0.0-0.7); Eosinophils Percent Auto 4.9 % (0.9-7.0); Hematocrit 25.7 % (36.0-48.0); Hemoglobin 8.3 g/dL (12.0-16.0); Immature Granulocytes Abs Auto 0.02 10^3/uL (0.00-0.03); Immature Granulocytes Pct Auto 0.3 % (0.0-0.5); Lymphocytes Absolute Auto 2.4 10^3/uL (1.2-3.8); Mean Corpuscular HGB Conc 32.3 g/dL (29.9-35.2); Mean Corpuscular Hemoglobin 31.2 pg (26.7-34.0); Mean Corpuscular Volume 96.6 fL (81.0-99.0); Mean Platelet Volume 11.5 fL (9.5-13.5); Monocytes Absolute Auto 0.4 10^3/uL (0.3-0.8); Monocytes Percent Auto 6.6 % (1.7-12.0); Neutrophils Absolute Auto 2.7 10^3/uL (1.4-6.5); Neutrophils Percent Auto 46.2 % (43.0-75.0); Platelet Count 210 10^3/uL (150-450); Red Blood Count 2.66 10^6/uL (4.20-5.40); Red Cell Distribution Width 13.6 % (11.0-15.0); White Blood Count 5.9 10^3/uL (4.0-11.0)
[2024-05-18 06:12] LABS: Alanine Aminotransferase 16 U/L (14-59); Albumin Globulin Ratio 0.6; Albumin Level 1.8 g/dL (3.4-5.0); Alkaline Phosphatase 43 U/L (46-116); Anion Gap 7.5; Aspartate Amino Transferase 30 U/L (15-37); BUN Creatinine Ratio 20.2; Bilirubin Total 0.3 mg/dL (0.2-1.0); Calcium 7.9 mg/dL (8.5-10.1); Carbon Dioxide 27.5 mmol/L (21.0-32.0); Chloride 109 mmol/L (98-107); Estimated GFR (African America 21 (>=60); Estimated GFR (Non-African Ame 17 (>=60); Globulin 2.8 g/dL; Glucose 76 mg/dL (74-106); Sodium 140 mmol/L (136-145); Total Protein 4.6 g/dL (6.4-8.2)
--- NOTE | 2024-05-18 07:10 | CA_ITS ---
Patient Name: EDILIA HERNANDEZ MR#: [id number] : 1940 Exam Date: 05/18/2024 Ordering Doctor: SHAIKH Lui MUÑIZ . ECHOCARDIOGRAM REPORT PROCEDURE: CA ECHO DOPPLER COMPLETE INDICATIONS: cva COMPARISON: None. DESCRIPTION: COMPLETE ECHOCARDIOGRAM Real-time transthoracic echocardiography with 2D, M-mode, spectral and color flow Doppler performed. QUALITY: Technical quality was good. LEFT VENTRICLE: Normal chamber size. Severe concentric left ventricular hypertrophy. LV EF: Global left ventricular systolic function is hyperdynamic; visual estimation of left ventricular ejection fraction is 70-75%. No significant wall motion abnormalities DIASTOLIC: Diastolic function is indeterminate. 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 LEFT ATRIUM: Normal chamber size. RIGHT ATRIUM: Normal chamber size. RIGHT VENTRICLE: Normal chamber size. Normal right ventricular systolic function. TRICUSPID VALVE: Normal mobility and thickness. Mild to moderate regurgitation. Moderate pulmonary hypertension. RVSP 45mmHg MITRAL VALVE: Normal mobility and thickness. No evidence of mitral valve stenosis. There is no mitral annular calcification. Mild to moderate mitral regurgitation. AORTIC VALVE: Normal trileaflet appearance. Mildly calcified aortic valve. Normal leaflet mobility. No evidence of aortic valve stenosis. No aortic regurgitation. AORTIC ROOT: Normal diameter and appearance. PULMONIC VALVE: Normal thickness and mobility. No stenosis. No regurgitation. PERICARDIUM: Anterior free space; trivial effusion versus fat pad IVC: Collapses with inspirations. Normal size. CONCLUSION: 1. Global left ventricular systolic function is hyperdynamic; visually estimated ejection fraction is 70 to 75% 2. Normal right ventricular size and systolic function 3. Severe left ventricular hypertrophy 4. Diastolic function is indeterminate 5. Mild to moderate tricuspid regurgitation 6. Moderately elevated right ventricular systolic pressure; RVSP 45 mmHg 7. Mild to moderate mitral regurgitation 8. Anterior free space; trivial effusion versus fat pad 9. 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 Adult Echocardiography Procedure Report Left Ventricle LVEDD (3.7 - 5.6 cm): 4.29 cm LVESD (2.2 - 4.0 cm): 3.02 cm LVIVS thickness (0.6 - 1.2 cm): 1.79 cm LVPW thickness (0.5 - 1.0 cm): 1.51 cm e': 0.06 m/s E - e': 14.05 LVOT Max Gradient: 3.39 mm[Hg] LVOT Area (cm2): 0.92 m/s Peak Velocity (LVOT): 0.92 m/s Mean Velocity (LVOT): 0.53 m/s LVOT Diameter 1.78 cm Left Ventricular Ejection Fraction: 75.45 % Left Atrium LA Volume Index (2D A2C): 25.53 ml/m2 Left Atrium Systolic Dimension: 3.30 cm Mitral Valve MV E to A Ratio: 0.87 Mitral Valve A-Wave Peak Velocity: 0.99 m/s Mitral Valve E-Wave Peak Velocity: 0.86 m/s Right Ventricle RV Internal Diastolic Dimension: 2.77 cm Aorta AO Root Diam: 2.77 cm Ascending Ao Diam: 2.61 cm Aortic Valve AoV Area (Peak Mina): 1.25 cm2, 1.25 cm2 AoV Area (VTI): 0.96 cm2, 0.96 cm2 Peak Velocity(Antegrade Flow): 1.84 m/s Peak Gradient(Antegrade Flow): 13.55 mm[Hg] Mean Velocity(Antegrade Flow): 1.30 m/s Mean Gradient(Antegrade Flow): 7.78 mm[Hg] Velocity Time Integral: 47.67 cm Tricuspid Valve Peak Velocity (Regurgitant Flow): 3.25 m/s, 2.82 m/s, 3.16 m/s Pulmonic Valve Mean Gradient: 2.76 mm[Hg], 3.06 mm[Hg] Mean Velocity: 0.80 m/s, 0.83 m/s Peak Velocity: 1.07 m/s Peak Gradient: 4.19 mm[Hg], 4.94 mm[Hg] Right Atrium Right Atrium Systolic Pressure: 29.38 ml, 29.38 ml Dictated by: Graciela Lemus M.D. on 05/18/2024 at 13:59 Approved by: Graciela Lemus M.D. on 05/18/2024 at 14:04
[2024-05-18] MEDS: CALCIUM CARBONATE 600 MG/VITAMIN D3 400 IU TABLET 1 TAB PO (09:25)
[2024-05-18] MEDS: CLOPIDOGREL BISULFATE 75 MG TABLET PO (09:25)
[2024-05-18] MEDS: ISOSORBIDE MONONITRATE 60 MG TAB.ER.24H PO (09:25)
[2024-05-18] MEDS: OMEPRAZOLE 40 MG CAPSULE.DR PO (09:25)
[2024-05-18] MEDS: DOXAZOSIN MESYLATE 2 MG TABLET 8 MG PO (09:26)
[2024-05-18] MEDS: LOSARTAN POTASSIUM 50 MG TABLET 100 MG PO (09:26)
[2024-05-18] MEDS: AMLODIPINE BESYLATE 5 MG TABLET 10 MG PO (09:26)
[2024-05-18] MEDS: METOPROLOL TARTRATE 25 MG TABLET 50 MG PO (09:26)
[2024-05-18] MEDS: CLONIDINE HCL 0.2 MG TABLET PO (09:26)
[2024-05-18] MEDS: EZETIMIBE 10 MG TABLET PO (09:26)
[2024-05-18] MEDS: LIOTHYRONINE SODIUM 5 MCG TABLET PO (09:26)
[2024-05-18] MEDS: ASPIRIN 81 MG TAB.CHEW PO (09:26)
[2024-05-18] MEDS: FENOFIBRATE 54 MG TABLET 162 MG PO (09:26)
[2024-05-18] MEDS: MULTIVITAMIN TABLET 1 TAB PO (09:27)
--- NOTE | 2024-05-18 10:10 | CM.NOTE ---
Rounds made with Dr. Olivas, PT and OT will evaluate pt today for discharge needs.
[2024-05-18] MEDS: FUROSEMIDE 40 MG TABLET PO (10:20)
--- NOTE | 2024-05-18 10:41 | SWNOTE1 ---
SW spoke to case management and pt will likely have dc needs. SW reviewed therapy notes and therapy is recommending skilled.
[2024-05-18 11:25] LABS: Glucometer 405 mg/dL (74-106)
[2024-05-18 11:26] LABS: Glucometer 424 mg/dL (74-106)
[2024-05-18] MEDS: INSULIN ASPART 300 UNIT/3 ML PEN 10 UNIT SUBQ (12:01)
[2024-05-18] MEDS: INSULIN ASPART 300 UNIT/3 ML PEN SUBQ (12:01)
--- NOTE | 2024-05-18 12:44 | PM.IMPN1 ---
Progress Note: A&P Assessment and Plan (1) Hypertensive emergency: Assessment and Plan: BP is better. Still above goal but needs to keep it elevated to allow permissive HTN. (2) Acute ischemic stroke: Assessment and Plan: Acute left thalamic infarct. Started on ASA, plavix. On fenofibrate as can't tolerate statins. Will need evaluation for PSK9 inhibitors as outpatient. ECHO to assess cardiac structure. PT/OT eval. Tele monitoring. Carotid US to assess carotid arteries. Unable to do CTA due to CKD (3) CKD stage 4 secondary to hypertension: Assessment and Plan: Renal fx slightly worse than baseline. Monitor for now. (4) Diabetes: Assessment and Plan: Poorly controlled. FSBS above goal. Increased lantus to 25 Units. C/w SSI. 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 Qualifiers: Hyperlipidemia type: unspecified Qualified Code(s): E78.5 - Hyperlipidemia, unspecified (6) Lumbar postlaminectomy syndrome: Assessment and Plan: Added gabapentin for pain. c/w pain control with combination of PT/OT, oral narcotics. (7) Hypothyroid: Assessment and Plan: C/w levothyroxine Qualifiers: Hypothyroidism type: unspecified Qualified Code(s): E03.9 - Hypothyroidism, unspecified Internal Medicine - PN: Subj Subjective Interval history: Seen and examined. Doing well. No overnight events. Exam Constitutional Vital Signs, click to edit/add: Last Vital Signs Temp 97.5 F L 05/18/24 11:49 Pulse 64 05/18/24 12:00 Resp 16 05/18/24 11:55 BP 140/76 05/18/24 11:49 Pulse Ox 98 05/18/24 11:49 O2 Del Method Room Air 05/18/24 11:49 Documenting provider has reviewed patient's vital signs: yes Common normals: no apparent distress and oriented x3 General appearance: cooperative Respiratory Common normals: normal respiratory effort and clear to auscultation bilaterally Effort & inspection: able to speak in complete sentences Auscultation: clear to auscultation bilaterally Cardio Common normals: regular rate, S1 normal heart sound and S2 normal heart sound Rate: regular rate Heart sounds: S1 normal and S2 normal Extremity Common normals: no clubbing, cyanosis or edema Neuro Common normals: oriented x3 and moves all extremities Other: LLE weakness - chronic RLE and RUE weakness 3-4/5 -- new. Psych Common normals: mental status grossly normal, denies hallucinations, denies homicidal ideation and denies suicidal ideation Internal Medicine - PN: Obj Da Labs Labs: Laboratory Results - last 24 hr 05/17/24 05/17/24 05/18/24 16:44 20:21 05:37 WBC 5.9 RBC 2.66 L Hgb 8.3 L Hct 25.7 L MCV 96.6 MCH 31.2 MCHC 32.3 RDW 13.6 Plt Count 210 MPV 11.5 Neut % (Auto) 46.2 Lymph % (Auto) 41.0 Hutchinson % (Auto) 6.6 Eos % (Auto) 4.9 Baso % (Auto) 1.0 Neut # (Auto) 2.7 Lymph # (Auto) 2.4 Hutchinson # (Auto) 0.4 Eos # (Auto) 0.3 Baso # (Auto) 0.1 Abs Immat Gran (auto) 0.02 Imm/Tot Granulo (auto) 0.3 Sodium 140 Potassium 4.0 Chloride 109 H Carbon Dioxide 27.5 Anion Gap 7.5 BUN 53.0 H Creatinine 2.62 H Est GFR ( Amer) 21 L Est GFR (Non-Af Amer) 17 L BUN/Creatinine Ratio 20.2 Glucose 76 Calcium 7.9 L Total Bilirubin 0.3 AST 30 ALT 16 Alkaline Phosphatase 43 L Total Protein 4.6 L Albumin 1.8 L Globulin 2.8 Albumin/Globulin Ratio 0.6 POC Glucose 185 H 314 H 05/18/24 05/18/24 11:24 11:25 WBC RBC Hgb Hct MCV MCH MCHC RDW Plt Count MPV Neut % (Auto) Lymph % (Auto) Hutchinson % (Auto) Eos % (Auto) Baso % (Auto) Neut # (Auto) Lymph # (Auto) Hutchinson # (Auto) Eos # (Auto) Baso # (Auto) Abs Immat Gran (auto) Imm/Tot Granulo (auto) Sodium Potassium Chloride Carbon Dioxide Anion Gap BUN Creatinine Est GFR ( Amer) Est GFR (Non-Af Amer) BUN/Creatinine Ratio Glucose Calcium Total Bilirubin AST ALT Alkaline Phosphatase Total Protein Albumin Globulin Albumin/Globulin Ratio POC Glucose 405 H 424 H
--- NOTE | 2024-05-18 13:04 | SWNOTE1 ---
SW met with pt to discuss dc needs. Pt's son in room as well. Pt lives at home by herself, normally independent. Pt does have a cane that she does use at times. SW spoke with them about pt going to rehab. Pt was already aware that it was recommended and she is in agreement. 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 SW provided pt and son with a list from Medicare.gov. They want the [facility]. SW did explain to pt and son about Medicare days and 3 day stay. They voiced understanding. Referral sent to [facility]. Referral included face sheet, ED note, H&P, provider notes, case management report, nursing notes, diagnostic imaging, med list, and PT/OT notes. Important Message from Medicare reviewed and discussed with patient. Pt. verbalized understanding and signed the form. Original given to patient and copy placed in patient?s chart.
--- NOTE | 2024-05-18 14:09 | SWNOTE1 ---
[facility] is able to accept when pt is medically stable for discharge. SW let nursing and Dr. Olivas know.
--- NOTE | 2024-05-18 14:54 | US_ITS ---
[address] [address] Patient Name: EDILIA HERNANDEZ MRN: [id number] date: 1940 Sex: F Assigned Patient Location: ICU Current Patient Location: [place] Accession/Order Number: [id number] Exam Date: 05/18/2024 17:50 Report Date: 05/18/2024 20:47 At the request of: SHAIKH ANTONINO Procedure: US carotid duplex BI EXAM: US carotid duplex BI CLINICAL HISTORY: 83 years old Female presenting with CVA, hypertension and diabetes mellitus. TECHNIQUE: Arterial duplex examination performed using B-mode, color flow and spectral analysis. Carotid stenosis is reported according to validated velocity parameters, similarly to NASCET criteria. COMPARISON: 08/13/2023 FINDINGS: Right Carotid System: The peak systolic flow velocity in the common carotid artery is 84 cm/s, internal carotid artery is 240 cm/s and diastolic flow velocity is 23 cm/s . The internal carotid artery over common carotid ratio is 2.8, based on the peak systolic velocities. There is a large amount of atherosclerotic plaque present. There is narrowing of the right carotid bulb in the range of 81%. There is a hemodynamically significant stenosis of greater than 70%. Left Carotid System: The peak systolic flow velocity in the common carotid artery is 151 cm/s, internal carotid artery is 212 cm/s and diastolic flow velocity is 22 cm/s. The internal carotid artery over common carotid ratio is 1.4, based on the peak systolic velocities. There is a large amount of atherosclerotic plaque present . There is narrowing of the left carotid bulb in the range of 71%. There is a hemodynamically significant stenosis in the range of 50-69%. The vertebral arteries are patent bilaterally and demonstrate antegrade flow.. There is elevated flow velocity in the left subclavian artery measuring 344 cm/s concerning for a hemodynamically significant stenosis. US/US carotid duplex BI IMPRESSION: 1. 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 This is slightly progressed from the previous exam. 2. Hemodynamically significant stenosis in the left carotid system in a range of 50-69% similar to the previous exam. 3. Elevated flow velocity in the left subclavian artery concerning for a hemodynamically significant stenosis. Electronically authenticated by: STEFFEN VASQUEZ Date: 05/18/2024 20:47
[2024-05-18 15:07] LABS: Glucometer 59 mg/dL (74-106)
[2024-05-18 15:33] LABS: Glucometer 94 mg/dL (74-106)
[2024-05-18] MEDS: ONDANSETRON PF 4 MG/2 ML VIAL IV (17:46)
[2024-05-18] MEDS: PROMETHAZINE HCL 12.5 MG in 0.9 % SODIUM CHLORIDE 50 ML 202 MG IV (18:14)
[2024-05-18 20:36] LABS: Glucometer 183 mg/dL (74-106)
[2024-05-18] MEDS: MORPHINE SULFATE 2 MG/ML SYRINGE IV (21:51)
[2024-05-19] VITALS (20 sets, daily range): BP systolic 101–168; BP diastolic 47–61; PULSE 75–97; TEMP 36.6–37.6; O2SAT 89–98
[2024-05-19 06:53] LABS: Basophils Percent Auto 0.2 % (0.2-2.0); Hematocrit 29.7 % (36.0-48.0); Hemoglobin 9.2 g/dL (12.0-16.0); Immature Granulocytes Abs Auto 0.13 10^3/uL (0.00-0.03); Immature Granulocytes Pct Auto 0.7 % (0.0-0.5); Lymphocytes Absolute Auto 0.8 10^3/uL (1.2-3.8); Lymphocytes Percent Auto 4.5 % (20.5-60.0); Mean Corpuscular Hemoglobin 30.9 pg (26.7-34.0); Mean Corpuscular Volume 99.7 fL (81.0-99.0); Mean Platelet Volume 11.6 fL (9.5-13.5); Monocytes Absolute Auto 0.9 10^3/uL (0.3-0.8); Monocytes Percent Auto 4.5 % (1.7-12.0); Neutrophils Percent Auto 90.1 % (43.0-75.0); Platelet Count 213 10^3/uL (150-450); Red Blood Count 2.98 10^6/uL (4.20-5.40); Red Cell Distribution Width 13.4 % (11.0-15.0); White Blood Count 18.9 10^3/uL (4.0-11.0)
[2024-05-19 07:14] LABS: Alanine Aminotransferase 25 U/L (14-59); Albumin Globulin Ratio 0.7; Albumin Level 2.2 g/dL (3.4-5.0); Alkaline Phosphatase 52 U/L (46-116); Anion Gap 25.3; Aspartate Amino Transferase 40 U/L (15-37); BUN Creatinine Ratio 19.7; Bilirubin Total 0.7 mg/dL (0.2-1.0); Calcium 8.5 mg/dL (8.5-10.1); Carbon Dioxide 15.6 mmol/L (21.0-32.0); Chloride 102 mmol/L (98-107); Estimated GFR (African America 18 (>=60); Estimated GFR (Non-African Ame 15 (>=60); Globulin 3.1 g/dL; Glucose 441 mg/dL (74-106); Potassium 4.9 mmol/L (3.5-5.1); Sodium 138 mmol/L (136-145); Total Protein 5.3 g/dL (6.4-8.2)
[2024-05-19 07:40] LABS: Glucometer 499 mg/dL (74-106)
[2024-05-19] MEDS: 0.9 % SODIUM CHLORIDE 500 ML 1000 ML IV (08:31)
[2024-05-19] MEDS: OMEPRAZOLE 40 MG CAPSULE.DR PO (08:32)
[2024-05-19] MEDS: CLOPIDOGREL BISULFATE 75 MG TABLET PO (08:32)
[2024-05-19] MEDS: INSULIN ASPART 300 UNIT/3 ML PEN SUBQ ×2 (08:32→12:05)
[2024-05-19] MEDS: INSULIN ASPART 300 UNIT/3 ML PEN 10 UNIT SUBQ (08:32)
[2024-05-19] MEDS: LIOTHYRONINE SODIUM 5 MCG TABLET PO (08:33)
[2024-05-19] MEDS: COENZYME Q10 100 MG 100 EACH PO (08:33)
[2024-05-19] MEDS: FENOFIBRATE 54 MG TABLET 162 MG PO (08:33)
[2024-05-19] MEDS: CALCIUM CARBONATE 600 MG/VITAMIN D3 400 IU TABLET 1 TAB PO (08:33)
[2024-05-19] MEDS: AMLODIPINE BESYLATE 5 MG TABLET 10 MG PO (08:33)
[2024-05-19] MEDS: MULTIVITAMIN TABLET 1 TAB PO (08:33)
[2024-05-19] MEDS: METOPROLOL TARTRATE 25 MG TABLET 50 MG PO (08:33)
[2024-05-19] MEDS: ASPIRIN 81 MG TAB.CHEW PO (08:33)
[2024-05-19] MEDS: CLONIDINE HCL 0.2 MG TABLET PO (08:33)
[2024-05-19] MEDS: DOXAZOSIN MESYLATE 2 MG TABLET 8 MG PO (08:33)
[2024-05-19] MEDS: EZETIMIBE 10 MG TABLET PO (08:33)
--- NOTE | 2024-05-19 10:00 | CM.NOTE ---
Rounds made with Dr. Olivas, pt c/o nausea, vomiting, and severe abdominal pain. Pt does have elevation in WBC today, pt will get CT abd and pelvis. No discharge today.
--- NOTE | 2024-05-19 10:40 | SWNOTE1 ---
SW was consulted for to speak with patient about POA, DPOA. SW went in to speak with pt and she was not feeling well. She stated she has a stomache. SW did ask her if she has completed healthcare power of criminal defense attorney paperwork? Pt initially stated she needs to complete, but upon further conversation, she stated her son is her HCPOA and she has completed it and it should be in our system. SW to check. SW asked pt where she completed it at, she state she thinks here at the hospital. ROBERT asked if she has the original book at home and she stated she thinks so. SW did check our system and it is not scanned in. SW to let pt know.
--- NOTE | 2024-05-19 11:07 | CT_ITS ---
[address] [address] Patient Name: EDILIA HERNANDEZ MRN: [id number] date: 1940 Sex: F Assigned Patient Location: [place] Current Patient Location: [place] Accession/Order Number: [id number] Exam Date: 05/19/2024 11:38 Report Date: 05/19/2024 12:18 At the request of: SHAIKH ANTONINO Procedure: CT abdomen pelvis wo con EXAM: CT abdomen pelvis wo con HISTORY: Abdominal pain COMPARISON: CT from 04/17/2023 TECHNIQUE: CT abdomen pelvis wo con FINDINGS: LOWER CHEST: LUNG BASES / PLEURA: Small bilateral pleural effusions and compressive bibasilar atelectasis. DISTAL ESOPHAGUS: Small sliding hiatal hernia. HEART / VESSELS: Moderate coronary artery disease. ABDOMEN and PELVIS: LIVER: Normal. BILIARY TRACT: Mild extrahepatic biliary duct dilatation that tapers distally and is likely secondary to the postcholecystectomy state. GALLBLADDER: Absent. PANCREAS: Normal. SPLEEN: Normal. ADRENALS: Normal. KIDNEYS: Multiple simple renal cysts on the right. No stone or hydroureteronephrosis. No suspicious focal renal lesion given the limitations of noncontrast CT. LYMPH NODES: None enlarged. STOMACH / SMALL BOWEL: No abnormality. COLON / APPENDIX: Pronounced circumferential wall thickening of the cecum and ascending colon. There is evidence of perforation of the cecum, as a tract of gas extends through the wall and into the adjacent fat (images 69, 71, and 80 of series 3). PERITONEUM / MESENTERY: As mentioned above, free air in the right lower quadrant adjacent to cecum. Minimal fat stranding. No significant volume of free fluid is noted. RETROPERITONEUM: Normal. VESSELS: Severe atherosclerotic disease of the normal caliber abdominal aorta and its major branches. URINARY BLADDER: Partially collapsed. REPRODUCTIVE ORGANS: No abnormality. BODY WALL: Mild soft tissue anasarca. MUSCULOSKELETAL: No acute abnormality. Discogenic vertebral endplate changes at L4-L5. CT/CT abdomen pelvis wo con IMPRESSION: 1. Findings consistent with colitis involving the cecum and ascending colon with small volume free air around the inflamed segment, indicating perforation. No loculated fluid collection or significant amount of free fluid is observed at this time. 2. Small bilateral pleural effusions and other findings as above. Findings were discussed with Dr. Olivas via telephone by Dr. Mclaughlin on 05/19/2024 11:18 AM CDT. Electronically authenticated by: TYRA MCLAUGHLIN Date: 05/19/2024 12:18
[2024-05-19 11:21] LABS: Glucometer 397 mg/dL (74-106)
--- NOTE | 2024-05-19 11:52 | REH.PTDLY ---
Physical Therapy Daily Note PT Daily Note/Assess Start: 05/18/24 09:48 Freq: Status: Active Protocol: Document 05/19/24 11:36 DAVIS (Rec: 05/19/24 11:52 DAVIS [id number]) Physical Therapy Daily Note/Assessment Time In 11:20 Time Out 11:40 Subjective Pt declined earlier this morning, checked again and pt is hesitant to agree and then states she does need to use restroom. Stomach was hurting very bad last night and just don't feel well overall. Very cold today too, pt is shivering. Therapeutic Exercise Minutes (minutes) 4 Therapeutic Exercise Units 0 Therapeutic Exercise Treatment Instructed in B LE AP, QS, and hip abd slides 10x before needing to go to CT. Therapeutic Activity Minutes (minutes) 13 Therapeutic Activity Units 1 Therapeutic Activity Comments Mod A with supine to sit transfer with cues for pt to push off of R arm as able. Sit to stand CGA. Attempted pt to use SC in L hand, but due to R sided weakness pt needs PRECISION AIRCRAFT STRUCTURE ASSEMBLER from NON MORSE INTERCEPT TECHNICIAN on R side. Gait 15 feet into bathroom Mod Ax1, CGAx1 and onto toilet. Pt able to maintain seated balance. Trialed RW with pt 15 feet back to bed Min A x1 as this goes better. Min A with sit to supine transfer. CT comes in after starting bed exs and pt transfers again into W/C Min A Total Therapy Minutes 17 Total Physical Therapy Units 1 Daily Note Summary Pt has improved gait when using RW due to R sided weakness and R LE tending to drag. When cued to take larger step with R LE pt is able to and gait is improved, needs constant reminders. Pt will benefit from rehab due to new onset of R sided stroke like symptoms
--- NOTE | 2024-05-19 12:31 | PM.GSCN ---
History of Present Illness Consult details Narrative: 83 yo female with significant past medical history currently admitted for a recent acute ischemic stroke which she has not been placed on Plavix and aspirin for. She originally presented for a having a stroke and was noted to have a CVA her imaging. She was potentially being discharged today but developed acute abdominal pain overnight and workup revealed leukocytosis and diverticulitis. He states she has never had pain like this before and that she has had no prior colonoscopies saying she has had diverticular disease. She denies any current fever, chills, chest pain. She said she was nauseous earlier this morning but that has improved. Denies any emesis today. Her last bowel movement was a couple days ago and was nonbloody. She is uncertain if she has been passing gas today or not. Prior cholecystectomy no other abdominal surgeries. Some family members were in the room to help provide some of the history and timeline. Their questions were answered and we discussed treatment for her current diverticulitis. Our goal would be nonoperative at this time given her recent stroke and Plavix that she is now on and her age. Review of Systems ROS Status of ROS 10 or more systems reviewed and unremarkable except as noted in history and below [facility] Medical History (Updated 05/19/24 @ 14:20 by Steve Blancas DO) Hypothyroid ?E03.9 - Hypothyroidism, unspecified (ICD-10) HLD (hyperlipidemia) ?E78.5 - Hyperlipidemia, unspecified (ICD-10) Lumbar spondylosis ?M47.816 - Spondylosis without myelopathy or radiculopathy, lumbar region (ICD-10) Lumbar postlaminectomy syndrome ?M96.1 - Postlaminectomy syndrome, not elsewhere classified (ICD-10) Sacroiliac joint dysfunction of both sides ?M53.3 - Sacrococcygeal disorders, not elsewhere classified (ICD-10) Acute kidney failure ?N17.9 - Acute kidney failure, unspecified (ICD-10) Colitis ?K52.9 - Noninfective gastroenteritis and colitis, unspecified (ICD-10) Elevated troponin ?R77.8 - Other specified abnormalities of plasma proteins (ICD-10) Kidney disease ?N28.9 - Disorder of kidney and ureter, unspecified (ICD-10) Weakness ?R53.1 - Weakness (ICD-10) Tremor ?R25.1 - Tremor, unspecified (ICD-10) Lumbar radiculopathy ?M54.16 - Radiculopathy, lumbar region (ICD-10) Sacroiliitis ?M46.1 - Sacroiliitis, not elsewhere classified (ICD-10) Stroke ?I63.9 - Cerebral infarction, unspecified (ICD-10) Weakness ?R53.1 - Weakness (ICD-10) Hypertension, uncontrolled ?I10 - Essential (primary) hypertension (ICD-10) Lumbar stenosis with neurogenic claudication ?M48.062 - Spinal stenosis, lumbar region with neurogenic claudication (ICD-10) CKD stage 4 secondary to hypertension ?I12.9 - Hypertensive chronic kidney disease with stage 1 through stage 4 chronic kidney disease, or unspecified chronic kidney disease (ICD-10) ?N18.4 - Chronic kidney disease, stage 4 (severe) (ICD-10) CHF (congestive heart failure) ?I50.9 - Heart failure, unspecified (ICD-10) Shingles ?B02.9 - Zoster without complications (ICD-10) Cataracts, bilateral ?H26.9 - Unspecified cataract (ICD-10) Intractable nausea and vomiting ?R11.2 - Nausea with vomiting, unspecified (ICD-10) Diabetes ?E11.9 - Type 2 diabetes mellitus without complications (ICD-10) Dupuytren contracture ?M72.0 - Palmar fascial fibromatosis [Dupuytren] (ICD-10) Skin cancer ?C44.90 - Unspecified malignant neoplasm of skin, unspecified (ICD-10) Degenerative disc disease Age related osteoporosis ?M81.0 - Age-related osteoporosis without current pathological fracture (ICD-10) Gastritis ?K29.70 - Gastritis, unspecified, without bleeding (ICD-10) Kidney failure ?N19 - Unspecified kidney failure (ICD-10) HTN (hypertension) ?I10 - Essential (primary) hypertension (ICD-10) High cholesterol ?E78.00 - Pure hypercholesterolemia, unspecified (ICD-10) Pulmonary HTN ?I27.20 - Pulmonary hypertension, unspecified (ICD-10) Surgical History History of right knee surgery ?Z98.890 - Other specified postprocedural states (ICD-10) History of sinus surgery ?Z98.890 - Other specified postprocedural states (ICD-10) History of cholecystectomy ?Z90.49 - Acquired absence of other specified parts of digestive tract (ICD-10) Previous back surgery ?Z98.890 - Other specified postprocedural states (ICD-10) Family History (Updated 05/16/24 @ 16:33 by Sara Conley) Other Family history of CHF (congestive heart failure) Family history of cancer Family history of diabetes mellitus Family history of hypertension Social History (Updated 05/16/24 @ 16:34 by Sara Conley) Within the past year, how often did you have a drink containing alcohol: never Score interpretation: A score less than 3 is consistent with normal alcohol consumption. 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 Known occupational exposures/hazards: No Highest level of school completed/degree received: 11th grade Do you want help with school or training: No Are you now , , , , never or living with a partner: In a typical week, how many times do you talk on the telephone with family, friends, or neighbors: twice per week How often do you get together with friends or relatives: twice per week How often do you attend synagogue or scientology services: 1-3 times per year Do you belong to any clubs or organizations such as synagogue groups unions, fraternal or athletic groups, or school groups: no Total score: 1 Score interpretation: A score of less than or equal to 1 indicates the most socially isolated. Little interest or pleasure in doing things: not at all Feeling down, depressed, or hopeless: not at all Feel stressed/tense/nervous/anxious/difficulty sleeping: not at all Due to disability, difficulty making decisions: No Do you think of yourself as: straight/heterosexual Gender Identity: female Meds Home Medications and Allergies Home Medications ?Medication ?Instructions ?Recorded ?Confirmed ?Type amlodipine 5 mg tablet 5 mg PO DAILY 02/11/23 05/16/24 History calcium carbonate 600 mg-vitamin 1 tab PO BID 02/11/23 05/16/24 History D3 5 mcg (200 unit) tablet (Calcium 600 + D(3)) coenzyme Q10 100 mg capsule (Co 100 mg PO DAILY 02/11/23 05/16/24 History Q-10) doxazosin 8 mg tablet 8 mg PO BID 02/11/23 05/16/24 History ezetimibe 10 mg tablet 10 mg PO DAILY 02/11/23 05/16/24 History fenofibrate 160 mg tablet 160 mg PO DAILY 02/11/23 05/16/24 History fluticasone propionate 50 1 spray intranasal DAILY PRN 02/11/23 05/16/24 History mcg/actuation nasal allergy symptoms spray,suspension (24 Hour Allergy Relief) furosemide 20 mg tablet 20 mg PO .QOD 02/11/23 05/17/24 History multivitamin (Daily Multi-Vitamin 1 tab PO DAILY 02/11/23 05/16/24 History tablet) pantoprazole 40 mg tablet,delayed 40 mg PO DAILY 02/11/23 05/16/24 History release (Protonix) spironolactone 25 mg tablet 12.5 mg PO .every other day 02/11/23 05/16/24 History aspirin 81 mg chewable tablet 81 mg PO DAILY 04/17/23 05/16/24 History levothyroxine 25 mcg tablet 25 mcg PO DAILY 04/17/23 05/16/24 History (Synthroid) liothyronine 5 mcg tablet 5 mcg PO DAILY #30 tabs 04/18/23 05/16/24 Rx clonidine HCl 0.2 mg tablet 0.2 mg PO Q12H HTN 05/16/24 05/16/24 History insulin glargine 100 unit/mL (3 16 unit subcut QPM 05/16/24 05/16/24 History mL) subcutaneous pen (Lantus Solostar U-100 Insulin) metoprolol tartrate 25 mg tablet 25 mg PO BID 05/16/24 05/16/24 History Allergies Allergy/AdvReac Type Severity Reaction Status Date / Time Penicillins Allergy Verified 04/29/23 11:01 [id number] Reductase Allergy Verified 04/29/23 11:01 Inhibitor Exam Narrative Exam Narrative: General: awake, alert, no distress Head: normocephalic, atraumatic Neck: supple, no tracheal deviation Heart: RRR Lungs: equal chest rise and fall, non labored breathing Abdomen: soft, + tenderness to right and left lower quadrants, no rebound, non peritoneal Extremities: no lesions, grossly normal Skin: intact, no cyanosis Psychological: no apparent mood disorder, appropriate for encounter Constitutional Vital Signs, click to edit/add: Last Vital Signs Temp 98.0 F 05/19/24 08:30 Pulse 79 05/19/24 10:00 Resp 18 05/19/24 08:30 BP 158/53 H 05/19/24 08:30 Pulse Ox 95 05/19/24 10:53 O2 Del Method Room Air 05/19/24 10:53 Results Labs Labs: Abnormal lab results 05/18/24 05/18/24 05/19/24 Range/Units 15:07 20:34 06:38 WBC 18.9 H (4.0-11.0) 10^3/uL RBC 2.98 L (4.20-5.40) 10^6/uL Hgb 9.2 L (12.0-16.0) g/dL Hct 29.7 L (36.0-48.0) % MCV 99.7 H (81.0-99.0) fL Neut % (Auto) 90.1 H (43.0-75.0) % Lymph % (Auto) 4.5 L (20.5-60.0) % Eos % (Auto) 0.0 L (0.9-7.0) % Neut # (Auto) 17.0 H (1.4-6.5) 10^3/uL Lymph # (Auto) 0.8 L (1.2-3.8) 10^3/uL [place] # (Auto) 0.9 H (0.3-0.8) 10^3/uL Abs Immat Gran (auto) 0.13 H (0.00-0.03) 10^3/uL Imm/Tot Granulo (auto) 0.7 H (0.0-0.5) % Carbon Dioxide 15.6 L (21.0-32.0) mmol/L BUN 59.0 H (7.0-18.0) mg/dL Creatinine 2.99 H (0.55-1.02) mg/dL Est GFR ( Amer) 18 L (>=60) Est GFR (Non-Af Amer) 15 L (>=60) Glucose 441 H (74-106) mg/dL AST 40 H (15-37) U/L Total Protein 5.3 L (6.4-8.2) g/dL Albumin 2.2 L (3.4-5.0) g/dL POC Glucose 59 L 183 H (74-106) mg/dL 05/19/24 05/19/24 Range/Units 07:39 11:20 WBC (4.0-11.0) 10^3/uL RBC (4.20-5.40) 10^6/uL Hgb (12.0-16.0) g/dL Hct (36.0-48.0) % MCV (81.0-99.0) fL Neut % (Auto) (43.0-75.0) % Lymph % (Auto) (20.5-60.0) % Eos % (Auto) (0.9-7.0) % Neut # (Auto) (1.4-6.5) 10^3/uL Lymph # (Auto) (1.2-3.8) 10^3/uL [place] # (Auto) (0.3-0.8) 10^3/uL Abs Immat Gran (auto) (0.00-0.03) 10^3/uL Imm/Tot Granulo (auto) (0.0-0.5) % Carbon Dioxide (21.0-32.0) mmol/L BUN (7.0-18.0) mg/dL Creatinine (0.55-1.02) mg/dL Est GFR ( Amer) (>=60) Est GFR (Non-Af Amer) (>=60) Glucose (74-106) mg/dL AST (15-37) U/L Total Protein (6.4-8.2) g/dL Albumin (3.4-5.0) g/dL POC Glucose 499 H 397 H (74-106) mg/dL Diabetes panel 05/19/24 Range/Units 06:38 Sodium 138 (136-145) mmol/L Potassium 4.9 (3.5-5.1) mmol/L Chloride 102 (98-107) mmol/L Carbon Dioxide 15.6 L (21.0-32.0) mmol/L BUN 59.0 H (7.0-18.0) mg/dL Creatinine 2.99 H (0.55-1.02) mg/dL Glucose 441 H (74-106) mg/dL Calcium 8.5 (8.5-10.1) mg/dL AST 40 H (15-37) U/L ALT 25 (14-59) U/L Alkaline Phosphatase 52 (46-116) U/L Total Protein 5.3 L (6.4-8.2) g/dL Albumin 2.2 L (3.4-5.0) g/dL Calcium panel 05/19/24 Range/Units 06:38 Calcium 8.5 (8.5-10.1) mg/dL Albumin 2.2 L (3.4-5.0) g/dL Pituitary panel 05/19/24 Range/Units 06:38 Sodium 138 (136-145) mmol/L Potassium 4.9 (3.5-5.1) mmol/L Chloride 102 (98-107) mmol/L Carbon Dioxide 15.6 L (21.0-32.0) mmol/L BUN 59.0 H (7.0-18.0) mg/dL Creatinine 2.99 H (0.55-1.02) mg/dL Glucose 441 H (74-106) mg/dL Calcium 8.5 (8.5-10.1) mg/dL Adrenal panel 05/19/24 Range/Units 06:38 Sodium 138 (136-145) mmol/L Potassium 4.9 (3.5-5.1) mmol/L Chloride 102 (98-107) mmol/L Carbon Dioxide 15.6 L (21.0-32.0) mmol/L BUN 59.0 H (7.0-18.0) mg/dL Creatinine 2.99 H (0.55-1.02) mg/dL Glucose 441 H (74-106) mg/dL Calcium 8.5 (8.5-10.1) mg/dL Total Bilirubin 0.7 (0.2-1.0) mg/dL AST 40 H (15-37) U/L ALT 25 (14-59) U/L Alkaline Phosphatase 52 (46-116) U/L Total Protein 5.3 L (6.4-8.2) g/dL Albumin 2.2 L (3.4-5.0) g/dL All other labs normal. Imaging Abdomen CT scan report/results: image reviewed Assessment and Plan Assessment and Plan (1) Hypertensive emergency: (2) Acute ischemic stroke: (3) CKD stage 4 secondary to hypertension: (4) Diabetes: Qualifiers: Chronic kidney disease stage: stage 4 (severe) Diabetes mellitus complication detail: with chronic kidney disease Diabetes mellitus complication status: with kidney complications Diabetes mellitus group home insulin use: with technician terminal and repeater use Diabetes mellitus type: type 2 Qualified Code(s): E11.22 - Type 2 diabetes mellitus with diabetic chronic kidney disease; N18.4 - Chronic kidney disease, stage 4 (severe); Z79.4 - termite control 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 IV abx, NPO, serial abdominal exams, monitor bowel function, if has excessive emesis place NGT 2. Continue management and recs per primary 3. Given her stroke and significant stenosis of both carotid arteries along with her other comorbidities discussed with the patient and her family the primary goal is non operative. Possible repeat imaging in 3-4 days if needed pending white count and pain levels to look for any drainable fluid collections vs improvement
[2024-05-19] MEDS: CIPROFLOXACIN IN 5 % DEXTROSE 400 MG/200 ML PREMIX 200 MG IV (14:23)
[2024-05-19] MEDS: METRONIDAZOLE/SODIUM CHLORIDE 500 MG/100 ML PREMIX 100 MG IV ×2 (14:23→22:35)
[2024-05-19] MEDS: SODIUM CHLORIDE 0.45 % 1,000 ML 100 ML IV (14:24)
--- NOTE | 2024-05-19 14:41 | SWNOTE1 ---
No discharge today for pt. ROBERT sent updates to Katie, updates included physician notes, surgeon consult, PT, labs, vitals, and diagnostic imaging. ROBERT also sent cardiology consult. ROBERT did speak with pt's son and he is going to look for the Living Will and power of finance attorney paperwork and bring it in for SW to review.
--- NOTE | 2024-05-19 15:15 | PM.IMPN1 ---
Progress Note: A&P Assessment and Plan (1) Colitis: Assessment and Plan: CT abdomen pelvis shows left-sided colitis with microperforation. Discussed finding with general surgery. Given recent stroke, high risk factors prefer medical management. Started patient on IV ciprofloxacin and Flagyl. Strict NPO. Started patient on IV fluids. Needs close hemodynamic monitoring. (2) Perforation of colon: Assessment and Plan: Microperforation with colitis. Medical management for now. Strict NPO. (3) Hypertensive emergency: Assessment and Plan: Borderline hypotension noted. Hold all antihypertensives except for metoprolol. On IV fluids. (4) NATALIA (acute kidney injury): Assessment and Plan: Baseline renal function is about 1.8-2.0. Renal function is significantly worsened likely because of colitis. Creatinine today is 2.9. Started patient on IV fluids. Monitor renal function closely (5) Acute ischemic stroke: Assessment and Plan: Acute left thalamic infarct. on ASA, plavix. On fenofibrate as can't tolerate statins. Will need evaluation for PSK9 inhibitors as outpatient. No significant abnormality on echo. PT/OT eval. Tele monitoring. Carotid US to assess carotid arteries -hemodynamically significant carotid artery disease. Will need outpatient follow-up for possible carotid endarterectomy (6) CKD stage 4 secondary to hypertension: Assessment and Plan: Patient now has acute kidney injury. Monitor renal function closely. On IV fluids. (7) Diabetes: Assessment and Plan: Poorly controlled. A1C above goal 9.4 Monitor blood glucose closely while patient is NPO. 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 Qualifiers: Hyperlipidemia type: unspecified Qualified Code(s): E78.5 - Hyperlipidemia, unspecified (9) Lumbar postlaminectomy syndrome: Assessment and Plan: on gabapentin for pain. c/w pain control with combination of PT/OT, oral narcotics. (10) Hypothyroid: Assessment and Plan: C/w levothyroxine Qualifiers: Hypothyroidism type: unspecified Qualified Code(s): E03.9 - Hypothyroidism, unspecified Internal Medicine - PN: Subj Subjective Interval history: Seen and examined. Appears sick and unwell. Reports nausea, anorexia, generalized abdominal pain and vomiting overnight. WBC worsened from before. CT abd pelvis ordered - shows Colitis, with microperforation. D/w general surgery, medical management for now. Exam Constitutional Vital Signs, click to edit/add: Last Vital Signs Temp 97.8 F 05/19/24 12:57 Pulse 76 05/19/24 14:00 Resp 18 05/19/24 12:57 BP 101/47 L 05/19/24 12:57 Pulse Ox 90 L 05/19/24 14:00 O2 Del Method Room Air 05/19/24 12:57 General appearance: cooperative, in distress, lethargic and ill appearing HENMT Common normals: normocephalic and head/scalp atraumatic Respiratory Common normals: normal respiratory effort and no use of accessory muscles Effort & inspection: able to speak in complete sentences and decreased respiratory effort Cardio Common normals: regular rate, regular rhythm, S1 normal heart sound and S2 normal heart sound GI Common normals: Normal to inspection, nondistended, normoactive bowel sounds present Palpation: tender (generalized tenderness) Extremity Common normals: normal to inspection and full ROM Neuro Common normals: oriented x3, moves all extremities and no sensory deficits noted Psych Common normals: mental status grossly normal, thought process normal, denies homicidal ideation and denies suicidal ideation Internal Medicine - PN: Obj Da Labs Labs: Laboratory Results - last 24 hr 05/18/24 05/18/24 05/19/24 15:31 20:34 06:38 WBC 18.9 H RBC 2.98 L Hgb 9.2 L Hct 29.7 L MCV 99.7 H MCH 30.9 MCHC 31.0 RDW 13.4 Plt Count 213 MPV 11.6 Neut % (Auto) 90.1 H Lymph % (Auto) 4.5 L [place] % (Auto) 4.5 Eos % (Auto) 0.0 L Baso % (Auto) 0.2 Neut # (Auto) 17.0 H Lymph # (Auto) 0.8 L [place] # (Auto) 0.9 H Eos # (Auto) 0.0 Baso # (Auto) 0.0 Abs Immat Gran (auto) 0.13 H Imm/Tot Granulo (auto) 0.7 H Sodium 138 Potassium 4.9 Chloride 102 Carbon Dioxide 15.6 L Anion Gap 25.3 BUN 59.0 H Creatinine 2.99 H Est GFR ( Amer) 18 L Est GFR (Non-Af Amer) 15 L BUN/Creatinine Ratio 19.7 Glucose 441 H Calcium 8.5 Total Bilirubin 0.7 AST 40 H ALT 25 Alkaline Phosphatase 52 Total Protein 5.3 L Albumin 2.2 L Globulin 3.1 Albumin/Globulin Ratio 0.7 Lipase 21.0 POC Glucose 94 183 H 05/19/24 05/19/24 07:39 11:20 WBC RBC Hgb Hct MCV MCH MCHC RDW Plt Count MPV Neut % (Auto) Lymph % (Auto) [place] % (Auto) Eos % (Auto) Baso % (Auto) Neut # (Auto) Lymph # (Auto) [place] # (Auto) Eos # (Auto) Baso # (Auto) Abs Immat Gran (auto) Imm/Tot Granulo (auto) Sodium Potassium Chloride Carbon Dioxide Anion Gap BUN Creatinine Est GFR ( Amer) Est GFR (Non-Af Amer) BUN/Creatinine Ratio Glucose Calcium Total Bilirubin AST ALT Alkaline Phosphatase Total Protein Albumin Globulin Albumin/Globulin Ratio Lipase POC Glucose 499 H 397 H
[2024-05-19 16:28] LABS: Glucometer 227 mg/dL (74-106)
[2024-05-19 20:49] LABS: Glucometer 324 mg/dL (74-106)
--- NOTE | 2024-05-19 21:51 | CT_ITS ---
The [address] [address] Patient Name: EDILIA HERNANDEZ MRN: [id number] date: 1940 Sex: F Assigned Patient Location: [place] Current Patient Location: [place] Accession/Order Number: [id number] Exam Date: 05/19/2024 22:14 Report Date: 05/19/2024 22:30 At the request of: AMADOR BUENO Procedure: CT stroke head/brain wo con EXAM: CT scan of the head without contrast. Dose reduction technique used: Automated exposure control and/or adjustment of the mA and/or kV according to patient size and/or use of iterative reconstruction technique. REASON FOR EXAM: Stroke COMPARISON: CT scan dated 05/16/2024 FINDINGS: Acute to subacute lacunar infarct in the left thalamus, this is not significantly changed. No definite new areas of acute ischemic infarct. No intracranial hemorrhage, mass effect, midline shift, or fractures. No hydrocephalus. Old right basal ganglia lacunar infarct. Moderate generalized cerebral and cerebellar volume loss. Moderate small vessel gliosis. Paranasal sinuses and mastoid air cells are clear. Remainder unremarkable. CT/CT stroke head/brain wo con IMPRESSION: Acute to subacute lacunar infarct in the left thalamus. Electronically authenticated by: PRINCESS CHAVEZ Date: 05/19/2024 22:30
[2024-05-19] MEDS: 0.9 % SODIUM CHLORIDE 500 ML IV (22:32)
[2024-05-19] MEDS: HEPARIN SODIUM (PORCINE) 5,000 UNIT/ML VIAL 5000 UNIT SUBQ (22:35)
[2024-05-20] VITALS (23 sets, daily range): BP systolic 146–167; BP diastolic 53–75; PULSE 74–102; TEMP 36.6–36.9; O2SAT 93–98
[2024-05-20] MEDS: SODIUM CHLORIDE 0.45 % 1,000 ML 100 ML IV (00:47)
[2024-05-20 01:13] LABS: Glucometer 387 mg/dL (74-106)
[2024-05-20] MEDS: HEPARIN SODIUM (PORCINE) 5,000 UNIT/ML VIAL 5000 UNIT SUBQ ×2 (05:37→14:44)
[2024-05-20] MEDS: METRONIDAZOLE/SODIUM CHLORIDE 500 MG/100 ML PREMIX 100 MG IV ×2 (05:37→14:45)
[2024-05-20 06:05] LABS: Hematocrit 27.4 % (36.0-48.0); Hemoglobin 8.6 g/dL (12.0-16.0); Mean Corpuscular HGB Conc 31.4 g/dL (29.9-35.2); Mean Corpuscular Hemoglobin 31.3 pg (26.7-34.0); Mean Corpuscular Volume 99.6 fL (81.0-99.0); Platelet Count 199 10^3/uL (150-450); Red Blood Count 2.75 10^6/uL (4.20-5.40); Red Cell Distribution Width 13.9 % (11.0-15.0); White Blood Count 23.1 10^3/uL (4.0-11.0)
[2024-05-20 06:21] LABS: Alanine Aminotransferase 26 U/L (14-59); Albumin Globulin Ratio 0.6; Albumin Level 1.8 g/dL (3.4-5.0); Alkaline Phosphatase 48 U/L (46-116); Anion Gap 22.3; Aspartate Amino Transferase 55 U/L (15-37); BUN Creatinine Ratio 22.7; Bilirubin Total 0.6 mg/dL (0.2-1.0); Carbon Dioxide 15.1 mmol/L (21.0-32.0); Chloride 101 mmol/L (98-107); Estimated GFR (African America 17 (>=60 mL/min/1.73m^2); Estimated GFR (Non-African Ame 14 (>=60 mL/min/1.73m^2); Globulin 3.2 g/dL; Glucose 429 mg/dL (74-106); Potassium 5.4 mmol/L (3.5-5.1); Sodium 133 mmol/L (136-145)
[2024-05-20 06:30] LABS: Lymphocytes Absolute Manual 2.77 10^3/uL (1.20-3.80); Monocytes Absolute Manual 0.69 10^3/uL (0.30-0.80); Segmented Neut Absolute Manual 19.86 10^3/uL (1.4-6.5)
[2024-05-20 06:31] LABS: Hypochromasia 3+; Stomatocytes 2+
[2024-05-20] MEDS: 0.9 % SODIUM CHLORIDE 1,000 ML 1000 ML IV ×2 (07:33→14:22)
--- NOTE | 2024-05-20 07:56 | PM.GSPN ---
Progress Note: A&P Assessment and Plan (1) Colitis: (2) Perforation of colon: Assessment and Plan: 1. Strict NPO, monitor abdominal exam closely, monitor bowel function 2. Cont IV Abx and IVF 3. Discussed with primary the need for close observation of abdominal discomfort and overall condition, patient may need repeat imaging to identify any drainable fluid collections via IR if her WBC continues to rise and or her abdominal exam worsens. Concerns of ongoing stroke per nursing given her new right sided UE weakness and aphasia. Patient on plavix and ASA for recent stroke. 4. 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 insulin use: with intermediate use Diabetes mellitus type: type 2 Qualified Code(s): E11.22 - Type 2 diabetes mellitus with diabetic chronic kidney disease; N18.4 - Chronic kidney disease, stage 4 (severe); Z79.4 - correction (current) use of insulin (8) HLD (hyperlipidemia): Qualifiers: Hyperlipidemia type: unspecified Qualified Code(s): E78.5 - Hyperlipidemia, unspecified (9) Lumbar postlaminectomy syndrome: (10) Hypothyroid: Qualifiers: Hypothyroidism type: unspecified Qualified Code(s): E03.9 - Hypothyroidism, unspecified Subjective Subjective Interval history: Patient states her abdominal pain is slightly better this am. One non bloody BM recorded yesterday. She denies any nausea or emesis. She is thirsty. Denies any f/c. She is having some issues with expressing herself it seems. The nurse is concerned with new onset right sided arm weakness and increased difficulty with her speech. Exam Narrative Exam Narrative: General: awake, alert, no acute distress Head: normocephalic, atraumatic Neck: supple, no tracheal deviation Heart: RRR Lungs: equal chest rise and fall, non labored breathing Abdomen: soft, + tenderness to right and left lower quadrants, no rebound, non peritoneal Extremities: no lesions, grossly normal Skin: intact, no cyanosis Psychological: no apparent mood disorder, some mild difficulty with articulating thoughts Constitutional Vital Signs, click to edit/add: Last Vital Signs Temp 98.1 F 05/20/24 03:49 Pulse 94 H 05/20/24 05:59 Resp 16 05/20/24 03:49 BP 159/55 H 05/20/24 03:49 Pulse Ox 98 05/20/24 05:59 O2 Del Method Nasal Cannula 05/20/24 03:49 O2 Flow Rate 2 05/20/24 03:49
[2024-05-20 08:13] LABS: Allen Test POSITIVE (POSITIVE); Base Excess ABG -11.7 mmol/L (-2.0-2.0); Liters per Minute 2; O2 Mode NC; Oxygen Saturation ABG 97.1 %; PO2 ABG 86.9 mmHg (80.0-100.0); Puncture Site LR
[2024-05-20 08:18] LABS: Glucometer 457 mg/dL (74-106)
[2024-05-20 08:34] LABS: Acetone SMALL (NEGATIVE)
[2024-05-20 08:41] LABS: Lactate/Lactic Acid 1.7 mmol/L (0.4-2.0)
[2024-05-20] MEDS: PANTOPRAZOLE SODIUM 40 MG VIAL IV (09:37)
[2024-05-20] MEDS: INSULIN ASPART 300 UNIT/3 ML PEN SUBQ (09:37)
--- NOTE | 2024-05-20 10:27 | REH.PTDLY ---
Physical Therapy Daily Note PT Daily Note/Assess Start: 05/18/24 09:48 Freq: Status: Active Protocol: Document 05/20/24 10:26 DAVIS (Rec: 05/20/24 10:27 DAVIS [id number]) Visit Not Completed Visit Not Completed Due to: Nursing request to hold Other Reason Visit Not Completed LEANNA Ruiz states that pt is supposed to be laying flat due to perforated bowel. On hold at this time. Physical Therapy Daily Note/Assessment Time In 09:05 Time Out 09:06
--- NOTE | 2024-05-20 10:35 | CM.NOTE ---
Rounds made with Dr. Olivas, pt continues with abdominal pain and now c/o shortness of breath. Discussed with pt and son regarding need for transfer to higher level of care d/t decline in status and possible need for surgical intervention. Both are in agreement for transfer. Dr. Olivas also discussed with pt about code status. Pt and son both verbalize understanding and wishes are for DNRCCA status. Paperwork signed by Dr. Olivas. Pt will transfer to ICU d/t decline in status until transfer to higher level of care.
--- NOTE | 2024-05-20 10:54 | P.IMPN_ITS ---
Progress Note: A&P Assessment and Plan (1) DKA, type 2: Assessment and Plan: Patient now has DKA blood glucose over 400, increased anion gap along with metabolic acidosis on ABG with positive acetone. Her lactate was normal. Patient transferred to ICU. She received 1 L IV fluid bolus. She will be started on IV insulin continuous infusion as per DKA protocol. Qualifiers: Diabetes mellitus complication detail: without coma Qualified Code(s): E11.10 - Type 2 diabetes mellitus with ketoacidosis without coma (2) Metabolic acidosis: Assessment and Plan: Normal lactic acidosis. Patient has not DKA and was started on IV insulin/IV fluids as per DKA. (3) Colitis: Assessment and Plan: Colitis with microperforation. Worsening leukocytosis along with acute kidney injury/hyperkalemia. Her pain is persistent, unchanged. Discussed with surgery and given her risk factors, it is felt that she will be better served in a tertiary care facility. Discussed with patient, she is agreeable for transfer if needed (4) Perforation of colon: Assessment and Plan: Microperforation with colitis. On IV antibiotics. Worsening leukocytosis along with acute kidney injury and hyperkalemia. Will initiate a transfer request to a tertiary care center given her risk factors, severity of illness (5) Hypertensive emergency: Assessment and Plan: Hold antihypertensives for now. Monitor closely. Blood pressure is stable (6) NATALIA (acute kidney injury): Assessment and Plan: Worsening renal function. Along with hyperkalemia. 1 L IV fluid bolus ordered. Will need aggressive IV hydration because of DKA and acute cholecystitis (7) Hyperkalemia: Assessment and Plan: Repeat basic metabolic panel after initial IV fluid bolus and IV insulin therapy. Monitor closely. (8) Acute ischemic stroke: Assessment and Plan: Overnight brief episode of confusion and possible right upper extremity weakness. No acute finding on CT head. ER provider who examined the patient felt that she was delirious and did not have an acute stroke. She is on aspirin Plavix, statin. (9) CKD stage 4 secondary to hypertension: Assessment and Plan: Currently has acute kidney injury. monitor renal function closely. (10) Diabetes: Assessment and Plan: She now has DKA likely exacerbated because of acute illness. Transfer to ICU on IV saline. Qualifiers: Diabetes mellitus type: type 2 Diabetes mellitus exterminator termite insulin use: with exterminator termite use Diabetes mellitus complication status: with kidney complications Diabetes mellitus complication detail: with chronic kidney disease Chronic kidney disease stage: stage 4 (severe) Qualified Code(s): E11.22 - Type 2 diabetes mellitus with diabetic chronic kidney disease; N18.4 - Chronic kidney disease, stage 4 (severe); Z79.4 - exterminator termite (current) use of insulin (11) HLD (hyperlipidemia): Assessment and Plan: Continue with statin. Qualifiers: Hyperlipidemia type: unspecified Qualified Code(s): E78.5 - Hyperlipidemia, unspecified (12) Lumbar postlaminectomy syndrome: Assessment and Plan: Discontinue gabapentin. Pain is well-controlled. (13) Hypothyroid: Assessment and Plan: Continue with levothyroxine Qualifiers: Hypothyroidism type: unspecified Qualified Code(s): E03.9 - Hypothyroidism, unspecified Internal Medicine - PN: Subj Subjective Interval history: Seen and examined. Overnight, patient was more confused, was slurring speech and had right sided weakness. Her symptoms resolved. Tele stroke was consulted who recommended stat CT that did not reveal any new finding. ED provider examined the patient and felt it was more delirium and not acute stroke. Exam Constitutional Vital Signs, click to edit/add: Last Vital Signs Temp 97.9 F 05/20/24 07:35 Pulse 100 H 05/20/24 10:00 Resp 16 05/20/24 07:35 BP 146/54 H 05/20/24 07:35 Pulse Ox 98 05/20/24 08:17 O2 Del Method Nasal Cannula 05/20/24 08:17 O2 Flow Rate 2 05/20/24 08:17 General appearance: cooperative, lethargic and ill appearing Respiratory Common normals: normal respiratory effort and no use of accessory muscles Effort & inspection: able to speak in complete sentences and decreased respiratory effort Cardio Common normals: regular rate, regular rhythm, S1 normal heart sound and S2 normal heart sound GI Common normals: Normal to inspection, nondistended, normoactive bowel sounds present Palpation: tender (generalized tenderness) Extremity Common normals: normal to inspection and full ROM Neuro Common normals: oriented x3, moves all extremities and no sensory deficits noted Psych Common normals: mental status grossly normal, thought process normal, denies homicidal ideation and denies suicidal ideation Internal Medicine - PN: Obj Da Labs Labs: Laboratory Results - last 24 hr 05/19/24 05/19/2405/19/24 06:38 11:20 16:27 WBC RBC Hgb Hct MCV MCH MCHC RDW Plt Count MPV Seg Neuts % (Manual) Lymphocytes % (Manual) Monocytes % (Manual) Eosinophils % (Manual) Basophils % (Manual) Neutrophils # (Manual) Lymphocytes # (Manual) Abs Atypical Lymphs Man Monocytes # (Manual) Eosinophils # (Manual) Basophils # (Manual) Hypochromasia Stomatocytes Puncture Site ABG pH ABG pCO2 ABG pO2 ABG HCO3 ABG O2 Saturation ABG Base Excess Manuel Test O2 Liters/Min Sodium Potassium Chloride Carbon Dioxide Anion Gap BUN Creatinine Est GFR ( Amer) Est GFR (Non-Af Amer) BUN/Creatinine Ratio Glucose Lactate Calcium Total Bilirubin AST ALT Alkaline Phosphatase Total Protein Albumin Globulin Albumin/Globulin Ratio Lipase 21.0 Acetone, Qual POC Glucose 397 H 227 H 05/19/24 05/20/24 05/20/24 20:48 01:11 05:53 WBC 23.1 H RBC 2.75 L Hgb 8.6 L Hct 27.4 L MCV 99.6 H MCH 31.3 MCHC 31.4 RDW 13.9 Plt Count 199 MPV 12.0 Seg Neuts % (Manual) 86.0 H Lymphocytes % (Manual) 12.0 L Monocytes % (Manual) 3.0 Eosinophils % (Manual) 0.0 L Basophils % (Manual) 0.0 L Neutrophils # (Manual) 19.86 H Lymphocytes # (Manual) 2.77 Abs Atypical Lymphs Man 0.00 Monocytes # (Manual) 0.69 Eosinophils # (Manual) 0.00 Basophils # (Manual) 0.00 Hypochromasia 3+ Stomatocytes 2+ Puncture Site ABG pH ABG pCO2 ABG pO2 ABG HCO3 ABG O2 Saturation ABG Base Excess Manuel Test O2 Liters/Min Sodium 133 L Potassium 5.4 H Chloride 101 Carbon Dioxide 15.1 L Anion Gap 22.3 BUN 70.0 H Creatinine 3.08 H Est GFR ( Amer) 17 L Est GFR (Non-Af Amer) 14 L BUN/Creatinine Ratio 22.7 Glucose 429 H Lactate Calcium 8.0 L Total Bilirubin 0.6 AST 55 H ALT 26 Alkaline Phosphatase 48 Total Protein 5.0 L Albumin 1.8 L Globulin 3.2 Albumin/Globulin Ratio 0.6 Lipase Acetone, Qual POC Glucose 324 H 387 H 10/02/24 10/02/24 10/02/24 08:05 08:10 08:16 WBC RBC Hgb Hct MCV MCH MCHC RDW Plt Count MPV Seg Neuts % (Manual) Lymphocytes % (Manual) Monocytes % (Manual) Eosinophils % (Manual) Basophils % (Manual) Neutrophils # (Manual) Lymphocytes # (Manual) Abs Atypical Lymphs Man Monocytes # (Manual) Eosinophils # (Manual) Basophils # (Manual) Hypochromasia Stomatocytes Puncture Site Lr ABG pH 7.280 L* ABG pCO2 32.0 L ABG pO2 86.9 ABG HCO3 15.0 L ABG O2 Saturation 97.1 ABG Base Excess -11.7 L Manuel Test Positive O2 Liters/Min 2 Sodium Potassium Chloride Carbon Dioxide Anion Gap BUN Creatinine Est GFR ( Amer) Est GFR (Non-Af Amer) BUN/Creatinine Ratio Glucose Lactate 1.7 Calcium Total Bilirubin AST ALT Alkaline Phosphatase Total Protein Albumin Globulin Albumin/Globulin Ratio Lipase Acetone, Qual Small A POC Glucose 457 H
[2024-05-20 11:36] LABS: Glucometer 390 mg/dL (74-106)
[2024-05-20 11:38] LABS: Anion Gap 23.8; BUN Creatinine Ratio 22.6; Calcium 7.9 mg/dL (8.5-10.1); Carbon Dioxide 12.7 mmol/L (21.0-32.0); Chloride 104 mmol/L (98-107); Estimated GFR (African America 17 (>=60 mL/min/1.73m^2); Estimated GFR (Non-African Ame 14 (>=60 mL/min/1.73m^2); Glucose 443 mg/dL (74-106); Magnesium 2.3 mg/dL (1.8-2.4); Potassium 4.5 mmol/L (3.5-5.1); Sodium 136 mmol/L (136-145)
--- NOTE | 2024-05-20 11:41 | CM.NOTE ---
Pt and son requesting to speak with Case Management. Pt voices concerns regarding transport to higher level of care being a medical necessity and not being covered by Medicare. Explained to pt we do not do the billing for transport and unsure how she would transport at this time. Insurance information would be provided to whomever transports pt. Support provided to pt and questions answered.
--- NOTE | 2024-05-20 11:48 | CM.NOTE ---
2nd Important Message From Medicare discussed with pt, pt denies questions or concerns.
[2024-05-20] MEDS: INSULIN REGULAR IN 0.9 % NACL 100 UNIT/100 ML PLAST..BAG IV (12:09)
[2024-05-20 12:12] LABS: Phosphorus 6.3 mg/dL (2.6-4.7)
--- NOTE | 2024-05-20 12:13 | SWNOTE1 ---
Pt is going to be transferred. SW updated [place]. SW spoke with son and he had left his cell phone number here and it was wrote on demographic sheet. ROBERT called down to registration to have it updated in system for emergency contact.
--- NOTE | 2024-05-20 12:21 | P.DS_ITS ---
DS: Providers Provider Date of admission: 05/16/24 15:23 Primary care physician: NATHAN JOVEL Admitting clinician: Shaikh Deisy Attending physician on admission: Shaikh Deisy Consults: 05/16/24 Consult to Sliding Joint Maker Routine Reason for consult:: Other Other reason:: help with POA/DPOA information. 05/16/24 13:37 Consult to Telestroke Routine Reason for consultation: left sided weakness Has provider been notified: Yes 05/16/24 15:57 Occupational Therapy Eval and Treat Routine Reason for consultation: Ambulatory dysfunction/weakness Physical Therapy Eval and Treat Routine Reason for consultation: Ambulatory dysfunction/weakness 05/19/24 12:18 Consult to General Surgeon Routine Consulting Provider: Steve Blancas Reason for consultation: Colitis with perforation 05/19/24 21:28 Consult to Telestroke Routine Reason for consultation: Worsening stroke symptoms Has provider been notified: No Attending physician on discharge: Shaikh Deisy Discharging clinician: Shaikh Deisy Anticipated date of discharge: 05/20/24 DS: Diagnosis Discharge Diagnosis (1) DKA, type 2: Qualifiers: Diabetes mellitus complication detail: without coma Qualified Code(s): E11.10 - Type 2 diabetes mellitus with ketoacidosis without coma (2) Metabolic acidosis: (3) Colitis: (4) Perforation of colon: (5) Hypertensive emergency: (6) NATALIA (acute kidney injury): (7) Hyperkalemia: (8) Acute ischemic stroke: (9) CKD stage 4 secondary to hypertension: (10) Diabetes: Qualifiers: Diabetes mellitus type: type 2 Diabetes mellitus fci insulin use: with long wall mining machine helper use Diabetes mellitus complication status: with kidney complications Diabetes mellitus complication detail: with chronic kidney disease Chronic kidney disease stage: stage 4 (severe) Qualified Code(s): E11.22 - Type 2 diabetes mellitus with diabetic chronic kidney disease; N18.4 - Chronic kidney disease, stage 4 (severe); Z79.4 - correction (current) use of insulin (11) HLD (hyperlipidemia): Qualifiers: Hyperlipidemia type: unspecified Qualified Code(s): E78.5 - Hyperlipidemia, unspecified (12) Lumbar postlaminectomy syndrome: (13) Hypothyroid: Qualifiers: Hypothyroidism type: unspecified Qualified Code(s): E03.9 - Hypothyroidism, unspecified DS: Summary Hospital Course Hospital Course: 83 y o female with hx of chronic LBP, chronic LLE weakness/numbness presented with left sided UE and LE weakness and numbness. She has chronic LLE weakness from previous back surgery. She has poorly controlled HTN, nad presented with HTN emergency. His SBP was as high as 240 upon arrival. Tele stroke was consulte d and patient was admitted for stroke work up and HTN emergency. Her CTH on arrival did not reveal any sig pathology. Her BP was carefully treated and treatment goal was 180/100 due to suspected CVA. She was given IV hydralazine as needed but her oral antihypertensives were also adjusted to allow. First night of admission, she developed right sided weakness/numbness and facial drooping which resolved quickly w/o any intervention. Repeat CTH revealed left thalamic infarct. CTA head/neck could not be performed due to CKD. 4. However, Carotid duplex was ordered that revealed hemodynamically significant carotid artery disease b/l along with possible left subclavian stenosis. Patient was started on ASA, Plavix. She can't tolerate statin so she was continued on Fenofibrate. On ECHO she did not have any intracardiac shunt, normal LVEF and no sig valvular pathology was noted. She was improving clinically and plan was to discharge her to acute rehab and f/u with Neurology and vascular surgery as outpatient. Unfortunately, she started to experience generalized abdominal pain, nausea, vomiting and anorexia. She also developed Leukocytosis and NATALIA. CT abd/pelvis was ordered and she was found to have acute colitis with free intraperitoneal air. No free fluid or abscess was noted. She was made NPO and started on IVF and IVF Cipr/flagyl (she is PCN allergic) Patient was seen by general surgery who initially recommended medical management. However, she is clinically worsening with persistent/severe abdominal pain, worsening leukocytosis and NATALIA. She also now has developed DKA. Patient was transferred to ICU after being given 2L NS Bolus and subsequently started on IV Insulin, IVF as per DKA protocol. Her case was discussed again with general surgery who recommended that patient will be nefit from higher level of care given her advanced age, cardiovascular risk factors and recent stroke. Transfer request was made to [facility] and patient was accepted to [facility] MICU under Dr. Younger. Patient is medically stable for transfer to [facility]. Case was discussed with the patient and her son Óscar. Both are aware of the need for transfer and agree with plan of care. Status at Discharge Functional status at discharge: bed bound Overall status at discharge: patient is not back to baseline Time Spent with Patient Time attestation: Total time spent providing and/or coordinating discharge services: Time spent: greater than 30 minutes Exam Constitutional Vital Signs, click to edit/add: Last Vital Signs Temp 98.4 F 05/20/24 11:00 Pulse 98 H 05/20/24 11:00 Resp 16 05/20/24 11:00 BP 154/56 H 05/20/24 11:00 Pulse Ox 97 05/20/24 11:00 O2 Del Method Nasal Cannula 05/20/24 11:00 O2 Flow Rate 2 05/20/24 11:00 General appearance: cooperative, lethargic and ill appearing Respiratory Common normals: normal respiratory effort and no use of accessory muscles Effort & inspection: able to speak in complete sentences and decreased respiratory effort Cardio Common normals: regular rate, regular rhythm, S1 normal heart sound and S2 normal heart sound GI Common normals: Normal to inspection, nondistended, normoactive bowel sounds present Palpation: tender (generalized tenderness) Extremity Common normals: normal to inspection and full ROM Neuro Common normals: oriented x3, moves all extremities and no sensory deficits noted Psych Common normals: mental status grossly normal, thought process normal, denies homicidal ideation and denies suicidal ideation DS: Data Data Completed and Pending Labs on day of discharge: Labs from last 24 hours 05/20/24 05/20/24 05/20/24 11:35 11:00 08:16 WBC RBC Hgb Hct MCV MCH MCHC RDW Plt Count MPV Seg Neuts % (Manual) Lymphocytes % (Manual) Monocytes % (Manual) Eosinophils % (Manual) Basophils % (Manual) Neutrophils # (Manual) Lymphocytes # (Manual) Abs Atypical Lymphs Man Monocytes # (Manual) Eosinophils # (Manual) Basophils # (Manual) Hypochromasia Stomatocytes Puncture Site ABG pH ABG pCO2 ABG pO2 ABG HCO3 ABG O2 Saturation ABG Base Excess Manuel Test O2 Liters/Min Sodium 136 Potassium 4.5 Chloride 104 Carbon Dioxide 12.7 L Anion Gap 23.8 BUN 71.0 H Creatinine 3.14 H Est GFR ( Amer) 17 L Est GFR (Non-Af Amer) 14 L BUN/Creatinine Ratio 22.6 Glucose 443 H Lactate Calcium 7.9 L Phosphorus 6.3 H* Magnesium 2.3 Total Bilirubin AST ALT Alkaline Phosphatase Total Protein Albumin Globulin Albumin/Globulin Ratio Acetone, Qual POC Glucose 390 H 457 H 05/20/24 05/20/24 05/20/24 08:10 08:05 05:53 WBC 23.1 H RBC 2.75 L Hgb 8.6 L Hct 27.4 L MCV 99.6 H MCH 31.3 MCHC 31.4 RDW 13.9 Plt Count 199 MPV 12.0 Seg Neuts % (Manual) 86.0 H Lymphocytes % (Manual) 12.0 L Monocytes % (Manual) 3.0 Eosinophils % (Manual) 0.0 L Basophils % (Manual) 0.0 L Neutrophils # (Manual) 19.86 H Lymphocytes # (Manual) 2.77 Abs Atypical Lymphs Man 0.00 Monocytes # (Manual) 0.69 Eosinophils # (Manual) 0.00 Basophils # (Manual) 0.00 Hypochromasia 3+ Stomatocytes 2+ Puncture Site Lr ABG pH 7.280 L* ABG pCO2 32.0 L ABG pO2 86.9 ABG HCO3 15.0 L ABG O2 Saturation 97.1 ABG Base Excess -11.7 L Manuel Test Positive O2 Liters/Min 2 Sodium 133 L Potassium 5.4 H Chloride 101 Carbon Dioxide 15.1 L Anion Gap 22.3 BUN 70.0 H Creatinine 3.08 H Est GFR ( Amer) 17 L Est GFR (Non-Af Amer) 14 L BUN/Creatinine Ratio 22.7 Glucose 429 H Lactate 1.7 Calcium 8.0 L Phosphorus Magnesium Total Bilirubin 0.6 AST 55 H ALT 26 Alkaline Phosphatase 48 Total Protein 5.0 L Albumin 1.8 L Globulin 3.2 Albumin/Globulin Ratio 0.6 Acetone, Qual Small A POC Glucose 05/20/24 05/19/24 05/19/24 01:11 20:48 16:27 WBC RBC Hgb Hct MCV MCH MCHC RDW Plt Count MPV Seg Neuts % (Manual) Lymphocytes % (Manual) Monocytes % (Manual) Eosinophils % (Manual) Basophils % (Manual) Neutrophils # (Manual) Lymphocytes # (Manual) Abs Atypical Lymphs Man Monocytes # (Manual) Eosinophils # (Manual) Basophils # (Manual) Hypochromasia Stomatocytes Puncture Site ABG pH ABG pCO2 ABG pO2 ABG HCO3 ABG O2 Saturation ABG Base Excess Manuel Test O2 Liters/Min Sodium Potassium Chloride Carbon Dioxide Anion Gap BUN Creatinine Est GFR ( Amer) Est GFR (Non-Af Amer) BUN/Creatinine Ratio Glucose Lactate Calcium Phosphorus Magnesium Total Bilirubin AST ALT Alkaline Phosphatase Total Protein Albumin Globulin Albumin/Globulin Ratio Acetone, Qual POC Glucose 387 H 324 H 227 H Discharge Plan Discharge Disposition: Xfer Acute Care Hospital
[2024-05-20 13:10] LABS: Glucometer 302 mg/dL (74-106)
[2024-05-20 14:35] LABS: Anion Gap 17.8; BUN Creatinine Ratio 23.3; Calcium 7.9 mg/dL (8.5-10.1); Carbon Dioxide 18.3 mmol/L (21.0-32.0); Chloride 105 mmol/L (98-107); Estimated GFR (African America 17 (>=60 mL/min/1.73m^2); Estimated GFR (Non-African Ame 14 (>=60 mL/min/1.73m^2); Glucose 298 mg/dL (74-106); Magnesium 2.2 mg/dL (1.8-2.4); Phosphorus 5.2 mg/dL (2.6-4.7); Potassium 4.1 mmol/L (3.5-5.1); Sodium 137 mmol/L (136-145)
[2024-05-20] MEDS: DEXTROSE 5 %-0.45 % SOD CHLORD 1,000 ML 150 ML IV (15:06)
[2024-05-20] MEDS: CIPROFLOXACIN IN 5 % DEXTROSE 400 MG/200 ML PREMIX 200 MG IV (15:35)
--- NOTE | 2024-05-20 16:56 | PC.NURSE ---
pt left with [facility] to [facility] rm [id number], vitals stable, IV's intact with insulin running @ 0.03unit/kg/hr, D5 1/2 ns @ 150ml/hr in left AC, and cipro running at 200ml/hr in right ac. Patient alert to self, place, situation, mild weakness on right side. Pain in right abdomen with movement.
== END 2024-05-20 16:15 | disposition short-term general hospital (02) | DRG 64 ==
LOC: ER 14:20 → MS 15:34 → ICU 05-17 15:03 → MS 05-18 20:08 → ICU 05-20 10:43
PROVIDERS: Admitting Provider Internal Medicine; Emergency Provider Emergency Medicine; PCP Nurse Practitioner Family; Visit Provider Internal Medicine
DX: I63.9 Cerebral infarction, unspecified (principal); E11.10 Type 2 diabetes mellitus with ketoacidosis without coma; K63.1 Perforation of intestine (nontraumatic); I16.1 Hypertensive emergency; N17.9 Acute kidney failure, unspecified; G81.91 Hemiplegia, unspecified affecting right dominant side; N18.4 Chronic kidney disease, stage 4 (severe); I12.9 Hypertensive chronic kidney disease with stage 1 through stage 4 chronic kidney disease, or unspecified chronic kidney disease; E11.22 Type 2 diabetes mellitus with diabetic chronic kidney disease; K52.9 Noninfective gastroenteritis and colitis, unspecified; E87.5 Hyperkalemia; I65.23 Occlusion and stenosis of bilateral carotid arteries; D64.9 Anemia, unspecified; I70.208 Unspecified atherosclerosis of native arteries of extremities, other extremity; E78.5 Hyperlipidemia, unspecified; E03.9 Hypothyroidism, unspecified; M96.1 Postlaminectomy syndrome, not elsewhere classified; Z79.4 Long term (current) use of insulin; Z79.899 Other long term (current) drug therapy; Z79.82 Long term (current) use of aspirin; Z79.890 Hormone replacement therapy; Z88.0 Allergy status to penicillin; Z88.8 Allergy status to other drugs, medicaments and biological substances
CPT/HCPCS: 36415; 36600; 70450; 70551; 74176; 80048; 80053; 80061; 82009; 82805; 82948; 83036; 83605; 83690; 83735; 84100; 84443; 84484; 85007; 85025; 85027; 85610; 93005; 93306; 93880; 94761; 97161; 97165; 97530; 99285; J0360; J0744; J1644; J1836; J2250; J2270; J2405; Q3014